=== PATIENT | male | born 1965 | race African-American/Black ===

== ENCOUNTER 2017-01-29 13:34 | Inpatient (IN) | payer BC, OTHER ==
[2017-01-29 14:07] VITALS: BMI 43.5
--- NOTE | 2017-01-29 17:04 | PDOC ---
[id number]: SOB Time Seen by Provider: 01/29/17 16:54 History Source: Patient Exam Limitations: No Limitations - History of Present Illness Initial Comments: 01/29/17 18:13 51y M hx of hl, htn, ckd presents with CARRENO/sob, the patient states that for the past week, he has felt very sob when he was walking up stairs. the pt does endorse a mild productive cough of whitish sputum, no signs of blood. There is no associated chest pain, palppitations, n/v, diaphoresis, abd pain, back pain, leg swelling. Pt denies smoking, drug use. Pt stats he had a sister with hx of PE and is on coumadin. 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 Denies any history of leg/calf pain. No current pain/swelling. Past History - Past Medical History Allergies/Adverse Reactions: Allergies Allergy/AdvReac Type Severity Reaction Status Date / Time aspirin AdvReac Mild "BACK Verified 01/29/17 14:04 STARTS TO HURT" Home Medications: Ambulatory Orders Sitagliptin Phosphate [Januvia] 25 mg PO DAILY 03/29/14 Enalapril Maleate [Vasotec -] 10 mg PO DAILY 01/23/16 Glipizide [Glipizide ER] 10 mg PO DAILY 01/23/16 Atorvastatin Ca [Lipitor] 10 mg PO HS 01/29/17 Cholecalciferol (Vitamin D3) [Vitamin D3 -] 4,000 unit PO DAILY 01/29/17 Metoprolol Succinate [Toprol XL -] 25 mg PO DAILY #30 tab.sr.24h 01/31/17 Rivaroxaban [Xarelto -] 15 mg PO BID #42 tab 01/31/17 Anemia: No Asthma: No Cancer: No Cardiac Disorders: No CVA: No COPD: No DVT: No Dementia: No Diabetes: No Dialysis: No GI Disorders: No Disorders: No HTN: No Hypercholesterolemia: No HIV: No Kidney Stones: No Liver Disease: No Psychiatric Problems: No Seizures: No Thyroid Disease: No Lung CA: No - Surgical History Lung Surgery: No Neurologic Surgery: No - Psycho/Social/Smoking Cessation Hx Anxiety: No Suicidal Ideation: No Smoking Status: No Smoking History: Never smoked Have you smoked in the past 12 months: No Number of Cigarettes Smoked Daily: 0 'Breaking Loose' booklet given: 03/29/14 Hx Alcohol Use: No Drug/Substance Use Hx: No Review of Systems - Review of Systems Able to Perform ROS?: Yes Comments:: 01/29/17 18:15 Constitutional - no reported Fever, Chills, weakness, HEENT: no reported vision changes, sore throat Respiratory: +CARRENO/sob, cough, no reported hemoptysis Cardiac: no reported chest pain, palpitations, light headedness, leg swelling Abd/GI: no reported abd pain, nausea, vomiting, blood per rectum, melena, diarrhea : no reported dysuria, frequency, discharge Musculskelatal - no reported back pain, joint swelling skin - no reported bruising, erythema, rash neurological: no reported headache, numbness, focal weakness, tingling, ataxia, weakness hematologic: no reported anemia, easy bruising, easy bleeding *Physical Exam - Vital Signs Last Vital Signs Temp Pulse Resp BP Pulse Ox 98.3 F 93 H 20 158/92 95 01/29/17 14:04 01/29/17 14:04 01/29/17 14:04 01/29/17 14:04 01/29/17 14:04 - Physical Exam Comments: 01/29/17 18:15 GENERAL: The patient is awake, alert, and fully oriented, Nontoxic - in no acute distress. HEAD: Normocephalic, atraumatic. EYES: extraocular movements intact, sclera anicteric, conjunctiva clear. ENT: Normal voice, Moist mucous membranes. NECK: Normal range of motion, supple LUNGS: Breath sounds equal, clear to auscultation bilaterally. No wheezes, no rhonchi, no rales. HEART: Regular rate and rhythm, normal S1 and S2 without murmur, rub or gallop. ABDOMEN: Soft, nontender, normoactive bowel sounds. No guarding, no rebound. No CVA tenderness EXTREMITIES: Normal range of motion, +1 pitting bl LE edema. NEUROLOGICAL: No facial assymetry, Normal speech, PSYCH: Normal mood, normal affect. SKIN: Warm, Dry, normal turgor, Heart Score/ECG Review - ECG Impressions Comment:: 01/29/17 19:53 Twelve-lead EKG was performed and reviewed by me. There is normal sinus rhythm with a normal rate. Rate of 73 The axis is normal. The intervals are normal. There is normal R wave progression There are no ST or T wave abnormalities. Impression: Normal twelve-lead EKG ED Treatment Course - LABORATORY CBC & Chemistry Diagram: 01/31/17 05:50 01/31/17 05:50 Medical Decision Making - Medical Decision Making 01/29/17 18:13 differential for the pts symptoms includes worsening ckd, chf, uri, pe, acs, anemia will ck labs, trops, bnp, d-dimer, cxr, ekg if all neg, pt may benefit from echo 01/29/17 19:52 pt signed out to dr. newell to fu with labs if all neg, will obs for echo in AM. *DC/Admit/Observation/Transfer Diagnosis at time of Disposition: Dyspnea, CKD (chronic kidney disease) - Discharge Dispostion Disposition: HOME Condition at time of disposition: Stable - Prescriptions
[2017-01-29 19:07] LABS: BASOPHIL 0.8 % (0-2.0); MCH 24.6 pg (25.7-33.7); MEAN CELL VOLUME 76.8 fl (80-96); MEAN PLT VOLUME 9.2 fl (7.5-11.1); NEUTROPHILS 67.7 % (42.8-82.8); PLATELET COUNT 149 K/MM3 (134-434); RDW 16.5 % (11.9-15.9); WHITE BLOOD COUNT 8.9 K/mm3 (4.0-10.0)
[2017-01-29 19:55] LABS: ALBUMIN 3.2 g/dl (3.4-5.0); BILIRUBIN,TOTAL 0.3 mg/dL (0.2-1.0); CALCIUM 8.6 mg/dL (8.5-10.1); CREATININE 1.9 mg/dL (0.7-1.3); TOT PROT 7.3 g/dl (6.4-8.2)
[2017-01-29 20:34] LABS: INR 1.04 (0.82-1.09); PROTHROMBIN TIME (PATIENT) 11.4 SEC (9.98-11.88)
[2017-01-29 20:41] LABS: TROPONIN I 0.77 ng/ml (0.00-0.05)
[2017-01-29] MEDS ORDERED: SODIUM CHLORIDE 1,000 ML IV STA (21:02)
--- NOTE | 2017-01-29 21:26 | PDOC ---
*Physical Exam - Vital Signs Last Vital Signs Temp Pulse Resp BP Pulse Ox 98.3 F 93 H 20 158/92 95 01/29/17 14:04 01/29/17 14:04 01/29/17 14:04 01/29/17 14:04 01/29/17 14:04 <Shubham Hummel - Last Filed: 01/29/17 21:25> - Vital Signs Last Vital Signs Temp Pulse Resp BP Pulse Ox 98.3 F 93 H 20 158/92 95 01/29/17 14:04 01/29/17 14:04 01/29/17 14:04 01/29/17 14:04 01/29/17 14:04 <Alaina Matthews - Last Filed: 01/30/17 02:28> ED Treatment Course - LABORATORY CBC & Chemistry Diagram: 01/29/17 18:36 01/29/17 18:36 - ADDITIONAL ORDERS Additional order review: Laboratory Results 01/29/17 01/29/17 01/29/17 18:36 18:36 18:36 INR 1.04 D-Dimer > 5000 H Sodium 141 Potassium 4.7 Chloride 108 H Carbon Dioxide 24 Anion Gap 9 BUN 31 H Creatinine 1.9 H Creat Clearance w eGFR 37.41 Random Glucose 86 D Calcium 8.6 Total Bilirubin 0.3 AST 27 D ALT 26 D Alkaline Phosphatase 73 D Creatine Kinase 383 H CK-MB (CK-2) 4.488 H Troponin I 0.77 H* B-Natriuretic Peptide 958.22 H Total Protein 7.3 Albumin 3.2 L 01/29/17 18:36 RBC 5.76 H MCV 76.8 L MCHC 32.0 RDW 16.5 H D MPV 9.2 D Neutrophils % 67.7 D Lymphocytes % 16.2 D Monocytes % 10.3 H Eosinophils % 5.0 H D Basophils % 0.8 - RADIOLOGY Radiology Studies Ordered: Category Date Time Status CHEST CTA [CT] Stat CT Scan 01/29/17 20:22 Ordered <Shubham Hummel - Last Filed: 01/29/17 21:25> - LABORATORY CBC & Chemistry Diagram: 01/29/17 18:36 01/29/17 18:36 - ADDITIONAL ORDERS Additional order review: Laboratory Results 01/29/17 01/29/17 01/29/17 18:36 18:36 18:36 INR 1.04 D-Dimer > 5000 H Sodium 141 Potassium 4.7 Chloride 108 H Carbon Dioxide 24 Anion Gap 9 BUN 31 H Creatinine 1.9 H Creat Clearance w eGFR 37.41 Random Glucose 86 D Calcium 8.6 Total Bilirubin 0.3 AST 27 D ALT 26 D Alkaline Phosphatase 73 D Creatine Kinase 383 H CK-MB (CK-2) 4.488 H Troponin I 0.77 H* B-Natriuretic Peptide 958.22 H Total Protein 7.3 Albumin 3.2 L 01/29/17 18:36 RBC 5.76 H MCV 76.8 L MCHC 32.0 RDW 16.5 H D MPV 9.2 D Neutrophils % 67.7 D Lymphocytes % 16.2 D Monocytes % 10.3 H Eosinophils % 5.0 H D Basophils % 0.8 - RADIOLOGY Radiograph Interpretation: 01/30/17 02:27 EXAM: Venous duplex bilateral lower extremities Reviewed by Imaging director selection and administration: FINDINGS: There is no DVT in the right lower extremity. There is nearly occlusive thrombus in the left popliteal vein. No additional clot identified in the left lower extremity. IMPRESSION: DVT in the left popliteal vein. <Alaina Matthews - Last Filed: 01/30/17 02:28> Medical Decision Making - Medical Decision Making 01/29/17 21:[address] Daniel Shell (via office: [phone]) several times with no response. Decision was made to admit to hospitalist. 01/29/17 21:34 Dr. Shell responded back at 21:34 and patient's case was discussed. <Alaina Matthews - Last Filed: 01/30/17 02:28> *DC/Admit/Observation/Transfer - Discharge Dispostion Admit: Yes <Shubham Hummel - Last Filed: 01/29/17 21:25> <Alaina Matthews - Last Filed: 01/30/17 02:28> Diagnosis at time of Disposition: Dyspnea Qualifiers: Dyspnea type: dyspnea on exertion Qualified Code(s): R06.09 - Other forms of dyspnea CKD (chronic kidney disease) Qualifiers: Chronic kidney disease stage: stage 1 Qualified Code(s): N18.1 - Chronic kidney disease, stage 1 - Referrals
--- NOTE | 2017-01-29 23:01 | HP ---
CHIEF COMPLAINT: Shortness of breath PCP: Dr. Chris Hair (Renal) Dr. Wadsworth ( Endocrinology) Dr. Del Rio (Ophthalmology) Dr. Parry HISTORY OF PRESENT ILLNESS: Patient is a 51-year-old male presented to the ED with the chief complaints of shortness of breath since a week. As per the patient, he started having shortness of breath with exertion even with one flight of stairs, progressively getting worse associated with cough x 2 weeks, producing phlegm, whitish in color. Patient said he has had periodic cough on/off but not so severe as he has now. Denies chest pain, cough, palpitation, orthopnea, PND, Fever, chills, rigors or sweating. Had loose stool x once this morning. Otherwise doesn't have h/o diarrhoea or constipation. 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 Also developed wound on the base of the right great toe 3 months ago. He had the wound debridement 2 months ago and has a scheduled appointment with Dr. Parry. Last HbA1c 6 months ago was 8.1 and he says he is compliant with medication. Has never had an echo or any cardiac work up. Patient has had diabetic retinopathy (has undergone laser therapy multiple times ) and visits Dr. Del Rio's office regularly. Sleep/Appetite normal. ER course was notable for: (1) Afebrile; hemodynamically stable, creatinine 1.9/37.41 GFR (baseline creatinine 1.9 since 2010); Troponin 0.77; BNP-958.22 (2) Duplex of bilateral lower extremity: Left lower extremity DVT (3) IV NS; Lovenox 120 mg sq Recent Travel: None PAST MEDICAL HISTORY: Hypertension, Hyperlipidemia, CKD, DM (since 20 years) PAST SURGICAL HISTORY: Laser surgeries for eyes Social History: Smoking: Denies Alcohol:Denies Drugs: Denies Family History: Mother of [place] @ age 83 years; Father of [place] at age 67; one sister has a h/o PE with multiple sclerosis and the other has a h/o DVT Allergies aspirin Adverse Reaction (Mild, Verified 01/29/17 14:04) "BACK STARTS TO HURT" HOME MEDICATIONS: Home Medications Medication Instructions Recorded Sitagliptin Phosphate [Januvia] 25 mg PO DAILY 03/29/14 Enalapril Maleate [Vasotec -] 10 mg PO DAILY 01/23/16 Glipizide [Glipizide ER] 10 mg PO DAILY 01/23/16 Atorvastatin Ca [Lipitor] 10 mg PO HS 01/29/17 Cholecalciferol (Vitamin D3) 4,000 unit PO DAILY 01/29/17 [Vitamin D3 -] REVIEW OF SYSTEMS CONSTITUTIONAL: Absent: fever, chills, diaphoresis, generalized weakness, malaise, loss of appetite, weight change HEENT: Absent: rhinorrhea, nasal congestion, throat pain, throat swelling, difficulty swallowing, mouth swelling, ear pain, eye pain, visual changes CARDIOVASCULAR: Absent: chest pain, syncope, palpitations, irregular heart rate, lightheadedness , peripheral edema RESPIRATORY: Present: cough, shortness of breath, dyspnea with exertion, Absent:orthopnea, wheezing, stridor, hemoptysis GASTROINTESTINAL: Absent: abdominal pain, abdominal distension, nausea, vomiting, diarrhea, constipation, melena, hematochezia GENITOURINARY: Absent: dysuria, frequency, urgency, hesitancy, hematuria, flank pain, genital pain MUSCULOSKELETAL: Absent: myalgia, arthralgia, joint swelling, back pain, neck pain SKIN: Absent: rash, itching, pallor HEMATOLOGIC/IMMUNOLOGIC: Absent: easy bleeding, easy bruising, lymphadenopathy, frequent infections ENDOCRINE: Absent: unexplained weight gain, unexplained weight loss, heat intolerance, cold intolerance NEUROLOGIC: Absent: headache, focal weakness or paresthesias, dizziness, unsteady gait, seizure, mental status changes, bladder or bowel incontinence PSYCHIATRIC: Absent: anxiety, depression, suicidal or homicidal ideation, hallucinations. PHYSICAL EXAMINATION GENERAL: Morbidly obese male, lying comfortably in bed, Awake, alert, and fully oriented, in no acute distress. HEAD: Normal with no signs of trauma. EYES: EOM intact, no pallor or icterus EARS, NOSE, THROAT: Ears danitza. Moist mucous membranes. NECK: Supple. LUNGS: Breath sounds equal, clear to auscultation bilaterally. No wheezes, and no crackles. No accessory muscle use. HEART: Regular rate and rhythm, normal S1 and S2 without murmur. ABDOMEN: Soft, nontender, not distended, normoactive bowel sounds, no guarding, no rebound, no masses. No hepatomegaly or splenomegaly. MUSCULOSKELETAL: Normal range of motion at all joints. No bony deformities or tenderness. No CVA tenderness. UPPER EXTREMITIES: 2+ pulses, warm, well-perfused. No cyanosis. No clubbing. No peripheral edema. LOWER EXTREMITIES: 2+ pulses, warm, well-perfused. Left homans sign positive. B/ L pitting edema upto the mid forrest R>L Around 2x4cm ulcer at the base of the right great toe, dry, no serosanguinous fluid NEUROLOGICAL: Cranial nerves II-XII intact. Normal speech.Gait not observed. PSYCHIATRIC: Cooperative. Good eye contact. Appropriate mood and affect. SKIN: Warm, dry, normal turgor, no rashes or lesions noted, normal capillary refill. ASSESSMENT/PLAN: Patient is a 51-year-old male with significant past medical history of Hypertension, Hyperlipidemia, CKD, DM (since 20 years) presented to the ED with the chief complaints of shortness of breath since a week. 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 On arrival, patient was Afebrile; hemodynamically stable, creatinine 1.9/ 37.41 GFR (baseline creatinine 1.9 since 2010); Troponin 0.77; Duplex of bilateral lower extremity: Left lower extremity DVT In the ED, patient received IV NS; Lovenox 120 mg sq Admitted in Tele Chest CTA couldn't be done as patient as Acute on chronic CKD Starting Heparin drip as per protocol from 11:30am since he received lovenox in the ED Monitor bleeding Pulmonary consult for Possible V/Q scan NPO # Hypertension/ Hyperlipidemia Continue home meds once he takes orally # DM Insulin sliding scale Finger stick glucose monitoring HbA1c ordered # Possible CHF SOB, B/L lower extremity edema with a BNP of 958.22 ECHO ordered # NSTEMI Rising troponin 0.77----> Anticoagulated with Lovenox and on heparin drip Cardiology consult # FEN IV Fluids Electrolytes to be repeated in am NPO # Prophylaxis For DVT: On anticoagulation as mentioned above For GI: Not indicated # Code status: Full code # Dispo: Admitted in Tele. Duration of stay unknown Illness, Investigation and Plan of care explained to the patient. He verbalized understanding. Case discussed with Dr. Burrows. Visit type - Emergency Visit Emergency Visit: Yes ED Registration Date: 01/29/17 Care time: The patient presented to the Emergency Department on the above date and was hospitalized for further evaluation of their emergent condition. - New Patient This patient is new to me today: Yes Date on this admission: 01/31/17 - Critical Care Critical Care patient: No
[2017-01-29] MEDS ORDERED: ENOXAPARIN NA (PORCINE) 60 MG/0.6 ML DISP.SYRIN SQ ONE (23:37)
[2017-01-29] MEDS ORDERED: SODIUM CHLORIDE 1,000 ML IV SCH (23:45)
[2017-01-29] MEDS ORDERED: ENOXAPARIN NA (PORCINE) 120 MG/0.8 ML DISP.SYRIN SQ SCH (23:45)
[2017-01-29] MEDS ORDERED: ENOXAPARIN NA (PORCINE) 120 MG/0.8 ML DISP.SYRIN SQ ONE (23:45)
--- NOTE | 2017-01-29 23:52 | PN ---
<Elan Sellers - Last Filed: 01/30/17 01:31> Teaching Attending Note ATTENDING PHYSICIAN STATEMENT I saw and evaluated the patient. I reviewed the resident's note and discussed the case with the resident. I agree with the resident's findings and plan as documented. SUBJECTIVE: The patient is a 51 year old male with a past medical history of diabetes, hyperlipidemia, hypertension, and CKD who presented with dyspnea on exertion for one week. The patient noted that he becomes very short of breath after walking up a flight of stairs. The patient reported associated productive cough with white sputum. 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 He denied any associated chest pain, palpitations, nausea, vomiting, diaphoresis , abdominal pain, back pain, sore throat, body aches, nasal congestion, fever, nausea, vomiting, diarrhea, and constipation. PCP: Dr. Shell [phone] NEPHROLOGY: Dr. Rodrigo Hair PAST MEDICAL HISTORY: Diabetes, hyperlipidemia, hypertension, CKD PAST SURGICAL HISTORY: No significant history reported FAMILY HISTORY: Sister with history of PE (on coumadin) SOCIAL HISTORY: Patient denied smoking and drug use. Rare alcohol use. MEDICATIONS: Reviewed ALLERGIES: As per nursing notes OBJECTIVE: Vital Signs: Last Vital Signs Temp Pulse Resp BP Pulse Ox 98.3 F 93 H 20 158/92 95 01/29/17 14:04 01/29/17 14:04 01/29/17 14:04 01/29/17 14:04 01/29/17 14:04 Physical Exam: GENERAL: (+) Obese male. Awake, alert, and fully oriented, in no acute distress HEENT: Atraumatic. PERRLA, EOMI. Moist mucosa. No JVD LUNGS: No distress, speaks full sentences, clear to auscultation bilaterally HEART: Regular rate and rhythm, normal S1 and S2, no murmurs, rubs or gallops, peripheral pulses normal and equal bilaterally. ABDOMEN: Soft, nontender, normoactive bowel sounds. No guarding, no rebound. No masses EXTREMITIES: 1+ edema of right leg and trace edema of left leg. No calf tenderness. Normal inspection, Normal range of motion, No clubbing or cyanosis. NEUROLOGICAL: Cranial nerves II through XII grossly intact. Normal speech, normal gait, no focal sensorimotor deficits SKIN: Warm, Dry, normal turgor, no rashes or lesions noted. Labs: CBCD WBC 8.9 K/mm3 (4.0-10.0) 01/29/17 18:36 RBC 5.76 M/mm3 (4.00-5.60) H 01/29/17 18:36 Hgb 14.1 GM/dL (11.7-16.9) 01/29/17 18:36 Hct 44.2 % (35.4-49) 01/29/17 18:36 MCV 76.8 fl (80-96) L 01/29/17 18:36 MCHC 32.0 g/dl (32.0-35.9) 01/29/17 18:36 RDW 16.5 % (11.9-15.9) H D 01/29/17 18:36 Plt Count 149 K/MM3 (134-434) 01/29/17 18:36 MPV 9.2 fl (7.5-11.1) D 01/29/17 18:36 CMP Sodium 141 mmol/L (136-145) 01/29/17 18:36 Potassium 4.7 mmol/L (3.5-5.1) 01/29/17 18:36 Chloride 108 mmol/L (98-107) H 01/29/17 18:36 Carbon Dioxide 24 mmol/L (21-32) 01/29/17 18:36 Anion Gap 9 (8-16) 01/29/17 18:36 BUN 31 mg/dL (7-18) H 01/29/17 18:36 Creatinine 1.9 mg/dL (0.7-1.3) H 01/29/17 18:36 Creat Clearance w eGFR 37.41 (>60) 01/29/17 18:36 Calcium 8.6 mg/dL (8.5-10.1) 01/29/17 18:36 Total Bilirubin 0.3 mg/dL (0.2-1.0) 01/29/17 18:36 AST 27 U/L (15-37) D 01/29/17 18:36 ALT 26 U/L (12-78) D 01/29/17 18:36 Alkaline Phosphatase 73 U/L (45-117) D 01/29/17 18:36 Total Protein 7.3 g/dl (6.4-8.2) 01/29/17 18:36 Albumin 3.2 g/dl (3.4-5.0) L 01/29/17 18:36 Imaging: Chest X-Ray. Impression: No official read. No acute findings. ASSESSMENT AND PLAN: The patient is a 51 year old male with a past medical history of diabetes, hyperlipidemia, hypertension, and CKD who presented with dyspnea on exertion for one week. 1. Dyspnea on exertion with elevated D-dimer and troponin -r/o PE Unable to do chest CTA secondary to CKD Will treat empirically with heparin IV drip Leg dopplers to evaluate for DVT Pulmonary consult -r/o NSTEMI Monitor on telemetry Serial troponins ECHO Cardiology consult 2. Diabetes type II -finger sticks with Novolog sliding scale 3. Hypertension -continue Vasotec 4. Hyperlipidemia -Continue Lipitor Admit to med surg. Documentation prepared by Elan Sellers, acting as medical affairs director for Dr. Wojciech Burrows MD. <Wojciech Burrows - Last Filed: 01/30/17 01:33> Teaching Attending Note Name of Resident: Misti Tovar ATTENDING PHYSICIAN STATEMENT I saw and evaluated the patient. I reviewed the resident's note and discussed the case with the resident. I agree with the resident's findings and plan as documented.
[2017-01-30] MEDS ORDERED: HEPARIN NA (PORCINE) 5,000 UNITS/ML 1ML VIAL IVPUSH PRN ×4 (00:25→11:30)
[2017-01-30 06:07] LABS: BASOPHIL 0.7 % (0-2.0); EOSINOPHIL 5.7 % (0-4.5); MCH 24.6 pg (25.7-33.7); MCHC 32.1 g/dl (32.0-35.9); MEAN CELL VOLUME 76.5 fl (80-96); MEAN PLT VOLUME 8.8 fl (7.5-11.1); NEUTROPHILS 65.5 % (42.8-82.8); PLATELET COUNT 119 K/MM3 (134-434); RDW 16.1 % (11.9-15.9); WHITE BLOOD COUNT 7.5 K/mm3 (4.0-10.0)
[2017-01-30 06:39] LABS: ALBUMIN 2.7 g/dl (3.4-5.0); MAGNESIUM 1.9 mg/dL (1.8-2.4)
[2017-01-30 06:44] LABS: BILIRUBIN,TOTAL 0.3 mg/dL (0.2-1.0); CREATININE 1.6 mg/dL (0.7-1.3); PHOSPHOROUS 3.6 mg/dL (2.5-4.9); TOT PROT 6.1 g/dl (6.4-8.2)
--- NOTE | 2017-01-30 10:00 | CON.CARD ---
Consult Consult Specialty:: Cardiology - History of Present Illness Chief Complaint: sob History of Present Illness: 51y M hx of hl, htn, ckd presents with CARRENO/sob, the patient states that for the past week, he has felt very sob when he was walking up stairs. the pt does endorse a mild productive cough of whitish sputum, no signs of blood. There is no associated chest pain, palppitations, n/v, diaphoresis, abd pain, back pain, leg swelling. Pt denies smoking, drug use. Pt stats he had a sister with hx of PE and is on coumadin. 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 Denies any history of leg/calf pain. No current pain/swelling. - History Source History Provided By: Patient, Medical Record - Alcohol/Substance Use Hx Alcohol Use: No - Smoking History Smoking history: Never smoked Have you smoked in the past 12 months: No Aproximately how many cigarettes per day: 0 Home Medications - Allergies Allergies/Adverse Reactions: Allergies Allergy/AdvReac Type Severity Reaction Status Date / Time aspirin AdvReac Mild "BACK Verified 01/29/17 14:04 STARTS TO HURT" - Home Medications Home Medications: Ambulatory Orders Sitagliptin Phosphate [Januvia] 25 mg PO DAILY 03/29/14 Enalapril Maleate [Vasotec -] 10 mg PO DAILY 01/23/16 Glipizide [Glipizide ER] 10 mg PO DAILY 01/23/16 Atorvastatin Ca [Lipitor] 10 mg PO HS 01/29/17 Cholecalciferol (Vitamin D3) [Vitamin D3 -] 4,000 unit PO DAILY 01/29/17 Review of Systems - Review of Systems Constitutional: reports: No Symptoms Eyes: reports: No Symptoms HENT: reports: No Symptoms Neck: reports: No Symptoms Cardiovascular: reports: No Symptoms Respiratory: reports: SOB Gastrointestinal: reports: No Symptoms Genitourinary: reports: No Symptoms Breasts: reports: No Symptoms Reported Musculoskeletal: reports: No Symptoms Integumentary: reports: No Symptoms Neurological: reports: No Symptoms Endocrine: reports: No Symptoms Hematology/Lymphatic: reports: No Symptoms Psychiatric: reports: No Symptoms Vital Signs: Vital Signs Temperature 98.3 F 01/29/17 14:04 Pulse Rate 68 01/30/17 07:35 Respiratory Rate 19 01/30/17 07:35 Blood Pressure 153/89 01/30/17 07:35 O2 Sat by Pulse Oximetry (%) 95 01/30/17 07:35 Constitutional: Yes: Well Nourished, No Distress, Calm Eyes: Yes: WNL, Conjunctiva Clear, EOM Intact HENT: Yes: WNL, Atraumatic, Normocephalic Neck: Yes: WNL, Supple, Trachea Midline Respiratory: Yes: WNL, Regular, CTA Bilaterally Gastrointestinal: Yes: WNL, Normal Bowel Sounds Renal/: Yes: WNL Cardiovascular: Yes: WNL, Regular Rate and Rhythm Musculoskeletal: Yes: WNL Extremities: Yes: WNL Edema: LLE: 2+, RLE: 2+ Integumentary: Yes: WNL Neurological: Yes: WNL, Alert, Oriented ...Motor Strength: WNL Psychiatric: Yes: WNL, Alert, Oriented - Other Data Labs, Other Data: CBC, BMP 01/30/17 05:30 01/30/17 05:30 INR, PTT INR 1.04 (0.82-1.09) 01/29/17 18:36 Troponin, BNP 01/30/17 05:30 Troponin I 0.31 H D Troponin, BNP 01/30/17 05:30 Troponin I 0.31 H D Imaging - Results Chest X-ray: Image Reviewed (no i/e) EKG: Image Reviewed (sr wnl) Problem List - Problems (1) CKD (chronic kidney disease) Code(s): N18.9 - CHRONIC KIDNEY DISEASE, UNSPECIFIED Qualifiers: Chronic kidney disease stage: stage 1 Qualified Code(s): N18.1 - Chronic kidney disease, stage 1 (2) Dyspnea Code(s): R06.00 - DYSPNEA, UNSPECIFIED Qualifiers: Dyspnea type: dyspnea on exertion Qualified Code(s): R06.09 - Other forms of dyspnea (3) Lower back pain Code(s): M54.5 - LOW BACK PAIN (4) Nausea vomiting and diarrhea Code(s): R11.2 - NAUSEA WITH VOMITING, UNSPECIFIED R19.7 - DIARRHEA, UNSPECIFIED Assessment/Plan dm htn chf cri sob dilated rv on echo r/o PE ?nonstemi plan IV heparine asa bb keep ldl below 70 mg/dl v/q scan If pe r/o will need mibi st 48 -72 hrs post nonstemi
[2017-01-30] MEDS ORDERED: HEPARIN - 25,000 UNIT in SODIUM CHLORIDE 495 ML IV SCH (11:30)
[2017-01-30] MEDS ORDERED: HEPARIN INFUSION - 500 ML IVPB SCH (11:30)
[2017-01-30] MEDS ORDERED: HEPARIN INFUSION - 500 ML IVPB ONE (11:39)
[2017-01-30] MEDS ORDERED: ENALAPRIL MALEATE 10 MG TABLET (FP) PO SCH (11:45)
[2017-01-30] MEDS: HEPARIN - 25,000 UNIT in SODIUM CHLORIDE 495 ML IV SCH (11:50)
[2017-01-30 12:26] LABS: TROPONIN I 0.23 ng/ml (0.00-0.05)
[2017-01-30] MEDS: ENALAPRIL MALEATE 10 MG TABLET (FP) PO SCH (12:45)
[2017-01-30] MEDS ORDERED: ENALAPRIL MALEATE 5 MG TABLET (FP) ONE (12:48)
--- NOTE | 2017-01-30 13:01 | EKG ---
Test Reason : Blood Pressure : / mmHG Vent. Rate : 073 BPM Atrial Rate : 073 BPM P-R Int : 170 ms QRS Dur : 076 ms QT Int : 378 ms P-R-T Axes : 071 044 051 degrees QTc Int : 416 ms NORMAL SINUS RHYTHM NORMAL ECG WHEN COMPARED WITH ECG OF 06-JUL-2013 21:14, NO SIGNIFICANT CHANGE WAS FOUND Confirmed by DEVIN GONZALEZ MD ([id number]) on 01/30/2017 1:01:04 PM Referred By: KYLEE Confirmed By:DEVIN GONZALEZ MD
--- NOTE | 2017-01-30 13:25 | CONSULT ---
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 He was found to have DVT and a V/Q scan with high probability for PE. I was called to evaluate him for elevated creatinine. He follows with Dr Hair. He denies dysuria or hematuria. He feels increased shortness of breath with minimal exertion. He denies fevers or chills. - History Source History Provided By: Patient - Past Medical History Cardio/Vascular: Yes: HTN, Hyperlipdemia Renal/: Yes: Renal Inusuff Endocrine: Yes: Diabetes Mellitus - Alcohol/Substance Use Hx Alcohol Use: No - Smoking History Smoking history: Never smoked Have you smoked in the past 12 months: No Aproximately how many cigarettes per day: 0 Home Medications - Allergies Allergies/Adverse Reactions: Allergies Allergy/AdvReac Type Severity Reaction Status Date / Time aspirin AdvReac Mild "BACK Verified 01/29/17 14:04 STARTS TO HURT" - Home Medications Home Medications: Ambulatory Orders Sitagliptin Phosphate [Januvia] 25 mg PO DAILY 03/29/14 Enalapril Maleate [Vasotec -] 10 mg PO DAILY 01/23/16 Glipizide [Glipizide ER] 10 mg PO DAILY 01/23/16 Atorvastatin Ca [Lipitor] 10 mg PO HS 01/29/17 Cholecalciferol (Vitamin D3) [Vitamin D3 -] 4,000 unit PO DAILY 01/29/17 Family Disease History - Family Disease History Family History: Denies Review of Systems - Review of Systems Constitutional: reports: No Symptoms Eyes: reports: No Symptoms HENT: reports: No Symptoms Neck: reports: No Symptoms Cardiovascular: reports: Shortness of Breath Respiratory: reports: Exercise Intolerance, SOB, SOB on Exertion Gastrointestinal: reports: No Symptoms Genitourinary: reports: No Symptoms Musculoskeletal: reports: Extremity Pain Neurological: reports: No Symptoms Endocrine: reports: No Symptoms Hematology/Lymphatic: reports: No Symptoms Psychiatric: reports: No Symptoms Physical Exam Vital Signs: Vital Signs Temperature 98.3 F 01/29/17 14:04 Pulse Rate 71 01/30/17 11:30 Respiratory Rate 16 01/30/17 11:30 Blood Pressure 152/95 01/30/17 11:30 O2 Sat by Pulse Oximetry (%) 97 01/30/17 11:30 Constitutional: Yes: Calm Eyes: Yes: Conjunctiva Clear HENT: Yes: Atraumatic Cardiovascular: Yes: S1, S2 Respiratory: Yes: Regular Gastrointestinal: Yes: Soft, Abdomen, Obese Renal/: Yes: WNL Musculoskeletal: Yes: WNL Edema: Yes Edema: LLE: 1+, RLE: 1+ Neurological: Yes: Oriented Psychiatric: Yes: Oriented Labs: CBC, BMP 01/30/17 05:30 01/30/17 05:30 Laboratory Tests 10/29/10 10/30/10 10/31/10 12:15 18:15 07:45 WBC Hgb Plt Count D-Dimer BUN Creatinine 1.9 H D 1.9 H 1.6 H 07/06/13 07/06/13 01/23/16 19:30 21:42 23:00 WBC Hgb Plt Count D-Dimer BUN Creatinine 2.4 H 2.1 H 1.9 H 01/29/17 01/29/17 01/30/17 18:36 18:36 05:30 WBC Hgb Plt Count D-Dimer > 5000 H BUN 27 H Creatinine 1.9 H 1.6 H 01/30/17 16:40 WBC 7.6 Hgb 13.1 Plt Count 139 D-Dimer BUN Creatinine Imaging - Results Chest X-ray: Report Reviewed Ultrasound: Report Reviewed (dvt in left popliteal vein) Other: Report Reviewed (v/q scan high prob PE) Problem List - Problems (1) CKD (chronic kidney disease) Code(s): N18.9 - CHRONIC KIDNEY DISEASE, UNSPECIFIED Qualifiers: Chronic kidney disease stage: stage 1 Qualified Code(s): N18.1 - Chronic kidney disease, stage 1 (2) DVT (deep venous thrombosis) Code(s): I82.409 - ACUTE EMBOLISM AND THOMBOS UNSP DEEP VN UNSP LOWER EXTREMITY (3) Morbid obesity due to excess calories Code(s): E66.01 - MORBID (SEVERE) OBESITY DUE TO EXCESS CALORIES (4) Pulmonary embolism Code(s): I26.99 - OTHER PULMONARY EMBOLISM WITHOUT ACUTE COR PULMONALE (5) Diabetes 1.5, managed as type 2 Code(s): E13.9 - OTHER SPECIFIED DIABETES MELLITUS WITHOUT COMPLICATIONS (6) Hypertension Code(s): I10 - ESSENTIAL (PRIMARY) HYPERTENSION Assessment/Plan Current Medications Generic Name Dose Route Start Last Admin Trade Name Davi PRN Reason Stop Dose Admin Aspirin 325 mg 01/30/17 13:30 01/30/17 13:50 Ecotrin - PO 325 mg DAILY ELIZA Administration Atorvastatin Calcium 10 mg 01/30/17 22:00 Lipitor - PO HS ELIZA Enalapril Maleate 10 mg 01/30/17 12:30 01/30/17 12:45 Vasotec - PO 10 mg DAILY ELIZA Administration Heparin Sodium (Porcine) 25, 500 mls @ 20 mls/hr 01/30/17 11:30 01/30/17 13:27 000 unit/ Sodium Chloride IV 1,150 unit/hr TITR ELIZA Titration Protocol 1,000 UNIT/HR Insulin Aspart 1 vial 01/30/17 16:30 01/30/17 17:11 Novolog Vial Sliding Scale - SQ 4 units ACHS ELIZA Administration Protocol Metoprolol Succinate 25 mg 01/30/17 13:30 01/30/17 13:50 Toprol Xl - PO 25 mg DAILY ELIZA Administration Impression 1. CKD stage 3 2. DVT acute 3. Pulmonary Embolism 4. HTN 5. DM 6. hyperlipidemia 7. 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
[2017-01-30] MEDS ORDERED: ASPIRIN 325 MG ENTERIC COATED TABLET (FP) ONE (13:44)
[2017-01-30] MEDS ORDERED: METOPROLOL SUCCINATE 50 MG TAB.SR.24H (FP) ONE (13:44)
[2017-01-30] MEDS: ASPIRIN 325 MG ENTERIC COATED TABLET (FP) PO SCH (13:50)
[2017-01-30] MEDS: METOPROLOL SUCCINATE 25 MG TAB.SR.24H (FP) PO SCH (13:50)
--- NOTE | 2017-01-30 16:01 | PN ---
Progress Note (short form) - Note Progress Note: PULMONARY CONSULTATION DICTATED 01/30/17 IMP ACUTE PULMONARY EMBOLISM/DVT ?UNPROVOKED +FAMILY HX OF PE/DVT,?PROVOKED + SEDENTARY LIFESTYLE DM CKD PLAN IV HEPARIN ECHO NASAL O2 CE IV FLUID THROMBECTOMY IF ECHO REVEALS RV DYSFUNCTION,PULMONARY HTN MONITOR CBC,PLT CT W/U FOR HYPER-COAGULABLE STATE DR DENT Problem List - Problems (1) Pulmonary embolism Code(s): I26.99 - OTHER PULMONARY EMBOLISM WITHOUT ACUTE COR PULMONALE (2) DVT (deep venous thrombosis) Code(s): I82.409 - ACUTE EMBOLISM AND THOMBOS UNSP DEEP VN UNSP LOWER EXTREMITY (3) Morbid obesity due to excess calories Code(s): E66.01 - MORBID (SEVERE) OBESITY DUE TO EXCESS CALORIES
[2017-01-30] MEDS ORDERED: INSULIN (NOVOLOG) ASPART 100 UNITS/ML 10ML VIAL ONE (16:42)
[2017-01-30 16:59] LABS: MCH 24.5 pg (25.7-33.7); MCHC 32.1 g/dl (32.0-35.9); MEAN CELL VOLUME 76.1 fl (80-96); MEAN PLT VOLUME 8.5 fl (7.5-11.1); PLATELET COUNT 139 K/MM3 (134-434); RDW 16.3 % (11.9-15.9); WHITE BLOOD COUNT 7.6 K/mm3 (4.0-10.0)
[2017-01-30] MEDS: INSULIN SLIDING SCALE (NOVOLOG) 1 VIAL SQ SCH ×2 (17:11→22:07)
--- NOTE | 2017-01-30 17:39 | PN ---
Physical Exam: SUBJECTIVE: Patient seen and examined. He is laying flat in bed without distress. He denies lower ext pain. He wants to leave by Saturday. OBJECTIVE: Vital Signs Period Temp Pulse Resp BP Sys/Toribio Pulse Ox Last 24 Hr 98.4 F 68-85 16-19 150-153/77-95 95-97 PE Neuro: alert, awake, cn 2-12intact Pulm: CTAB CV: s1 s2 rrr no mrg Abd: s nt nd + bs Ext: RLE +3 pitting edema, LLE +2 pitting edema CBCD WBC 7.6 K/mm3 (4.0-10.0) 01/30/17 16:40 RBC 5.34 M/mm3 (4.00-5.60) 01/30/17 16:40 Hgb 13.1 GM/dL (11.7-16.9) 01/30/17 16:40 Hct 40.7 % (35.4-49) 01/30/17 16:40 MCV 76.1 fl (80-96) L 01/30/17 16:40 MCHC 32.1 g/dl (32.0-35.9) 01/30/17 16:40 RDW 16.3 % (11.9-15.9) H 01/30/17 16:40 Plt Count 139 K/MM3 (134-434) 01/30/17 16:40 MPV 8.5 fl (7.5-11.1) 01/30/17 16:40 CMP Sodium 142 mmol/L (136-145) 01/30/17 05:30 Potassium 4.5 mmol/L (3.5-5.1) 01/30/17 05:30 Chloride 114 mmol/L (98-107) H 01/30/17 05:30 Carbon Dioxide 20 mmol/L (21-32) L 01/30/17 05:30 Anion Gap 8 (8-16) 01/30/17 05:30 BUN 27 mg/dL (7-18) H 01/30/17 05:30 Creatinine 1.6 mg/dL (0.7-1.3) H 01/30/17 05:30 Creat Clearance w eGFR 45.62 (>60) 01/30/17 05:30 Calcium 8.0 mg/dL (8.5-10.1) L 01/30/17 05:30 Total Bilirubin 0.3 mg/dL (0.2-1.0) 01/30/17 05:30 AST 22 U/L (15-37) 01/30/17 05:30 ALT 22 U/L (12-78) 01/30/17 05:30 Alkaline Phosphatase 61 U/L (45-117) 01/30/17 05:30 Total Protein 6.1 g/dl (6.4-8.2) L 01/30/17 05:30 Albumin 2.7 g/dl (3.4-5.0) L 01/30/17 05:30 01/30/17 01/30/17 01/30/17 05:30 05:30 05:30 PTT (Actin FS) Hemoglobin A1c % 9.3 H Creatine Kinase Creatine Kinase Index CK-MB (CK-2) Troponin I 0.31 H D Total LDL Cholesterol 84 HDL Cholesterol 31 L Hep-Induced Plt Ab Rapid 01/30/17 01/30/17 01/30/17 11:40 11:40 16:40 PTT (Actin FS) 36.5 H Hemoglobin A1c % Creatine Kinase 300 D Creatine Kinase Index 1.2 CK-MB (CK-2) 3.760 H Troponin I 0.23 H Total LDL Cholesterol HDL Cholesterol Hep-Induced Plt Ab Rapid Pending Active Medications Generic Name Dose Route Start Last Admin Trade Name Henriqueq PRN Reason Stop Dose Admin Aspirin 325 mg 01/30/17 13:30 01/30/17 13:50 Ecotrin - PO 325 mg DAILY ELIZA Administration Atorvastatin Calcium 10 mg 01/30/17 22:00 Lipitor - PO HS ELIZA Enalapril Maleate 10 mg 01/30/17 12:30 01/30/17 12:45 Vasotec - PO 10 mg DAILY ELIZA Administration Sodium Chloride 1,000 mls @ 100 mls/hr 01/29/17 23:45 01/29/17 23:37 Normal Saline - IV 100 mls/hr ASDIR ELIZA Administration Heparin Sodium (Porcine) 25, 500 mls @ 20 mls/hr 01/30/17 11:30 01/30/17 13:27 000 unit/ Sodium Chloride IV 1,150 unit/hr TITR ELIZA Titration Protocol 1,000 UNIT/HR Insulin Aspart 1 vial 01/30/17 16:30 01/30/17 17:11 Novolog Vial Sliding Scale - SQ 4 units ACHS ELIZA Administration Protocol Metoprolol Succinate 25 mg 01/30/17 13:30 01/30/17 13:50 Toprol Xl - PO 25 mg DAILY ELIZA Administration Assessment: 51 year old male with DM II, hyperlipidemia, HTN, and CKD admitted with dyspnea on exertion for one week. Plan: 1. LLE Popliteal DVT - VQ scan shows high probability of PE - Continue heparin gtt - Heme consult, had family hx of PE - Discussed above with Pulm, may need Pulmonary thrombectomy - ECHO pending r/o RV strain 2. r/o NSTEMI - serial trops down trended - On heparin - Started Metoprolol 25mg daily - Start ASA 325mg daily - Stress test in future - Cardiology following 3. DM II, uncontrolled - Hgb a1c 9.3 - ISS, BGM ACHS - Holding PO antidiabetics 4. RORY on CKD - Cr baseline 1.9 - Continue Enalapril 10mg daily - If thrombectomy needed, will hold JOSY and start fluids 5. HTN - Enalapril 10mg daily 6. HLD - Lipitor 10mg 7. Thrombocytopenia - Repeat CBC stable - Hit ab pending Visit type - Emergency Visit Emergency Visit: Yes ED Registration Date: 01/29/17 Care time: The patient presented to the Emergency Department on the above date and was hospitalized for further evaluation of their emergent condition. - New Patient This patient is new to me today: Yes Date on this admission: 01/30/17 - Critical Care Critical Care patient: No
--- NOTE | 2017-01-30 20:16 | CONSULT ---
Consult - text type - Consultation Consultation Note: 51y M hx of hld, htn, ckd presents with CARRENO/sob, the patient states that for the past week, he has felt very sob when he was walking up stairs. the pt does endorse a mild productive cough of whitish sputum, no signs of hemoptysis. There is no associated chest pain, palpitations, n/v, diaphoresis, abd pain, back pain, leg swelling. Pt denies smoking, drug use. Pt stats he had a sister with hx of PE and is on coumadin. 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 Denies any history of leg/calf pain. No current pain/swelling. - Past Medical History Allergies/Adverse Reactions: Allergies Allergy/AdvReac Type Severity Reaction Status Date / Time aspirin AdvReac Mild "BACK Verified 01/29/17 14:04 STARTS TO HURT" Home Medications: Ambulatory Orders Sitagliptin Phosphate [Januvia] 25 mg PO DAILY 03/29/14 Enalapril Maleate [Vasotec -] 10 mg PO DAILY 01/23/16 Glipizide [Glipizide ER] 10 mg PO DAILY 01/23/16 Atorvastatin Ca [Lipitor] 10 mg PO HS 01/29/17 Cholecalciferol (Vitamin D3) [Vitamin D3 -] 4,000 unit PO DAILY 01/29/17 - Psycho/Social/Smoking Cessation Hx Smoking History: Never smoked - Vital Signs Last Vital Signs Temp Pulse Resp BP Pulse Ox 98.3 F 93 H 20 158/92 95 01/29/17 14:04 01/29/17 14:04 01/29/17 14:04 01/29/17 14:04 01/29/17 14:04 Neck: Supple Nodes: Without adenopathy Cor: RSR, No murmurs, No gallops Lungs: Clear to P&A Abd: Soft, Normal bowel sounds, No organomegaly Ext:No significant edema Abnormal Lab Results 01/29/17 01/30/17 01/30/17 18:36 05:30 05:30 MCV 76.5 L RDW 16.1 H Plt Count 119 L D Monocytes % 11.2 H Eosinophils % 5.7 H PTT (Actin FS) Chloride 108 H 114 H Carbon Dioxide 20 L BUN 31 H 27 H Creatinine 1.9 H 1.6 H Random Glucose 148 H D Hemoglobin A1c % Calcium 8.0 L Creatine Kinase 383 H CK-MB (CK-2) 4.488 H Troponin I 0.77 H* B-Natriuretic Peptide 958.22 H Total Protein 6.1 L Albumin 3.2 L 2.7 L HDL Cholesterol 31 L 01/30/17 01/30/17 01/30/17 05:30 05:30 11:40 MCV RDW Plt Count Monocytes % Eosinophils % PTT (Actin FS) Chloride Carbon Dioxide BUN Creatinine Random Glucose Hemoglobin A1c % 9.3 H Calcium Creatine Kinase CK-MB (CK-2) 3.760 H Troponin I 0.31 H D 0.23 H B-Natriuretic Peptide Total Protein Albumin HDL Cholesterol 01/30/17 01/30/17 01/30/17 11:40 16:40 19:00 MCV 76.1 L RDW 16.3 H Plt Count Monocytes % Eosinophils % PTT (Actin FS) 36.5 H 44.7 H Chloride Carbon Dioxide BUN Creatinine Random Glucose Hemoglobin A1c % Calcium Creatine Kinase CK-MB (CK-2) Troponin I B-Natriuretic Peptide Total Protein Albumin HDL Cholesterol A/P 51 y/o patient with Morbid obesity, DM, Hyperlipidemia, CKD now with left popliteal dvt and high probability PE on v/q scan, on heparin ? unprovoked. 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 pros/cons of each, including lack of antidote for eliquis/xeralto needs close monitoring of renal function if switched to NOAC. given family h/o-( 2sisters)---check thrombophilia--check w/u as out patient age appropriate cancer screening patient to decide on oral a/c. seems to prefer eliquis pulmonary team to evaluate for thrombectomy
--- NOTE | 2017-01-30 21:59 | CONS ---
DATE OF CONSULTATION: 01/30/2017 REFERRING PHYSICIAN: Palmira Duran NP HISTORY OF PRESENT ILLNESS: The patient is a 51-year-old Black male with a past medical history [id number] diabetes mellitus, morbid obesity admitted to [facility] with complaint of 1 week history of increasing shortness of breath and dyspnea on exertion. The patient states he was doing well until a week ago when he started noticing when he would walk he would get markedly dyspneic with minimal exertion. He denied any chest pains or palpitations. Denies any fevers, chills, nausea, vomiting, or diaphoresis. He also noted some increasing left lower extremity edema. He presented to the emergency room this morning. In the ER, he was noted to have a positive Duplex. He was started on heparin. He underwent a V/Q scan which revealed multiple defects, consistent with multiple pulmonary emboli. SOCIAL HISTORY: The patient is a nonsmoker. 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 FAMILY HISTORY: He also does have a family history of 2 sisters one with a DVT and another with a PE maintained on Coumadin. He denies any other family history and he denies any previous history of DVT or PE in the past. There is no history of recent travel. PAST MEDICAL HISTORY: Again, includes diabetes mellitus. REVIEW OF SYSTEMS: Positive dyspnea on exertion. No chest pain, no palpitations. Positive for occasional cough, nonproductive. No hemoptysis. No fever, no chills, no weight loss, no night sweats. No abdominal pain. Positive left lower extremity discomfort, calf discomfort and also chronic right lower extremity edema. CURRENT MEDICATIONS: Include Vasotec, Toprol, and Ecotrin. PHYSICAL EXAMINATION: General: The patient is an obese male, well awake, alert, in no acute distress. Vital Signs: He is currently afebrile. Blood pressure is 150/77, respiratory rate 18, O2 saturation 93% on room air. Weight is 329 pounds. HEENT: Examination is normocephalic, atraumatic. Neck: Supple. Heart: Regular S1, S2. Chest: Clear. Abdomen: Soft, bowel sounds positive. Extremities: Edema bilateral of the lower extremities, right side greater than the left. LABORATORY DATA: WBC is 7.5, hemoglobin 12.7, hematocrit 39.4, with a platelet count of 119,000. D-dimer is greater than 5,000. BUN 27, creatinine 1.6. IMAGING: Chest x-ray reveals no infiltrates and no effusions. Vascular study revealed DVT in the left popliteal vein. Lung scan bilateral segmental defects consistent with pulmonary emboli. IMPRESSION: 1. Bilateral pulmonary emboli, deep venous thrombosis, provoked versus unprovoked in view of family pulmonary emboli and deep venous thromboses. The patient is increased risk secondary to sedentary lifestyle for provoked pulmonary embolism due to sedentary lifestyle. 2. Diabetes mellitus. 3. Renal insufficiency. PLAN: 1. Obtain echocardiogram to evaluate right ventricular function as well as pulmonary artery pressure. If this is elevated, consider thrombectomy. 2. Continue anticoagulation. 3. Workup for hypercoagulable state. 4. Monitor INR, also monitor CBC and platelet count, stool guaiac and cardiac enzymes. CELESTINE DENT M.D. [id number] MTDD
[2017-01-30] MEDS ORDERED: ATORVASTATIN CA 10 MG TABLET (FP) PO SCH (22:00)
[2017-01-31] MEDS: INSULIN SLIDING SCALE (NOVOLOG) 1 VIAL SQ SCH ×3 (06:23→17:05)
[2017-01-31 08:05] LABS: BASOPHIL 0.9 % (0-2.0); MCH 24.7 pg (25.7-33.7); MCHC 32.1 g/dl (32.0-35.9); MEAN CELL VOLUME 76.9 fl (80-96); MEAN PLT VOLUME 8.7 fl (7.5-11.1); NEUTROPHILS 63.3 % (42.8-82.8); PLATELET COUNT 120 K/MM3 (134-434); WHITE BLOOD COUNT 6.8 K/mm3 (4.0-10.0)
[2017-01-31 08:48] LABS: ALBUMIN 2.7 g/dl (3.4-5.0); BILIRUBIN,TOTAL 0.5 mg/dL (0.2-1.0); CALCIUM 8.2 mg/dL (8.5-10.1); CREATININE 1.7 mg/dL (0.7-1.3); TOT PROT 6.1 g/dl (6.4-8.2)
[2017-01-31] MEDS: HEPARIN - 25,000 UNIT in SODIUM CHLORIDE 495 ML IV SCH ×2 (09:39→11:51)
[2017-01-31] MEDS: ASPIRIN 325 MG ENTERIC COATED TABLET (FP) PO SCH (10:07)
[2017-01-31] MEDS: ENALAPRIL MALEATE 10 MG TABLET (FP) PO SCH (10:08)
[2017-01-31] MEDS: METOPROLOL SUCCINATE 25 MG TAB.SR.24H (FP) PO SCH (10:08)
--- NOTE | 2017-01-31 10:11 | CONSULT ---
<Sebastian Yang P - Last Filed: 01/31/17 10:35> - Consultation REQUESTING PROVIDER: Kike Parry / Vascular Surgery CONSULT REQUEST: We have been asked to surgically evaluate this patient for DVT and right great toe ulcer. PCP: Palmira Duran HPI: Called to eval 51yo male with PMHx noted below, admitted to [facility] w/ c/o SOB x1 week. Started with CARRENO while ascending stairs (1 flight). Progressed to cough. In the ER he had a duplex which identified b/l LE DVT. He was administered Lovenox 120mg SQ x1 in ER then started on a heparin drip. Unable to perform CTA due to CKD. A VQ Scan is pending. Also, patient is followed by Dr. Parry as an out-patient for his right great toe ulcer. First started 3 months ago Also developed wound on the base of the right great toe 3 months ago. He had the wound debridement 2 months ago. Never seen by a [employer]. Last HbA1c 6 months ago was 8.1 and he says he is compliant with medication. Denies CP, cough , SOB, palpitation, orthopnea, PND, n/v/f/c or hemoptysis. PMHx: HTN, Hyperlipidemia, CKD, DM, Obesity PSHx: Laser eye surgery. Right great toe debridement HOME MEDS 3 Sitagliptin Phosphate [Januvia] 25 mg PO DAILY 03/29/14 Enalapril Maleate [Vasotec -] 10 mg PO DAILY 01/23/16 Glipizide [Glipizide ER] 10 mg PO DAILY 01/23/16 Atorvastatin Ca [Lipitor] 10 mg PO HS 01/29/17 Cholecalciferol (Vitamin D3) 4,000 unit PO DAILY 01/29/17 Allergies: ASA (back hurts) ROS: CONSTITUTIONAL: Absent: generalized weakness, malaise, loss of appetite, weight change CARDIOVASCULAR: Absent: syncope, irregular heart rate, lightheadedness RESPIRATORY: Absent: wheezing, stridor GASTROINTESTINAL:Absent: constipation, melena, hematochezia GENITOURINARY: Absent: dysuria, frequency, urgency, hesitancy, hematuria, flank pain, genital pain MUSCULOSKELETAL: Absent: myalgia, arthralgia, joint swelling, back pain, neck pain SKIN: Absent: rash, itching, pallor HEMATOLOGIC/IMMUNOLOGIC: Absent: easy bleeding, easy bruising, lymphadenopathy NEUROLOGIC: Absent: headache, focal weakness, paresthesias, dizziness, unsteady gait, seizure, mental status changes PSYCHIATRIC: Absent: anxiety, depression, suicidal or homicidal ideation, hallucinations. PHYSICAL EXAM: GENERAL: Awake, alert, and fully oriented, in no acute distress. HEAD: Normal with no signs of trauma. EYES: PERRL, sclera anicteric, conjunctiva clear. NECK: Normal ROM, supple without lymphadenopathy, JVD, or masses. LUNGS: CTA b/l anteriorly HEART: RRR ABDOMEN: Obese. Soft, nontender, not distended, normoactive bowel sounds, no guarding, no rebound, no masses. No organomegaly. MUSCULOSKELETAL: Normal ROM at all joints. No bony deformities or tenderness. No CVA tenderness. UPPER EXTREMITIES: 2+ pulses, warm, well-perfused. No cyanosis. Cap refill <2 seconds. No peripheral edema. LOWER EXTREMITIES: 2+ pulses, warm, well-perfused. No calf tenderness. RLE +2 edema. Ulcer to right great toe. no soft tissue crepitius. No erythema. No drainage. No foul odor. Woundis approx 2.54 x 3 cm. Stage 2. Clean. Mixed fibrogranular base NEUROLOGICAL: Normal speech, gait not observed. PSYCH: Cooperative. Good eye contact. Appropriate mood and affect. SKIN: Warm, dry, normal turgor, no rashes or lesions noted. Vital Signs Temperature 98.2 F 01/31/17 02:23 Pulse Rate 68 01/31/17 02:23 Respiratory Rate 20 01/31/17 02:23 Blood Pressure 122/58 01/31/17 02:23 O2 Sat by Pulse Oximetry (%) 97 01/30/17 21:00 Lab Results WBC 6.8 K/mm3 (4.0-10.0) 01/31/17 05:50 RBC 4.96 M/mm3 (4.00-5.60) 01/31/17 05:50 Hgb 12.3 GM/dL (11.7-16.9) 01/31/17 05:50 Hct 38.2 % (35.4-49) 01/31/17 05:50 MCV 76.9 fl (80-96) L 01/31/17 05:50 MCHC 32.1 g/dl (32.0-35.9) 01/31/17 05:50 RDW 16.0 % (11.9-15.9) H 01/31/17 05:50 Plt Count 120 K/MM3 (134-434) L 01/31/17 05:50 Sodium 139 mmol/L (136-145) 01/31/17 05:50 Potassium 4.5 mmol/L (3.5-5.1) 01/31/17 05:50 Chloride 108 mmol/L (98-107) H 01/31/17 05:50 Carbon Dioxide 23 mmol/L (21-32) 01/31/17 05:50 Anion Gap 8 (8-16) 01/31/17 05:50 BUN 27 mg/dL (7-18) H 01/31/17 05:50 Creatinine 1.7 mg/dL (0.7-1.3) H 01/31/17 05:50 Random Glucose 192 mg/dL (74-106) H D 01/31/17 05:50 Calcium 8.2 mg/dL (8.5-10.1) L 01/31/17 05:50 INR 1.04 (0.82-1.09) 01/29/17 18:36 Problem List - Problems (1) Diabetic ulcer of toe Assessment/Plan: Local wound care with wet to dry daily dressing changes No surgical debridement Tight glycemic control Code(s): E11.621 - TYPE 2 DIABETES MELLITUS WITH FOOT ULCER L97.509 - NON-PRESSURE CHRONIC ULCER OTH PRT UNSP FOOT W UNSP SEVERITY (2) DVT (deep venous thrombosis) Assessment/Plan: f/u VQ to r/o PE Cont heparin drip Monitor INR Code(s): I82.409 - ACUTE EMBOLISM AND THOMBOS UNSP DEEP VN UNSP LOWER EXTREMITY (3) CKD (chronic kidney disease) Assessment/Plan: Monitor BUN/Cr Code(s): N18.9 - CHRONIC KIDNEY DISEASE, UNSPECIFIED Qualifiers: Chronic kidney disease stage: stage 1 Qualified Code(s): N18.1 - Chronic kidney disease, stage 1 (4) Morbid obesity due to excess calories Code(s): E66.01 - MORBID (SEVERE) OBESITY DUE TO EXCESS CALORIES Visit type - Case Type Case Type: ED Admission - Emergency Emergency Visit: Yes ED Registration Date: 01/29/17 Care time: The patient presented to the Emergency Department on the above date and was hospitalized for further evaluation of their emergent condition. - New patient This patient is new to me today: Yes Date on this admission: 01/31/17 <Kike Parry - Last Filed: 02/02/17 19:34> - Consultation REQUESTING PROVIDER: CONSULT REQUEST: We have been asked to surgically evaluate this patient for ( specify). PCP:Palmira Duran HISTORY OF PRESENT ILLNESS: PMHx: PSHx: Home Medications Medication Instructions Recorded Sitagliptin Phosphate [Januvia] 25 mg PO DAILY 03/29/14 Enalapril Maleate [Vasotec -] 10 mg PO DAILY 01/23/16 Glipizide [Glipizide ER] 10 mg PO DAILY 01/23/16 Atorvastatin Ca [Lipitor] 10 mg PO HS 01/29/17 Cholecalciferol (Vitamin D3) 4,000 unit PO DAILY 01/29/17 [Vitamin D3 -] Metoprolol Succinate [Toprol XL -] 25 mg PO DAILY #30 tab.sr.24h 01/31/17 Rivaroxaban [Xarelto -] 15 mg PO BID #42 tab 01/31/17 Allergies Allergy/AdvReac Type Severity Reaction Status Date / Time aspirin AdvReac Mild "BACK Verified 01/29/17 14:04 STARTS TO HURT" REVIEW OF SYSTEMS: CONSTITUTIONAL: Absent: fever, chills, diaphoresis, generalized weakness, malaise, loss of appetite, weight change CARDIOVASCULAR: Absent: chest pain, syncope, palpitations, irregular heart rate, lightheadedness , peripheral edema RESPIRATORY: Absent: cough, shortness of breath, dyspnea with exertion, wheezing, stridor, hemoptysis GASTROINTESTINAL: Absent: abdominal pain, abdominal distension, nausea, vomiting, diarrhea, constipation, melena, hematochezia GENITOURINARY: Absent: dysuria, frequency, urgency, hesitancy, hematuria, flank pain, genital pain MUSCULOSKELETAL: Absent: myalgia, arthralgia, joint swelling, back pain, neck pain SKIN: Absent: rash, itching, pallor HEMATOLOGIC/IMMUNOLOGIC: Absent: easy bleeding, easy bruising, lymphadenopathy NEUROLOGIC: Absent: headache, focal weakness, paresthesias, dizziness, unsteady gait, seizure, mental status changes, bladder or bowel incontinence PSYCHIATRIC: Absent: anxiety, depression, suicidal or homicidal ideation, hallucinations. PHYSICAL EXAM: GENERAL: Awake, alert, and fully oriented, in no acute distress. HEAD: Normal with no signs of trauma. EYES: PERRL, sclera anicteric, conjunctiva clear. NECK: Normal ROM, supple without lymphadenopathy, JVD, or masses. LUNGS: Clear to auscultation bilat anteriorly. No wheezes, and no crackles. No accessory muscle use. HEART: Regular rate and rhythm. No murmurs ABDOMEN: Soft, nontender, not distended, normoactive bowel sounds, no guarding, no rebound, no masses. No organomegaly. MUSCULOSKELETAL: Normal ROM at all joints. No bony deformities or tenderness. No CVA tenderness. UPPER EXTREMITIES: 2+ pulses, warm, well-perfused. No cyanosis. Cap refill <2 seconds. No peripheral edema. LOWER EXTREMITIES: 2+ pulses, warm, well-perfused. No calf tenderness. No peripheral edema. NEUROLOGICAL: Normal speech, gait not observed. PSYCH: Cooperative. Good eye contact. Appropriate mood and affect. SKIN: Warm, dry, normal turgor, no rashes or lesions noted. Vital Signs Temperature 97.9 F 01/31/17 17:00 Pulse Rate 61 01/31/17 17:00 Respiratory Rate 20 01/31/17 17:00 Blood Pressure 130/79 01/31/17 17:00 O2 Sat by Pulse Oximetry (%) 97 01/31/17 09:00 Lab Results WBC 6.8 K/mm3 (4.0-10.0) 01/31/17 05:50 RBC 4.96 M/mm3 (4.00-5.60) 01/31/17 05:50 Hgb 12.3 GM/dL (11.7-16.9) 01/31/17 05:50 Hct 38.2 % (35.4-49) 01/31/17 05:50 MCV 76.9 fl (80-96) L 01/31/17 05:50 MCHC 32.1 g/dl (32.0-35.9) 01/31/17 05:50 RDW 16.0 % (11.9-15.9) H 01/31/17 05:50 Plt Count 120 K/MM3 (134-434) L 01/31/17 05:50 Sodium 139 mmol/L (136-145) 01/31/17 05:50 Potassium 4.5 mmol/L (3.5-5.1) 01/31/17 05:50 Chloride 108 mmol/L (98-107) H 01/31/17 05:50 Carbon Dioxide 23 mmol/L (21-32) 01/31/17 05:50 Anion Gap 8 (8-16) 01/31/17 05:50 BUN 27 mg/dL (7-18) H 01/31/17 05:50 Creatinine 1.7 mg/dL (0.7-1.3) H 01/31/17 05:50 Random Glucose 192 mg/dL (74-106) H D 01/31/17 05:50 Calcium 8.2 mg/dL (8.5-10.1) L 01/31/17 05:50 INR 1.04 (0.82-1.09) 01/29/17 18:36 Patient known to me. He has diabetic neuropathy and recurrent callus and ulcer of 1st toes. Now with left 1st toe ulcer for several weeks. No pain. Wound is dry, no erythema. Foam dressing applied. I will follow in my office.
--- NOTE | 2017-01-31 12:57 | PN ---
Progress Note, Physician Chief Complaint: sitting up at bedside; no more shortness of breath at rest; no chest pain. History of Present Illness: 51y M hx of hl, htn, ckd presents with CARRENO/sob, the patient states that for the past week, he has felt very sob when he was walking up stairs. the pt does endorse a mild productive cough of whitish sputum, no signs of blood. There is no associated chest pain, palppitations, n/v, diaphoresis, abd pain, back pain, leg swelling. Pt denies smoking, drug use. Pt stats he had a sister with hx of PE and is on coumadin. 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 Denies any history of leg/calf pain. No current pain/swelling. - Current Medication List Current Medications: Active Medications Aspirin (Ecotrin -) 325 mg PO DAILY [facility] Last Admin: 01/31/17 10:07 Dose: 325 mg Atorvastatin Calcium (Lipitor -) 10 mg PO HS [facility] Last Admin: 01/30/17 22:07 Dose: 10 mg Enalapril Maleate (Vasotec -) 10 mg PO DAILY [facility] Last Admin: 01/31/17 10:08 Dose: 10 mg Heparin Sodium (Porcine) 25, (000 unit/ Sodium Chloride) 500 mls @ 20 mls/hr IV TITR ELIZA; 1,000 UNIT/HR PRN Reason: Protocol Last Admin: 01/31/17 11:51 Dose: Not Given Insulin Aspart (Novolog Vial Sliding Scale -) 1 vial SQ ACHS [facility] PRN Reason: Protocol Last Admin: 01/31/17 11:54 Dose: 2 units Metoprolol Succinate (Toprol Xl -) 25 mg PO DAILY [facility] Last Admin: 01/31/17 10:08 Dose: 25 mg - Objective Vital Signs: Vital Signs Temperature 97.4 F L 01/31/17 10:00 Pulse Rate 69 01/31/17 10:00 Respiratory Rate 20 01/31/17 10:00 Blood Pressure 119/73 01/31/17 10:00 O2 Sat by Pulse Oximetry (%) 97 01/30/17 21:00 Constitutional: Yes: No Distress, Calm, Obese Eyes: Yes: WNL HENT: Yes: WNL Cardiovascular: Yes: Regular Rate and Rhythm Respiratory: Yes: Regular Gastrointestinal: Yes: Soft, Abdomen, Obese ...Rectal Exam: Yes: Deferred Genitourinary: No: Anuria Breast(s): Yes: WNL Musculoskeletal: Yes: WNL Extremities: Yes: WNL Edema: No Peripheral Pulses WNL: Yes Integumentary: Yes: WNL Neurological: Yes: WNL Labs: CBC, BMP 01/31/17 05:50 01/31/17 05:50 INR, PTT INR 1.04 (0.82-1.09) 01/29/17 18:36 Abnormal Lab Results 01/30/17 01/30/17 01/30/17 11:40 16:40 19:00 MCV 76.1 L RDW 16.3 H Plt Count Monocytes % Eosinophils % PTT (Actin FS) 44.7 H Chloride BUN Creatinine Random Glucose Calcium CK-MB (CK-2) 3.760 H Total Protein Albumin 01/31/17 01/31/17 01/31/17 02:00 05:50 05:50 MCV 76.9 L RDW 16.0 H Plt Count 120 L Monocytes % 11.9 H Eosinophils % 7.0 H PTT (Actin FS) 53.6 H Chloride 108 H BUN 27 H Creatinine 1.7 H Random Glucose 192 H D Calcium 8.2 L CK-MB (CK-2) Total Protein 6.1 L Albumin 2.7 L 01/31/17 08:45 MCV RDW Plt Count Monocytes % Eosinophils % PTT (Actin FS) 54.1 H Chloride BUN Creatinine Random Glucose Calcium CK-MB (CK-2) Total Protein Albumin - ....Imaging Ultrasound: Image Reviewed (ECHO: normal LVEF; mild-moderate RV dilation and redcution in function; RVSP WNL) Problem List - Problems (1) Diabetic ulcer of toe Code(s): E11.621 - TYPE 2 DIABETES MELLITUS WITH FOOT ULCER L97.509 - NON-PRESSURE CHRONIC ULCER OTH PRT UNSP FOOT W UNSP SEVERITY (2) Dyspnea Code(s): R06.00 - DYSPNEA, UNSPECIFIED Qualifiers: Dyspnea type: dyspnea on exertion Qualified Code(s): R06.09 - Other forms of dyspnea (3) Hypertension Code(s): I10 - ESSENTIAL (PRIMARY) HYPERTENSION (4) Morbid obesity due to excess calories Assessment/Plan: Long discussion with him on the need to change diet and lose weight. A nutritional consult would be of benefit. Code(s): E66.01 - MORBID (SEVERE) OBESITY DUE TO EXCESS CALORIES (5) Pulmonary embolism Assessment/Plan: On IV heparin; As discussed with Rosamaria, pharmacist, it would be problematic using apixaban because he weighs >120 kg (and rivaroxaban would be the best choice among the NOACs in his case) without first getting a factor 10a level after four doses ( if low, rivaroxaban or other NOACs should be discontinued and warfarin used). All NOACs come with the caution that larger studies are needed to prove NOAC efficacy in pts >120 kg body weight. Pt's complaince with INR dosing and diet restrictions, as well as renal function , should be taken into consideration in making the decision between warfarin and a NOAC Code(s): I26.99 - OTHER PULMONARY EMBOLISM WITHOUT ACUTE COR PULMONALE (6) Hyperlipidemia Assessment/Plan: on statin; keep LDL cholesterol < 70 mg/dL. 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 He would benefit from a stress MIBI when stable, and then should adopt a daily execise program. Aggressive lipid control; weight loss; diet modification (long discussion with him on the latter), glocuse control. Code(s): Z91.89 - OTH PERSONAL RISK FACTORS, NOT ELSEWHERE CLASSIFIED
--- NOTE | 2017-01-31 14:49 | PN ---
Progress Note, Physician History of Present Illness: Pt seen and examined at bedside. He is awake and alert. He denies dysuria or hematuria. - Current Medication List Current Medications: Active Medications Atorvastatin Calcium (Lipitor -) 10 mg PO HS [facility] Last Admin: 01/30/17 22:07 Dose: 10 mg Enalapril Maleate (Vasotec -) 10 mg PO DAILY [facility] Last Admin: 01/31/17 10:08 Dose: 10 mg Heparin Sodium (Porcine) 25, (000 unit/ Sodium Chloride) 500 mls @ 20 mls/hr IV TITR ELIZA; 1,000 UNIT/HR PRN Reason: Protocol Last Admin: 01/31/17 11:51 Dose: Not Given Insulin Aspart (Novolog Vial Sliding Scale -) 1 vial SQ ACHS [facility] PRN Reason: Protocol Last Admin: 01/31/17 11:54 Dose: 2 units Metoprolol Succinate (Toprol Xl -) 25 mg PO DAILY [facility] Last Admin: 01/31/17 10:08 Dose: 25 mg - Objective Vital Signs: Vital Signs Temperature 97.4 F L 01/31/17 10:00 Pulse Rate 69 01/31/17 10:00 Respiratory Rate 20 01/31/17 10:00 Blood Pressure 119/73 01/31/17 10:00 O2 Sat by Pulse Oximetry (%) 97 01/30/17 21:00 Constitutional: Yes: Calm Eyes: Yes: Conjunctiva Clear HENT: Yes: Atraumatic Neck: Yes: Supple Cardiovascular: Yes: S1, S2 Respiratory: Yes: CTA Bilaterally Gastrointestinal: Yes: Soft, Abdomen, Obese Genitourinary: Yes: WNL Edema: Yes Edema: LLE: 1+, RLE: 1+ Neurological: Yes: Oriented Psychiatric: Yes: Oriented Labs: CBC, BMP 01/31/17 05:50 01/31/17 05:50 INR, PTT INR 1.04 (0.82-1.09) 01/29/17 18:36 Problem List - Problems (1) CKD (chronic kidney disease) Code(s): N18.9 - CHRONIC KIDNEY DISEASE, UNSPECIFIED Qualifiers: Chronic kidney disease stage: stage 1 Qualified Code(s): N18.1 - Chronic kidney disease, stage 1 (2) DVT (deep venous thrombosis) Code(s): I82.409 - ACUTE EMBOLISM AND THOMBOS UNSP DEEP VN UNSP LOWER EXTREMITY (3) Morbid obesity due to excess calories Code(s): E66.01 - MORBID (SEVERE) OBESITY DUE TO EXCESS CALORIES (4) Pulmonary embolism Code(s): I26.99 - OTHER PULMONARY EMBOLISM WITHOUT ACUTE COR PULMONALE (5) Diabetes 1.5, managed as type 2 Code(s): E13.9 - OTHER SPECIFIED DIABETES MELLITUS WITHOUT COMPLICATIONS (6) Hypertension Code(s): I10 - ESSENTIAL (PRIMARY) HYPERTENSION Assessment/Plan Current Medications Generic Name Dose Route Start Last Admin Trade Name Davi PRN Reason Stop Dose Admin Atorvastatin Calcium 10 mg 01/30/17 22:00 01/30/17 22:07 Lipitor - PO 10 mg HS ELIZA Administration Enalapril Maleate 10 mg 01/30/17 12:30 01/31/17 10:08 Vasotec - PO 10 mg DAILY ELIZA Administration Heparin Sodium (Porcine) 25, 500 mls @ 20 mls/hr 01/30/17 11:30 01/31/17 11:51 000 unit/ Sodium Chloride IV Not Given TITR ELIZA Protocol 1,000 UNIT/HR Insulin Aspart 1 vial 01/30/17 16:30 01/31/17 11:54 Novolog Vial Sliding Scale - SQ 2 units ACHS ELIZA Administration Protocol Metoprolol Succinate 25 mg 01/30/17 13:30 01/31/17 10:08 Toprol Xl - PO 25 mg DAILY ELIZA Administration Impression 1. CKD stage 3 2. DVT acute 3. Pulmonary Embolism 4. HTN 5. DM 6. hyperlipidemia 7. 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
--- NOTE | 2017-01-31 15:38 | PN ---
Physical Exam: SUBJECTIVE: Patient seen and examined OBJECTIVE: Vital Signs Period Temp Pulse Resp BP Sys/Toribio Pulse Ox Last 24 Hr 97.2 F-98.2 F 68-107 20-20 119-142/58-82 97 PE Neuro: alert, awake, cn 2-12intact Pulm: CTAB CV: s1 s2 rrr no mrg Abd: s nt nd + bs Ext: RLE +3 pitting edema, LLE +2 pitting edema CBCD WBC 6.8 K/mm3 (4.0-10.0) 01/31/17 05:50 RBC 4.96 M/mm3 (4.00-5.60) 01/31/17 05:50 Hgb 12.3 GM/dL (11.7-16.9) 01/31/17 05:50 Hct 38.2 % (35.4-49) 01/31/17 05:50 MCV 76.9 fl (80-96) L 01/31/17 05:50 MCHC 32.1 g/dl (32.0-35.9) 01/31/17 05:50 RDW 16.0 % (11.9-15.9) H 01/31/17 05:50 Plt Count 120 K/MM3 (134-434) L 01/31/17 05:50 MPV 8.7 fl (7.5-11.1) 01/31/17 05:50 CMP Sodium 139 mmol/L (136-145) 01/31/17 05:50 Potassium 4.5 mmol/L (3.5-5.1) 01/31/17 05:50 Chloride 108 mmol/L (98-107) H 01/31/17 05:50 Carbon Dioxide 23 mmol/L (21-32) 01/31/17 05:50 Anion Gap 8 (8-16) 01/31/17 05:50 BUN 27 mg/dL (7-18) H 01/31/17 05:50 Creatinine 1.7 mg/dL (0.7-1.3) H 01/31/17 05:50 Creat Clearance w eGFR 42.54 (>60) 01/31/17 05:50 Calcium 8.2 mg/dL (8.5-10.1) L 01/31/17 05:50 Total Bilirubin 0.5 mg/dL (0.2-1.0) D 01/31/17 05:50 AST 25 U/L (15-37) 01/31/17 05:50 ALT 19 U/L (12-78) 01/31/17 05:50 Alkaline Phosphatase 60 U/L (45-117) 01/31/17 05:50 Total Protein 6.1 g/dl (6.4-8.2) L 01/31/17 05:50 Albumin 2.7 g/dl (3.4-5.0) L 01/31/17 05:50 01/30/17 01/31/17 01/31/17 16:40 05:50 05:50 Magnesium 2.0 Iron Pending TIBC Pending Iron Saturation Pending Ferritin Hep-Induced Plt Ab Rapid Pending 01/31/17 05:50 Magnesium Iron TIBC Iron Saturation Ferritin 85.250 Hep-Induced Plt Ab Rapid Active Medications Generic Name Dose Route Start Last Admin Trade Name Freq PRN Reason Stop Dose Admin Atorvastatin Calcium 10 mg 01/30/17 22:00 01/30/17 22:07 Lipitor - PO 10 mg HS ELIZA Administration Enalapril Maleate 10 mg 01/30/17 12:30 01/31/17 10:08 Vasotec - PO 10 mg DAILY [facility]IZA Administration Heparin Sodium (Porcine) 25, 500 mls @ 20 mls/hr 01/30/17 11:30 01/31/17 11:51 000 unit/ Sodium Chloride IV Not Given TITR ELIZA Protocol 1,000 UNIT/HR Insulin Aspart 1 vial 01/30/17 16:30 01/31/17 11:54 Novolog Vial Sliding Scale - SQ 2 units ACHS ELIZA Administration Protocol Metoprolol Succinate 25 mg 01/30/17 13:30 01/31/17 10:08 Toprol Xl - PO 25 mg DAILY ELIZA Administration Imaging: - VQ scan shows high probability of PE Assessment: 51 year old male with DM II, hyperlipidemia, HTN, and CKD admitted with dyspnea on exertion for one week. Plan: 1. LLE Popliteal DVT and pulmonary emboli - Stop heparin gtt - Start Xaralto 15mg BID x21 days followed by 20mg daily - Factor 10a levels to be checked after 4 doses and closely monitored, to see if therapeutic, if not will need to switch to coumadin - Studies show BMI effects distribution of Eliquis for pt with BMI >30, however it was not shown in xaralto - Will need thrombophilia work up as out pt, cancer screening, referral for heme initiated 2. r/o NSTEMI - ECHO shows normal LV size/function, nml LV EF, RV mod dilated, RVSF mod reduced, mild MR, trace TR, RVSP nrml - Continue Metoprolol 25mg daily - Stress test in future - Discussed above with cardiology 3. DM II, uncontrolled - Hgb a1c 9.3 - ISS, BGM ACHS - Holding PO antidiabetics 4. RORY on CKD - Cr baseline 1.9 - Now on xaralto will need renal function checked regularly 5. HTN - Enalapril 10mg daily 6. HLD - Lipitor 10mg 7. Thrombocytopenia - Stable
[2017-01-31 15:51] VITALS: PULSE 61
--- NOTE | 2017-01-31 16:35 | PN ---
Progress Note (short form) - Note Progress Note: Feels overall better. No CP or SOB. No bleeding noted. Intake & Output 01/28/17 01/29/17 01/30/17 01/31/17 23:59 23:59 23:59 23:59 Intake Total 520 720 Balance 520 720 Weight 330 lb 329 lb 15.983 oz Last Vital Signs Temp Pulse Resp BP Pulse Ox 98.4 F 61 20 136/77 97 01/31/17 15:50 01/31/17 15:50 01/31/17 15:50 01/31/17 15:50 01/30/17 21:00 Active Medications Atorvastatin Calcium (Lipitor -) 10 mg PO HS [facility] Last Admin: 01/30/17 22:07 Dose: 10 mg Enalapril Maleate (Vasotec -) 10 mg PO DAILY [facility] Last Admin: 01/31/17 10:08 Dose: 10 mg Heparin Sodium (Porcine) 25, (000 unit/ Sodium Chloride) 500 mls @ 20 mls/hr IV TITR ELIZA; 1,000 UNIT/HR PRN Reason: Protocol Last Admin: 01/31/17 11:51 Dose: Not Given Insulin Aspart (Novolog Vial Sliding Scale -) 1 vial SQ ACHS [facility] PRN Reason: Protocol Last Admin: 01/31/17 11:54 Dose: 2 units Metoprolol Succinate (Toprol Xl -) 25 mg PO DAILY [facility] Last Admin: 01/31/17 10:08 Dose: 25 mg Rivaroxaban (Xarelto -) 15 mg PO BID [facility] Constitutional: Yes: Calm Eyes: Yes: Conjunctiva Clear HENT: Yes: Atraumatic Neck: Yes: Supple Cardiovascular: Yes: S1, S2 Respiratory: Yes: CTA Bilaterally Gastrointestinal: Yes: Soft, Abdomen, Obese Genitourinary: Yes: WNL Edema: Yes Edema: LLE: 1+, RLE: 1+ Neurological: Yes: Oriented Psychiatric: Yes: Oriented Problem List - Problems (1) Pulmonary embolism Code(s): I26.99 - OTHER PULMONARY EMBOLISM WITHOUT ACUTE COR PULMONALE (2) DVT (deep venous thrombosis) Code(s): I82.409 - ACUTE EMBOLISM AND THOMBOS UNSP DEEP VN UNSP LOWER EXTREMITY (3) Morbid obesity due to excess calories Code(s): E66.01 - MORBID (SEVERE) OBESITY DUE TO EXCESS CALORIES IMP ACUTE PULMONARY EMBOLISM/DVT ?UNPROVOKED +FAMILY HX OF PE/DVT,?PROVOKED + SEDENTARY LIFESTYLE DM CKD PLAN NOAC WITH CLOSE MONITORING OF RENAL FUNCTION NEEDS TO CONTINUE HEME WORKUP AFTER DISCHARGE NO PULMONARY CONTRAINDICATION FOR D/C PLANNING ONCE PATIENT DECIDES ON ORAL TX DR BRUNER
[2017-01-31 17:15] VITALS: BP 130/79; TEMP 97.9
--- NOTE | 2017-01-31 17:25 | DS ---
Physical Exam: SUBJECTIVE: Patient seen and examined. Pt has no acute complaints. He says he will sign out AMA on Saturday if not discharged, he is aware of the risk of repeated DVT or massive clot to lungs resulting in resp or heart failure and or . OBJECTIVE: Vital Signs Period Temp Pulse Resp BP Sys/Toribio Pulse Ox Last 24 Hr 97.4 F-98.4 F 61-107 20-20 119-142/58-82 97 PE Neuro: alert, awake, cn 2-12intact Pulm: CTAB CV: s1 s2 rrr no mrg Abd: s nt nd + bs Ext: RLE +2 pitting edema, LLE +1 pitting edema Laboratory Results - last 24 hr 01/31/17 01/31/17 01/31/17 05:50 05:50 05:50 WBC 6.8 RBC 4.96 Hgb 12.3 Hct 38.2 MCV 76.9 L MCHC 32.1 RDW 16.0 H Plt Count 120 L MPV 8.7 Neutrophils % 63.3 Lymphocytes % 16.9 Monocytes % 11.9 H Eosinophils % 7.0 H Basophils % 0.9 PTT (Actin FS) Sodium 139 Potassium 4.5 Chloride 108 H Carbon Dioxide 23 Anion Gap 8 BUN 27 H Creatinine 1.7 H Creat Clearance w eGFR 42.54 POC Glucometer Random Glucose 192 H D Calcium 8.2 L Magnesium 2.0 Ferritin 85.250 Total Bilirubin 0.5 D AST 25 ALT 19 Alkaline Phosphatase 60 Total Protein 6.1 L Albumin 2.7 L HOSPITAL COURSE: Date of Admission:01/29/17 Date of Discharge: 01/31/17 Minutes to complete discharge: 35 <Palmira Duran - Last Filed: 01/31/17 21:47> Physical Exam: SUBJECTIVE: Patient seen and examined OBJECTIVE: PHYSICAL EXAM GENERAL: The patient is awake, alert, and fully oriented, in no acute distress. HEAD: Normal with no signs of trauma. EYES: PERRL, extraocular movements intact, sclera anicteric, conjunctiva clear. ENT: Ears normal, nares patent, oropharynx clear without exudates, moist mucous membranes. NECK: Trachea midline, full range of motion, supple. LUNGS: Breath sounds equal, clear to auscultation bilaterally, no wheezes, no crackles, no accessory muscle use. HEART: Regular rate and rhythm, S1, S2 without murmur, rub or gallop. ABDOMEN: Soft, nontender, nondistended, normoactive bowel sounds, no guarding, no rebound, no hepatosplenomegaly, no masses. EXTREMITIES: 2+ pulses, warm, well-perfused, no edema. NEUROLOGICAL: Cranial nerves II through XII grossly intact. Normal speech, gait not observed. PSYCH: Normal mood, normal affect. SKIN: Warm, dry, normal turgor, no rashes or lesions noted. 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 She also developed wound on the base of the right great toe 3 months ago. He had the wound debridement 2 months ago and has a scheduled appointment with Dr. Parry. Has never had an echo or any cardiac work up. Patient has had diabetic retinopathy (has undergone laser therapy multiple times ) and visits Dr. Del Rio's office regularly. Imaging: - VQ scan shows high probability of PE Subsequent Hospital Course/Progress Note/Discharge Summary by a/p: Assessment: 51 year old male with DM II, hyperlipidemia, HTN, and CKD admitted with dyspnea on exertion for one week. Plan: 1. LLE Popliteal DVT and pulmonary emboli - Pt stated he will leave hospital on Saturday as AMA if not discharged. Discussed possibility of lovenox with nephrology and it was advised against given degree of CKD. He also declined starting coumadin at this time. - To avoid worsening or massive PE and further DVT, x1 dose of coumadin will not render pt therapeutic before an AMA sign out Saturday - All NOACs come with caution warning regarding efficacy in pt with BMI >30, particularly Eliquis, however it was not shown with xaralto - Plan moving forward, stop heparin - Start xaralto 15mg BID x21 days followed by 21mg daily - Closer monitoring of factor 10a levels next week, pt understands importance of this, hematology referral enclosed - Thrombophilia work up as out pt, cancer screening - Above plan discussed with cardiology and pulmonary, hematology aware 2. r/o NSTEMI - ECHO shows normal LV size/function, nml LV EF, RV mod dilated, RVSF mod reduced, mild MR, trace TR, RVSP nrml - Continue Metoprolol 25mg daily - Stress test in future - Cardiology referral made 3. DM II, uncontrolled - Hgb a1c 9.3 - Resume home antidiabetics, defer to inspector multifocal lens for possible insulin initiation 4. RORY on CKD - Cr baseline 1.9 - Now on xaralto will need renal function checked regularly 5. HTN - Enalapril 10mg daily 6. HLD - Lipitor 10mg 7. Thrombocytopenia - Stable Dispo: - PT aware of risk of repeat or worsening symptoms and to return to hospital for treatment - To follow up with PCP, Cardiology, Nephrology, and Heme as outpt in next week - Medications as above - PT aware and agrees to above plan - Home Medications Comprehensive Discharge Medication List: Ambulatory Orders Sitagliptin Phosphate [Januvia] 25 mg PO DAILY 03/29/14 Enalapril Maleate [Vasotec -] 10 mg PO DAILY 01/23/16 Glipizide [Glipizide ER] 10 mg PO DAILY 01/23/16 Atorvastatin Ca [Lipitor] 10 mg PO HS 01/29/17 Cholecalciferol (Vitamin D3) [Vitamin D3 -] 4,000 unit PO DAILY 01/29/17 Metoprolol Succinate [Toprol XL -] 25 mg PO DAILY #30 tab.sr.24h 01/31/17 Rivaroxaban [Xarelto -] 15 mg PO BID #42 tab 01/31/17 <Palmira Duran - Last Filed: 01/31/17 21:47> Current Active Problems Acute kidney injury (Acute) Pulmonary embolism (Acute) - Home Medications Comprehensive Discharge Medication List: Ambulatory Orders Sitagliptin Phosphate [Januvia] 25 mg PO DAILY 03/29/14 Enalapril Maleate [Vasotec -] 10 mg PO DAILY 01/23/16 Glipizide [Glipizide ER] 10 mg PO DAILY 01/23/16 Atorvastatin Ca [Lipitor] 10 mg PO HS 01/29/17 Cholecalciferol (Vitamin D3) [Vitamin D3 -] 4,000 unit PO DAILY 01/29/17 Metoprolol Succinate [Toprol XL -] 25 mg PO DAILY #30 tab.sr.24h 01/31/17 Rivaroxaban [Xarelto -] 15 mg PO BID #42 tab 01/31/17 <Wojciech Burrows - Last Filed: 02/08/17 07:44> Condition: Stable - Instructions Diet, Activity, Other Instructions: Please return to the ED for any new, persistent, or worsening symptoms. Follow up with your PCP in 1 week. Take Xaralto 15mg BID x21 days and then 20mg daily thereafter Next week: you will need to follow up with Dr. Carlos for cancer screening and thrombophilia work up She will also need to check your factor 10A levels, and keep close monitor on them. If not therapeutic you will need to be switched to Coumadin Follow up with Dr. Castaneda for continued cardiac work up, you will need a stress test in the next couple weeks You will also need close following with your kidney doctor Dr. Munson for monitoring of renal function (GFR) while on xaralto Referrals: Marko Padilla MD [Staff Physician] - Daniel Shell MD [Primary Care Provider] - Rodrigo Munson MD [Staff Physician] - 1 Week (Follow GFR while on xaralto ) Shane Castaneda MD [Staff Physician] - 1 Week (Stress test ) Breanna Bonner MD [Staff Physician] - 1 Week (Follow up for futher thrombophilia work up Check factor 10a levels, if thereputic continue xaralto, if not will need coumdin ) Kike Parry MD [Staff Physician] - Disposition: HOME
[2017-01-31] MEDS ORDERED: RIVAROXABAN 15 MG TABLET PO SCH ×3 (17:45→22:00)
--- NOTE | 2017-01-31 20:52 | PN ---
Progress Note (short form) - Note Progress Note: Went to check on patient Patient had already been discharged Called hospitalist team and discussed Per hospitalist, patient was threatening to sign out against medical advise and after discussions with pulm/cardio/nephro teams and after discussing risks/ benefits of various options with patient he was sent home on xeralto. Patient was not willing to stay for bridging to coumadin and was not agreeable to coumadin per hospitalist
[2017-02-01 06:05] LABS: SERUM IRON 48 ug/dL (38-169); TOTAL IRON BINDING CAPACITY 196 ug/dL (250-450); UIBC 148 ug/dL (111-343)
== END 2017-01-31 19:21 | disposition home or self-care (01) | DRG 176 ==
LOC: JER 13:34 → JERBED 21:26 → J4W 01-30 15:11
PROVIDERS: ADMIT Internal Medicine; ATTEND Nurse Practitioner Acute Care
DX: I26.99 Other pulmonary embolism without acute cor pulmonale (principal); I82.412 Acute embolism and thrombosis of left femoral vein; N17.9 Acute kidney failure, unspecified; Z68.41 Body mass index [BMI] 40.0-44.9, adult; E11.621 Type 2 diabetes mellitus with foot ulcer; L97.519 Non-pressure chronic ulcer of other part of right foot with unspecified severity; E11.65 Type 2 diabetes mellitus with hyperglycemia; I12.9 Hypertensive chronic kidney disease with stage 1 through stage 4 chronic kidney disease, or unspecified chronic kidney disease; E11.22 Type 2 diabetes mellitus with diabetic chronic kidney disease; E66.01 Morbid (severe) obesity due to excess calories; E78.5 Hyperlipidemia, unspecified; D69.6 Thrombocytopenia, unspecified; N18.3 Chronic kidney disease, stage 3 (moderate)
CPT/HCPCS: 36415; 71010-TC; 71020-TC; 78582-TC; 80053; 80061; 82550; 82553; 82728; 83036; 83540; 83550; 83721; 83735; 83880; 84100; 84484; 85025; 85027; 85379; 85610; 85730; 86022; 87081; 93005; 93010; 93306-TC; 93970-TC; 99285-25; A9539; A9540; J1644

== ENCOUNTER 2017-02-07 15:21 | Inpatient (IN) | payer OTHER ==
--- NOTE | 2017-02-07 17:24 | PDOC ---
History of Present Illness - History of Present Illness Initial Comments: 02/07/17 18:16 Patient is a 51 year old male with significant medical hx of DM, HLD, HTN, and CKD who has been sent to the ED for lovenox treatment. The patient was recently admitted 01/29-01/31 for DVT and PE; he was discharged on xeralto. The patient was sent back to the ED by Dr. Carlos for further treatment. The patient does not offer any complaints. PMD: Daniel Shell MD [employer]: Rodrigo Hair MD <Neda Valenzuela - Last Filed: 02/07/17 18:16> - General History Source: Patient Exam Limitations: No Limitations <Stacy Bautista - Last Filed: 02/07/17 18:48> - General Chief Complaint: Revisit, Lab Variance Stated Complaint: RE-EVALUATION (REFFERED) Time Seen by Provider: 02/07/17 17:23 Past History <Neda Valenzuela - Last Filed: 02/07/17 18:16> - Past Medical History Anemia: No Asthma: No Cancer: No Cardiac Disorders: No CVA: No COPD: No DVT: No Dementia: No Diabetes: Yes Dialysis: No GI Disorders: No Disorders: No HTN: No Hypercholesterolemia: No HIV: No Kidney Stones: No Liver Disease: No Psychiatric Problems: No Seizures: No Thyroid Disease: No Lung CA: No Other medical history: PE, DVT - Surgical History Lung Surgery: No Neurologic Surgery: No - Psycho/Social/Smoking Cessation Hx Anxiety: No Suicidal Ideation: No Smoking Status: No Smoking History: Never smoked Have you smoked in the past 12 months: No Number of Cigarettes Smoked Daily: 0 'Breaking Loose' booklet given: 03/29/14 Hx Alcohol Use: No Drug/Substance Use Hx: No Substance Use Type: None <Stacy Bautista - Last Filed: 02/07/17 18:48> - Past Medical History Allergies/Adverse Reactions: Allergies Allergy/AdvReac Type Severity Reaction Status Date / Time aspirin AdvReac Mild "BACK Verified 01/29/17 14:04 STARTS TO HURT" Home Medications: Ambulatory Orders Sitagliptin Phosphate [Januvia] 25 mg PO DAILY 03/29/14 Enalapril Maleate [Vasotec -] 10 mg PO DAILY 01/23/16 Glipizide [Glipizide ER] 10 mg PO DAILY 01/23/16 Atorvastatin Ca [Lipitor] 10 mg PO HS 01/29/17 Cholecalciferol (Vitamin D3) [Vitamin D3 -] 4,000 unit PO DAILY 01/29/17 Metoprolol Succinate [Toprol XL -] 25 mg PO DAILY #30 tab.sr.24h 01/31/17 Rivaroxaban [Xarelto -] 15 mg PO BID #42 tab 01/31/17 Review of Systems - Review of Systems Comments:: 02/07/17 18:17 GENERAL/CONSTITUTIONAL: No: fever, chills, weakness, loss of appetite. HEAD, EYES, EARS, NOSE AND THROAT: No: change in vision, ear pain, discharge, sore throat, throat swelling. CARDIOVASCULAR: No: chest pain, lightheadedness, palpitations, syncope RESPIRATORY: No: cough, shortness of breath, wheezing, hemoptysis, stridor. GASTROINTESTINAL: No: nausea, vomiting, abdominal cramping, diarrhea, rectal bleeding, constipation. GENITOURINARY: No: dysuria, hematuria, frequency, urgency, flank pain. MUSCULOSKELET AL: No: back pain, neck pain, joint pain, muscle swelling or pain SKIN AND BREASTS: No: lesions, pallor, rash or easy bruising. NEUROLOGIC: No: headache, vertigo, paresthesias, weakness ENDOCRINE: No: unexplained weight gain or loss HEMATOLOGIC/LYMPHATIC: No: anemia, easy bleeding, swelling nodes <Bianca,Neda - Last Filed: 02/07/17 18:16> *Physical Exam - Vital Signs Last Vital Signs Temp Pulse Resp BP Pulse Ox 97.9 F 69 18 135/59 97 02/07/17 15:25 02/07/17 15:25 02/07/17 15:25 02/07/17 15:25 02/07/17 15:25 - Physical Exam Comments: 02/07/17 18:18 GENERAL: The patient is in no acute distress. HEAD: Normal with no signs of trauma. EYES: PERRLA, EOMI, sclera anicteric, conjunctiva clear. ENT: Ears normal, nares patent, oropharynx clear without exudates. Moist mucous membranes. NECK: Normal range of motion, supple without lymphadenopathy, JVD, or masses. LUNGS: Breath sounds equal, clear to auscultation bilaterally. No wheezes, and no crackles. HEART:Regular rate and rhythm, normal S1 and S2 without murmur, rub or gallop. ABDOMEN: Soft, nontender, normoactive bowel sounds. No guarding, no rebound. EXTREMITIES: Normal range of motion, no edema. No clubbing or cyanosis. No erythema, or tenderness. NEUROLOGICAL: Cranial nerves II through XII grossly intact. Normal speech. No focal neurological deficits. MUSCULOSKELETAL: Back non-tender to palpation, no CVA tenderness SKIN: Warm, Dry, normal turgor, no rashes or lesions noted. <Neda Valenzuela - Last Filed: 02/07/17 18:16> - Vital Signs Last Vital Signs Temp Pulse Resp BP Pulse Ox 97.9 F 69 18 135/59 97 02/07/17 15:25 02/07/17 15:25 02/07/17 15:25 02/07/17 15:25 02/07/17 15:25 <Stacy Bautista - Last Filed: 02/07/17 18:48> ED Treatment Course - LABORATORY CBC & Chemistry Diagram: 02/07/17 17:26 02/07/17 17:26 - ADDITIONAL ORDERS Additional order review: 02/07/17 17:26 RBC 5.48 MCV 76.8 L MCHC 32.2 RDW 16.3 H MPV 8.8 Neutrophils % 60.6 Lymphocytes % 19.4 Monocytes % 12.3 H Eosinophils % 6.6 H Basophils % 1.1 <Neda Valenzuela - Last Filed: 02/07/17 18:16> - LABORATORY CBC & Chemistry Diagram: 02/07/17 17:26 02/07/17 17:26 <Stacy Bautista - Last Filed: 02/07/17 18:48> Medical Decision Making - Medical Decision Making 02/07/17 17:23 A portion of this note was documented by scribe services under my direction. I have reviewed the details of the note, within reason, and agree with the documentation with the following case summary and management plan written by me. Nursing documentation reviewed and incorporated into medical decision making This a 51-year-old male who presents emergency department after recent admission and discharge. He was found to have a DVT and urinary embolism, was discharged on scrotal. Patient presents emergency department upon the recommendation of Dr. Carlos for adjusting his medications to Coumadin. There were unable to do this as an outpatient and therefore sent the patient to the ER for evaluation and initiation of Coumadin. On examination, patient denies chest pain, shortness of breath, lower extremity pain or swelling. Patient denies fatigue. Will do labs, EKG, saline lock. Will address with Dr. Carlos 02/07/17 18:43 Laboratory Tests 02/07/17 17:26 WBC 6.6 Hgb 13.6 D Hct 42.1 Plt Count 174 D Neutrophils % 60.6 Lymphocytes % 19.4 Monocytes % 12.3 H Eosinophils % 6.6 H Laboratory Tests 02/07/17 17:26 Sodium 140 Potassium 4.9 Chloride 107 Carbon Dioxide 25 Anion Gap 8 BUN 41 H D Creatinine 2.2 H D Random Glucose 178 H 02/07/17 18:[address] Burrows Will admit for Heparin Pt has acute kidney injury Will start heparin <Stacy Bautista - Last Filed: 02/07/17 18:48> *DC/Admit/Observation/Transfer - Attestations Scribe Attestion: 02/07/17 18:18 Documentation prepared by Neda Valenzuela, acting as medical technologist blood bank for Stacy Bautista MD. <Neda Valenzuela - Last Filed: 02/07/17 18:16> - Discharge Dispostion Admit: Yes <Stacy Bautista - Last Filed: 02/07/17 18:48> Diagnosis at time of Disposition: Acute kidney injury Pulmonary embolism Qualifiers: Pulmonary embolism type: other Chronicity: chronic Acute cor pulmonale presence : without acute cor pulmonale Qualified Code(s): I27.82 - Chronic pulmonary embolism - Discharge Dispostion Condition at time of disposition: Stable - Referrals Referrals: Daniel Shell MD [Primary Care Provider] -
[2017-02-07 18:02] LABS: BASOPHIL 1.1 % (0-2.0); EOSINOPHIL 6.6 % (0-4.5); MCH 24.8 pg (25.7-33.7); MCHC 32.2 g/dl (32.0-35.9); MEAN CELL VOLUME 76.8 fl (80-96); MEAN PLT VOLUME 8.8 fl (7.5-11.1); NEUTROPHILS 60.6 % (42.8-82.8); PLATELET COUNT 174 K/MM3 (134-434); RDW 16.3 % (11.9-15.9); WHITE BLOOD COUNT 6.6 K/mm3 (4.0-10.0)
[2017-02-07 18:30] LABS: ALBUMIN 3.2 g/dl (3.4-5.0); CALCIUM 8.6 mg/dL (8.5-10.1); COCKROFT - GAULT 81.89; CREATININE 2.2 mg/dL (0.7-1.3)
[2017-02-07 18:33] LABS: BILIRUBIN,TOTAL 0.2 mg/dL (0.2-1.0); TOT PROT 7.1 g/dl (6.4-8.2)
[2017-02-07 19:09] LABS: INR 1.47 (0.82-1.09); PROTHROMBIN TIME (PATIENT) 16.3 SEC (9.98-11.88)
[2017-02-07] MEDS ORDERED: HEPARIN NA (PORCINE) 5,000 UNITS/ML 1ML VIAL ONE (19:42)
[2017-02-07] MEDS ORDERED: HEPARIN INFUSION - 500 ML IVPB ONE (19:43)
[2017-02-07] MEDS: HEPARIN - 25,000 UNIT in SODIUM CHLORIDE 495 ML IV SCH (19:55)
[2017-02-07] MEDS ORDERED: WARFARIN NA 5 MG TABLET (UD) PO ONE (20:38)
--- NOTE | 2017-02-07 20:47 | HP ---
CHIEF COMPLAINT: PE/DVT PCP: [facility] HISTORY OF PRESENT ILLNESS: This is a 51 year old male with a past medical history of HTN, HLD, DM, CKD, DVT /PE (hospitalized 01/29-01/31/17) who presented to the ED after seeing hematology who recommended lovenox/coumadin for treatment instead of current xarelto. Pt reports feeling fine. No SOB or chest pain. Reports swelling in his right leg, minimal in his left leg. ER course was notable for: (1) Cr 2.2 (2) started on heparin drip instead of lovenox given above Cr Recent Travel: pt denies PAST MEDICAL HISTORY: HTN HLD DM w/ retinopathy s/p laser tx CKD DVT/PE Social History: Smoking: pt denies Alcohol: pt denies Drugs: pt denies Family History: Mother of PA @ age 83 years Father of PA at age 67 one sister has a h/o PE and multiple sclerosis and the other has a h/o DVT Allergies aspirin Adverse Reaction (Mild, Verified 01/29/17 14:04) "BACK STARTS TO HURT" HOME MEDICATIONS: 3 Medication Instructions Recorded Sitagliptin Phosphate [Januvia] 25 mg PO DAILY 03/29/14 Enalapril Maleate [Vasotec -] 10 mg PO DAILY 01/23/16 Glipizide [Glipizide ER] 10 mg PO DAILY 01/23/16 Atorvastatin Ca [Lipitor] 10 mg PO HS 01/29/17 Cholecalciferol (Vitamin D3) 4,000 unit PO DAILY 01/29/17 [Vitamin D3 -] Metoprolol Succinate [Toprol XL -] 25 mg PO DAILY #30 tab.sr.24h 01/31/17 Rivaroxaban [Xarelto -] 15 mg PO BID #42 tab 01/31/17 REVIEW OF SYSTEMS CONSTITUTIONAL: Absent: fever, chills, diaphoresis, generalized weakness, malaise, loss of appetite, weight change HEENT: Absent: rhinorrhea, nasal congestion, throat pain, throat swelling, difficulty swallowing, mouth swelling, ear pain, eye pain, visual changes CARDIOVASCULAR: Absent: chest pain, syncope, palpitations, irregular heart rate, lightheadedness , peripheral edema RESPIRATORY: Absent: cough, shortness of breath, dyspnea with exertion, orthopnea, wheezing, stridor, hemoptysis GASTROINTESTINAL: Absent: abdominal pain, abdominal distension, nausea, vomiting, diarrhea, constipation, melena, hematochezia GENITOURINARY: Absent: dysuria, frequency, urgency, hesitancy, hematuria, flank pain, genital pain MUSCULOSKELETAL: Absent: myalgia, arthralgia, joint swelling, back pain, neck pain SKIN: Absent: rash, itching, pallor HEMATOLOGIC/IMMUNOLOGIC: Absent: easy bleeding, easy bruising, lymphadenopathy, frequent infections ENDOCRINE: Absent: unexplained weight gain, unexplained weight loss, heat intolerance, cold intolerance NEUROLOGIC: Absent: headache, focal weakness or paresthesias, dizziness, unsteady gait, seizure, mental status changes, bladder or bowel incontinence PSYCHIATRIC: Absent: anxiety, depression, suicidal or homicidal ideation, hallucinations. PHYSICAL EXAMINATION Vital Signs - 24 hr 3 02/07/17 02/07/17 15:25 19:55 Temperature 97.9 F Pulse Rate 69 Respiratory 18 Rate Blood Pressure 135/59 127/66 O2 Sat by Pulse 97 Oximetry (%) GENERAL: Awake, alert, and fully oriented, in no acute distress. HEAD: Normal with no signs of trauma. EYES: Pupils equal, round and reactive to light, extraocular movements intact, sclera anicteric, conjunctiva clear. No lid lag. EARS, NOSE, THROAT: Ears normal, nares patent, oropharynx clear without exudates. Moist mucous membranes. NECK: Normal range of motion, supple without lymphadenopathy, JVD, or masses. LUNGS: Breath sounds equal, clear to auscultation bilaterally. No wheezes, and no crackles. No accessory muscle use. HEART: Regular rate and rhythm, normal S1 and S2 without murmur, rub or gallop. ABDOMEN: Soft, nontender, not distended, normoactive bowel sounds, no guarding, no rebound, no masses. No hepatomegaly or splenomegaly. MUSCULOSKELETAL: Normal range of motion at all joints. No bony deformities or tenderness. No CVA tenderness. UPPER EXTREMITIES: 2+ pulses, warm, well-perfused. No cyanosis. No clubbing. No peripheral edema. LOWER EXTREMITIES: 2+ pulses, warm, well-perfused. No calf tenderness. RLE 1+, LLE tr NEUROLOGICAL: Cranial nerves II-XII intact. Normal speech. Normal gait. PSYCHIATRIC: Cooperative. Good eye contact. Appropriate mood and affect. SKIN: Warm, dry, normal turgor, no rashes or lesions noted, normal capillary refill. Laboratory Results - last 24 hr 3 02/07/17 02/07/17 02/07/17 02/07/17 02/07/17 17:26 17:26 17:26 18:38 18:49 WBC 6.6 RBC 5.48 Hgb 13.6 D Hct 42.1 MCV 76.8 L MCHC 32.2 RDW 16.3 H Plt Count 174 D MPV 8.8 Neutrophils % 60.6 Lymphocytes % 19.4 Monocytes % 12.3 H Eosinophils % 6.6 H Basophils % 1.1 INR Cancelled 1.47 H D PTT (Actin FS) Cancelled 43.3 H Sodium 140 Potassium 4.9 Chloride 107 Carbon Dioxide 25 Anion Gap 8 BUN 41 H D Creatinine 2.2 H D Creat Clearance w eGFR 31.59 Random Glucose 178 H Calcium 8.6 Total Bilirubin 0.2 D AST 26 ALT 34 D Alkaline Phosphatase 91 D Total Protein 7.1 Albumin 3.2 L ECG: NSR rate 61, QTC 384, no acute ST/T changes V/Q scan (01/30/17) HISTORY: 51-year-old male with DVT and shortness of breath PROCEDURE: Planar ventilation images were obtained in multiple projections following the inhalation of aerosolized 42.6 mCi of Tc 99m DTPA via nebulizer. This was followed by the acquisition of multiple planar images following the intravenous administration of 6.6 mCi of Tc 99m MAA. COMPARISON: No comparison V /Q scan is available. Correlation is made with chest x-ray dated January FINDINGS: Multiple large mismatched segmental perfusion defects seen in both lungs, left more than right with no corresponding defects. IMPRESSION: High probability for pulmonary embolism. Duplex Doppler venous ultrasound of the lower extremities bilaterally (01/30/17): HISTORY: Rule out DVT. Duplex Doppler venous ultrasound of the lower extremities bilaterally is performed. There is no evidence of DVT in the right lower extremity. There is nearly occlusive thrombus in the left popliteal vein. No additional clot is seen in the left lower extremity. IMPRESSION: DVT in the left popliteal vein. ASSESSMENT/PLAN: 51yM with PMH HTN, HLD, DM, CKD, DVT/PE presented to ED for treatment for PE. He has been admitted for same. DVT/PE - started on heparin drip in ED, cont same for now - DW Dr. Bonner who would recommend change to lovenox 150 BID in am if CrCl remains above 30, currently 47 as per Cockcroft-gault calculator as per pharmacy with leanest weight. - start coumadin 5mg tonight, likely will need higher dose though. - pt states he has to leave by Saturday, As per Dr. Bonner, Dr. Shell can see pt in office on Saturday. RORY with CKD - Cr bumped to 2.2. Low of 1.6 on 01/30/17 - hold enalapril - gentle IV hydration x 1 liter. - repeat in am - renal consult ordered DM - cont home meds for now with sliding scale. If poor control, start levemir HTN - hold enalapril due to creatinine - cont home toprol HLD - cont home lipitor DVT PPX - on heparin drip FEN - NS @ 75cc/hr - repeat bmp in am - diabetic diet Dispo: Pt currently requires inpatient management of his emergent condition. Visit type - Emergency Visit Emergency Visit: Yes ED Registration Date: 02/07/17 Care time: The patient presented to the Emergency Department on the above date and was hospitalized for further evaluation of their emergent condition. - New Patient This patient is new to me today: Yes Date on this admission: 02/07/17 - Critical Care Critical Care patient: No
[2017-02-07] MEDS ORDERED: WARFARIN NA 5 MG TABLET (UD) ONE (22:04)
[2017-02-07] MEDS ORDERED: INSULIN (NOVOLOG) ASPART 100 UNITS/ML 10ML VIAL ONE (22:28)
[2017-02-07] MEDS: INSULIN SLIDING SCALE (NOVOLOG) 1 VIAL SQ SCH (22:31)
[2017-02-07] MEDS: ATORVASTATIN CA 10 MG TABLET (FP) PO SCH (22:32)
--- NOTE | 2017-02-07 22:50 | CONSULT ---
Consult - text type - Consultation Consultation Note: Patient seen and examined This is a 51 year old male with a past medical history of HTN, HLD, DM, CKD, DVT /PE (hospitalized 01/29-01/31/17) who presented for bridging to lovenox/coumadin for treatment instead of current xarelto, given morbid obesity. Pt reports feeling fine. No SOB or chest pain. Reports swelling in his right leg, minimal in his left leg. He threatened to sign out last visit and was sent home on al. He was seen in the office 02/05 and I rediscussed the anticoagulation options in great detail. He understands that given his morbid obesity bridging to coumadin would be the ideal treatment as there is no data for NOACs in morbid obesity. He states that he would have to leave on saturday but is agreeable to initiating bridging in patient. PAST MEDICAL HISTORY: HTN HLD DM w/ retinopathy s/p laser tx CKD DVT/PE Family History: Mother of NV @ age 83 years Father of NV at age 67 one sister has a h/o PE and multiple sclerosis and the other has a h/o DVT Allergies aspirin Adverse Reaction (Mild, Verified 01/29/17 14:04) "BACK STARTS TO HURT" HOME MEDICATIONS: 3 Medication Instructions Recorded Sitagliptin Phosphate [Januvia] 25 mg PO DAILY 03/29/14 Enalapril Maleate [Vasotec -] 10 mg PO DAILY 01/23/16 Glipizide [Glipizide ER] 10 mg PO DAILY 01/23/16 Atorvastatin Ca [Lipitor] 10 mg PO HS 01/29/17 Cholecalciferol (Vitamin D3) 4,000 unit PO DAILY 01/29/17 [Vitamin D3 -] Metoprolol Succinate [Toprol XL -] 25 mg PO DAILY #30 tab.sr.24h 01/31/17 Rivaroxaban [Xarelto -] 15 mg PO BID #42 tab 01/31/17 PHYSICAL EXAMINATION Vital Signs - 24 hr 3 02/07/17 02/07/17 15:25 19:55 Temperature 97.9 F Pulse Rate 69 Respiratory 18 Rate Blood Pressure 135/59 127/66 O2 Sat by Pulse 97 Oximetry (%) Cor: RSR, No murmurs, No gallops Lungs: Clear to P&A Abd: Soft, Normal bowel sounds, No organomegaly Ext:1+ edema b/l Laboratory Results - last 24 hr 3 02/07/17 02/07/17 02/07/17 02/07/17 02/07/17 17:26 17:26 17:26 18:38 18:49 WBC 6.6 RBC 5.48 Hgb 13.6 D Hct 42.1 MCV 76.8 L MCHC 32.2 RDW 16.3 H Plt Count 174 D MPV 8.8 Neutrophils % 60.6 Lymphocytes % 19.4 Monocytes % 12.3 H Eosinophils % 6.6 H Basophils % 1.1 INR Cancelled 1.47 H D PTT (Actin FS) Cancelled 43.3 H Sodium 140 Potassium 4.9 Chloride 107 Carbon Dioxide 25 Anion Gap 8 BUN 41 H D Creatinine 2.2 H D Creat Clearance w eGFR 31.59 Random Glucose 178 H Calcium 8.6 Total Bilirubin 0.2 D AST 26 ALT 34 D Alkaline Phosphatase 91 D Total Protein 7.1 Albumin 3.2 L ECG: NSR rate 61, QTC 384, no acute ST/T changes V/Q scan (01/30/17) HISTORY: 51-year-old male with DVT and shortness of breath PROCEDURE: Planar ventilation images were obtained in multiple projections following the inhalation of aerosolized 42.6 mCi of Tc 99m DTPA via nebulizer. This was followed by the acquisition of multiple planar images following the intravenous administration of 6.6 mCi of Tc 99m MAA. COMPARISON: No comparison V /Q scan is available. Correlation is made with chest x-ray dated January FINDINGS: Multiple large mismatched segmental perfusion defects seen in both lungs, left more than right with no corresponding defects. IMPRESSION: High probability for pulmonary embolism. Duplex Doppler venous ultrasound of the lower extremities bilaterally (01/30/17): HISTORY: Rule out DVT. Duplex Doppler venous ultrasound of the lower extremities bilaterally is performed. There is no evidence of DVT in the right lower extremity. There is nearly occlusive thrombus in the left popliteal vein. No additional clot is seen in the left lower extremity. IMPRESSION: DVT in the left popliteal vein. ASSESSMENT/PLAN: 51yM with PMH HTN, HLD, DM, CKD, DVT/PE 01/30/17 presents for bridging heparin to coumadin. This is a 51 year old male with a past medical history of HTN, HLD, DM, CKD, DVT /PE (hospitalized 01/29-01/31/17) who presented to the ED after seeing hematology who recommended lovenox/coumadin for treatment instead of current xarelto. Pt reports feeling fine. No SOB or chest pain. Reports swelling in his right leg, minimal in his left leg. ER course was notable for: (1) Cr 2.2 (2) started on heparin drip instead of lovenox given above Cr Recent Travel: pt denies PAST MEDICAL HISTORY: HTN HLD DM w/ retinopathy s/p laser tx CKD DVT/PE Social History: Smoking: pt denies Alcohol: pt denies Drugs: pt denies Family History: Mother of NV @ age 83 years Father of NV at age 67 one sister has a h/o PE and multiple sclerosis and the other has a h/o DVT Allergies aspirin Adverse Reaction (Mild, Verified 01/29/17 14:04) "BACK STARTS TO HURT" HOME MEDICATIONS: 3 Medication Instructions Recorded Sitagliptin Phosphate [Januvia] 25 mg PO DAILY 03/29/14 Enalapril Maleate [Vasotec -] 10 mg PO DAILY 01/23/16 Glipizide [Glipizide ER] 10 mg PO DAILY 01/23/16 Atorvastatin Ca [Lipitor] 10 mg PO HS 01/29/17 Cholecalciferol (Vitamin D3) 4,000 unit PO DAILY 01/29/17 [Vitamin D3 -] Metoprolol Succinate [Toprol XL -] 25 mg PO DAILY #30 tab.sr.24h 01/31/17 Rivaroxaban [Xarelto -] 15 mg PO BID #42 tab 01/31/17 REVIEW OF SYSTEMS CONSTITUTIONAL: Absent: fever, chills, diaphoresis, generalized weakness, malaise, loss of appetite, weight change HEENT: Absent: rhinorrhea, nasal congestion, throat pain, throat swelling, difficulty swallowing, mouth swelling, ear pain, eye pain, visual changes CARDIOVASCULAR: Absent: chest pain, syncope, palpitations, irregular heart rate, lightheadedness , peripheral edema RESPIRATORY: Absent: cough, shortness of breath, dyspnea with exertion, orthopnea, wheezing, stridor, hemoptysis GASTROINTESTINAL: Absent: abdominal pain, abdominal distension, nausea, vomiting, diarrhea, constipation, melena, hematochezia GENITOURINARY: Absent: dysuria, frequency, urgency, hesitancy, hematuria, flank pain, genital pain MUSCULOSKELETAL: Absent: myalgia, arthralgia, joint swelling, back pain, neck pain SKIN: Absent: rash, itching, pallor HEMATOLOGIC/IMMUNOLOGIC: Absent: easy bleeding, easy bruising, lymphadenopathy, frequent infections ENDOCRINE: Absent: unexplained weight gain, unexplained weight loss, heat intolerance, cold intolerance NEUROLOGIC: Absent: headache, focal weakness or paresthesias, dizziness, unsteady gait, seizure, mental status changes, bladder or bowel incontinence PSYCHIATRIC: Absent: anxiety, depression, suicidal or homicidal ideation, hallucinations. PHYSICAL EXAMINATION Vital Signs - 24 hr 3 02/07/17 02/07/17 15:25 19:55 Temperature 97.9 F Pulse Rate 69 Respiratory 18 Rate Blood Pressure 135/59 127/66 O2 Sat by Pulse 97 Oximetry (%) GENERAL: Awake, alert, and fully oriented, in no acute distress. HEAD: Normal with no signs of trauma. EYES: Pupils equal, round and reactive to light, extraocular movements intact, sclera anicteric, conjunctiva clear. No lid lag. EARS, NOSE, THROAT: Ears normal, nares patent, oropharynx clear without exudates. Moist mucous membranes. NECK: Normal range of motion, supple without lymphadenopathy, JVD, or masses. LUNGS: Breath sounds equal, clear to auscultation bilaterally. No wheezes, and no crackles. No accessory muscle use. HEART: Regular rate and rhythm, normal S1 and S2 without murmur, rub or gallop. ABDOMEN: Soft, nontender, not distended, normoactive bowel sounds, no guarding, no rebound, no masses. No hepatomegaly or splenomegaly. MUSCULOSKELETAL: Normal range of motion at all joints. No bony deformities or tenderness. No CVA tenderness. UPPER EXTREMITIES: 2+ pulses, warm, well-perfused. No cyanosis. No clubbing. No peripheral edema. LOWER EXTREMITIES: 2+ pulses, warm, well-perfused. No calf tenderness. RLE 1+, LLE tr NEUROLOGICAL: Cranial nerves II-XII intact. Normal speech. Normal gait. PSYCHIATRIC: Cooperative. Good eye contact. Appropriate mood and affect. SKIN: Warm, dry, normal turgor, no rashes or lesions noted, normal capillary refill. Laboratory Results - last 24 hr 3 02/07/17 02/07/17 02/07/17 02/07/17 02/07/17 17:26 17:26 17:26 18:38 18:49 WBC 6.6 RBC 5.48 Hgb 13.6 D Hct 42.1 MCV 76.8 L MCHC 32.2 RDW 16.3 H Plt Count 174 D MPV 8.8 Neutrophils % 60.6 Lymphocytes % 19.4 Monocytes % 12.3 H Eosinophils % 6.6 H Basophils % 1.1 INR Cancelled 1.47 H D PTT (Actin FS) Cancelled 43.3 H Sodium 140 Potassium 4.9 Chloride 107 Carbon Dioxide 25 Anion Gap 8 BUN 41 H D Creatinine 2.2 H D Creat Clearance w eGFR 31.59 Random Glucose 178 H Calcium 8.6 Total Bilirubin 0.2 D AST 26 ALT 34 D Alkaline Phosphatase 91 D Total Protein 7.1 Albumin 3.2 L ECG: NSR rate 61, QTC 384, no acute ST/T changes V/Q scan (01/30/17) HISTORY: 51-year-old male with DVT and shortness of breath PROCEDURE: Planar ventilation images were obtained in multiple projections following the inhalation of aerosolized 42.6 mCi of Tc 99m DTPA via nebulizer. This was followed by the acquisition of multiple planar images following the intravenous administration of 6.6 mCi of Tc 99m MAA. COMPARISON: No comparison V /Q scan is available. Correlation is made with chest x-ray dated January FINDINGS: Multiple large mismatched segmental perfusion defects seen in both lungs, left more than right with no corresponding defects. IMPRESSION: High probability for pulmonary embolism. Duplex Doppler venous ultrasound of the lower extremities bilaterally (01/30/17): HISTORY: Rule out DVT. Duplex Doppler venous ultrasound of the lower extremities bilaterally is performed. There is no evidence of DVT in the right lower extremity. There is nearly occlusive thrombus in the left popliteal vein. No additional clot is seen in the left lower extremity. IMPRESSION: DVT in the left popliteal vein. ASSESSMENT/PLAN: 51yM with PMH HTN, HLD, DM, CKD, DVT/PE presented to ED for treatment for PE. He has been admitted for same. DVT/PE: 01/30/17 ? 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 He was seen in the office 02/05 and rediscussed that given morbid obesity, and lack of data for NOAcs in patient who are morbidly obese, preferred a/c would be bridging with heparin/lovenox to coumadin He understands and is here for bridging but is again insistent on being discharged on saturday. Last dose xeralto was 02/07 around 8am Heparin drip was started in the ER and coumadin started His calculated cr clearence is 47ml/min. As cr cl > 30ml/min. would switch to lovenox in am 150mg SC bid and bridge wth coumadin 7.5mg -10mg daily will need close INR monitoring with PMD -- Dr. Shell, ( case was discussed with him) will need to overlap lovenox/coumadin bridge for 24hrs-48hrs. once therapeutic. needs thrombophilia w/u as outpatient --2 sisters had DVT/PE age appropriate cancer screening
[2017-02-08 01:56] VITALS: BMI 44.2
[2017-02-08] MEDS: SODIUM CHLORIDE 1,000 ML IV SCH ×3 (06:32→06:37)
[2017-02-08] MEDS: INSULIN SLIDING SCALE (NOVOLOG) 1 VIAL SQ SCH ×4 (06:42→22:29)
[2017-02-08] MEDS ORDERED: sitaGLIPtin PHOSPHATE 25 MG TABLET (FP) PO SCH (07:00)
[2017-02-08] MEDS ORDERED: glipiZIDE-XL 10 MG TAB.ER.24 (FP) PO SCH (07:00)
[2017-02-08 09:10] LABS: BASOPHIL 0.8 % (0-2.0); EOSINOPHIL 7.3 % (0-4.5); MCH 24.7 pg (25.7-33.7); MCHC 32.4 g/dl (32.0-35.9); MEAN CELL VOLUME 76.2 fl (80-96); MEAN PLT VOLUME 8.6 fl (7.5-11.1); NEUTROPHILS 61.5 % (42.8-82.8); PLATELET COUNT 143 K/MM3 (134-434); RDW 16.1 % (11.9-15.9)
[2017-02-08 09:22] LABS: INR 1.2 (0.82-1.09); PROTHROMBIN TIME (PATIENT) 13.3 SEC (9.98-11.88)
--- NOTE | 2017-02-08 09:25 | EKG ---
Test Reason : Blood Pressure : / mmHG Vent. Rate : 061 BPM Atrial Rate : 061 BPM P-R Int : 162 ms QRS Dur : 076 ms QT Int : 382 ms P-R-T Axes : 050 047 064 degrees QTc Int : 384 ms POOR DATA QUALITY, INTERPRETATION MAY BE ADVERSELY AFFECTED NORMAL SINUS RHYTHM NONSPECIFIC T WAVE ABNORMALITY ABNORMAL ECG WHEN COMPARED WITH ECG OF 29-JAN-2017 18:21, NONSPECIFIC T WAVE ABNORMALITY NOW EVIDENT IN ANTERIOR LEADS Confirmed by DANIEL AGUILERA MD ([id number]) on 02/08/2017 9:24:48 AM Referred By: Confirmed By:DANIEL AGUILERA MD
[2017-02-08 09:37] LABS: CALCIUM 8.7 mg/dL (8.5-10.1); MAGNESIUM 1.9 mg/dL (1.8-2.4)
[2017-02-08 09:38] LABS: COCKROFT - GAULT 109.47; CREATININE 1.7 mg/dL (0.7-1.3)
[2017-02-08] MEDS: CHOLECALCIFEROL (VITAMIN D3) 1,000 UNIT TABLET (FP) PO SCH (11:02)
[2017-02-08] MEDS: METOPROLOL SUCCINATE 25 MG TAB.SR.24H (FP) PO SCH (11:02)
[2017-02-08] MEDS ORDERED: INSULIN (NOVOLOG) ASPART 100 UNITS/ML 10ML VIAL ONE ×2 (12:11→17:31)
--- NOTE | 2017-02-08 13:54 | CON.CARD ---
Consult - History Source History Provided By: Patient, Medical Record - Past Medical History Cardio/Vascular: Yes: HTN, Hyperlipdemia Renal/: Yes: Renal Inusuff Endocrine: Yes: Diabetes Mellitus - Alcohol/Substance Use Hx Alcohol Use: No - Smoking History Smoking history: Never smoked Have you smoked in the past 12 months: No Aproximately how many cigarettes per day: 0 Home Medications - Allergies Allergies/Adverse Reactions: Allergies Allergy/AdvReac Type Severity Reaction Status Date / Time aspirin AdvReac Mild "BACK Verified 01/29/17 14:04 STARTS TO HURT" - Home Medications Home Medications: Ambulatory Orders Sitagliptin Phosphate [Januvia] 25 mg PO DAILY 03/29/14 Enalapril Maleate [Vasotec -] 10 mg PO DAILY 01/23/16 Glipizide [Glipizide ER] 10 mg PO DAILY 01/23/16 Atorvastatin Ca [Lipitor] 10 mg PO HS 01/29/17 Cholecalciferol (Vitamin D3) [Vitamin D3 -] 4,000 unit PO DAILY 01/29/17 Metoprolol Succinate [Toprol XL -] 25 mg PO DAILY #30 tab.sr.24h 01/31/17 Rivaroxaban [Xarelto -] 15 mg PO BID #42 tab 01/31/17 Review of Systems - Review of Systems Constitutional: reports: No Symptoms Eyes: reports: No Symptoms HENT: reports: No Symptoms Neck: reports: No Symptoms Cardiovascular: reports: No Symptoms Gastrointestinal: reports: No Symptoms Genitourinary: reports: No Symptoms Breasts: reports: No Symptoms Reported Musculoskeletal: reports: No Symptoms Integumentary: reports: No Symptoms Neurological: reports: No Symptoms Endocrine: reports: No Symptoms Hematology/Lymphatic: reports: No Symptoms Psychiatric: reports: No Symptoms Vital Signs: Vital Signs Temperature 97.4 F L 02/08/17 06:00 Pulse Rate 61 02/08/17 11:01 Respiratory Rate 20 02/08/17 11:01 Blood Pressure 120/70 02/08/17 11:01 O2 Sat by Pulse Oximetry (%) 97 02/07/17 15:25 Constitutional: Yes: Well Nourished, No Distress, Calm Eyes: Yes: WNL, Conjunctiva Clear, EOM Intact HENT: Yes: WNL, Atraumatic, Normocephalic Neck: Yes: WNL, Supple, Trachea Midline Respiratory: Yes: WNL, Regular, CTA Bilaterally Gastrointestinal: Yes: WNL, Normal Bowel Sounds Renal/: Yes: WNL Cardiovascular: Yes: WNL, Regular Rate and Rhythm Musculoskeletal: Yes: WNL Extremities: Yes: WNL Edema: Yes Edema: LLE: 1+, RLE: 1+ Integumentary: Yes: WNL Neurological: Yes: WNL, Alert, Oriented ...Motor Strength: WNL Psychiatric: Yes: WNL, Alert, Oriented - Other Data Labs, Other Data: CBC, BMP 02/08/17 08:10 02/08/17 08:10 INR, PTT INR 1.20 (0.82-1.09) H 02/08/17 08:10 Imaging - Results Chest X-ray: Pending EKG: Pending Problem List - Problems (1) Acute kidney injury Code(s): N17.9 - ACUTE KIDNEY FAILURE, UNSPECIFIED (2) Pulmonary embolism Code(s): I26.99 - OTHER PULMONARY EMBOLISM WITHOUT ACUTE COR PULMONALE Qualifiers: Pulmonary embolism type: other Chronicity: chronic Acute cor pulmonale presence: without acute cor pulmonale Qualified Code(s): I27.82 - Chronic pulmonary embolism (3) CKD (chronic kidney disease) Code(s): N18.9 - CHRONIC KIDNEY DISEASE, UNSPECIFIED Qualifiers: Chronic kidney disease stage: stage 1 Qualified Code(s): N18.1 - Chronic kidney disease, stage 1 (4) DVT (deep venous thrombosis) Code(s): I82.409 - ACUTE EMBOLISM AND THOMBOS UNSP DEEP VN UNSP LOWER EXTREMITY (5) Diabetes 1.5, managed as type 2 Code(s): E13.9 - OTHER SPECIFIED DIABETES MELLITUS WITHOUT COMPLICATIONS (6) Diabetic ulcer of toe Code(s): E11.621 - TYPE 2 DIABETES MELLITUS WITH FOOT ULCER L97.509 - NON-PRESSURE CHRONIC ULCER OTH PRT UNSP FOOT W UNSP SEVERITY (7) Dyspnea Code(s): R06.00 - DYSPNEA, UNSPECIFIED Qualifiers: Dyspnea type: dyspnea on exertion Qualified Code(s): R06.09 - Other forms of dyspnea (8) [place] cardiac risk >20% in next 10 years Code(s): Z91.89 - OTH PERSONAL RISK FACTORS, NOT ELSEWHERE CLASSIFIED (9) Hyperlipidemia Code(s): E78.5 - HYPERLIPIDEMIA, UNSPECIFIED (10) Hypertension Code(s): I10 - ESSENTIAL (PRIMARY) HYPERTENSION (11) Lower back pain Code(s): M54.5 - LOW BACK PAIN (12) Morbid obesity due to excess calories Code(s): E66.01 - MORBID (SEVERE) OBESITY DUE TO EXCESS CALORIES (13) Nausea vomiting and diarrhea Code(s): R11.2 - NAUSEA WITH VOMITING, UNSPECIFIED R19.7 - DIARRHEA, UNSPECIFIED Assessment/Plan pe/dvt dm cri chf plan heparin to coumadin bridging cardiac stahl stable
--- NOTE | 2017-02-08 16:43 | PN ---
[id number] they understand OBJECTIVE: Vital Signs Period Temp Pulse Resp BP Sys/Toribio Pulse Ox Last 24 Hr 97.4 F-98.1 F 61-96 16-20 115-138/60-78 PE Neuro: alert, awake, cn 2-12intact Pulm: CTAB CV: s1 s2 rrr no mrg Abd: s nt nd + bs Ext: warm, no le edema Laboratory Results - last 24 hr 02/08/17 02/08/17 02/08/17 08:10 08:10 08:10 WBC 6.0 RBC 5.28 Hgb 13.0 Hct 40.2 MCV 76.2 L MCHC 32.4 RDW 16.1 H Plt Count 143 MPV 8.6 Neutrophils % 61.5 Lymphocytes % 17.8 Monocytes % 12.6 H Eosinophils % 7.3 H Basophils % 0.8 INR 1.20 H PTT (Actin FS) Sodium 139 Potassium 4.6 Chloride 108 H Carbon Dioxide 24 Anion Gap 7 L BUN 37 H Creatinine 1.7 H D POC Glucometer Random Glucose 136 H D Calcium 8.7 Phosphorus 4.0 Magnesium 1.9 Active Medications Generic Name Dose Route Start Last Admin Trade Name Freq PRN Reason Stop Dose Admin Atorvastatin Calcium 10 mg 02/07/17 22:00 02/07/17 22:32 Lipitor - PO 10 mg HS ELIZA Administration Cholecalciferol 4,000 unit 02/08/17 10:00 02/08/17 11:02 Vitamin D3 - PO 4,000 unit DAILY ELIZA Administration Enoxaparin Sodium 150 mg 02/08/17 22:00 Lovenox - SQ BID ELIZA Glipizide 10 mg 02/08/17 07:00 02/08/17 08:23 Glucotrol Xl - PO 10 mg ACBK ELIZA Administration Heparin Sodium (Porcine) 25, 500 mls @ 20 mls/hr 02/07/17 19:15 02/08/17 13:02 000 unit/ Sodium Chloride IV 1,000 unit/hr TITR ELIZA Titration Protocol 1,000 UNIT/HR Insulin Aspart 1 vial 02/07/17 22:00 02/08/17 12:12 Novolog Vial Sliding Scale - SQ 2 units ACHS ELIZA Administration Protocol Metoprolol Succinate 25 mg 02/08/17 10:00 02/08/17 11:02 Toprol Xl - PO 25 mg DAILY ELIZA Administration Sitagliptin Phosphate 25 mg 04/14/17 07:00 02/08/17 06:39 Januvia - PO 25 mg ACBK ELIZA Administration Warfarin Sodium 7.5 mg 02/08/17 18:00 Coumadin - PO DAILY@1800 ELIZA Assessment: 51 year old male with PMH HTN, HLD, DM, CKD, DVT/PE presented to ED for treatment for PE. He has been admitted for same. Plan: 1. DVT/PE - Start lovenox 150mg BID tonight, stop heparin after evening dose administration - Coumdain 7.5mg HS - Monitor INR - Dr. Shell will follow pt on Saturday, if pt not therapeutic on Saturday will leave with lovenox and coumadin bridge - Discussed above with heme 2. RORY with CKD - Restart enalapril tomorrow - Renal dose meds 3. DM II - Stop PO antidiabetics - ISS, BGM ACHS 4. HTN - Toprol 25mg daily - Enalapril start tomorrow 5. HLD - cont home lipitor 6. DVT PPX - on heparin drip Visit type - Emergency Visit Emergency Visit: Yes ED Registration Date: 02/07/17 Care time: The patient presented to the Emergency Department on the above date and was hospitalized for further evaluation of their emergent condition. - New Patient This patient is new to me today: Yes Date on this admission: 02/14/17 - Critical Care Critical Care patient: No
--- NOTE | 2017-02-08 16:53 | PN ---
Progress Note (short form) - Note Progress Note: Patient seen and examined On IV heparin To receive Lovenox. Bridging to coumadin No chest pain or SOB Last Vital Signs Temp Pulse Resp BP Pulse Ox 97.5 F L 63 18 126/60 97 02/08/17 14:34 02/08/17 14:34 02/08/17 14:34 02/08/17 14:34 02/07/17 15:25 Lungs Clear to P & A Cor- RSR Abdomen-soft No calf tenderness Ext- no calf tenderness CBC, BMP 02/08/17 08:10 02/08/17 08:10 Current Medications Generic Name Dose Route Start Last Admin Trade Name Henriqueq PRN Reason Stop Dose Admin Atorvastatin Calcium 10 mg 02/07/17 22:00 02/07/17 22:32 Lipitor - PO 10 mg HS ELIZA Administration Cholecalciferol 4,000 unit 02/08/17 10:00 02/08/17 11:02 Vitamin D3 - PO 4,000 unit DAILY ELIZA Administration Glipizide 10 mg 02/08/17 07:00 02/08/17 08:23 Glucotrol Xl - PO 10 mg ACBK ELIZA Administration Heparin Sodium (Porcine) 25, 500 mls @ 20 mls/hr 02/07/17 19:15 02/08/17 13:02 000 unit/ Sodium Chloride IV 1,000 unit/hr TITR ELIZA Titration Protocol 1,000 UNIT/HR Insulin Aspart 1 vial 02/07/17 22:00 02/08/17 12:12 Novolog Vial Sliding Scale - SQ 2 units ACHS ELIZA Administration Protocol Metoprolol Succinate 25 mg 02/08/17 10:00 02/08/17 11:02 Toprol Xl - PO 25 mg DAILY ELIZA Administration Sitagliptin Phosphate 25 mg 02/08/17 07:00 02/08/17 06:39 Januvia - PO 25 mg ACBK ELIZA Administration Impression Bridging heparin and then lovenox to coumadin Pulmonary Emboli Thrombophilia work up as out patient.
--- NOTE | 2017-02-08 17:30 | CONSULT ---
Consult Consult Specialty:: Nephrology Reason for Consultation:: CKD - History of Present Illness Chief Complaint: pt sent in for treatment of PE History of Present Illness: Pt is a 51 year old male with pmhx of CKD, HTN, chol, and DM who was sent to the ER for treatment of PE. He has history of CKD and follows with Dr Hair. He denies chest pain or shortness of breath. He denies dysuria or hematuria. He is awake and alert. - History Source History Provided By: Patient - Past Medical History Cardio/Vascular: Yes: HTN, Hyperlipdemia Renal/: Yes: Renal Inusuff Endocrine: Yes: Diabetes Mellitus - Alcohol/Substance Use Hx Alcohol Use: No - Smoking History Smoking history: Never smoked Have you smoked in the past 12 months: No Aproximately how many cigarettes per day: 0 Home Medications - Allergies Allergies/Adverse Reactions: Allergies Allergy/AdvReac Type Severity Reaction Status Date / Time aspirin AdvReac Mild "BACK Verified 01/29/17 14:04 STARTS TO HURT" - Home Medications Home Medications: Ambulatory Orders Sitagliptin Phosphate [Januvia] 25 mg PO DAILY 03/29/14 Enalapril Maleate [Vasotec -] 10 mg PO DAILY 01/23/16 Glipizide [Glipizide ER] 10 mg PO DAILY 01/23/16 Atorvastatin Ca [Lipitor] 10 mg PO HS 01/29/17 Cholecalciferol (Vitamin D3) [Vitamin D3 -] 4,000 unit PO DAILY 01/29/17 Metoprolol Succinate [Toprol XL -] 25 mg PO DAILY #30 tab.sr.24h 01/31/17 Rivaroxaban [Xarelto -] 15 mg PO BID #42 tab 01/31/17 Review of Systems - Review of Systems Constitutional: reports: No Symptoms Eyes: reports: No Symptoms HENT: reports: No Symptoms Neck: reports: No Symptoms Cardiovascular: reports: No Symptoms Respiratory: reports: No Symptoms Gastrointestinal: reports: No Symptoms Genitourinary: reports: No Symptoms Physical Exam Vital Signs: Vital Signs Temperature 97.5 F L 02/08/17 14:34 Pulse Rate 63 02/08/17 14:34 Respiratory Rate 18 02/08/17 14:34 Blood Pressure 126/60 02/08/17 14:34 O2 Sat by Pulse Oximetry (%) 97 02/07/17 15:25 Constitutional: Yes: Calm Eyes: Yes: Conjunctiva Clear HENT: Yes: Atraumatic Neck: Yes: Supple Cardiovascular: Yes: S1, S2 Respiratory: Yes: CTA Bilaterally Gastrointestinal: Yes: Soft, Abdomen, Obese Renal/: Yes: WNL Musculoskeletal: Yes: Muscle Weakness Edema: Yes Edema: LLE: 1+, RLE: 1+ Neurological: Yes: Oriented Psychiatric: Yes: Oriented Labs: CBC, BMP 02/08/17 08:10 02/08/17 08:10 Imaging - Results Chest X-ray: Report Reviewed Problem List - Problems (1) Pulmonary embolism Code(s): I26.99 - OTHER PULMONARY EMBOLISM WITHOUT ACUTE COR PULMONALE Qualifiers: Pulmonary embolism type: other Chronicity: chronic Acute cor pulmonale presence: without acute cor pulmonale Qualified Code(s): I27.82 - Chronic pulmonary embolism (2) CKD (chronic kidney disease) Code(s): N18.9 - CHRONIC KIDNEY DISEASE, UNSPECIFIED Qualifiers: Chronic kidney disease stage: stage 1 Qualified Code(s): N18.1 - Chronic kidney disease, stage 1 (3) DVT (deep venous thrombosis) Code(s): I82.409 - ACUTE EMBOLISM AND THOMBOS UNSP DEEP VN UNSP LOWER EXTREMITY (4) Diabetes 1.5, managed as type 2 Code(s): E13.9 - OTHER SPECIFIED DIABETES MELLITUS WITHOUT COMPLICATIONS Assessment/Plan Current Medications Generic Name Dose Route Start Last Admin Trade Name Freq PRN Reason Stop Dose Admin Atorvastatin Calcium 10 mg 02/07/17 22:00 02/07/17 22:32 Lipitor - PO 10 mg HS ELIZA Administration Cholecalciferol 4,000 unit 02/08/17 10:00 02/08/17 11:02 Vitamin D3 - PO 4,000 unit DAILY ELIZA Administration Enalapril Maleate 10 mg 02/09/17 10:00 Vasotec - PO DAILY ELIZA Enoxaparin Sodium 150 mg 02/08/17 22:00 Lovenox - SQ BID ELIZA Heparin Sodium (Porcine) 25, 500 mls @ 20 mls/hr 02/07/17 19:15 02/08/17 13:02 000 unit/ Sodium Chloride IV 1,000 unit/hr TITR ELIZA Titration Protocol 1,000 UNIT/HR Insulin Aspart 1 vial 02/08/17 16:42 Novolog Vial Sliding Scale - SQ ACHS [facility] Protocol Insulin Detemir 10 units 02/08/17 22:00 Levemir Vial SQ HS [facility] Metoprolol Succinate 25 mg 02/08/17 10:00 02/08/17 11:02 Toprol Xl - PO 25 mg DAILY [facility] Administration Warfarin Sodium 7.5 mg 02/08/17 18:00 Coumadin - PO DAILY@1800 [facility] Impression 1. CKD stage 3 2. DVT acute 3. Pulmonary Embolism 4. HTN 5. DM 6. hyperlipidemia 7. obesity Plan - renal function stable - cont home home meds - renal dose meds - will follow PRN - monitor bp - mopnitor ptt while on heparin - pt will start coumadin, will need to be followed Dr Garcia
[2017-02-08] MEDS ORDERED: WARFARIN NA 7.5 MG TABLET (FP) PO SCH (18:00)
[2017-02-08] MEDS: HEPARIN - 25,000 UNIT in SODIUM CHLORIDE 495 ML IV SCH (22:13)
[2017-02-08] MEDS: ATORVASTATIN CA 10 MG TABLET (FP) PO SCH (22:14)
[2017-02-08] MEDS: ENOXAPARIN NA (PORCINE) 100 MG/1 ML DISP.SYRIN SQ SCH (22:14)
[2017-02-08] MEDS: INSULIN DETEMIR 100 UNITS/ML MDV SQ SCH (22:30)
[2017-02-09] MEDS: INSULIN SLIDING SCALE (NOVOLOG) 1 VIAL SQ SCH ×4 (06:37→21:28)
[2017-02-09] MEDS ORDERED: PT OWN MED DRAWER 7, Y5N ONE (09:47)
[2017-02-09] MEDS: ENOXAPARIN NA (PORCINE) 100 MG/1 ML DISP.SYRIN SQ SCH ×2 (09:49→21:21)
[2017-02-09] MEDS: ENALAPRIL MALEATE 10 MG TABLET (FP) PO SCH (09:49)
[2017-02-09] MEDS: METOPROLOL SUCCINATE 25 MG TAB.SR.24H (FP) PO SCH (09:49)
[2017-02-09] MEDS: CHOLECALCIFEROL (VITAMIN D3) 1,000 UNIT TABLET (FP) PO SCH (09:49)
[2017-02-09 11:54] LABS: INR 1.15 (0.82-1.09); PROTHROMBIN TIME (PATIENT) 12.7 SEC (9.98-11.88)
[2017-02-09 12:06] LABS: CALCIUM 8.9 mg/dL (8.5-10.1); COCKROFT - GAULT 103.39; CREATININE 1.8 mg/dL (0.7-1.3)
--- NOTE | 2017-02-09 12:08 | PN ---
Physical Exam: SUBJECTIVE: Patient seen and examined Pt reports feeling better, no c/o at this time. OBJECTIVE: Vital Signs Period Temp Pulse Resp BP Sys/Toribio Pulse Ox Last 24 Hr 97.5 F-98.2 F 58-65 18-18 126-129/60-78 GENERAL: The patient is awake, alert, and fully oriented, in no acute distress. HEAD: Normal with no signs of trauma. EYES: PERRL, extraocular movements intact, sclera anicteric, conjunctiva clear. No ptosis. ENT: Ears normal, nares patent, oropharynx clear without exudates, moist mucous membranes. NECK: Trachea midline, full range of motion, supple. LUNGS: Breath sounds equal, clear to auscultation bilaterally, no wheezes, no crackles, no accessory muscle use. HEART: Regular rate and rhythm, S1, S2 without murmur, rub or gallop. ABDOMEN: Soft, nontender, nondistended, normoactive bowel sounds, no guarding, no rebound, no hepatosplenomegaly, no masses. EXTREMITIES: 2+ pulses, warm, well-perfused, no edema. NEUROLOGICAL: Cranial nerves II through XII grossly intact. Normal speech, gait not observed. PSYCH: Normal mood, normal affect. SKIN: Warm, dry, normal turgor, no rashes or lesions noted Laboratory Results - last 24 hr 02/08/17 02/08/17 02/08/17 12:08 17:08 22:20 INR POC Glucometer 154 135 199 02/09/17 02/09/17 06:34 11:10 INR 1.15 H POC Glucometer 108 Active Medications Generic Name Dose Route Start Last Admin Trade Name Davi PRN Reason Stop Dose Admin Atorvastatin Calcium 10 mg 02/07/17 22:00 02/08/17 22:14 Lipitor - PO 10 mg HS ELIZA Administration Cholecalciferol 4,000 unit 02/08/17 10:00 02/09/17 09:49 Vitamin D3 - PO 4,000 unit DAILY ELIZA Administration Enalapril Maleate 10 mg 02/09/17 10:00 02/09/17 09:49 Vasotec - PO 10 mg DAILY ELIZA Administration Enoxaparin Sodium 150 mg 02/08/17 22:00 02/09/17 09:49 Lovenox - SQ 150 mg BID ELIZA Administration Insulin Aspart 1 vial 02/08/17 16:42 02/09/17 11:53 Novolog Vial Sliding Scale - SQ 2 units ACHS [facility] Administration Protocol Insulin Detemir 10 units 02/08/17 22:00 02/08/17 22:30 Levemir Vial SQ 10 units HS ELIZA Administration Metoprolol Succinate 25 mg 02/08/17 10:00 02/09/17 09:49 Toprol Xl - PO 25 mg DAILY ELIZA Administration Warfarin Sodium 7.5 mg 02/08/17 18:00 02/08/17 18:15 Coumadin - PO 7.5 mg DAILY@1800 [facility] Administration ASSESSMENT/PLAN: Assessment: 51 year old male with PMH HTN, HLD, DM, CKD, DVT/PE presented to ED for treatment for PE. He has been admitted for same. * DVT/PE -INR 1.15 - will increase Coumadin dose to 10mg and and will cont on Lovenox will cont on Lovenox and Coumadin for now - Hematology following -plan Thrombophilia work up as out patient. - Monitor INR - Dr. Shell will follow pt on Saturday, if pt not therapeutic on Saturday will leave with lovenox and coumadin bridge *RORY with CKD -cre level 1.8 today - hold off enalapril in view of RF - will cotn on IVF -renal following *DM - cont home meds for now with sliding scale -on Levemir - resume consistent carb diet - FS monitoring *HTN- Bp controlled holding off enalapril due to creatinine - cont home toprol - will monitor BP *HLD- cont home lipitor DVT PPX- Lovenox and Coumadin FEN- diabetic diet Visit type - Emergency Visit Emergency Visit: Yes ED Registration Date: 02/07/17 Care time: The patient presented to the Emergency Department on the above date and was hospitalized for further evaluation of their emergent condition. - New Patient This patient is new to me today: No - Critical Care Critical Care patient: No
[2017-02-09] MEDS ORDERED: SODIUM CHLORIDE 0.45% 1,000 ML IV SCH (12:15)
--- NOTE | 2017-02-09 15:13 | PN ---
Progress Note (short form) - Note Progress Note: Patient seen and examined No chest pains or SOB Seen by renal States baseline creatinine is 1.8 and will therefore discontinue IV per his request On Lovenox INR still subtherapeutic Last Vital Signs Temp Pulse Resp BP Pulse Ox 97.9 F 66 18 145/83 97 02/09/17 09:00 02/09/17 09:00 02/09/17 09:00 02/09/17 09:00 02/07/17 15:25 HEENT: KARENA, EOM Intact Oropharynx: No thrush, No mucositis Neck: Supple Nodes: Without adenopathy Cor: RSR, No murmurs, No gallops Lungs: Clear to P&A Abd: Soft, Normal bowel sounds, No organomegaly Ext:No significant edema Skin: No rashes, Integument intact CBC, BMP 02/08/17 08:10 02/09/17 11:10 INR, PTT INR 1.15 (0.82-1.09) H 02/09/17 11:10 Impression: Pulmonary Emboli A/C Bridge Lovenox- coumadin.
[2017-02-09] MEDS ORDERED: WARFARIN NA 5 MG TABLET (UD) PO SCH (18:00)
[2017-02-09] MEDS: INSULIN DETEMIR 100 UNITS/ML MDV SQ SCH (21:20)
[2017-02-09] MEDS: ATORVASTATIN CA 10 MG TABLET (FP) PO SCH (21:21)
[2017-02-10] MEDS: INSULIN SLIDING SCALE (NOVOLOG) 1 VIAL SQ SCH ×2 (06:28→11:43)
[2017-02-10 08:45] LABS: INR 1.32 (0.82-1.09); PROTHROMBIN TIME (PATIENT) 14.6 SEC (9.98-11.88)
[2017-02-10 09:08] LABS: CALCIUM 8.6 mg/dL (8.5-10.1)
[2017-02-10 09:10] LABS: COCKROFT - GAULT 116.31; CREATININE 1.6 mg/dL (0.7-1.3)
[2017-02-10] MEDS: METOPROLOL SUCCINATE 25 MG TAB.SR.24H (FP) PO SCH (10:12)
[2017-02-10] MEDS: ENALAPRIL MALEATE 10 MG TABLET (FP) PO SCH (10:12)
[2017-02-10] MEDS: CHOLECALCIFEROL (VITAMIN D3) 1,000 UNIT TABLET (FP) PO SCH (10:12)
[2017-02-10] MEDS: ENOXAPARIN NA (PORCINE) 100 MG/1 ML DISP.SYRIN SQ SCH (10:12)
[2017-02-10 10:43] VITALS: BP 127/64; PULSE 60; TEMP 98.4
--- NOTE | 2017-02-10 13:13 | DS ---
Physical Exam: SUBJECTIVE: Patient seen and examined OBJECTIVE: Vital Signs Period Temp Pulse Resp BP Sys/Toribio Pulse Ox Last 24 Hr 97.8 F-98.4 F 56-66 16-22 123-146/60-75 98 PHYSICAL EXAM GENERAL: The patient is awake, alert, and fully oriented, in no acute distress. HEAD: Normal with no signs of trauma. EYES: PERRL, extraocular movements intact, sclera anicteric, conjunctiva clear. ENT: Ears normal, nares patent, oropharynx clear without exudates, moist mucous membranes. NECK: Trachea midline, full range of motion, supple. LUNGS: Breath sounds equal, clear to auscultation bilaterally, no wheezes, no crackles, no accessory muscle use. HEART: Regular rate and rhythm, S1, S2 without murmur, rub or gallop. ABDOMEN: Soft, nontender, nondistended, normoactive bowel sounds, no guarding, no rebound, no hepatosplenomegaly, no masses. EXTREMITIES: 2+ pulses, warm, well-perfused, no edema. NEUROLOGICAL: Cranial nerves II through XII grossly intact. Normal speech, gait not observed. PSYCH: Normal mood, normal affect. SKIN: Warm, dry, normal turgor, no rashes or lesions noted. LABS Laboratory Results - last 24 hr 02/09/17 02/09/17 02/10/17 17:06 21:01 05:59 INR Sodium Potassium Chloride Carbon Dioxide Anion Gap BUN Creatinine POC Glucometer 153 155 102 Random Glucose Calcium 02/10/17 02/10/17 02/10/17 07:30 07:30 11:40 INR 1.32 H Sodium 140 Potassium 4.9 Chloride 108 H Carbon Dioxide 24 Anion Gap 8 BUN 31 H Creatinine 1.6 H POC Glucometer 206 Random Glucose 105 D Calcium 8.6 HOSPITAL COURSE: Date of Admission:02/07/17 Date of Discharge: 02/10/17 Minutes to complete discharge: 35 Discharge Summary Reason For Visit: PULMONARY EMBOLISM Current Active Problems Acute kidney injury (Acute) Pulmonary embolism (Acute) Condition: Stable - Instructions Diet, Activity, Other Instructions: Diabetic diet. You may resume activity as tolerated. Please see Dr. Shell tomorrow for follow up and to check your INR. Referrals: Daniel Shell MD [Primary Care Provider] - Disposition: HOME - Home Medications Comprehensive Discharge Medication List: Ambulatory Orders Sitagliptin Phosphate [Januvia] 25 mg PO DAILY 03/29/14 Enalapril Maleate [Vasotec -] 10 mg PO DAILY 01/23/16 Glipizide [Glipizide ER] 10 mg PO DAILY 01/23/16 Atorvastatin Ca [Lipitor] 10 mg PO HS 01/29/17 Cholecalciferol (Vitamin D3) [Vitamin D -] 4,000 unit PO DAILY 01/29/17 Metoprolol Succinate [Toprol XL -] 25 mg PO DAILY #30 tab.sr.24h 01/31/17 Enoxaparin Sodium [Lovenox] 150 mg SQ BID #3 vial 02/10/17 Syringe W-Needle,Disposab,3 ml [Easy Touch] 1 each NR ASDIR #6 disp.syrin Warfarin Na [Coumadin -] 2 tab PO DAILY@1800 #30 tablet 02/10/17
--- NOTE | 2017-02-10 14:48 | PN ---
Progress Note, Physician History of Present Illness: Pt seen and examined at bedside. He is awake and alert. He feels well. He denies shortness of breath. - Objective Vital Signs: Vital Signs Temperature 98.4 F 02/10/17 09:00 Pulse Rate 60 02/10/17 09:00 Respiratory Rate 16 02/10/17 09:00 Blood Pressure 127/64 02/10/17 09:00 O2 Sat by Pulse Oximetry (%) 98 02/09/17 21:00 Constitutional: Yes: Calm Eyes: Yes: Conjunctiva Clear HENT: Yes: Atraumatic Neck: Yes: Supple Cardiovascular: Yes: S1, S2 Respiratory: Yes: CTA Bilaterally Gastrointestinal: Yes: Soft, Abdomen, Obese Genitourinary: Yes: WNL Edema: Yes Edema: LLE: 1+, RLE: 1+ Neurological: Yes: Oriented Psychiatric: Yes: Oriented Labs: CBC, BMP 02/08/17 08:10 02/10/17 07:30 INR, PTT INR 1.32 (0.82-1.09) H 02/10/17 07:30 Problem List - Problems (1) Pulmonary embolism Code(s): I26.99 - OTHER PULMONARY EMBOLISM WITHOUT ACUTE COR PULMONALE Qualifiers: Pulmonary embolism type: other Chronicity: chronic Acute cor pulmonale presence: without acute cor pulmonale Qualified Code(s): I27.82 - Chronic pulmonary embolism (2) CKD (chronic kidney disease) Code(s): N18.9 - CHRONIC KIDNEY DISEASE, UNSPECIFIED Qualifiers: Chronic kidney disease stage: stage 1 Qualified Code(s): N18.1 - Chronic kidney disease, stage 1 (3) DVT (deep venous thrombosis) Code(s): I82.409 - ACUTE EMBOLISM AND THOMBOS UNSP DEEP VN UNSP LOWER EXTREMITY (4) Diabetes 1.5, managed as type 2 Code(s): E13.9 - OTHER SPECIFIED DIABETES MELLITUS WITHOUT COMPLICATIONS Assessment/Plan Impression 1. CKD stage 3 2. DVT acute 3. Pulmonary Embolism 4. HTN 5. DM 6. hyperlipidemia 7. obesity Plan - renal fuction is at baseline - pt will follow with pmd to get his INR checked - pt will follow with Dr Hair of nephrology - will sign off Dr Garcia
== END 2017-02-10 14:07 | disposition home or self-care (01) | DRG 299 ==
LOC: JER 15:21 → JERBED 18:48 → J5S 02-08 00:33
PROVIDERS: ADMIT Internal Medicine; ATTEND Internal Medicine
PROC: 3E033GC Introduction of Other Therapeutic Substance into Peripheral Vein, Percutaneous Approach (ICD-10-PCS; principal; 2017-02-07)
DX: I82.432 Acute embolism and thrombosis of left popliteal vein (principal); I26.99 Other pulmonary embolism without acute cor pulmonale; N17.9 Acute kidney failure, unspecified; Z68.41 Body mass index [BMI] 40.0-44.9, adult; E78.5 Hyperlipidemia, unspecified; I12.9 Hypertensive chronic kidney disease with stage 1 through stage 4 chronic kidney disease, or unspecified chronic kidney disease; N18.3 Chronic kidney disease, stage 3 (moderate); E11.22 Type 2 diabetes mellitus with diabetic chronic kidney disease; E11.319 Type 2 diabetes mellitus with unspecified diabetic retinopathy without macular edema; E66.01 Morbid (severe) obesity due to excess calories; Z71.3 Dietary counseling and surveillance; Z79.01 Long term (current) use of anticoagulants
CPT/HCPCS: 36415; 71020-TC; 80048; 80053; 83735; 84100; 85025; 85610; 85730; 93005; 93010; 99284-25; J1644

== ENCOUNTER 2017-05-22 12:40 | Emergency (ER) | payer OTHER ==
[2017-05-22 12:48] VITALS: BP 145/70; PULSE 72; TEMP 98.3; BMI 43.5
[2017-05-22 14:17] LABS: BASOPHIL 1.3 % (0-2.0); EOSINOPHIL 3.3 % (0-4.5); MCH 24.5 pg (25.7-33.7); MCHC 31.7 g/dl (32.0-35.9); MEAN CELL VOLUME 77.1 fl (80-96); NEUTROPHILS 77.3 % (42.8-82.8); PLATELET COUNT 204 K/MM3 (134-434); RDW 15.7 % (11.9-15.9); WHITE BLOOD COUNT 8.9 K/mm3 (4.0-10.0)
[2017-05-22 14:43] LABS: ALBUMIN 2.8 g/dl (3.4-5.0); ANION GAP 7 (8-16); CALCIUM 8.4 mg/dL (8.5-10.1); CO2 23 mmol/L (21-32); GLUCOSE,RANDOM 213 mg/dL (74-106)
[2017-05-22 14:46] LABS: CREATININE 2.1 mg/dL (0.7-1.3); SGOT/AST 25 U/L (15-37); SGPT/ALT 26 U/L (12-78)
[2017-05-22 14:47] LABS: TOT PROT 7.1 g/dl (6.4-8.2)
--- NOTE | 2017-05-22 14:47 | PDOC ---
History of Present Illness - General History Source: Patient - History of Present Illness Occurred: reports: other Severity: Yes: moderate Lower Extremity Pain Location: right: leg <JanakNoemi - Last Filed: 05/22/17 17:13> <Faith Wynne - Last Filed: 05/24/17 20:13> - General Chief Complaint: Pain Stated Complaint: PAIN Time Seen by Provider: 05/22/17 13:16 Past History - Past Medical History Anemia: No Asthma: No Cancer: No Cardiac Disorders: No (PE) CVA: No COPD: No DVT: Yes Dementia: No Diabetes: Yes Dialysis: No GI Disorders: No Disorders: No HTN: No Hypercholesterolemia: No HIV: No Kidney Stones: No Liver Disease: No Psychiatric Problems: No Seizures: No Thyroid Disease: No Lung CA: No - Surgical History Lung Surgery: No Neurologic Surgery: No - Psycho/Social/Smoking Cessation Hx Anxiety: No Suicidal Ideation: No Smoking Status: No Smoking History: Never smoked Have you smoked in the past 12 months: No Number of Cigarettes Smoked Daily: 0 'Breaking Loose' booklet given: 03/29/14 Hx Alcohol Use: No Drug/Substance Use Hx: No Substance Use Type: None <MacedonianNoemi - Last Filed: 05/22/17 17:13> <Faith Wynne - Last Filed: 05/24/17 20:13> - Past Medical History Allergies/Adverse Reactions: Allergies Allergy/AdvReac Type Severity Reaction Status Date / Time aspirin AdvReac Mild "BACK Verified 05/22/17 12:48 STARTS TO HURT" Home Medications: Ambulatory Orders Sitagliptin Phosphate [Januvia] 25 mg PO DAILY 03/29/14 Enalapril Maleate [Vasotec -] 10 mg PO DAILY 01/23/16 Glipizide [Glipizide ER] 10 mg PO DAILY 01/23/16 Atorvastatin Ca [Lipitor] 10 mg PO HS 01/29/17 Cholecalciferol (Vitamin D3) [Vitamin D -] 4,000 unit PO DAILY 01/29/17 Metoprolol Succinate [Toprol XL -] 25 mg PO DAILY #30 tab.sr.24h 01/31/17 Enoxaparin Sodium [Lovenox] 150 mg SQ BID #3 vial 02/10/17 Syringe W-Needle,Disposab,3 ml [Easy Touch] 1 each NR ASDIR #6 disp.syrin Warfarin Na [Coumadin -] 2 tab PO DAILY@1800 #30 tablet 02/10/17 Clindamycin [Cleocin -] 300 mg PO Q6HPO #28 capsule 05/22/17 Review of Systems - Review of Systems Constitutional: No: Chills, Fever Respiratory: No: Cough, Shortness of Breath Cardiac (ROS): Yes: Edema. No: Chest Pain ABD/GI: No: Nausea, Vomiting <Noemi Briceno - Last Filed: 05/22/17 17:13> *Physical Exam - Vital Signs Last Vital Signs Temp Pulse Resp BP Pulse Ox 98.3 F 72 20 145/70 98 05/22/17 12:45 05/22/17 12:45 05/22/17 12:45 05/22/17 12:45 05/22/17 12:45 - Physical Exam General Appearance: Yes: Appropriately Dressed. No: Apparent Distress HEENT: positive: Normal Voice Neck: positive: Supple Respiratory/Chest: positive: Lungs Clear, Normal Breath Sounds. negative: Respiratory Distress Cardiovascular: positive: Regular Rate, S1, S2 Extremity: positive: Pedal Edema (1-2+edema of R leg, chronic appearing ulcers to ball of foot and plantar aspect of R great toe w/ increased warmth to entire R leg compared to L, no erythema or induration, pedal pulses intact b/l) Integumentary: positive: Dry, Warm Neurologic: positive: Fully Oriented, Alert, Normal Mood/Affect <Noemi Briceno - Last Filed: 05/22/17 17:13> - Vital Signs Last Vital Signs Temp Pulse Resp BP Pulse Ox 98.3 F 72 20 145/70 98 05/22/17 12:45 05/22/17 12:45 05/22/17 12:45 05/22/17 12:45 05/22/17 12:45 <Faith Wynne - Last Filed: 05/24/17 20:13> ED Treatment Course - LABORATORY CBC & Chemistry Diagram: 05/22/17 13:57 05/22/17 14:00 - ADDITIONAL ORDERS Additional order review: 05/22/17 13:57 RBC 4.71 MCV 77.1 L MCHC 31.7 L RDW 15.7 MPV 8.0 Neutrophils % 77.3 D Lymphocytes % 7.9 L D Monocytes % 10.2 Eosinophils % 3.3 Basophils % 1.3 - RADIOLOGY Radiology Studies Ordered: Category Date Time Status FOOT-RIGHT [RAD] Stat Radiology 05/22/17 13:39 Ordered DUPLEX VASCUL US-1 LEG [US] Stat Ultrasound 05/22/17 13:39 Ordered <Noemi Briceno - Last Filed: 05/22/17 17:13> - LABORATORY CBC & Chemistry Diagram: 05/22/17 13:57 05/22/17 14:00 - ADDITIONAL ORDERS Additional order review: 05/22/17 13:57 RBC 4.71 MCV 77.1 L MCHC 31.7 L RDW 15.7 MPV 8.0 Neutrophils % 77.3 D Lymphocytes % 7.9 L D Monocytes % 10.2 Eosinophils % 3.3 Basophils % 1.3 <Faith Wynne - Last Filed: 05/24/17 20:13> Medical Decision Making - Medical Decision Making 05/22/17 14:36 51-year-old male history of hypertension, hyperlipidemia, diabetes, chronic kidney disease, (cr 2 at baseline), DVT/PE, hospitalized January of this year, currently on coumadin, presents to the ED with worsening swelling to right lower extremity x 1 month. Patient admits that he's had intermittent swelling to right lower leg for over a year. Has never had a DVT in the right leg, only the left leg. Does not have a filter. Patient now reports that he has chronic ulcers to plantar aspect of right foot and right great toe and currently follows up with Dr. Parry for wound care. Denies acute pain to site and no redness, fever or chills See exam Acute on chronic RLE swelling Currently on coumadin for LLE DVT/PE dx 02/11 Chronic plantar wounds to R foot with increased warmth to foot and leg c/f possible infection -Labs -US -discuss dispo w/ PMD 05/22/17 14:50 05/22/17 15:49 Labs and XR unremarkable. US neg for DVT but shows prominent nodes in R groin. Will discuss dispo w/ PMD 05/22/17 16:41 Case d/w Dr Shell, states admit to hospitalist. I called Dr Parry and was told MD is in surgery, left message w/ 's nurse 05/22/17 17:02 Patient requesting to be discharged. I had lengthy discussion with patient, explaining that given significant swelling and increased warmth to right leg, that there is a concern for possible infection and that we would want to keep him in the hospital for IV antibiotics with further observation and for Dr. Parry to come and evaluate him. Patient verbalized understanding, but adamant that he does not wish to be admitted and again requesting discharge. I will discharge patient with po antibiotics and strongly recommend that patient see Dr. Parry tomorrow for a re-evaluation. Patient aware that he can return to ER at any point to continue evaluation. 05/22/17 17:13 <Noemi Briceno - Last Filed: 05/22/17 17:13> *DC/Admit/Observation/Transfer <Noemi Briceno - Last Filed: 05/22/17 17:13> - Attestations Physician Attestion: I reviewed the case with the mid-level practitioner and agree with the mid- level practitioner's assessment, diagnosis and disposition. <Faith Wynne - Last Filed: 05/24/17 20:13> Diagnosis at time of Disposition: Right leg swelling - Discharge Dispostion Disposition: AGAINST MEDICAL ADVICE Condition at time of disposition: Stable - Prescriptions Prescriptions: Clindamycin [Cleocin -] 300 mg PO Q6HPO #28 capsule - Patient Instructions Printed Discharge Instructions: Cellulitis Additional Instructions: Please take antibiotics as prescribed and follow-up with Dr. Parry tomorrow
[2017-05-22 14:48] LABS: ALK PHOS 84 U/L (45-117); BILIRUBIN,TOTAL 0.3 mg/dL (0.2-1.0)
[2017-05-22 15:56] LABS: INR 2.84 (0.82-1.09); PROTHROMBIN TIME (PATIENT) 31.9 SEC (9.98-11.88)
== END 2017-05-22 17:19 | disposition left against medical advice (07) ==
LOC: JER 12:40
DX: M79.89 Other specified soft tissue disorders (principal); Z86.718 Personal history of other venous thrombosis and embolism; Z79.01 Long term (current) use of anticoagulants
CPT/HCPCS: 36415; 73630-TC-RT; 80053; 83880; 85025; 85610; 93971-TC; 99282-25

== ENCOUNTER 2017-11-06 09:24 | Inpatient (IN) | payer OTHER ==
[2017-11-05 11:42] VITALS: BMI 43.8
[2017-11-06 10:08] LABS: INR 1.46 (0.82-1.09); PROTHROMBIN TIME (PATIENT) 16.5 SEC (9.98-11.88)
--- NOTE | 2017-11-06 11:59 | HP ---
Satellite [facility] - Chief Complaint History of Present Illness: 51 year old male Diabetic with non-healing wound of right 1st toe which is now involving bone. No fever or chills. No pain. Limitations to Obtaining History: No Limitations - Past Medical History Allergies/Adverse Reactions: Allergies Allergy/AdvReac Type Severity Reaction Status Date / Time aspirin AdvReac Mild "BACK Verified 11/05/17 11:32 STARTS TO HURT" Cardiovascular: Yes: HTN, Hyperlipdemia Renal/: Yes: Renal Inusuff Endocrine: Yes: Diabetes Mellitus - Current Medications Current Medications: Home Medications Medication Instructions Recorded Sitagliptin Phosphate [Januvia] 10 mg PO DAILY 03/29/14 Enalapril Maleate [Vasotec -] 10 mg PO DAILY 01/23/16 Glipizide [Glipizide ER] 5 mg PO DAILY 01/23/16 Atorvastatin Ca [Lipitor] 10 mg PO HS 01/29/17 Cholecalciferol (Vitamin D3) 4,000 unit PO DAILY 01/29/17 [Vitamin D -] Metoprolol Succinate [Toprol XL -] 25 mg PO DAILY #30 tab.sr.24h 01/31/17 Amoxicillin/Potassium Clav 1 each PO BID 11/05/17 [Amox-Clav 875-125 mg Tablet] Cholecalciferol (Vitamin D3) 2,000 unit PO DAILY 11/05/17 [Vitamin D] Warfarin Na [Coumadin -] 7.5 tab PO DAILY@1800 11/05/17 Satellite Physical Exam - Physical Examination Vital Signs: Vital Signs Period Temp Pulse Resp BP Sys/Toribio Pulse Ox Last 24 Hr 98.3 F 67 18 140/70 99 General Appearance: Obese ENT: Clear Lung: Clear to auscultation Heart: Regular rate & rhythm Abdomen: Soft Extremities: Normal pulses, Other (Right 1st toe necrotic wound of distal phalanx) Neurological: Intact Satellite Impression/Plan - Impression/Plan Impression: 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
[2017-11-06] MEDS ORDERED: morphine CARPU-JECT 4 MG/1 ML DISP.SYRIN IVPUSH PRN (12:04)
[2017-11-06] MEDS ORDERED: KETOROLAC TROMETHAMINE 30 MG/1 ML VIAL IVPUSH PRN ×2 (12:04→13:30)
[2017-11-06] MEDS ORDERED: oxyCODONE HCL 5 MG TABLET PO PRN ×3 (12:04→13:30)
[2017-11-06] MEDS ORDERED: LIDOCAINE HCL 1%, 10 MG/ML (20ML VIAL) ONE (12:04)
[2017-11-06] MEDS ORDERED: ONDANSETRON 4 MG/2 ML VIAL IVPUSH PRN ×2 (12:04→13:30)
[2017-11-06] MEDS ORDERED: AMPICILLIN NA/SULBACTAM NA 1.5 GM VIAL ONE (12:13)
[2017-11-06] MEDS ORDERED: MIDAZOLAM HCL 2 MG/2 ML SINGLE DOSE VIAL ONE (12:13)
[2017-11-06] MEDS ORDERED: PROPOFOL 20 ML ONE (12:13)
[2017-11-06] MEDS ORDERED: LACTATED RINGERS SOLUTION 1,000 ML IV SCH (12:15)
[2017-11-06] MEDS ORDERED: GLYCOPYRROLATE 0.2 MG/1 ML VIAL ONE (12:29)
[2017-11-06] MEDS ORDERED: AMPICILLIN NA/SULBACTAM NA 3 GM VIAL IVPB ONE (12:30)
[2017-11-06] MEDS ORDERED: LIDOCAINE HCL 1%, 10 MG/ML (50 mL VIAL) IJ ONE ×2 (12:34→12:35)
--- NOTE | 2017-11-06 13:05 | OP ---
Operative Note - Note: Operative Date: 11/06/17 Pre-Operative Diagnosis: Gangrene right 1st toe Operation: Open amputation right 1st toe Findings: Necrosis of skin and subcutaneous tissue including distal phalanx right 1st toe Post-Operative Diagnosis: Same as Pre-op Surgeon: Kike Parry Anesthesiologist/MEDICINAL CHEMIST: Lyudimla Ann Anesthesia: Fractional Specimens Removed: Right 1st toe Estimated Blood Loss (mls): 50
[2017-11-06] MEDS ORDERED: AMPICILLIN NA/SULBACTAM NA 3 GM in SODIUM CHLORIDE 100 ML IVPB SCH (15:00)
[2017-11-06] MEDS: LACTATED RINGERS SOLUTION 1,000 ML IV SCH (15:50)
[2017-11-06] MEDS ORDERED: INSULIN SLIDING SCALE (NOVOLOG) 1 VIAL SQ SCH (16:30)
[2017-11-06] MEDS: AMPICILLIN NA/SULBACTAM NA 3 GM in SODIUM CHLORIDE 100 ML IVPB SCH ×2 (16:51→22:00)
[2017-11-06] MEDS ORDERED: INSULIN (NOVOLOG) ASPART 100 UNITS/ML 10ML VIAL ONE (16:56)
[2017-11-06] MEDS: INSULIN SLIDING SCALE (NOVOLOG) 1 VIAL SQ SCH (16:59)
[2017-11-06] MEDS ORDERED: CEFAZOLIN 2 GM in DEXTROSE 5%-WATER - 50 ML IVPB SCH (18:00)
[2017-11-06] MEDS ORDERED: WARFARIN NA 5 MG TABLET (UD) PO SCH (18:00)
[2017-11-06] MEDS: oxyCODONE HCL 5 MG TABLET PO PRN (20:20)
[2017-11-06] MEDS ORDERED: ATORVASTATIN CA 10 MG TABLET (FP) PO SCH (22:00)
[2017-11-06] MEDS: ATORVASTATIN CA 10 MG TABLET (FP) PO SCH (22:00)
[2017-11-07] MEDS: LACTATED RINGERS SOLUTION 1,000 ML IV SCH (02:33)
[2017-11-07] MEDS: AMPICILLIN NA/SULBACTAM NA 3 GM in SODIUM CHLORIDE 100 ML IVPB SCH ×4 (02:41→21:02)
[2017-11-07] MEDS: oxyCODONE HCL 5 MG TABLET PO PRN ×5 (02:50→23:07)
[2017-11-07] MEDS ORDERED: INSULIN (NOVOLOG) ASPART 100 UNITS/ML 10ML VIAL ONE (06:28)
[2017-11-07] MEDS: INSULIN SLIDING SCALE (NOVOLOG) 1 VIAL SQ SCH ×3 (06:29→16:16)
[2017-11-07] MEDS: glipiZIDE-XL 5 MG TAB.ER.24 PO SCH (06:30)
--- NOTE | 2017-11-07 08:11 | PN ---
Progress Note (short form) - Note Progress Note: POD #1 Alert. Resting comfortably without complaint. AVSS. Afeb Gen: nad Right foot: Dressing c/d/i A/P POD #1 s/p Open amputation right 1st toe Operative dressing to remain in place for 1 more day. Dressing will be changed tomorrow on rounds by surgery team (supplies at bedside ) Pain management prn IV ABX OOB to chair Keep leg elevated
[2017-11-07] MEDS ORDERED: PT OWN MED DRAWER 7, Y5N ONE (08:20)
[2017-11-07] MEDS: METOPROLOL SUCCINATE 25 MG TAB.SR.24H (FP) PO SCH (09:33)
[2017-11-07] MEDS: ENALAPRIL MALEATE 10 MG TABLET (FP) PO SCH (09:33)
[2017-11-07] MEDS: ENOXAPARIN NA (PORCINE) 120 MG/0.8 ML DISP.SYRIN SQ SCH ×2 (09:33→21:02)
[2017-11-07] MEDS ORDERED: sitaGLIPtin PHOSPHATE 25 MG TABLET (FP) PO SCH ×2 (10:00)
[2017-11-07] MEDS ORDERED: ENALAPRIL MALEATE 10 MG TABLET (FP) PO SCH (10:00)
[2017-11-07] MEDS ORDERED: METOPROLOL SUCCINATE 25 MG TAB.SR.24H (FP) PO SCH (10:00)
[2017-11-07] MEDS ORDERED: FLU VACCINE QUAD 60 MCG/0.5 ML (MDV 17-18) IM ONE (10:00)
[2017-11-07] MEDS ORDERED: CHOLECALCIFEROL (VITAMIN D3) 400 UNIT TABLET (FP) PO SCH ×2 (10:00)
[2017-11-07] MEDS ORDERED: ENOXAPARIN NA (PORCINE) 120 MG/0.8 ML DISP.SYRIN SQ SCH (10:00)
[2017-11-07] MEDS ORDERED: glipiZIDE-XL 10 MG TAB.ER.24 (FP) PO SCH (10:00)
[2017-11-07] MEDS: sitaGLIPtin PHOSPHATE 25 MG TABLET (FP) PO SCH (11:17)
[2017-11-07] MEDS: ATORVASTATIN CA 10 MG TABLET (FP) PO SCH (21:02)
[2017-11-08] MEDS: AMPICILLIN NA/SULBACTAM NA 3 GM in SODIUM CHLORIDE 100 ML IVPB SCH ×4 (02:10→21:11)
[2017-11-08] MEDS: INSULIN SLIDING SCALE (NOVOLOG) 1 VIAL SQ SCH ×3 (06:04→16:56)
[2017-11-08] MEDS: glipiZIDE-XL 5 MG TAB.ER.24 PO SCH (06:14)
[2017-11-08] MEDS: sitaGLIPtin PHOSPHATE 25 MG TABLET (FP) PO SCH (06:14)
--- NOTE | 2017-11-08 08:43 | PN ---
Progress Note (short form) - Note Progress Note: No C/o VSS Wound with bloody drainage. Small skin bleeder treated with Silver Nitrate. VAC dressing applied. Restart Coumadin IV Abx.
[2017-11-08] MEDS ORDERED: SILVER NITRATE 75% APPLIC STCK 1 PKT EACH TP ONE ×2 (09:00→17:45)
--- NOTE | 2017-11-08 09:16 | PROC ---
Procedure Note Procedure: POD #1 s/p Open amputation right 1st toe Area cleansed. White sponge placed to base of wound to cover exposed bone. Black sponge place on top. Occlusive dressing applied. VAC set to 100mmHg. Sponge collapsed indicating good seal. Patient tolerated procedure well.
[2017-11-08] MEDS: CHOLECALCIFEROL (VITAMIN D3) 1,000 UNIT TABLET (FP) PO SCH (09:31)
[2017-11-08] MEDS: ENOXAPARIN NA (PORCINE) 120 MG/0.8 ML DISP.SYRIN SQ SCH ×2 (09:31→21:11)
[2017-11-08] MEDS: METOPROLOL SUCCINATE 25 MG TAB.SR.24H (FP) PO SCH (09:31)
--- NOTE | 2017-11-08 10:27 | OP ---
DATE OF OPERATION: 11/06/2017 SURGEON: Kike Parry MD OPERATION: Open amputation, right 1st toe. . PREOPERATIVE DIAGNOSIS: Gangrene, right 1st toe. POSTOPERATIVE DIAGNOSIS: Gangrene, right 1st toe. ANESTHESIA: Fractional. ANESTHESIOLOGIST: Lyudmila Ann MD OPERATIVE FINDINGS: There was necrosis of the skin and subcutaneous tissues extending to the bone of the distal and mid phalanx of the right 1st toe. Bone at the base of the proximal phalanx was normal in appearance. OPERATIVE PROCEDURE: Following routine patient identification with side and site verification, intravenous sedation was established. The right foot was prepped with Betadine solution. Lidocaine 1% was infiltrated subcutaneously around the 1st metatarsal to create a nerve block. A circumferential incision was made around the base of the 1st toe proximal to the area of gangrene. This was carried down to subcutaneous tissue using cautery for hemostasis. The proximal phalanx was from the surrounding tissues with a [place] elevator and transected through the joint. The cartilage of the metatarsal head was removed with a rongeur and smoothed with a rasp. The wound was irrigated with saline. Additional soft tissue debridement was carried out to remove nonviable tissue and joint capsule. The wound was irrigated a 2nd time and checked for hemostasis. Any bleeding was controlled with cautery. The wound was packed open with Iodoform gauze covered with Xeroform, dry gauze, and Kerlix and Coban wrap, and the patient was taken to the recovery room in stable condition. Dara ESCUDERO/[id number]
[2017-11-08 11:19] LABS: INR 1.24 (0.82-1.09)
[2017-11-08] MEDS: ENALAPRIL MALEATE 10 MG TABLET (FP) PO SCH (11:49)
[2017-11-08] MEDS ORDERED: PT OWN MED DRAWER 7, Y5N ONE ×3 (14:12→21:10)
[2017-11-08] MEDS: LACTATED RINGERS SOLUTION 1,000 ML IV SCH (14:25)
[2017-11-08] MEDS: oxyCODONE HCL 5 MG TABLET PO PRN ×2 (15:07→22:21)
--- NOTE | 2017-11-08 15:46 | PATH ---
Surgical Pathology Report Patient Name: ROSAMARIA RUSH [facility]. Rec. #: [id number] /Age/Gender: 1965 (Age: 51) / M Account: [id number] Location: [address] [place] [address] Taken: 11/06/2017 Received: 11/06/2017 Reported: 11/08/2017 Physicians: Kike Parry M.D. Specimen(s) Received RIGHT FIRST TOE AMPUTATION AND DEBRIDED TISSUE Clinical History Gangrene right first toe Final Diagnosis RIGHT FIRST TOE, AMPUTATION: GANGRENOUS NECROSIS WITH ASSOCIATED ACUTE OSTEOMYELITIS. ACUTE OSTEOMYELITIS IS PRESENT IN BONE MARROW MARGIN FROM AMPUTATION, AND IN ADDITIONAL UNORIENTED PORTION OF SUBMITTED BONE. SKIN AND SOFT TISSUE FROM MARGIN APPEARS VIABLE. Electronically Signed Ramón Frazier M.D. Gross Description Received in formalin labeled "right first toe and debrided tissue," is a 6.0 x 4.0 x 3.7 cm toe amputation specimen. The epidermal surface displays a 5.2 x 3.0 cm ulcerated lesion extending to 0.3 cm from the skin and soft tissue margin. The lesion involves the underlying bone. Also received within the same container is a 2.3 x 2.2 x 1.5 cm irregular, unoriented portion of focally ulcerated skin with underlying soft tissue, as well as a 2.5 x 2.0 x 1.3 cm irregular, unoriented portion of bone. Assistant Community Manager sections are submitted in 5 cassettes as follows: 1-lesion with underlying bone, following decalcification; 2-skin and soft tissue margin; 3-bone marrow from margin, following decalcification; 4-section from separately received portion of skin; 3-dfrj-[id number] section of separately received portion of bone, following decalcification. DL/11/07/2017 saudi11/07/2017
[2017-11-08] MEDS: WARFARIN NA 10 MG TABLET (FP) PO SCH (18:55)
[2017-11-08] MEDS: ATORVASTATIN CA 10 MG TABLET (FP) PO SCH (21:11)
[2017-11-09] MEDS: AMPICILLIN NA/SULBACTAM NA 3 GM in SODIUM CHLORIDE 100 ML IVPB SCH ×4 (02:23→22:11)
--- NOTE | 2017-11-09 02:30 | PN ---
Progress Note (short form) - Note Progress Note: pt seen yesterday evening for bleeding from his wound vac. Dressing removed, pressure held. Silver nitrite applied to area of ozzing until bleeding stopped, surgicel and pressure dressing applied with 4x4 gauze, kelrix and mayra wrap. D/w Dr. Parry, will continue vac off until the am. May receive lovenox if dressing remains dry.
[2017-11-09] MEDS ORDERED: PT OWN MED DRAWER 7, Y5N ONE ×4 (06:05→21:00)
[2017-11-09] MEDS: sitaGLIPtin PHOSPHATE 25 MG TABLET (FP) PO SCH (06:13)
[2017-11-09] MEDS: glipiZIDE-XL 5 MG TAB.ER.24 PO SCH (06:13)
[2017-11-09] MEDS: INSULIN SLIDING SCALE (NOVOLOG) 1 VIAL SQ SCH ×3 (06:14→16:48)
[2017-11-09 08:48] LABS: INR 1.21 (0.82-1.09); PROTHROMBIN TIME (PATIENT) 13.7 SEC (9.98-11.88)
[2017-11-09 08:52] LABS: HEMOGLOBIN 10.8 GM/dL (11.7-16.9); MCH 23.3 pg (25.7-33.7); MEAN CELL VOLUME 75.1 fl (80-96); PLATELET COUNT 271 K/MM3 (134-434); RBC 4.66 M/mm3 (4.00-5.60); RDW 16.2 % (11.9-15.9); WHITE BLOOD COUNT 5.6 K/mm3 (4.0-10.0)
[2017-11-09] MEDS: METOPROLOL SUCCINATE 25 MG TAB.SR.24H (FP) PO SCH (09:40)
[2017-11-09] MEDS: ENOXAPARIN NA (PORCINE) 120 MG/0.8 ML DISP.SYRIN SQ SCH ×3 (09:40→22:13)
[2017-11-09] MEDS: CHOLECALCIFEROL (VITAMIN D3) 1,000 UNIT TABLET (FP) PO SCH (09:40)
[2017-11-09] MEDS: ENALAPRIL MALEATE 10 MG TABLET (FP) PO SCH (09:40)
[2017-11-09] MEDS: LACTATED RINGERS SOLUTION 1,000 ML IV SCH (14:00)
[2017-11-09] MEDS: WARFARIN NA 10 MG TABLET (FP) PO SCH (17:46)
[2017-11-09] MEDS: oxyCODONE HCL 5 MG TABLET PO PRN ×2 (17:47→22:11)
--- NOTE | 2017-11-09 18:49 | PN ---
Progress Note (short form) - Note Progress Note: No C/o VSS No further bleeding. Dressing dry and intact. INR 1.2 Adjust Coumadin IV Abx. Dressing change tomorrow
[2017-11-09] MEDS: ATORVASTATIN CA 10 MG TABLET (FP) PO SCH (21:07)
[2017-11-10] MEDS: AMPICILLIN NA/SULBACTAM NA 3 GM in SODIUM CHLORIDE 100 ML IVPB SCH ×4 (02:21→21:08)
[2017-11-10] MEDS: oxyCODONE HCL 5 MG TABLET PO PRN ×4 (04:34→18:16)
[2017-11-10] MEDS: glipiZIDE-XL 5 MG TAB.ER.24 PO SCH (06:22)
[2017-11-10] MEDS: sitaGLIPtin PHOSPHATE 25 MG TABLET (FP) PO SCH (06:22)
[2017-11-10] MEDS: INSULIN SLIDING SCALE (NOVOLOG) 1 VIAL SQ SCH ×3 (06:22→16:48)
[2017-11-10 09:55] LABS: INR 1.22 (0.82-1.09); PROTHROMBIN TIME (PATIENT) 13.8 SEC (9.98-11.88)
[2017-11-10] MEDS: ENALAPRIL MALEATE 10 MG TABLET (FP) PO SCH (09:56)
[2017-11-10] MEDS: METOPROLOL SUCCINATE 25 MG TAB.SR.24H (FP) PO SCH (09:56)
[2017-11-10] MEDS: CHOLECALCIFEROL (VITAMIN D3) 1,000 UNIT TABLET (FP) PO SCH (09:56)
--- NOTE | 2017-11-10 11:46 | PN ---
Progress Note (short form) - Note Progress Note: No C/o VSS No further bleeding. Dressing dry and intact. Wound changed with moist gauze packing. INR 1.2 [address] Cou[address] IV [address] VAC tomorrow
[2017-11-10] MEDS ORDERED: PT OWN MED DRAWER 7, Y5N ONE ×4 (11:49→20:54)
[2017-11-10] MEDS: ENOXAPARIN NA (PORCINE) 120 MG/0.8 ML DISP.SYRIN SQ SCH ×2 (12:37→21:08)
[2017-11-10] MEDS: WARFARIN NA 10 MG TABLET (FP) PO SCH (18:14)
[2017-11-10] MEDS: ATORVASTATIN CA 10 MG TABLET (FP) PO SCH (21:08)
[2017-11-11] MEDS: AMPICILLIN NA/SULBACTAM NA 3 GM in SODIUM CHLORIDE 100 ML IVPB SCH ×3 (02:07→15:55)
[2017-11-11] MEDS ORDERED: PT OWN MED DRAWER 7, Y5N ONE ×3 (02:15→13:04)
[2017-11-11] MEDS: oxyCODONE HCL 5 MG TABLET PO PRN ×3 (02:52→22:07)
[2017-11-11] MEDS: glipiZIDE-XL 5 MG TAB.ER.24 PO SCH (06:23)
[2017-11-11] MEDS: sitaGLIPtin PHOSPHATE 25 MG TABLET (FP) PO SCH (06:24)
[2017-11-11] MEDS: INSULIN SLIDING SCALE (NOVOLOG) 1 VIAL SQ SCH ×3 (06:24→16:04)
[2017-11-11 09:28] LABS: INR 1.42 (0.82-1.09)
[2017-11-11] MEDS: ENOXAPARIN NA (PORCINE) 120 MG/0.8 ML DISP.SYRIN SQ SCH (09:31)
[2017-11-11] MEDS: ENALAPRIL MALEATE 10 MG TABLET (FP) PO SCH (09:32)
[2017-11-11] MEDS: CHOLECALCIFEROL (VITAMIN D3) 1,000 UNIT TABLET (FP) PO SCH (09:32)
[2017-11-11] MEDS: METOPROLOL SUCCINATE 25 MG TAB.SR.24H (FP) PO SCH (09:32)
--- NOTE | 2017-11-11 11:41 | PN ---
Progress Note (short form) - Note Progress Note: No C/o VSS No further bleeding. Dressing dry and intact. Wound changed with moist gauze packing. INR 1.4 D/C home VNS for Hydrogel dressing, VAC to start as outpatient PO Augmentin I will see in 1 week.
[2017-11-11] MEDS ORDERED: LIDOCAINE HCL 1%, 10 MG/ML (20ML VIAL) ONE (13:23)
[2017-11-11] MEDS ORDERED: SILVER NITRATE 75% APPLIC STCK 1 PKT EACH TP ONE (15:00)
[2017-11-11] MEDS: WARFARIN NA 10 MG TABLET (FP) PO SCH (17:26)
[2017-11-11] MEDS: ATORVASTATIN CA 10 MG TABLET (FP) PO SCH (21:14)
--- NOTE | 2017-11-11 21:51 | PN ---
Progress Note (short form) - Note Progress Note: Pt seen earlier today because of bleeding from right toe, silver nitrite sticks and vicryl suture placed to stop arterial bleed from the wound edge. Lidocaine infected into the area prior to placing suture. Bleeding decreded and than stopped after pressure held. Surgicel/ gauze kerlix and mayra wrap pressure dressing applied. Lovenox discontinued for tonight, pt to continue getting coumadin and dicharge held. D/w Dr. Parry.
[2017-11-12] MEDS: INSULIN SLIDING SCALE (NOVOLOG) 1 VIAL SQ SCH ×2 (06:31→11:39)
[2017-11-12] MEDS: sitaGLIPtin PHOSPHATE 25 MG TABLET (FP) PO SCH (06:32)
[2017-11-12] MEDS: glipiZIDE-XL 5 MG TAB.ER.24 PO SCH (06:32)
[2017-11-12] MEDS ORDERED: AMOX TR/POT CLAV 875MG/125MG TABLETS (FP) PO SCH (08:00)
--- NOTE | 2017-11-12 08:40 | PN ---
Progress Note (short form) - Note Progress Note: No further bleeding BP elevated Will change dressing and if no bleeding discharge To follow up with PMD regarding BP
[2017-11-12 09:07] LABS: INR 1.73 (0.82-1.09); PROTHROMBIN TIME (PATIENT) 19.6 SEC (9.98-11.88)
[2017-11-12] MEDS ORDERED: PT OWN MED DRAWER 7, Y5N ONE (09:14)
[2017-11-12] MEDS: METOPROLOL SUCCINATE 25 MG TAB.SR.24H (FP) PO SCH (09:16)
[2017-11-12] MEDS: CHOLECALCIFEROL (VITAMIN D3) 1,000 UNIT TABLET (FP) PO SCH (09:16)
[2017-11-12] MEDS: ENALAPRIL MALEATE 10 MG TABLET (FP) PO SCH (09:16)
[2017-11-12] MEDS: oxyCODONE HCL 5 MG TABLET PO PRN (10:20)
[2017-11-12 15:35] VITALS: BP 162/92; PULSE 65; TEMP 98.2
== END 2017-11-12 16:42 | disposition home or self-care (01) | DRG 256 ==
LOC: JASU-SURG 09:24 → JSAMEDAYSX 12:05 → J6S 16:13
PROVIDERS: ADMIT Surgery; ATTEND Surgery
PROC: 0JBQ0ZZ Excision of Right Foot Subcutaneous Tissue and Fascia, Open Approach (ICD-10-PCS; 2017-11-06)
PROC: 0Y6P0Z0 Detachment at Right 1st Toe, Complete, Open Approach (ICD-10-PCS; principal; 2017-11-06 11:30)
DX: E11.52 Type 2 diabetes mellitus with diabetic peripheral angiopathy with gangrene (principal); Z68.41 Body mass index [BMI] 40.0-44.9, adult; E66.2 Morbid (severe) obesity with alveolar hypoventilation; E78.5 Hyperlipidemia, unspecified; E11.69 Type 2 diabetes mellitus with other specified complication; I12.9 Hypertensive chronic kidney disease with stage 1 through stage 4 chronic kidney disease, or unspecified chronic kidney disease; E11.22 Type 2 diabetes mellitus with diabetic chronic kidney disease; N18.9 Chronic kidney disease, unspecified
CPT/HCPCS: 36415; 82962; 85027; 85610; 88305-TC; 88311-TC; 90688; 94010; 94760; 97116-GP; 97161-GP

== ENCOUNTER 2018-04-12 08:32 | Inpatient (IN) | payer OTHER ==
[2018-04-12] MEDS ORDERED: SODIUM CHLORIDE 0.9% 500 ML INFUS.BAG IV ONE ×2 (08:51→09:49)
[2018-04-12 09:07] LABS: ARTERIAL BLD GAS O2 SATURATION 88.2 % (90-98.9); ARTERIAL BLOOD GAS BASE EXCESS -9.3 meq/l (-2-2); ARTERIAL BLOOD GAS PCO2 34.6 mmHg (35-45); ARTERIAL BLOOD GAS PO2 62.7 mmHg (80-100); ARTERIAL BLOOD GAS pH 7.29 (7.35-7.45); CARBOXYHEMOGLOBIN 1.4 gm% (0.5-2.0)
[2018-04-12 09:12] LABS: ALLENS TEST POSITIVE
[2018-04-12 09:16] LABS: BASO % 0.8 % (0-2.0); EOS % 7.2 % (0-4.5); HEMATOCRIT 39.3 % (35.4-49); LYMPH % 17.2 % (8-40); MCH 24.2 pg (25.7-33.7); MCHC 30.6 g/dl (32.0-35.9); MEAN CELL VOLUME 79.1 fl (80-96); MEAN PLT VOLUME 8.8 fl (7.5-11.1); NEUT % 62.8 % (42.8-82.8); PLATELET COUNT 127 K/MM3 (134-434); RBC 4.97 M/mm3 (4.00-5.60); RDW 16.4 % (11.9-15.9); WHITE BLOOD COUNT 7.4 K/mm3 (4.0-10.0)
--- NOTE | 2018-04-12 09:22 | PDOC ---
Attending Attestation - Resident Resident Name: Emelia Freeman - ED Attending Attestation I have performed the following: I have examined & evaluated the patient, The case was reviewed & discussed with the resident, I agree w/resident's findings & plan, Exceptions are as noted - HPI HPI: 04/12/18 09:18 "Notes: 52 y.o M with h/o HTN, HLD, DM, PE on coumadin, presenting to ED with SOB. Pt states that he was in his USOH last night. This morning when he awoke, he suddenly felt very short of breath. Denies CP. Denies F/C. Denies cough. Pt states that he has been noncompliant with his meds, including his coumadin. Pt also does not check his fingerstick regularly. Pt endorses BLE swelling. Per EMS, pt was hypotensive to 80/50 in the field, satting 60% on RA. Pt received 1L NS en route and was placed on NRB, with improvement in vitals to BP 100/50 and O2 78%. Fingerstick in ED >500. Allergies: animal dander " - Physicial Exam PE: 04/12/18 09:20 "GENERAL: Awake, alert, and fully oriented, in no acute distress. HEAD: No signs of trauma EYES: PERRLA, EOMI, sclera anicteric, conjunctiva clear ENT: Auricles normal inspection, hearing grossly normal, nares patent, oropharynx clear without exudates. Moist mucosa NECK: Nontender, no stepoffs, Normal ROM, supple, no lymphadenopathy, JVD, or masses LUNGS: +bibasilar rales HEART: Regular rate and rhythm, normal S1 and S2, no murmurs, rubs or gallops ABDOMEN: Soft, nontender, normoactive bowel sounds. No guarding, no rebound. No masses EXTREMITIES: + 2+ PE BLE, Normal range of motion, No clubbing or cyanosis. No cords, erythema, or tenderness NEUROLOGICAL: Cranial nerves II through XII intact. 5/5 strength and sensation in all extremities, Normal speech, normal gait, normal cerebellar function SKIN: Warm, Dry, normal turgor, no rashes or lesions noted. " - Critical Care Time Total Critical Care Time: 60 Critical Care Statement: The care of this patient involved high complexity decision making to prevent further life threatening deterioration of the patient 's condition and/or to evaluate & treat vital organ system(s) failure or risk of failure. - Medical Decision Making 04/12/18 09:21 52 M with sudden onset SOB. Pt tachypneic, hypotensive, and hypoxic in ED. Concerning for PE given h/o PE and noncompliance with AC. Pt also with critical high FSG, concerning for DKA. Exam also notable for bibasilar rales and BLE edema, suggestive of CHF. Also consider sepsis given hypotension and tachycardia. - Labs, BNP, ABG, trop - CXR - CTA chest - IVF for hypotension and elevated sugar - BiPAP - Admit ICU
--- NOTE | 2018-04-12 09:42 | PDOC ---
History of Present Illness - General Chief Complaint: Shortness of Breath Stated Complaint: DIFFICULTY BREATHING Time Seen by Provider: 04/12/18 08:39 History Source: Patient Exam Limitations: No Limitations - History of Present Illness Initial Comments: This is a 52 YOM with h/o DM (does not check BG regularly), DVT/PE in 2017 ( noncompliant with coumadin, cannot recall value or), supramorbid obesity, CKD, HTN, and HLD who p/w acute onset of SOB this morning upon awakening from sleep, which occurred shortly after a syncopal episode this morning (Pt had preceding lightheadedness and non-traumatic syncope). He notes feeling well yesterday other than increased leg swelling lately. EMS measured his initial RA pulse ox to be in the mid-60s and they placed him on the non-rebreather. They also measured his blood pressure to be 80/50 and his BG to be >500. The patient denies any recent fever, chills, nausea, vomiting, diarrhea, constipation, chest pain, abdominal pain, palpitations, or other symptoms. Past History - Past Medical History Allergies/Adverse Reactions: Allergies Allergy/AdvReac Type Severity Reaction Status Date / Time animal dander Allergy Verified 02/12/18 14:03 Home Medications: Ambulatory Orders Sitagliptin Phosphate [Januvia] 25 mg PO DAILY 03/29/14 Enalapril Maleate [Vasotec -] 10 mg PO DAILY 01/23/16 Glipizide [Glipizide ER] 5 mg PO DAILY 01/23/16 Atorvastatin Ca [Lipitor] 10 mg PO HS 01/29/17 Metoprolol Succinate [Toprol XL -] 25 mg PO DAILY #30 tab.sr.24h 01/31/17 Warfarin Na [Coumadin -] 7.5 tab PO DAILY@1800 11/05/17 Furosemide [Lasix] 20 mg PO DAILY PRN 04/12/18 Anemia: No Asthma: No Cancer: No Cardiac Disorders: Yes (ANGIO 03/2017 " SLIGHT BLOCKAGE") CVA: No COPD: No CHF: No DVT: No (PE, sleep apnea) Dementia: No Diabetes: Yes Dialysis: No GI Disorders: No Disorders: No HTN: Yes (BORDERLINE) Hypercholesterolemia: No Kidney Stones: No Liver Disease: No Psychiatric Problems: No Seizures: No Thyroid Disease: No Lung CA: No - Surgical History Abdominal Surgery: No Appendectomy: No Cardiac Surgery: No Cholecystectomy: No Lung Surgery: No Neurologic Surgery: No Orthopedic Surgery: No - Suicide/Smoking/Psychosocial Hx Smoking Status: No Smoking History: Never smoked Have you smoked in the past 12 months: No Number of Cigarettes Smoked Daily: 0 Information on smoking cessation initiated: No 'Breaking Loose' booklet given: 03/29/14 Hx Alcohol Use: No Drug/Substance Use Hx: No Substance Use Type: None Hx Substance Use Treatment: No Review of Systems - Review of Systems Able to Perform ROS?: Yes Constitutional: No: Chills, Fever, Unexplained wgt Loss HEENTM: No: Nose Congestion, Throat Pain Respiratory: Yes: Shortness of Breath. No: Cough Cardiac (ROS): Yes: Edema, Syncope. No: Chest Pain, Palpitations ABD/GI: No: Constipated, Diarrhea, Nausea, Vomiting : No: Burning, Dysuria Musculoskeletal: No: Back Pain, Neck Pain Integumentary: No: Bruising, Rash Neurological: No: Headache, Numbness, Tingling, Weakness, Dizziness Endocrine: No: Unexplained Weight Gain, Unexplained Weight Loss *Physical Exam - Vital Signs Last Vital Signs Temp Pulse Resp BP Pulse Ox 98.8 F 105 H 18 103/80 100 04/12/18 09:00 04/12/18 09:30 04/12/18 09:30 04/12/18 09:30 04/12/18 09:30 - Physical Exam General Appearance: Yes: Nourished, Other (morbidly obese, in mild distress with mild respiratory distress on non-rebreather, laying on stretcher with eyes closed but awake/alert and oriented and answering questions appropriately). No : Apparent Distress HEENT: positive: EOMI, ANIL, Normal Voice, Hearing Grossly Normal, Other (dry mucous membranes). negative: Scleral Icterus (R), Scleral Icterus (L), Nasal Congestion Neck: positive: Trachea midline, Normal Thyroid, Supple. negative: Tender, Rigid Respiratory/Chest: positive: Normal Breath Sounds, Respiratory Distress, Rapid RR, Crackles (mild bibasilar). negative: Rhonchi, Stridor, Wheezing Cardiovascular: positive: Regular Rhythm, Regular Rate, S1, S2, Edema (3+ RLE and 2+ LLE) Gastrointestinal/Abdominal: positive: Normal Bowel Sounds, Soft, Protuberent. negative: Tender, Organomegaly, Pulsatile Mass, Guarding Musculoskeletal: positive: Normal Inspection. negative: Decreased Range of Motion, Vertebral Tenderness Extremity: positive: Normal Capillary Refill, Normal Inspection, Normal Range of Motion. negative: Tender, Cyanosis Integumentary: positive: Normal Color, Dry, Cold (upper extremities cold, trunk is about room temperature). negative: Erythema, Rash, Bruising Neurologic: positive: box toe cutter II-XII NML intact, Fully Oriented, Alert, Normal Mood/ Affect, Normal Response, Motor Strength 5/5 Heart Score/ECG Review #1 Sinus tachycardia, rate 103, normal axis and intervals, ne/o right heart strain , no ischemic changes. ED Treatment Course - LABORATORY CBC & Chemistry Diagram: 04/12/18 08:48 04/12/18 08:48 - ADDITIONAL ORDERS Additional order review: Laboratory Results 04/12/18 04/12/18 09:00 08:48 Puncture Site Right radial ABG pH 7.29 L ABG pCO2 at Pt Temp 34.6 L ABG pO2 at Pt Temp 62.7 L ABG HCO3 16.0 L ABG O2 Sat (Measured) 88.2 L ABG O2 Content 13.7 L ABG Base Excess -9.3 L Don Test Positive Carboxyhemoglobin 1.4 Methemoglobin 1.7 H Oxygen Flow Rate Yes Sodium Cancelled Potassium Cancelled Chloride Cancelled Carbon Dioxide Cancelled Anion Gap Cancelled BUN Cancelled Creatinine Cancelled Creat Clearance w eGFR Cancelled Random Glucose Cancelled Calcium Cancelled Total Bilirubin Cancelled AST Cancelled ALT Cancelled Alkaline Phosphatase Cancelled Creatine Kinase Cancelled CK-MB (CK-2) Cancelled Total Protein Cancelled Albumin Cancelled - RADIOLOGY Radiology Studies Ordered: Category Date Time Status CHEST X-RAY PORTABLE* [RAD] Stat Radiology 04/12/18 08:42 Ordered Medical Decision Making - Medical Decision Making Patient with DM non-adherent to medications who p/w SOB and leg swelling, BG > 500 per EMS. Initial Vital Signs Pulse Resp BP Pulse Ox 106 H 28 H 100/58 83 L 04/12/18 08:32 04/12/18 08:32 04/12/18 08:32 04/12/18 08:32 Exam: tachypneic on non-rebreather, speaking 3 word sentences, 3+ RLE edema and 2+ LLE edema. DDX elevated BG IBNLT: DKA, HHS, simple hyperglycemia (e.g. stress hyperglycemia ), alcoholic ketosis, starvation ketosis, drug-induced acidosis, salicylate toxicity, uremic acidosis, possible provoking factors non-adherence, infection/ inflammation/sepsis (i.e. UTI/pyelonephritis, PNA, bronchitis, skin infection, pancreatitis, etc), EtOH or drug use, ACS, CVA/TIA, renal failure, etc. DDX known PE complications IBNLT: normal course of PE, additional theomboembolism complicating initial PE, evolving lung infarct, superimposed PNA , atelectasis, pleural effusion, chronic thromboembolic pulmonary hypertension, CHF, pulmonary edema, COPD, asthma, other lung disease, anemia, ACS, pericarditis, tamponade, AD, PE, PTX, allergic reaction, malignancy (e.g. causing pericardial effusion or vascular shunt), other infection, pulmonary HTN , etc. W/U ordered: CBCD CMP Mg Serum Acetone Trop CK CKMB ABG UA UCx Lactate BCx EKG CXR Chest CTA Initial TX ordered: BiPAP, IVF, potassium, insulin, may consider bicarbonate and phosphate based on labs. EKG: Sinus tachycardia, rate 103, normal axis and intervals, ne/o right heart strain, no ischemic changes. CXR: NADP Laboratory Tests 04/12/18 04/12/18 04/12/18 08:48 08:48 08:48 WBC 7.4 D RBC 4.97 Hgb 12.0 D Hct 39.3 MCV 79.1 L MCH 24.2 L MCHC 30.6 L RDW 16.4 H Plt Count 127 L D MPV 8.8 Absolute Neuts (auto) 4.6 Neutrophils % 62.8 Lymphocytes % 17.2 D Monocytes % 12.0 H Eosinophils % 7.2 H D Basophils % 0.8 Nucleated RBC % 0 PT with INR INR PTT (Actin FS) Puncture Site ABG pH ABG pCO2 at Pt Temp ABG pO2 at Pt Temp ABG HCO3 ABG O2 Sat (Measured) ABG O2 Content ABG Base Excess Don Test Carboxyhemoglobin Methemoglobin Oxygen Flow Rate Sodium 132 L Potassium 4.7 Chloride 101 Carbon Dioxide 21 Anion Gap 10 BUN 47 H Creatinine 3.0 H D Creat Clearance w eGFR 22.00 Random Glucose 567 H* D Lactic Acid 4.7 H* Calcium 7.8 L Total Bilirubin 0.4 D AST 38 H D ALT 49 D Alkaline Phosphatase 97 Creatine Kinase 330 H Creatine Kinase Index 0.7 CK-MB (CK-2) 2.47 Troponin I B-Natriuretic Peptide Total Protein 6.7 Albumin 2.7 L Blood Type Antibody Screen 04/12/18 04/12/18 04/12/18 08:48 08:48 08:48 WBC RBC Hgb Hct MCV MCH MCHC RDW Plt Count MPV Absolute Neuts (auto) Neutrophils % Lymphocytes % Monocytes % Eosinophils % Basophils % Nucleated RBC % PT with INR INR PTT (Actin FS) 26.5 D Puncture Site ABG pH ABG pCO2 at Pt Temp ABG pO2 at Pt Temp ABG HCO3 ABG O2 Sat (Measured) ABG O2 Content ABG Base Excess Don Test Carboxyhemoglobin Methemoglobin Oxygen Flow Rate Sodium Cancelled Potassium Cancelled Chloride Cancelled Carbon Dioxide Cancelled Anion Gap Cancelled BUN Cancelled Creatinine Cancelled Creat Clearance w eGFR Cancelled Random Glucose Cancelled Lactic Acid Calcium Cancelled Total Bilirubin Cancelled AST Cancelled ALT Cancelled Alkaline Phosphatase Cancelled Creatine Kinase Cancelled Creatine Kinase Index CK-MB (CK-2) Cancelled Troponin I Cancelled B-Natriuretic Peptide 114 Total Protein Cancelled Albumin Cancelled Blood Type O POSITIVE Antibody Screen Negative 04/12/18 04/12/18 04/12/18 08:48 08:57 09:00 WBC RBC Hgb Hct MCV MCH MCHC RDW Plt Count MPV Absolute Neuts (auto) Neutrophils % Lymphocytes % Monocytes % Eosinophils % Basophils % Nucleated RBC % PT with INR 11.80 INR 1.04 D PTT (Actin FS) Puncture Site Right radial ABG pH 7.29 L ABG pCO2 at Pt Temp 34.6 L ABG pO2 at Pt Temp 62.7 L ABG HCO3 16.0 L ABG O2 Sat (Measured) 88.2 L ABG O2 Content 13.7 L ABG Base Excess -9.3 L Don Test Positive Carboxyhemoglobin 1.4 Methemoglobin 1.7 H Oxygen Flow Rate Yes Sodium Potassium Chloride Carbon Dioxide Anion Gap BUN Creatinine Creat Clearance w eGFR Random Glucose Lactic Acid Calcium Total Bilirubin AST ALT Alkaline Phosphatase Creatine Kinase Creatine Kinase Index CK-MB (CK-2) 2.47 Troponin I 0.13 H D B-Natriuretic Peptide Total Protein Albumin Blood Type Antibody Screen Spoke with Radiology department and Radiologist avionics systems integration specialist (Dr. Bragg). The patient needs chest CTA despite Cr=3.0 which is higher than his baseline. The reason is that he needs evaluation for possibility of IR thrombectomy. The patient is not a candidate for VQ scan as he has had prior PE and would have old changes on VQ scan. VQ scan is no adequate study for ruling out PE (sensitive, not specific). Chest CTA is ordered, spoke with ICU ICHTHYOLOGY TEACHER Frankie. Patient has been started on Heparin infusion protocol. His blood pressures are much improved, maintaining systolic >110. My read of the Chest CTA with bilateral large PE (R>L) versus saddle PE. Call placed to Dr. Coto to discuss possibility of IR thrombectomy or catheter -driven thrombolysis. Repeat VS: Reassessment: The Pt is unsafe for discharge at this time. They require further hospital observation, workup, and treatment. Spoke with ICU attending who accepts Pt for ICU placement. Consult order placed to ICU accepting attending Microblog sent to [facility] for admission. Spoke with Antoine, in agreement Pt to be admitted to Decision to Admit order placed to covering attending 04/12/18 14:25 *DC/Admit/Observation/Transfer Diagnosis at time of Disposition: Acute kidney injury, Hyperglycemia Pulmonary embolism Qualifiers: Pulmonary embolism type: other Chronicity: unspecified Acute cor pulmonale presence: without acute cor pulmonale Qualified Code(s): I26.99 - Other pulmonary embolism without acute cor pulmonale - Discharge Dispostion Condition at time of disposition: Guarded Decision to Admit order: Yes - Referrals Referrals: Daniel Shell MD [Primary Care Provider] - - Patient Instructions - Post Discharge Activity
[2018-04-12 09:56] LABS: INR 1.04 (0.82-1.09); PROTHROMBIN TIME (PATIENT) 11.8 SEC (9.7-13.0)
[2018-04-12 10:12] LABS: ALBUMIN 2.7 g/dl (3.4-5.0); ALK PHOS 97 U/L (45-117); ANION GAP 10 (8-16); BILIRUBIN,TOTAL 0.4 mg/dL (0.2-1.0); BLOOD UREA NITROGEN 47 mg/dL (7-18); CALCIUM 7.8 mg/dL (8.5-10.1); CHLORIDE 101 mmol/L (98-107); CO2 21 mmol/L (21-32); POTASSIUM 4.7 mmol/L (3.5-5.1); SGOT/AST 38 U/L (15-37); SGPT/ALT 49 U/L (12-78); SODIUM 132 mmol/L (136-145); TOT PROT 6.7 g/dl (6.4-8.2)
[2018-04-12 10:16] LABS: GLUCOSE,RANDOM 567 mg/dL (74-106)
[2018-04-12] MEDS ORDERED: INSULIN REGULAR HUMAN 100 UNITS/ML *VIAL IVPUSH ONE (10:23)
[2018-04-12] MEDS ORDERED: HEPARIN NA (PORCINE) 5,000 UNITS/ML 1ML VIAL IVPUSH PRN ×3 (10:23→16:25)
[2018-04-12] MEDS ORDERED: INSULIN REGULAR HUMAN 100 UNITS/ML *VIAL ONE (10:27)
[2018-04-12] MEDS ORDERED: HEPARIN NA (PORCINE) 5,000 UNITS/ML 1ML VIAL ONE (10:36)
[2018-04-12] MEDS ORDERED: HEPARIN INFUSION - 25,000 UNITS/500 ML INFUS.BAG IVPB ONE (10:36)
[2018-04-12] MEDS: HEPARIN - 25,000 UNIT in SODIUM CHLORIDE 495 ML IV SCH ×3 (10:41→19:59)
--- NOTE | 2018-04-12 16:17 | HP ---
Admitting History and Physical - Admission Chief Complaint: acute sob History of Present Illness: This is a 51 year old male with a past medical history of HTN, HLD, DM, CKD most recent cr 2.2 Dr. 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 Pt reports he was at home, awoke felt fine, went downstairs and had a a pre syncopal episode, reporting "I felt I was in a dream, consciously unconscious and started to recite numbers" when he wasn't improving called for help and EMS was called. Per ED record pt was hypotensive 80/50 and hypoxic @60%, received 1L and with bp improvement to 100/50, spo2 ~70% In ED he was placed on bipap and prelim reading of CTA shows bilateral large PE R>L vs saddle PE and placed on heparin gtt Currently, pt stats are stable on bipap he is able to speak to me in full sentences. Denies palpitations, sob, chest pain, James, dizziness, fever, chills. and son at bedside. History Source: Patient Limitations to Obtaining History: No Limitations - Past Medical History Cardiovascular: Yes: Deep Vein Thrombosis, HTN, Hyperlipdemia Renal/: Yes: Renal Inusuff Heme/Onc: Yes: Thrombocytopenia Endocrine: Yes: Diabetes Mellitus - Past Surgical History Past Surgical History: Yes: Amputation (R great toe 10/[address] staton) - Smoking History Smoking history: Never smoked Have you smoked in the past 12 months: No Aproximately how many cigarettes per day: 0 - Alcohol/Substance Use Hx Alcohol Use: No History of Substance Use: reports: None - Social History Usual Living Arrangement: Yes: With Spouse ADL: Independent Home Medications - Allergies Allergies/Adverse Reactions: Allergies Allergy/AdvReac Type Severity Reaction Status Date / Time animal dander Allergy Verified 02/12/18 14:03 - Home Medications Home Medications: Ambulatory Orders Sitagliptin Phosphate [Januvia] 25 mg PO DAILY 03/29/14 Enalapril Maleate [Vasotec -] 10 mg PO DAILY 01/23/16 Glipizide [Glipizide ER] 5 mg PO DAILY 01/23/16 Atorvastatin Ca [Lipitor] 10 mg PO HS 01/29/17 Metoprolol Succinate [Toprol XL -] 25 mg PO DAILY #30 tab.sr.24h 01/31/17 Warfarin Na [Coumadin -] 7.5 tab PO DAILY@1800 11/05/17 Furosemide [Lasix] 20 mg PO DAILY PRN 04/12/18 Review of Systems - Review of Systems Constitutional: reports: No Symptoms Eyes: reports: No Symptoms HENT: reports: No Symptoms Neck: reports: No Symptoms Cardiovascular: reports: Shortness of Breath Respiratory: reports: SOB Gastrointestinal: reports: No Symptoms Genitourinary: reports: No Symptoms Integumentary: reports: No Symptoms Neurological: reports: Change in LOC, Syncope Endocrine: reports: No Symptoms Hematology/Lymphatic: reports: No Symptoms Psychiatric: reports: No Symptoms Physical Examination Vital Signs: Vital Signs Temperature 98.8 F 04/12/18 09:00 Pulse Rate 99 H 04/12/18 14:36 Respiratory Rate 17 04/12/18 14:36 Blood Pressure 132/85 04/12/18 14:36 O2 Sat by Pulse Oximetry (%) 100 04/12/18 14:36 Constitutional: Yes: No Distress Eyes: Yes: Conjunctiva Clear Neck: Yes: Supple Cardiovascular: Yes: Tachycardia, S1, S2 Respiratory: Yes: Diminished, On BiPap Gastrointestinal: Yes: Normal Bowel Sounds, Soft, Abdomen, Obese Musculoskeletal: Yes: WNL Edema: Yes Edema: LLE: 1+, RLE: 2+ Peripheral Pulses WNL: Yes Wound/Incision: Yes: Draining, Other (R toe dressing with pink serous drainage) Neurological: Yes: Alert, Oriented, Cran Nerves II-XII Intact Psychiatric: Yes: Alert, Oriented Labs: CBC, BMP 04/12/18 08:48 04/12/18 08:48 Imaging - Results Chest X-ray: Report Reviewed, Image Reviewed Ultrasound: Report Reviewed (acute left popliteal dvt) Problem List - Problems (1) Acute kidney injury Code(s): N17.9 - ACUTE KIDNEY FAILURE, UNSPECIFIED (2) Hyperglycemia Code(s): R73.9 - HYPERGLYCEMIA, UNSPECIFIED (3) Pulmonary embolism Code(s): I26.99 - OTHER PULMONARY EMBOLISM WITHOUT ACUTE COR PULMONALE Qualifiers: Pulmonary embolism type: other Chronicity: unspecified Acute cor pulmonale presence: without acute cor pulmonale Qualified Code(s): I26.99 - Other pulmonary embolism without acute cor pulmonale (4) CKD (chronic kidney disease) Code(s): N18.9 - CHRONIC KIDNEY DISEASE, UNSPECIFIED Qualifiers: Chronic kidney disease stage: stage 1 Qualified Code(s): N18.1 - Chronic kidney disease, stage 1 (5) DVT (deep venous thrombosis) Code(s): I82.409 - ACUTE EMBOLISM AND THOMBOS UNSP DEEP VN UNSP LOWER EXTREMITY (6) Diabetes 1.5, managed as type 2 Code(s): E13.9 - OTHER SPECIFIED DIABETES MELLITUS WITHOUT COMPLICATIONS (7) Hyperlipidemia Code(s): E78.5 - HYPERLIPIDEMIA, UNSPECIFIED (8) Hypertension Code(s): I10 - ESSENTIAL (PRIMARY) HYPERTENSION Assessment/Plan Assessment: 52 year old male admitted with pmhx DM (does not check BG regularly) , DVT/PE in 2017 (noncompliant with coumadin), supramorbid obesity, CKD, HTN, and HLD admitted with acute sob. Plan: 1. Acute Bilateral PE, LLE DVT - Maintain heparin gtt - Goal aptt 60 - Restart coumadin tonight 7.5mg - Discussed with cardiology, hold on STAT ECHO at this time, will not change magmt, goal to stabilize pt o2 sat and blood pressure - Wean off Bipap to NRB - CTA official read pending - If stable tomorrow, will consider transfer to [facility] - Monitor in ICU, cont cardiac monitoring - Follow heparin protocol, wt based for this obese pt - Start gentle hydration 1/2 ns 60cc/hr, however monitor closely avoid fluid overload, likely d. chf - Cycle trops - d/w cardiology 2. Elevated trops - Likely due to above - If rising may need TPA vs thrombectomy 3. Lactic acidosis - Due to hypoxia - Repeat in 4 hrs 4. HTN - Hold vasotec, toprol 5. RORY on CKD - Most recent cr 2.2 per pt - Rise possibly due to hypotensive episode this am - Monitor BMP - Gentle hydration 1/2 ns 60cc/hr, monitor BP closely 6. DM II - ISS, BGM TIDAC 7. DVT - Heparin gtt 8. Nutrition - Hold food while on bipap 9. Thrombocytopenia - Has been evaluated in past - No acute bleeding at this time 10. R great toe amputation 10/2017 - Daily dressing changes 11. HLD - Statin Visit type - Emergency Visit Emergency Visit: Yes ED Registration Date: 04/12/18 Care time: The patient presented to the Emergency Department on the above date and was hospitalized for further evaluation of their emergent condition. - New Patient This patient is new to me today: Yes Date on this admission: 04/13/18 - Critical Care Critical Care patient: Yes Total Critical Care Time (in minutes): 37 Critical Care Statement: The care of this patient involved high complexity decision making to prevent further life threatening deterioration of the patient 's condition and/or to evaluate & treat vital organ system(s) failure or risk of failure. Hospitalist Screening - Colonoscopy Questionnaire Colonoscopy Questionnaire: Colonoscopy Questionnaire - Patient: 50 - 75 years old and never had a screening colonoscopy: Unknown History of colon or rectal polyps, or CA: Unknown History of IBD, Crohn's disease or UC: Unknown History of abdominal radiation therapy as a child: Unknown - Relative: 1 with colon or rectal CA, or polyps at age 60 or younger: Unknown Colon or rectal CA diagnosed at age 45 or younger: Unknown Multiple relatives with colon or rectal CA: Unknown - Outcome: Screening Result: Negative Screen
[2018-04-12] MEDS ORDERED: HEPARIN NA (PORCINE) 5,000 UNITS/ML 1ML VIAL IVPUSH ONE (16:25)
[2018-04-12] MEDS ORDERED: HEPARIN - 25,000 UNIT in SODIUM CHLORIDE 495 ML IV SCH (16:30)
[2018-04-12] MEDS ORDERED: SODIUM CHLORIDE 0.45% 1,000 ML IV SCH (17:15)
--- NOTE | 2018-04-12 17:45 | EKG ---
Test Reason : Blood Pressure : / mmHG Vent. Rate : 103 BPM Atrial Rate : 103 BPM P-R Int : 166 ms QRS Dur : 094 ms QT Int : 338 ms P-R-T Axes : 080 061 061 degrees QTc Int : 442 ms SINUS TACHYCARDIA INCOMPLETE RIGHT BUNDLE BRANCH BLOCK BORDERLINE ECG WHEN COMPARED WITH ECG OF 07-FEB-2017 19:32, VENT. RATE HAS INCREASED BY 42 BPM INCOMPLETE RIGHT BUNDLE BRANCH BLOCK IS NOW PRESENT QT HAS LENGTHENED Confirmed by DEVIN GONZALEZ MD ([id number]) on 04/12/2018 5:44:58 PM Referred By: Confirmed By:DEVIN GONZALEZ MD
[2018-04-12] MEDS ORDERED: WARFARIN NA 7.5 MG TABLET (FP) PO ONE (18:00)
[2018-04-12] MEDS ORDERED: WARFARIN NA 7.5 MG TABLET (FP) PO SCH (18:00)
[2018-04-12] MEDS: INSULIN SLIDING SCALE (NOVOLOG) 1 VIAL SQ SCH (18:20)
--- NOTE | 2018-04-12 19:24 | CON.NEP ---
Consult Consult Specialty:: nephrology Referred by:: jimmy Reason for Consultation:: дмитрий - History of Present Illness Chief Complaint: sob, found to have pe History of Present Illness: дмитрий on ckd multifactorial hypovolemia/hypotension and hemodynamic renal ischemia no report of urination for the past 10-12 hours r/o oliguria PTE Increasing TNI Plan- increase IVF to 80cc/hour measure strict I and O urine indices - Past Medical History Cardio/Vascular: Yes: Deep Vein Thrombosis, HTN, Hyperlipdemia Renal/: Yes: Renal Inusuff Endocrine: Yes: Diabetes Mellitus - Past Surgical History Past Surgical History: Yes: Amputation (R great toe 10/[address] staton) - Alcohol/Substance Use Hx Alcohol Use: No History of Substance Use: reports: None - Smoking History Smoking history: Never smoked Have you smoked in the past 12 months: No Aproximately how many cigarettes per day: 0 - Social History ADL: Independent Home Medications - Allergies Allergies/Adverse Reactions: Allergies Allergy/AdvReac Type Severity Reaction Status Date / Time animal dander Allergy Verified 02/12/18 14:03 - Home Medications Home Medications: Ambulatory Orders Sitagliptin Phosphate [Januvia] 25 mg PO DAILY 03/29/14 Enalapril Maleate [Vasotec -] 10 mg PO DAILY 01/23/16 Glipizide [Glipizide ER] 5 mg PO DAILY 01/23/16 Atorvastatin Ca [Lipitor] 10 mg PO HS 01/29/17 Metoprolol Succinate [Toprol XL -] 25 mg PO DAILY #30 tab.sr.24h 01/31/17 Warfarin Na [Coumadin -] 7.5 tab PO DAILY@1800 11/05/17 Furosemide [Lasix] 20 mg PO DAILY PRN 04/12/18 Nephrology Consult - Height Height: 6 ft 1 in - Weight Weight: 347 lb 8 oz - BMI Body Mass Index (BMI): 45.8 - Lab Results CBC,BMP: CBC, BMP 04/12/18 08:48 04/12/18 08:48 Anion Gap: Anion Gap Anion Gap 10 (8-16) 04/12/18 08:48 - Physical Examination Vital Signs: Vital Signs Temperature 98.7 F 04/12/18 16:13 Pulse Rate 95 H 04/12/18 18:00 Respiratory Rate 13 04/12/18 18:00 Blood Pressure 140/91 04/12/18 18:00 O2 Sat by Pulse Oximetry (%) 100 04/12/18 18:02
--- NOTE | 2018-04-12 20:15 | CONSULT ---
Consult Consult Specialty:: pulm critical care - History of Present Illness Chief Complaint: SOB History of Present Illness: This is a 52 YO M w/ pmhx DM (does not check BG regularly), DVT/PE in 2017 ( noncompliant with coumadin, cannot recall dose), morbid obesity, CKD, HTN, and HL who presented w/ acute onset of SOB this morning upon awakening from sleep, which occurred shortly after a syncopal episode this morning (Pt had preceding lightheadedness and non-traumatic syncope). He notes feeling well yesterday other than increased leg swelling lately. EMS measured his initial RA o2 sat mid -60s, placed on NRB. BP measured was 80/50. BG >500. Pt received 1L NS en route w/ improvement in vitals to BP 100/50 and O2 78%. The patient denies any recent fever, cough, chills, nausea, vomiting, diarrhea, constipation, chest pain, abdominal pain, palpitations, or other symptoms. Pt endorses BLE swelling, rt LE chronically more swollen than left. Upon arrival to ED, pt VS: HR 100s, BP 100s/50s, RR 18, sat'ing 100% on NRB, gluc >500. Concern for PE given h/o PE and noncompliance with AC. Exam notable for bibasilar rales and BLE edema. CXR unremarkable. Chest CTA with bilateral large PE (R>L) versus saddle PE (pending official read). Labs remarkable for Lact 4.7-->2.6, ABG 7.29/34.6/62.7, BUN/creat 47/3.0. Given 3L IVF, insulin, and started on heparin gtt. Cards consulted. Upon arrival to ICU, pt VSS, on heparin gtt. Cont on bipap. On exam speaking in full sentences, no acute distress. Lungs are clear diminished, no JVD on exam. Rt LE more swollen than left. Denies LE pain. SOB is markedly improved since presentation to ED, asking to eat. Pt continued on heparin gtt. Started on Insulin sliding scale. - History Source History Provided By: Patient, Medical Record Limitations to Obtaining History: No Limitations - Past Medical History [employer]: No: Alzheimer's, CVA, Dementia, Migraine, Multiple Sclerosis, Peripheral Neuropathy, Parkinson's, Seizure, Syncope, TIA, Vertigo, Other Cardio/Vascular: Yes: Deep Vein Thrombosis, HTN, Hyperlipdemia Pulmonary: Yes: Pulmonary Embolus. No: Asthma, Bronchitis, Cancer, COPD, O2 Dependent, Pneumonia, Previously Intubated, Pulmonary Fibrosis, Sleep Apnea, Other Gastrointestinal: No: Ascites, Cancer, Constipation, Crohn's Disease, Diverticulitis, Diverticulosis, Esophageal Varices, Gastritis, GERD, GI Bleed, Hemorrhoids, Hiatal Hernia, Inflamatory Bowel Disease, Irritable Bowel Disease, Pancreatitis, Peptic Ulcer Disease, Ulcerative Colitis, Other Hepatobiliary: No: Cirrhosis, Cholelithiasis, Cholecystitis, Choledocholithiasis , Hepatitis A, Hepatitis B, Hepatitis C, Other Renal/: Yes: Renal Inusuff Heme/Onc: No: Anemia, B12 Deficiency, Bleeding Disorder, Cancer, Current Chemotherapy, Current Radiation Therapy, Hemochromatosis, Hypercoaguable State, Myeloproliferative Synd, Sickle Cell Disease, Sickle Cell Trait, Thrombocytopenia, Other Infectious Disease: No: AIDS, C-Diff, Herpes Zoster, HIV, MRSA, STD's, Tuberculosis, VREF, Other Psych: No: Addictions, Anxiety, Bipolar, Depression, Panic, Psychosis, Schizophrenia, Other Musculoskeletal: No: Bursitis, Chronic low back pain, Hemiparesis, Hemiplegia, Osteoarthritis, Paraplegia, Other Rheumatology: No: Fibromyalgia, Gout, Lupus, Rheumatoid Arthritis, Sarcoidosis, Vasculitis, Other ENT: No: Allergic Rhinitis, Sinusitis, Other Endocrine: Yes: Diabetes Mellitus. No: Chugach's Disease, Echo's Disease, Diabetes Insipidus, Hyperparathyroidism, Hyperthyroidism, Hypothyroidism, Osteopenia, SIADH, Other Dermatology: No: Basal Cell, Cellulitis, Eczema, Melanoma, Psoriasis, Squamous Cell, Other - Past Surgical History Past Surgical History: Yes: Amputation (R great toe 10/[address] staton) - Alcohol/Substance Use Hx Alcohol Use: No History of Substance Use: reports: None - Smoking History Smoking history: Never smoked Have you smoked in the past 12 months: No Aproximately how many cigarettes per day: 0 - Social History ADL: Independent History of Recent Travel: No Home Medications - Allergies Allergies/Adverse Reactions: Allergies Allergy/AdvReac Type Severity Reaction Status Date / Time animal dander Allergy Verified 02/12/18 14:03 - Home Medications Home Medications: Ambulatory Orders Sitagliptin Phosphate [Januvia] 25 mg PO DAILY 03/29/14 Enalapril Maleate [Vasotec -] 10 mg PO DAILY 01/23/16 Glipizide [Glipizide ER] 5 mg PO DAILY 01/23/16 Atorvastatin Ca [Lipitor] 10 mg PO HS 01/29/17 Metoprolol Succinate [Toprol XL -] 25 mg PO DAILY #30 tab.sr.24h 01/31/17 Warfarin Na [Coumadin -] 7.5 tab PO DAILY@1800 11/05/17 Furosemide [Lasix] 20 mg PO DAILY PRN 04/12/18 Family Disease History - Family Disease History Family History: Unremarkable Review of Systems - Review of Systems Constitutional: reports: No Symptoms Eyes: reports: No Symptoms HENT: reports: No Symptoms Neck: reports: No Symptoms Cardiovascular: reports: Edema, Shortness of Breath Respiratory: reports: SOB, SOB on Exertion. denies: Cough, Hemoptysis, Wheezing Gastrointestinal: reports: No Symptoms Genitourinary: reports: No Symptoms Breasts: reports: No Symptoms Reported Musculoskeletal: reports: No Symptoms Integumentary: reports: Wound (rt great toe dressing CDI) Neurological: reports: No Symptoms Endocrine: reports: No Symptoms Hematology/Lymphatic: reports: No Symptoms Psychiatric: reports: No Symptoms Pain Intensity: 0 Physical Exam Vital Signs: Vital Signs Temperature 98.7 F 04/12/18 16:13 Pulse Rate 95 H 04/12/18 18:00 Respiratory Rate 13 04/12/18 18:00 Blood Pressure 140/91 04/12/18 18:00 O2 Sat by Pulse Oximetry (%) 100 04/12/18 19:39 Constitutional: Yes: Well Nourished, No Distress, Calm, Obese Eyes: Yes: WNL, Conjunctiva Clear, EOM Intact HENT: Yes: WNL, Atraumatic, Normocephalic Neck: Yes: WNL, Supple, Trachea Midline Cardiovascular: Yes: WNL, Regular Rate and Rhythm Respiratory: Yes: WNL, Regular, CTA Bilaterally, On BiPap. No: Rales, Rhonchi, SOB Gastrointestinal: Yes: WNL, Normal Bowel Sounds, Soft ...Rectal Exam: Yes: WNL Renal/: Yes: WNL Breast(s): Yes: WNL Musculoskeletal: Yes: WNL Extremities: Yes: Amputation (rt great toe dressing CDI) Edema: Yes Edema: LLE: Trace, RLE: Trace Peripheral Pulses WNL: Yes Integumentary: Yes: WNL Wound/Incision: Yes: Clean/Dry Neurological: Yes: WNL, Alert, Oriented ...Motor Strength: WNL Psychiatric: Yes: WNL, Alert, Oriented Labs: CBC, BMP 04/12/18 08:48 04/12/18 08:48 Imaging - Results Chest X-ray: Image Reviewed (unremarkable) Cat Scan: Other (per chart review, b/l pulm emboli vs saddle PE) Ultrasound: Report Reviewed (acute DVT to proximal L popiteal vein) EKG: Image Reviewed (ST; no ST changes. no TWI.) Problem List - Problems (1) Acute kidney injury Code(s): N17.9 - ACUTE KIDNEY FAILURE, UNSPECIFIED (2) Hyperglycemia Code(s): R73.9 - HYPERGLYCEMIA, UNSPECIFIED (3) Pulmonary embolism Code(s): I26.99 - OTHER PULMONARY EMBOLISM WITHOUT ACUTE COR PULMONALE Qualifiers: Pulmonary embolism type: other Chronicity: unspecified Acute cor pulmonale presence: without acute cor pulmonale Qualified Code(s): I26.99 - Other pulmonary embolism without acute cor pulmonale (4) CKD (chronic kidney disease) Code(s): N18.9 - CHRONIC KIDNEY DISEASE, UNSPECIFIED Qualifiers: Chronic kidney disease stage: stage 1 Qualified Code(s): N18.1 - Chronic kidney disease, stage 1 (5) DVT (deep venous thrombosis) Code(s): I82.409 - ACUTE EMBOLISM AND THOMBOS UNSP DEEP VN UNSP LOWER EXTREMITY (6) Diabetes 1.5, managed as type 2 Code(s): E13.9 - OTHER SPECIFIED DIABETES MELLITUS WITHOUT COMPLICATIONS (7) Diabetic neuropathy associated with diabetes mellitus due to underlying condition Code(s): E08.40 - DIABETES DUE TO UNDERLYING CONDITION W DIABETIC NEUROP, UNSP Qualifiers: Diabetes mellitus complication detail: diabetic polyneuropathy Qualified Code(s): E08.42 - Diabetes mellitus due to underlying condition with diabetic polyneuropathy (8) Diabetic ulcer of toe Code(s): E11.621 - TYPE 2 DIABETES MELLITUS WITH FOOT ULCER; L97.509 - NON- PRESSURE CHRONIC ULCER OTH PRT UNSP FOOT W UNSP SEVERITY Qualifiers: Diabetes mellitus type: type 2 Laterality: right Non-pressure ulcer stage : with necrosis of bone Qualified Code(s): E11.621 - Type 2 diabetes mellitus with foot ulcer; L97.514 - Non-pressure chronic ulcer of other part of right foot with necrosis of bone (9) Dyspnea Code(s): R06.00 - DYSPNEA, UNSPECIFIED Qualifiers: Dyspnea type: dyspnea on exertion Qualified Code(s): R06.09 - Other forms of dyspnea (10) Hyperlipidemia Code(s): E78.5 - HYPERLIPIDEMIA, UNSPECIFIED (11) Hypertension Code(s): I10 - ESSENTIAL (PRIMARY) HYPERTENSION Assessment/Plan This is a 52 YO M w/ pmhx poorly controlled DM, DVT/PE in 2017 (nonadherant w/ coumadin), morbid obesity, CKD who presented w/ acute onset of SOB this morning , now found to have b/l large PEs vs saddle PE admitted to ICu for further management. #Bilateral PE on chest CTA #LLE DVT confirmed on vascular US - heparin gtt - Goal aptt 60 - Bipap at night - CTA official read pending - If stable tomorrow, will consider transfer to [facility] - cardiology following #Elevated troponin most likely 2/2 cardiac demand - trend trop, BNP #Acute on chronic Kidney Injury in the setting of elevated creat 3.0; previous creat 2.2, per pt - Rise possibly due to hypotensive episode this am - Monitor BMP - IVF maintenance 50cc/hr - strict I and O - nephrology following #hypergylcemia h/o DM II, gluc 567-->339 - ISS - f/s before meals #h/o HTN, HL - Statin - Hold vasotec, toprol for now #R great toe amputation 10/2017 - Daily dressing changes #DVT ppx - Heparin gtt
[2018-04-13 01:02] LABS: URINE APPEARANCE CLOUDY; URINE BILIRUBIN NEGATIVE (<2.0 mg/dL); URINE COLOR LTYELLOW; URINE GLUCOSE (UA) 2+ (NEGATIVE); URINE KETONE NEGATIVE (NEGATIVE); URINE LEUK ESTERASE NEGATIVE (NEGATIVE); URINE NITRITE NEGATIVE (NEGATIVE); URINE UROBILINOGEN NEGATIVE mg/dL (0.2-1.0)
[2018-04-13 01:04] LABS: URINE PROTEIN 2+ (NEGATIVE)
[2018-04-13 01:07] LABS: EPI CELLS RARE /HPF (FEW); GRANULAR CASTS 52 /lpf; URINE MUCUS RARE
[2018-04-13 01:24] LABS: METHADONE, UR NEGATIVE ng/ml (CUTOFF=300); OPIATES, URI NEGATIVE ng/ml (CUTOFF=300); PHENCYCLIDINE,URINE NEGATIVE ng/ml (CUTOFF=25); URINE AMPHETAMINES NEGATIVE ng/ml (CUTOFF=500); URINE BARBITURATES NEGATIVE ng/ml (CUTOFF=200); URINE BENZODIAZEPINES NEGATIVE ng/ml (CUTOFF=200)
[2018-04-13 01:25] LABS: COCAINE, UR POSITIVE ng/ml (CUTOFF=300)
[2018-04-13] MEDS: INSULIN SLIDING SCALE (NOVOLOG) 1 VIAL SQ SCH ×3 (06:22→18:35)
[2018-04-13] MEDS: SODIUM CHLORIDE 0.45% 1,000 ML IV SCH ×2 (06:27→18:37)
[2018-04-13 06:57] LABS: ALBUMIN 2.7 g/dl (3.4-5.0); ANION GAP 9 (8-16); BLOOD UREA NITROGEN 40 mg/dL (7-18); CHLORIDE 108 mmol/L (98-107); CO2 20 mmol/L (21-32); GLUCOSE,RANDOM 258 mg/dL (74-106); POTASSIUM 4.3 mmol/L (3.5-5.1); SODIUM 137 mmol/L (136-145)
[2018-04-13 07:00] LABS: HEMATOCRIT 35.4 % (35.4-49); HEMOGLOBIN 11.4 GM/dL (11.7-16.9); MCH 24.4 pg (25.7-33.7); MCHC 32.2 g/dl (32.0-35.9); MEAN CELL VOLUME 75.7 fl (80-96); MEAN PLT VOLUME 8.7 fl (7.5-11.1); PLATELET COUNT 104 K/MM3 (134-434); RBC 4.67 M/mm3 (4.00-5.60); RDW 15.7 % (11.9-15.9); WHITE BLOOD COUNT 7.1 K/mm3 (4.0-10.0)
[2018-04-13] MEDS: HEPARIN - 25,000 UNIT in SODIUM CHLORIDE 495 ML IV SCH (07:00)
[2018-04-13 07:02] LABS: ALK PHOS 67 U/L (45-117); BILIRUBIN,TOTAL 0.3 mg/dL (0.2-1.0); CREATININE 2.2 mg/dL (0.7-1.3); SGOT/AST 45 U/L (15-37); SGPT/ALT 52 U/L (12-78); TOT PROT 6.7 g/dl (6.4-8.2)
--- NOTE | 2018-04-13 09:15 | PN ---
Progress Note (short form) - Note Progress Note: Pulm/CCM Pt seen and examined in the ICU 24HR + DVT study, L pop -HR and BP wnl -trop increasing, repeat EKG pending -Hospitalist discussed with IR and Cardiology, no acute intervention if hemodynamically stable and decreasing Fio2 requirement Vital Signs Temp 99.5 F 04/13/18 06:00 Pulse 86 04/13/18 08:23 Resp 16 04/13/18 08:00 BP 157/77 04/13/18 08:00 Pulse Ox 99 04/13/18 08:23 Intake & Output 04/12/18 04/12/18 04/13/18 11:59 23:59 11:59 Intake Total 1041 Output Total 300 Balance 741 Weight 176.447 kg 157.623 kg Intake: IV 1041 1/2 Normal Saline 1,000 817 ml @ 80 mls/hr IV ASDIR ELIZA Rx#:[id number] Heparin - 25,000 Unit In 224 Normal Saline - 495 ml @ 1,000 UNIT/HR 20 mls/hr IV TITR ELIZA Rx#: [id number] Output: Urine 300 Void 300 Other: Voiding Method Urinal # Unmeasured Voids Void 1 Bowel Movement Yes No # Bowel Movements 1 Height 6 ft 1 in 6 ft 1 in Body Mass Index (BMI) 51.2 45.8 Weight Measurement Method Built in [facility] CBC, BMP 04/13/18 06:15 04/13/18 06:15 INR, PTT INR 1.04 (0.82-1.09) D 04/12/18 08:57 Active Medications Heparin Sodium (Porcine) (Heparin -) 7,100 unit 40 unit/kg (7100 unit) IVPUSH PRN PRN PRN Reason: For aPTT 35 to 45 seconds Heparin Sodium (Porcine) (Heparin -) 14,100 unit 80 unit/kg (86164 unit) IVPUSH PRN PRN PRN Reason: aPTT <35 seconds Sodium Chloride (1/2 Normal Saline) 1,000 mls @ 80 mls/hr IV ASDIR ELIZA Last Admin: 04/13/18 06:27 Dose: 80 mls/hr Heparin Sodium (Porcine) 25, (000 unit/ Sodium Chloride) 500 mls @ 20 mls/hr IV TITR ELIZA; Protocol Last Admin: 04/12/18 19:59 Dose: 1,000 unit/hr, 20 mls/hr Insulin Aspart (Novolog Vial Sliding Scale -) 1 vial SQ TIDAC [facility]; Protocol Last Admin: 04/13/18 06:22 Dose: 6 units Warfarin Sodium (Coumadin -) 7.5 mg PO DAILY@1800 [facility] Last Admin: 04/12/18 18:30 Dose: 7.5 mg PE: Gen; awake, non toxic appearing obese man HEENT: EOMI, NCAT, no jvp CV: RRR, no m/r/g appreciated, distant due to body habitus PULM: clear anterior, no wheezes ABD: obese, soft, NT EXT: R>L chronic swelling, bandaged R great toe amputation without erythema, no holmans either side NEURO: intact A/ 52 YO M w/ pmhx poorly controlled DM, DVT/PE in 2016 (nonadherant w/ coumadin , missed 4-5 dyas last week), morbid obesity, CKD who presented w/ acute onset of SOB this morning, now found to have b/l large PEs vs saddle PE admitted to ICu for further management. #Bilateral PE on chest CTA #LLE DVT confirmed on vascular US - heparin gtt for full therapeutic -hold coumadin - Goal aptt 60 - CPAP - CTA w/ + saddle and segemental , awaiting final read - consider IR for directed tPA vs transfer for [facility] - cardiology following #Elevated troponin most likely 2/2 cardiac demand, rising - trend trop, BNP -repeat EKG now #Acute on chronic Kidney Injury in the setting of elevated creat 3.0; previous creat 2.2, per pt - Rise possibly due to hypotensive episode this am - Monitor BMP - IVF maintenance 50cc/hr - strict I and O - nephrology following #hypergylcemia h/o DM II, gluc 567-->339 - ISS - f/s before meals #h/o HTN, HL - Statin - Hold vasotec, toprol for now, restart as neede #R great toe amputation 10/2017 - Daily dressing changes #DVT ppx - Heparin gtt # Add GI jayden Strong ACNP [id number]
[2018-04-13 09:44] LABS: N-TERMINAL BNP 3248.76 pg/ml (5-125)
--- NOTE | 2018-04-13 16:33 | PN ---
Progress Note (short form) - Note Progress Note: icu nephrology Problems morbid obesity acute pe/dvt дмитрий 2/2 hypotension Current Medications Heparin Sodium (Porcine) (Heparin -) 7,100 unit 40 unit/kg (7100 unit) IVPUSH PRN PRN PRN Reason: For aPTT 35 to 45 seconds Heparin Sodium (Porcine) (Heparin -) 14,100 unit 80 unit/kg (52157 unit) IVPUSH PRN PRN PRN Reason: aPTT <35 seconds Sodium Chloride (1/2 Normal Saline) 1,000 mls @ 80 mls/hr IV ASDIR ELIZA Last Admin: 04/13/18 06:27 Dose: 80 mls/hr Heparin Sodium (Porcine) 25, (000 unit/ Sodium Chloride) 500 mls @ 20 mls/hr IV TITR ELIZA; Protocol Last Admin: 04/12/18 19:59 Dose: 1,000 unit/hr, 20 mls/hr Insulin Aspart (Novolog Vial Sliding Scale -) 1 vial SQ TIDAC ELIZA; Protocol Last Admin: 04/13/18 11:20 Dose: 6 units Last Vital Signs Temp Pulse Resp BP Pulse Ox 98.6 F 85 18 120/78 96 04/13/18 13:10 04/13/18 14:00 04/13/18 14:00 04/13/18 14:00 04/13/18 14:02 Intake & Output 04/10/18 04/11/18 04/12/18 04/13/18 23:59 23:59 23:59 23:59 Intake Total 1041 Output Total 1150 Balance -109 Weight 347 lb 8 oz lungs clear heart reg abd soft ext mild edma CBC, BMP 04/13/18 06:15 04/13/18 06:15 IMP- more stable hemodynamically дмитрий nonoliguric Plan- continue to monirtor urine output and BP monitor renal function
[2018-04-13] MEDS ORDERED: INSULIN SLIDING SCALE (NOVOLOG) 1 VIAL SQ SCH (16:50)
--- NOTE | 2018-04-13 17:58 | PN ---
Physical Exam: SUBJECTIVE: Patient seen and examined in ICU. Appears stable sitting on side of bed conversing, bp and o2 stable, off NRB and bipap. OBJECTIVE: Vital Signs Period Temp Pulse Resp BP Sys/Toribio Pulse Ox Last 24 Hr 98.6 F-99.5 F 85-95 8-20 111-159/63-96 95-100 PE Neuro: alert, awake, cn 2-12intact Pulm: CTAB + nc CV: s1 s2 tachycardia Abd: s nt nd + bs Ext: r great toe amputation dressing w drainage serrous , rle edema >L Laboratory Results - last 24 hr 04/12/18 04/12/18 04/12/18 08:48 16:44 17:15 WBC RBC Hgb Hct MCV MCH MCHC RDW Plt Count MPV PTT (Actin FS) Sodium Potassium Chloride Carbon Dioxide Anion Gap BUN Creatinine Creat Clearance w eGFR POC Glucometer [phone] Random Glucose Lactic Acid 4.7 H* Calcium Total Bilirubin AST ALT Alkaline Phosphatase Creatine Kinase 464 H Creatine Kinase Index 1.8 CK-MB (CK-2) 8.45 H Troponin I 2.32 H* D B-Natriuretic Peptide Total Protein Albumin Urine Color Urine Appearance Urine pH Ur Specific Merrill Urine Protein Urine Glucose (UA) Urine Ketones Urine Blood Urine Nitrite Urine Bilirubin Urine Urobilinogen Ur Leukocyte Esterase Urine WBC (Auto) Urine RBC (Auto) Ur Epithelial Cells Granular Casts Urine Mucus Urine Osmolality Ur Random Sodium Urine Creatinine Opiates Screen Methadone Screen Barbiturate Screen Phencyclidine Screen Ur Amphetamines Screen MDMA (Ecstasy) Screen Benzodiazepines Screen Cocaine Screen U Marijuana (THC) Screen 04/13/18 04/13/18 04/13/18 00:30 00:30 00:30 WBC RBC Hgb Hct MCV MCH MCHC RDW Plt Count MPV PTT (Actin FS) Sodium Potassium Chloride Carbon Dioxide Anion Gap BUN Creatinine Creat Clearance w eGFR POC Glucometer Random Glucose Lactic Acid Calcium Total Bilirubin AST ALT Alkaline Phosphatase Creatine Kinase 544 H Creatine Kinase Index 1.8 CK-MB (CK-2) 10.08 H Troponin I 3.25 H* D B-Natriuretic Peptide Total Protein Albumin Urine Color Ltyellow Urine Appearance Cloudy Urine pH 5.0 Ur Specific Merrill 1.033 Urine Protein 2+ H Urine Glucose (UA) 2+ H Urine Ketones Negative Urine Blood 1+ H Urine Nitrite Negative Urine Bilirubin Negative Urine Urobilinogen Negative Ur Leukocyte Esterase Negative Urine WBC (Auto) 11 Urine RBC (Auto) 12 Ur Epithelial Cells Rare Granular Casts 52 Urine Mucus Rare Urine Osmolality Ur Random Sodium Urine Creatinine Opiates Screen Negative Methadone Screen Negative Barbiturate Screen Negative Phencyclidine Screen Negative Ur Amphetamines Screen Negative MDMA (Ecstasy) Screen Negative Benzodiazepines Screen Negative Cocaine Screen Positive U Marijuana (THC) Screen Negative 04/13/18 04/13/18 04/13/18 00:30 00:30 00:30 WBC RBC Hgb Hct MCV MCH MCHC RDW Plt Count MPV PTT (Actin FS) 46.8 H Sodium Potassium Chloride Carbon Dioxide Anion Gap BUN Creatinine Creat Clearance w eGFR POC Glucometer Random Glucose Lactic Acid Calcium Total Bilirubin AST ALT Alkaline Phosphatase Creatine Kinase Creatine Kinase Index CK-MB (CK-2) Troponin I B-Natriuretic Peptide Total Protein Albumin Urine Color Urine Appearance Urine pH Ur Specific Merrill Urine Protein Urine Glucose (UA) Urine Ketones Urine Blood Urine Nitrite Urine Bilirubin Urine Urobilinogen Ur Leukocyte Esterase Urine WBC (Auto) Urine RBC (Auto) Ur Epithelial Cells Granular Casts Urine Mucus Urine Osmolality 529 Ur Random Sodium 51 Urine Creatinine 118.0 Opiates Screen Methadone Screen Barbiturate Screen Phencyclidine Screen Ur Amphetamines Screen MDMA (Ecstasy) Screen Benzodiazepines Screen Cocaine Screen U Marijuana (THC) Screen 04/13/18 04/13/18 04/13/18 06:15 06:15 06:15 WBC 7.1 RBC 4.67 Hgb 11.4 L Hct 35.4 MCV 75.7 L MCH 24.4 L MCHC 32.2 RDW 15.7 Plt Count 104 L MPV 8.7 PTT (Actin FS) 48.5 H Sodium 137 Potassium 4.3 Chloride 108 H Carbon Dioxide 20 L Anion Gap 9 BUN 40 H Creatinine 2.2 H D Creat Clearance w eGFR 31.47 POC Glucometer Random Glucose 258 H D Lactic Acid Calcium 8.0 L Total Bilirubin 0.3 D AST 45 H ALT 52 Alkaline Phosphatase 67 D Creatine Kinase Creatine Kinase Index CK-MB (CK-2) Troponin I B-Natriuretic Peptide 3248.76 H Total Protein 6.7 Albumin 2.7 L Urine Color Urine Appearance Urine pH Ur Specific Merrill Urine Protein Urine Glucose (UA) Urine Ketones Urine Blood Urine Nitrite Urine Bilirubin Urine Urobilinogen Ur Leukocyte Esterase Urine WBC (Auto) Urine RBC (Auto) Ur Epithelial Cells Granular Casts Urine Mucus Urine Osmolality Ur Random Sodium Urine Creatinine Opiates Screen Methadone Screen Barbiturate Screen Phencyclidine Screen Ur Amphetamines Screen MDMA (Ecstasy) Screen Benzodiazepines Screen Cocaine Screen U Marijuana (THC) Screen Active Medications Generic Name Dose Route Start Last Admin Trade Name Freq PRN Reason Stop Dose Admin Heparin Sodium (Porcine) 7,100 unit 04/12/18 16:25 Heparin - 40 unit/kg (7100 unit) IVPUSH PRN PRN For aPTT 35 to 45 seconds Heparin Sodium (Porcine) 14,100 unit 04/12/18 16:25 Heparin - 80 unit/kg (16270 unit) IVPUSH PRN PRN aPTT <35 seconds Sodium Chloride 1,000 mls @ 80 mls/hr 04/12/18 19:10 04/13/18 06:27 1/2 Normal Saline IV 80 mls/hr ASDIR ELIZA Administration Heparin Sodium (Porcine) 25, 500 mls @ 20 mls/hr 04/12/18 19:45 04/12/18 19: 59 000 unit/ Sodium Chloride IV 1,000 unit/hr TITR ELIZA 20 mls/hr Administration Protocol 1,000 UNIT/HR Insulin Aspart 1 vial 04/12/18 17:33 04/13/18 11:20 Novolog Vial Sliding Scale - SQ 6 units TIDAC ELIZA Administration Protocol Microbiology 04/12/18 08:48 Blood - Peripheral Venous Blood Culture - Preliminary NO GROWTH OBTAINED AFTER 24 HOURS, INCUBATION TO CONTINUE FOR 4 DAYS. 04/12/18 08:57 Blood - Peripheral Venous Blood Culture - Preliminary NO GROWTH OBTAINED AFTER 24 HOURS, INCUBATION TO CONTINUE FOR 4 DAYS. Assessment: 52 year old male admitted with pmhx DM (does not check BG regularly) , DVT/PE in 2017 (noncompliant with coumadin), supramorbid obesity, CKD, HTN, and HLD admitted with acute sob. Plan: 1. Acute Bilateral PE, LLE DVT - Maintain heparin gtt - Goal aptt 60 - Trops rising, BNP elevated, indicating r heart strain involvement - Discussed with IR, pt BP and sats are stable, does not meet acute sub massive pe criteria at this time, will re assess pt tomorrow for possible thrombectomy or tpa - ECHO tomorrow - Hold coumadin 2. Elevated trops - Likely due to above - Cardiology seeing 3. Lactic acidosis - Due to hypoxia - Repeat level 4. HTN - Hold vasotec, toprol for now 5. RORY on CKD - Cr returned to baseline - Rise possibly due to hypotensive episode this am - Continue IVF at current rate 6. DM II - ISS, BGM TIDAC 7. DVT - Heparin gtt 8. Thrombocytopenia - Likely due to above process and consumption - Has been evaluated in past - No acute bleeding at this time 9. R great toe amputation 10/2017 - Daily dressing changes 10. HLD - Statin Problem List - Problems (1) Acute kidney injury Code(s): N17.9 - ACUTE KIDNEY FAILURE, UNSPECIFIED (2) Hyperglycemia Code(s): R73.9 - HYPERGLYCEMIA, UNSPECIFIED (3) Pulmonary embolism Code(s): I26.99 - OTHER PULMONARY EMBOLISM WITHOUT ACUTE COR PULMONALE Qualifiers: Pulmonary embolism type: other Chronicity: unspecified Acute cor pulmonale presence: without acute cor pulmonale Qualified Code(s): I26.99 - Other pulmonary embolism without acute cor pulmonale (4) CKD (chronic kidney disease) Code(s): N18.9 - CHRONIC KIDNEY DISEASE, UNSPECIFIED Qualifiers: Chronic kidney disease stage: stage 1 Qualified Code(s): N18.1 - Chronic kidney disease, stage 1 (5) DVT (deep venous thrombosis) Code(s): I82.409 - ACUTE EMBOLISM AND THOMBOS UNSP DEEP VN UNSP LOWER EXTREMITY (6) Diabetes 1.5, managed as type 2 Code(s): E13.9 - OTHER SPECIFIED DIABETES MELLITUS WITHOUT COMPLICATIONS (7) Hyperlipidemia Code(s): E78.5 - HYPERLIPIDEMIA, UNSPECIFIED (8) Hypertension Code(s): I10 - ESSENTIAL (PRIMARY) HYPERTENSION Visit type - Emergency Visit Emergency Visit: Yes ED Registration Date: 04/12/18 Care time: The patient presented to the Emergency Department on the above date and was hospitalized for further evaluation of their emergent condition. - New Patient This patient is new to me today: No - Critical Care Critical Care patient: Yes Total Critical Care Time (in minutes): 36 Critical Care Statement: The care of this patient involved high complexity decision making to prevent further life threatening deterioration of the patient 's condition and/or to evaluate & treat vital organ system(s) failure or risk of failure.
--- NOTE | 2018-04-13 18:37 | CON.CARD ---
Consult Consult Specialty:: Cardiology Reason for Consultation:: PE's - History of Present Illness Chief Complaint: Dyspnea History of Present Illness: This is a 51 year old male with a past medical history of HTN, HLD, DM, CKD most recent cr 2.2 Dr. Melara, DVT/PE (has not taken coumadin x4days), and morbid obesit. He presented to the ED after feeling acutely sob and lightheaded at home. In the ED record he was hypotensive 80/50 and hypoxic at 60%, received 1L and with bp improvement to 100/50, spo2 ~70% In ED he was placed on bipap and the CT of the Chest shows bilateral large PE R >L vs saddle PE, and he was placed on heparin gtt. Presently comfortable and hemodynamically stable. 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 No: Asthma, Bronchitis, Cancer, COPD, O2 Dependent, Pneumonia, Previously Intubated, Pulmonary Fibrosis, Sleep Apnea, Other Gastrointestinal: No: Ascites, Cancer, Constipation, Crohn's Disease, Diverticulitis, Diverticulosis, Esophageal Varices, Gastritis, GERD, GI Bleed, Hemorrhoids, Hiatal Hernia, Inflamatory Bowel Disease, Irritable Bowel Disease, Pancreatitis, Peptic Ulcer Disease, Ulcerative Colitis, Other Hepatobiliary: No: Cirrhosis, Cholelithiasis, Cholecystitis, Choledocholithiasis , Hepatitis A, Hepatitis B, Hepatitis C, Other Renal/: Yes: Renal Inusuff Infectious Disease: No: AIDS, C-Diff, Herpes Zoster, HIV, MRSA, STD's, Tuberculosis, VREF, Other Psych: No: Addictions, Anxiety, Bipolar, Depression, Panic, Psychosis, Schizophrenia, Other Musculoskeletal: No: Bursitis, Chronic low back pain, Hemiparesis, Hemiplegia, Osteoarthritis, Paraplegia, Other Rheumatology: No: Fibromyalgia, Gout, Lupus, Rheumatoid Arthritis, Sarcoidosis, Vasculitis, Other ENT: No: Allergic Rhinitis, Sinusitis, Other Endocrine: Yes: Diabetes Mellitus Dermatology: No: Basal Cell, Cellulitis, Eczema, Melanoma, Psoriasis, Squamous Cell, Other - Past Surgical History Past Surgical History: Yes: Amputation (R great toe 10/[address] staton) - Alcohol/Substance Use Hx Alcohol Use: No History of Substance Use: reports: None - Smoking History Smoking history: Never smoked Have you smoked in the past 12 months: No Aproximately how many cigarettes per day: 0 - Social History ADL: Independent History of Recent Travel: No Home Medications - Allergies Allergies/Adverse Reactions: Allergies Allergy/AdvReac Type Severity Reaction Status Date / Time animal dander Allergy Verified 02/12/18 14:03 - Home Medications Home Medications: Ambulatory Orders Sitagliptin Phosphate [Januvia] 25 mg PO DAILY 03/29/14 Enalapril Maleate [Vasotec -] 10 mg PO DAILY 01/23/16 Glipizide [Glipizide ER] 5 mg PO DAILY 01/23/16 Atorvastatin Ca [Lipitor] 10 mg PO HS 01/29/17 Metoprolol Succinate [Toprol XL -] 25 mg PO DAILY #30 tab.sr.24h 01/31/17 Warfarin Na [Coumadin -] 7.5 tab PO DAILY@1800 11/05/17 Furosemide [Lasix] 20 mg PO DAILY PRN 04/12/18 Review of Systems Findings/Remarks: As per HPI Vital Signs: Vital Signs Temperature 98.6 F 04/13/18 13:10 Pulse Rate 85 04/13/18 16:00 Respiratory Rate 20 04/13/18 16:00 Blood Pressure 111/63 04/13/18 16:00 O2 Sat by Pulse Oximetry (%) 96 04/13/18 16:36 Constitutional: Yes: Obese Neck: Yes: WNL Respiratory: Yes: WNL, CTA Bilaterally Gastrointestinal: Yes: Normal Bowel Sounds, Soft Cardiovascular: Yes: Regular Rate and Rhythm (NL S1S2, No MRHG) Edema: LLE: Trace, RLE: Trace Neurological: Yes: Alert, Oriented (Grossly non focal) - Other Data Labs, Other Data: CBC, BMP 04/13/18 06:15 04/13/18 06:15 INR, PTT INR 1.04 (0.82-1.09) D 04/12/18 08:57 Troponin, BNP 04/12/18 04/13/18 04/13/18 17:15 00:30 06:15 Troponin I 2.32 H* D 3.25 H* D B-Natriuretic Peptide 3248.76 H Troponin, BNP 04/12/18 04/13/18 04/13/18 17:15 00:30 06:15 Troponin I 2.32 H* D 3.25 H* D B-Natriuretic Peptide 3248.76 H Assessment/Plan 52 year old male admitted with pmhx DM (does not check BG regularly), DVT/PE in 2017 (noncompliant with coumadin), morbid obesity, CKD, HTN, and HLD admitted with acute sob and found to have bilateral PE's. Initially started on heparin, and started back on warfarin Would continue IV Heparin to a PTT of 60 - 80 and continue until the INR is ~ 2.5 - 3.0 Would obtain an echocardiogram Follow the Troponin trend Would not use a NOAC is patient this obese (lack of data) Continue: Sitagliptin Phosphate [Januvia] 25 mg PO DAILY 03/29/14 Enalapril Maleate [Vasotec -] 10 mg PO DAILY 01/23/16 Glipizide [Glipizide ER] 5 mg PO DAILY 01/23/16 Atorvastatin Ca [Lipitor] 10 mg PO HS 01/29/17 Metoprolol Succinate [Toprol XL -] 25 mg PO DAILY #30 tab.sr.24h 01/31/17 Warfarin Na [Coumadin -] 7.5 tab PO DAILY@1800 11/05/17 Furosemide [Lasix] 20 mg PO DAILY PRN 04/12/18
--- NOTE | 2018-04-13 19:38 | EKG ---
Test Reason : Blood Pressure : / mmHG Vent. Rate : 085 BPM Atrial Rate : 085 BPM P-R Int : 172 ms QRS Dur : 086 ms QT Int : 390 ms P-R-T Axes : 065 038 099 degrees QTc Int : 464 ms NORMAL SINUS RHYTHM NONSPECIFIC T WAVE ABNORMALITY PROLONGED QT ABNORMAL ECG WHEN COMPARED WITH ECG OF 12-APR-2018 19:52, NO SIGNIFICANT CHANGE WAS FOUND Confirmed by LISA GONZALEZ, DEVIN ([id number]) on 04/13/2018 7:38:16 PM Referred By: Mitchell ROUSE Confirmed By:DEVIN GONZALEZ MD
--- NOTE | 2018-04-13 19:39 | EKG ---
Test Reason : Blood Pressure : / mmHG Vent. Rate : 093 BPM Atrial Rate : 093 BPM P-R Int : 184 ms QRS Dur : 088 ms QT Int : 364 ms P-R-T Axes : 069 059 069 degrees QTc Int : 452 ms NORMAL SINUS RHYTHM NORMAL ECG WHEN COMPARED WITH ECG OF 12-APR-2018 08:46, NO SIGNIFICANT CHANGE WAS FOUND Confirmed by DEVIN GONZALEZ MD ([id number]) on 04/13/2018 7:39:28 PM Referred By: Confirmed By:DEVIN GONZALEZ MD
[2018-04-14 06:24] LABS: HEMATOCRIT 33.9 % (35.4-49); HEMOGLOBIN 10.9 GM/dL (11.7-16.9); MCH 24.3 pg (25.7-33.7); MCHC 32.2 g/dl (32.0-35.9); MEAN CELL VOLUME 75.7 fl (80-96); MEAN PLT VOLUME 8.7 fl (7.5-11.1); PLATELET COUNT 106 K/MM3 (134-434); RBC 4.49 M/mm3 (4.00-5.60); RDW 16.4 % (11.9-15.9); WHITE BLOOD COUNT 6.3 K/mm3 (4.0-10.0)
[2018-04-14] MEDS: INSULIN SLIDING SCALE (NOVOLOG) 1 VIAL SQ SCH ×4 (06:41→22:50)
[2018-04-14 06:50] LABS: ANION GAP 8 (8-16); BLOOD UREA NITROGEN 32 mg/dL (7-18); CALCIUM 7.8 mg/dL (8.5-10.1); CHLORIDE 109 mmol/L (98-107); CO2 22 mmol/L (21-32); GLUCOSE,RANDOM 223 mg/dL (74-106); POTASSIUM 4.4 mmol/L (3.5-5.1); SODIUM 139 mmol/L (136-145)
[2018-04-14 06:52] LABS: CREATININE 1.9 mg/dL (0.7-1.3)
[2018-04-14] MEDS: HEPARIN - 25,000 UNIT in SODIUM CHLORIDE 495 ML IV SCH (08:09)
[2018-04-14] MEDS: HEPARIN NA (PORCINE) 5,000 UNITS/ML 1ML VIAL IVPUSH PRN (08:09)
--- NOTE | 2018-04-14 10:02 | PN ---
Physical Exam: SUBJECTIVE: Patient seen and examined in ICU. States he feels at his breathing is at baseline, when he gets up he has momentary sob. Denies palpitations. OBJECTIVE: Vital Signs Period Temp Pulse Resp BP Sys/Toribio Pulse Ox Last 24 Hr 97.4 F-98.9 F 75-95 12-20 111-159/63-96 96-99 PE Neuro: alert, awake, cn 2-12intact Pulm: CTAB + nc CV: s1 s2 rrr Abd: s nt nd + bs Ext: r great toe amputation dressing w drainage serrous , rle edema >L Laboratory Results - last 24 hr 04/14/18 04/14/18 04/14/18 05:30 05:30 05:30 WBC 6.3 RBC 4.49 Hgb 10.9 L Hct 33.9 L MCV 75.7 L MCH 24.3 L MCHC 32.2 RDW 16.4 H Plt Count 106 L MPV 8.7 PTT (Actin FS) 45.9 H Sodium 139 Potassium 4.4 Chloride 109 H Carbon Dioxide 22 Anion Gap 8 BUN 32 H Creatinine 1.9 H Creat Clearance w eGFR 37.27 Random Glucose 223 H Calcium 7.8 L Active Medications Generic Name Dose Route Start Last Admin Trade Name Freq PRN Reason Stop Dose Admin Heparin Sodium (Porcine) 7,100 unit 04/12/18 16:25 04/14/18 08:09 Heparin - 40 unit/kg (7100 unit) 7,100 unit IVPUSH Administration PRN PRN For aPTT 35 to 45 seconds Heparin Sodium (Porcine) 14,100 unit 04/12/18 16:25 Heparin - 80 unit/kg (78495 unit) IVPUSH PRN PRN aPTT <35 seconds Heparin Sodium (Porcine) 25, 500 mls @ 20 mls/hr 04/14/18 08:02 04/14/18 08: 09 000 unit/ Sodium Chloride IV 1,200 unit/hr TITR ELIZA 24 mls/hr Administration Protocol 1,000 UNIT/HR Insulin Aspart 1 vial 04/12/18 17:33 04/14/18 06:41 Novolog Vial Sliding Scale - SQ 6 units TIDAC ELIZA Administration Protocol Assessment: 52 year old male admitted with pmhx DM (does not check BG regularly) , DVT/PE in 2017 (noncompliant with coumadin), supramorbid obesity, CKD, HTN, and HLD admitted with acute sob. Plan: 1. Acute Bilateral PE, LLE DVT - Maintain heparin gtt - Goal aptt 60-80 - ECHO done, awaiting read, pending read will discuss TPA v thrombectomy in OR ( wt constraints) - Hold coumadin 2. Elevated trops - Likely due to above - Trops this AM - Cardiology seeing 3. Lactic acidosis - Due to hypoxia - AM level pending 4. HTN - Hold vasotec, toprol for now 5. RORY on CKD - Cr improved, below baseline - Stop fluids 6. DM II - ISS, BGM ACHS 7. DVT - Heparin gtt 8. Thrombocytopenia - Likely due to above process and consumption - Has been evaluated in past - No acute bleeding at this time 9. R great toe amputation 10/2017 - Daily dressing changes per order 10. HLD - Statin HS Problem List - Problems (1) Acute kidney injury Code(s): N17.9 - ACUTE KIDNEY FAILURE, UNSPECIFIED (2) Hyperglycemia Code(s): R73.9 - HYPERGLYCEMIA, UNSPECIFIED (3) Pulmonary embolism Code(s): I26.99 - OTHER PULMONARY EMBOLISM WITHOUT ACUTE COR PULMONALE Qualifiers: Pulmonary embolism type: other Chronicity: unspecified Acute cor pulmonale presence: without acute cor pulmonale Qualified Code(s): I26.99 - Other pulmonary embolism without acute cor pulmonale (4) CKD (chronic kidney disease) Code(s): N18.9 - CHRONIC KIDNEY DISEASE, UNSPECIFIED Qualifiers: Chronic kidney disease stage: stage 1 Qualified Code(s): N18.1 - Chronic kidney disease, stage 1 (5) DVT (deep venous thrombosis) Code(s): I82.409 - ACUTE EMBOLISM AND THOMBOS UNSP DEEP VN UNSP LOWER EXTREMITY (6) Diabetes 1.5, managed as type 2 Code(s): E13.9 - OTHER SPECIFIED DIABETES MELLITUS WITHOUT COMPLICATIONS (7) Hyperlipidemia Code(s): E78.5 - HYPERLIPIDEMIA, UNSPECIFIED (8) Hypertension Code(s): I10 - ESSENTIAL (PRIMARY) HYPERTENSION Visit type - Emergency Visit Emergency Visit: Yes ED Registration Date: 04/12/18 Care time: The patient presented to the Emergency Department on the above date and was hospitalized for further evaluation of their emergent condition. - New Patient This patient is new to me today: No - Critical Care Critical Care patient: No
--- NOTE | 2018-04-14 11:22 | PN ---
Teaching Attending Note Name of Resident: James Merritt ATTENDING PHYSICIAN STATEMENT I saw and evaluated the patient. I reviewed the resident's note and discussed the case with the resident. I agree with the resident's findings and plan as documented. SUBJECTIVE: Pt seen and examined in the ICU. Still some dyspnea on exertion. No chest pain or palpitations. OBJECTIVE: Vital Signs Period Temp Pulse Resp BP Sys/Toribio Pulse Ox Last 24 Hr 97.4 F-98.7 F 75-95 12-20 111-159/63-96 96-98 Intake & Output 04/11/18 04/12/18 04/13/18 04/14/18 23:59 23:59 23:59 23:59 Intake Total 3739 848 Output Total 1700 1000 Balance 2039 -152 Weight 157.623 kg Gen: NAD at rest Heart: RRR Lung: decreased breath sounds at the bases Abd: soft, nontender Ext: + edema CBC, BMP 04/14/18 05:30 04/14/18 05:30 Active Medications Atorvastatin Calcium (Lipitor -) 10 mg PO HS ELIZA Heparin Sodium (Porcine) (Heparin -) 7,100 unit 40 unit/kg (7100 unit) IVPUSH PRN PRN PRN Reason: For aPTT 35 to 45 seconds Last Admin: 04/14/18 08:09 Dose: 7,100 unit Heparin Sodium (Porcine) (Heparin -) 14,100 unit 80 unit/kg (04983 unit) IVPUSH PRN PRN PRN Reason: aPTT <35 seconds Heparin Sodium (Porcine) 25, (000 unit/ Sodium Chloride) 500 mls @ 20 mls/hr IV TITR ELIZA; Protocol Last Admin: 04/14/18 08:09 Dose: 1,200 unit/hr, 24 mls/hr Insulin Aspart (Novolog Vial Sliding Scale -) 1 vial SQ ACHS ELIZA; Protocol ASSESSMENT AND PLAN: Acute Pulmonary Emboli DVT +Troponins Lactic Acidosis r/o Right Heart Strain Acute on Chronic Renal Failure Thrombocytopenia Morbid Obesity HTN Hyperlipidemia DM - continue anticoagulation - f/u echocardiogram - if evidence of right heart strain, may be candidate for catheter directed thrombectomy/thrombolysis - O2 to keep SpO2 >90% - monitor urine output, creatinine - glucose control - will need life long anticoagulation as this is his 2nd VTE - continue ICU monitoring critical care time spent in reviewing chart, evaluating patient and formulating plan 35 min
--- NOTE | 2018-04-14 12:51 | PN ---
Physical Exam: SUBJECTIVE: Patient seen and examined. Offers no complaints. Denies chest pain, palpitations, sob. Saturating well on 2L NC OBJECTIVE: Vital Signs Period Temp Pulse Resp BP Sys/Toribio Pulse Ox Last 24 Hr 97.4 F-98.7 F 75-95 12-20 111-159/63-96 96-98 GENERAL: morbidly obese, nad, a/o x 3 EYES: PERRL, extraocular movements intact, sclera anicteric ENT: oropharynx clear without exudates, moist mucous membranes. NECK: supple. LUNGS: Breath sounds equal, clear to auscultation bilaterally HEART: Regular rate and rhythm, S1, S2 without murmur, rub or gallop. ABDOMEN: Soft, nontender, nondistended, normoactive bowel sounds EXTREMITIES: 2+ pulses, warm, no tenderness to lower ext. r great toe amputation dressing NEUROLOGICAL: Cranial nerves II through XII grossly intact. Normal speech PSYCH: Normal mood, normal affect. Laboratory Results - last 24 hr 04/14/18 04/14/18 04/14/18 05:30 05:30 05:30 WBC 6.3 RBC 4.49 Hgb 10.9 L Hct 33.9 L MCV 75.7 L MCH 24.3 L MCHC 32.2 RDW 16.4 H Plt Count 106 L MPV 8.7 PTT (Actin FS) 45.9 H Sodium 139 Potassium 4.4 Chloride 109 H Carbon Dioxide 22 Anion Gap 8 BUN 32 H Creatinine 1.9 H Creat Clearance w eGFR 37.27 Random Glucose 223 H Lactic Acid Calcium 7.8 L Creatine Kinase Creatine Kinase Index CK-MB (CK-2) Troponin I 04/14/18 04/14/18 10:28 10:28 WBC RBC Hgb Hct MCV MCH MCHC RDW Plt Count MPV PTT (Actin FS) Sodium Potassium Chloride Carbon Dioxide Anion Gap BUN Creatinine Creat Clearance w eGFR Random Glucose Lactic Acid 1.3 Calcium Creatine Kinase 313 H Creatine Kinase Index 0.9 CK-MB (CK-2) 2.92 Troponin I 1.06 H* D Active Medications Generic Name Dose Route Start Last Admin Trade Name Freq PRN Reason Stop Dose Admin Atorvastatin Calcium 10 mg 04/14/18 22:00 Lipitor - PO HS ELIZA Heparin Sodium (Porcine) 7,100 unit 04/12/18 16:25 04/14/18 08:09 Heparin - 40 unit/kg (7100 unit) 7,100 unit IVPUSH Administration PRN PRN For aPTT 35 to 45 seconds Heparin Sodium (Porcine) 14,100 unit 04/12/18 16:25 Heparin - 80 unit/kg (97713 unit) IVPUSH PRN PRN aPTT <35 seconds Heparin Sodium (Porcine) 25, 500 mls @ 20 mls/hr 04/14/18 08:02 04/14/18 08: 09 000 unit/ Sodium Chloride IV 1,200 unit/hr TITR ELIZA 24 mls/hr Administration Protocol 1,000 UNIT/HR Insulin Aspart 1 vial 04/14/18 11:00 04/14/18 12:22 Novolog Vial Sliding Scale - SQ 6 units ACHS ELIZA Administration Protocol ASSESSMENT/PLAN: 2 year old male admitted with pmhx DM (does not check BG regularly), 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 PULM -B/L PE - +DVT Proximal L Popliteal -Echo waiting to be read, TPA v thrombectomy -will need life long anticoagulation as this is his 2nd dvt -IR on board -Coumadin held -Heparin gtt -aPTT goal 60-80 -O2 Supplementation -Keep O2 sat >90% CV -elevated trops, likely due to PE -trops trending down, follow -HTN: Hold vasotec, toprol for now -follow cardio reccs -RORY on CKD -cr improved, below baseline -fluids stopped -follow nephro reccs -avoid nephrotoxins -monitor bmp ENDOCRINE -DM -BGM -ISS FEN -Fluids stopped -monitor lytes -Diabetic diet PPX -heparin gtt Visit type - Emergency Visit Emergency Visit: Yes ED Registration Date: 04/12/18 Care time: The patient presented to the Emergency Department on the above date and was hospitalized for further evaluation of their emergent condition. - New Patient This patient is new to me today: Yes Date on this admission: 04/14/18 - Critical Care Critical Care patient: Yes Total Critical Care Time (in minutes): 40 Critical Care Statement: The care of this patient involved high complexity decision making to prevent further life threatening deterioration of the patient 's condition and/or to evaluate & treat vital organ system(s) failure or risk of failure.
--- NOTE | 2018-04-14 14:05 | PN ---
Progress Note, Physician History of Present Illness: Pt seen and examined at bedside. He is awake and alert. He denies shortness of breath. - Current Medication List Current Medications: Active Medications Atorvastatin Calcium (Lipitor -) 10 mg PO HS [facility]IZA Heparin Sodium (Porcine) (Heparin -) 7,100 unit 40 unit/kg (7100 unit) IVPUSH PRN PRN PRN Reason: For aPTT 35 to 45 seconds Last Admin: 04/14/18 08:09 Dose: 7,100 unit Heparin Sodium (Porcine) (Heparin -) 14,100 unit 80 unit/kg (95158 unit) IVPUSH PRN PRN PRN Reason: aPTT <35 seconds Heparin Sodium (Porcine) 25, (000 unit/ Sodium Chloride) 500 mls @ 20 mls/hr IV TITR ELIZA; Protocol Last Admin: 04/14/18 08:09 Dose: 1,200 unit/hr, 24 mls/hr Insulin Aspart (Novolog Vial Sliding Scale -) 1 vial SQ ACHS [facility]IZA; Protocol Last Admin: 04/14/18 12:22 Dose: 6 units - Objective Vital Signs: Vital Signs Temperature 98 F 04/14/18 10:00 Pulse Rate 80 04/14/18 10:00 Respiratory Rate 16 04/14/18 10:00 Blood Pressure 143/77 04/14/18 10:00 O2 Sat by Pulse Oximetry (%) 98 04/14/18 09:00 Constitutional: Yes: Calm Eyes: Yes: Conjunctiva Clear Cardiovascular: Yes: S1, S2 Respiratory: Yes: On Nasal O2 Gastrointestinal: Yes: Soft, Abdomen, Obese Genitourinary: Yes: WNL Musculoskeletal: Yes: WNL Edema: LLE: Trace, RLE: 1+ Neurological: Yes: Oriented Psychiatric: Yes: Oriented Labs: CBC, BMP 04/14/18 05:30 04/14/18 05:30 INR, PTT INR 1.04 (0.82-1.09) D 04/12/18 08:57 Problem List - Problems (1) Pulmonary embolism Code(s): I26.99 - OTHER PULMONARY EMBOLISM WITHOUT ACUTE COR PULMONALE Qualifiers: Pulmonary embolism type: other Chronicity: unspecified Acute cor pulmonale presence: without acute cor pulmonale Qualified Code(s): I26.99 - Other pulmonary embolism without acute cor pulmonale (2) CKD (chronic kidney disease) Code(s): N18.9 - CHRONIC KIDNEY DISEASE, UNSPECIFIED Qualifiers: Chronic kidney disease stage: stage 1 Qualified Code(s): N18.1 - Chronic kidney disease, stage 1 (3) DVT (deep venous thrombosis) Code(s): I82.409 - ACUTE EMBOLISM AND THOMBOS UNSP DEEP VN UNSP LOWER EXTREMITY Assessment/Plan Current Medications Generic Name Dose Route Start Last Admin Trade Name Freq PRN Reason Stop Dose Admin Atorvastatin Calcium 10 mg 04/14/18 22:00 Lipitor - PO HS ELIZA Heparin Sodium (Porcine) 7,100 unit 04/12/18 16:25 04/14/18 08:09 Heparin - 40 unit/kg (7100 unit) 7,100 unit IVPUSH Administration PRN PRN For aPTT 35 to 45 seconds Heparin Sodium (Porcine) 14,100 unit 04/12/18 16:25 Heparin - 80 unit/kg (15871 unit) IVPUSH PRN PRN aPTT <35 seconds Heparin Sodium (Porcine) 25, 500 mls @ 20 mls/hr 04/14/18 08:02 04/14/18 08: 09 000 unit/ Sodium Chloride IV 1,200 unit/hr TITR ELIZA 24 mls/hr Administration Protocol 1,000 UNIT/HR Insulin Aspart 1 vial 04/14/18 11:00 04/14/18 12:22 Novolog Vial Sliding Scale - SQ 6 units ACHS ELIZA Administration Protocol Impression 1. CKD 2. DVT 3. Pulmonary Embolism 4. HTN 5. DM 6. hyperlipidemia 7. obesity Plan - renal function is at baseline - pt follows with Dr Hair as outpt - avoid nephrotoxins - discussed compliance with meds, pt stopped taking his anti-coagulants - will follow Dr Garcia
--- NOTE | 2018-04-14 15:06 | PN ---
Progress Note, Physician Chief Complaint: No chest pain SOB improving Comfortable at rest on NC Sinus on tele History of Present Illness: This is a 51 year old male with a past medical history of HTN, HLD, DM, CKD most recent cr 2.2 Dr. Melara, DVT/PE (has not taken coumadin x4days), and morbid obesit. He presented to the ED after feeling acutely sob and lightheaded at home. In the ED record he was hypotensive 80/50 and hypoxic at 60%, received 1L and with bp improvement to 100/50, spo2 ~70% In ED he was placed on bipap and the CT of the Chest shows bilateral large PE R >L vs saddle PE, and he was placed on heparin gtt. - Current Medication List Current Medications: Active Medications Atorvastatin Calcium (Lipitor -) 10 mg PO HS ELIZA Heparin Sodium (Porcine) (Heparin -) 7,100 unit 40 unit/kg (7100 unit) IVPUSH PRN PRN PRN Reason: For aPTT 35 to 45 seconds Last Admin: 04/14/18 08:09 Dose: 7,100 unit Heparin Sodium (Porcine) (Heparin -) 14,100 unit 80 unit/kg (19731 unit) IVPUSH PRN PRN PRN Reason: aPTT <35 seconds Heparin Sodium (Porcine) 25, (000 unit/ Sodium Chloride) 500 mls @ 20 mls/hr IV TITR ELIZA; Protocol Last Admin: 04/14/18 08:09 Dose: 1,200 unit/hr, 24 mls/hr Insulin Aspart (Novolog Vial Sliding Scale -) 1 vial SQ ACHS ELIZA; Protocol Last Admin: 04/14/18 12:22 Dose: 6 units - Objective Vital Signs: Vital Signs Temperature 98 F 04/14/18 10:00 Pulse Rate 78 04/14/18 14:00 Respiratory Rate 16 04/14/18 14:00 Blood Pressure 110/49 04/14/18 14:00 O2 Sat by Pulse Oximetry (%) 98 04/14/18 09:00 Constitutional: Yes: No Distress Neck: Yes: Supple Cardiovascular: Yes: Regular Rate and Rhythm, S1, S2. No: Bruit, JVD, Murmur Respiratory: Yes: Diminished Gastrointestinal: Yes: Soft Edema: LLE: Trace, RLE: Trace Labs: CBC, BMP 04/14/18 05:30 04/14/18 05:30 INR, PTT INR 1.04 (0.82-1.09) D 04/12/18 08:57 Assessment/Plan This is a 51 year old male with a past medical history of HTN, HLD, DM, CKD most recent cr 2.2 Dr. Melara, DVT/PE (has not taken coumadin x4days), and morbid obesity. He presented to the ED after feeling acutely sob and lightheaded at home. In the ED record he was hypotensive 80/50 and hypoxic at 60%, received 1L and with bp improvement to 100/50, spo2 ~70% In ED he was placed on bipap and the CT of the Chest shows bilateral large PE R >L vs saddle PE, and he was placed on heparin gtt. 1) B/L PE on heparin drip goal PTT 60-80. On coumadin goal INR 2.5-3 Vitals stable. O2 sats stable on NC. Symptoms improving. Tele sinus with no events Echo with normal LVEF and probably moderate RV hypokinesis unchanged from prior echo Cr improving Will follow patient with you
[2018-04-14] MEDS: WARFARIN NA 7.5 MG TABLET (FP) PO SCH (18:00)
[2018-04-14] MEDS: ATORVASTATIN CA 10 MG TABLET (FP) PO SCH (22:51)
[2018-04-15] MEDS: COLLAGENASE CLOSTRIDIUM HIST. 30 GRAMS TUBE TP SCH ×2 (00:37→09:05)
[2018-04-15 06:15] LABS: HEMATOCRIT 34.1 % (35.4-49); HEMOGLOBIN 10.9 GM/dL (11.7-16.9); MCH 24.2 pg (25.7-33.7); MEAN CELL VOLUME 75.7 fl (80-96); MEAN PLT VOLUME 8.8 fl (7.5-11.1); PLATELET COUNT 111 K/MM3 (134-434); RBC 4.51 M/mm3 (4.00-5.60); RDW 16.1 % (11.9-15.9); WHITE BLOOD COUNT 6.2 K/mm3 (4.0-10.0)
[2018-04-15] MEDS: INSULIN SLIDING SCALE (NOVOLOG) 1 VIAL SQ SCH ×4 (06:35→22:08)
[2018-04-15] MEDS: HEPARIN - 25,000 UNIT in SODIUM CHLORIDE 495 ML IV SCH ×3 (06:36→14:53)
[2018-04-15 06:48] LABS: CHLORIDE 109 mmol/L (98-107); POTASSIUM 4.4 mmol/L (3.5-5.1); SODIUM 139 mmol/L (136-145)
[2018-04-15 07:02] LABS: ALBUMIN 2.6 g/dl (3.4-5.0); ALK PHOS 64 U/L (45-117); ANION GAP 8 (8-16); BILIRUBIN,TOTAL 0.3 mg/dL (0.2-1.0); BLOOD UREA NITROGEN 32 mg/dL (7-18); CALCIUM 7.8 mg/dL (8.5-10.1); CO2 22 mmol/L (21-32); GLUCOSE,RANDOM 195 mg/dL (74-106); PHOSPHOROUS 2.8 mg/dL (2.5-4.9); SGOT/AST 22 U/L (15-37); SGPT/ALT 33 U/L (12-78); TOT PROT 6.3 g/dl (6.4-8.2)
--- NOTE | 2018-04-15 10:32 | PN ---
Progress Note, Physician History of Present Illness: seen and examined today in nad. reports cont sob with minimal exertion. persistent b/l LE edema. - Current Medication List Current Medications: Active Medications Atorvastatin Calcium (Lipitor -) 10 mg PO HS [facility] Last Admin: 04/14/18 22:51 Dose: 10 mg Collagenase (Santyl -) 1 applic TP DAILY [facility] Last Admin: 04/15/18 09:05 Dose: 1 applic Heparin Sodium (Porcine) (Heparin -) 7,100 unit 40 unit/kg (7100 unit) IVPUSH PRN PRN PRN Reason: For aPTT 35 to 45 seconds Last Admin: 04/14/18 08:09 Dose: 7,100 unit Heparin Sodium (Porcine) (Heparin -) 14,100 unit 80 unit/kg (85062 unit) IVPUSH PRN PRN PRN Reason: aPTT <35 seconds Heparin Sodium (Porcine) 25, (000 unit/ Sodium Chloride) 500 mls @ 20 mls/hr IV TITR [facility]; Protocol Last Admin: 04/15/18 08:00 Dose: 1,200 unit/hr, 24 mls/hr Insulin Aspart (Novolog Vial Sliding Scale -) 1 vial SQ ACHS [facility]; Protocol Last Admin: 04/15/18 06:35 Dose: 4 units Warfarin Sodium (Coumadin -) 7.5 mg PO DAILY@1800 [facility]IZA Last Admin: 04/14/18 18:00 Dose: 7.5 mg - Objective Vital Signs: Vital Signs Temperature 99.3 F 04/15/18 10:00 Pulse Rate 81 04/15/18 10:00 Respiratory Rate 19 04/15/18 10:00 Blood Pressure 136/81 04/15/18 10:00 O2 Sat by Pulse Oximetry (%) 87 L 04/15/18 09:00 Constitutional: Yes: No Distress, Calm Eyes: Yes: Conjunctiva Clear, EOM Intact HENT: Yes: Atraumatic, Normocephalic Neck: Yes: Supple, Trachea Midline Cardiovascular: Yes: Regular Rate and Rhythm, S1, S2. No: Bradycardia, Tachycardia, Pulse Irregular, Bruit, JVD, Gallop, Murmur, Rub, S3, S4, Varicosities Respiratory: Yes: Regular, Diminished. No: Rales, Rhonchi, SOB, Wheezes Gastrointestinal: Yes: Normal Bowel Sounds, Soft. No: Distention, Tenderness Extremities: Yes: WNL Edema: Yes Edema: LLE: Trace, RLE: Trace Peripheral Pulses WNL: Yes Peripheral Pulses: Left Doralis Pedis: 2+, Right Dorsalis Pedis: 2+ Neurological: Yes: Alert, Oriented Psychiatric: Yes: Alert, Oriented Labs: CBC, BMP 04/15/18 05:30 04/15/18 05:30 INR, PTT INR 1.04 (0.82-1.09) D 04/12/18 08:57 - ....Imaging Chest X-ray: Report Reviewed, Image Reviewed EKG: Report Reviewed, Image Reviewed Other: Report Reviewed, Image Reviewed (tele-nsr, sinus tach, no sig arrhythmias recorded) Assessment/Plan 51 year old male with a past medical history of HTN, HLD, DM, CKD most recent cr 2.2 Dr. Melara, DVT/PE (has not taken coumadin x4days), and morbid obesity. He presented to the ED after feeling acutely sob and lightheaded at home. In the ED record he was hypotensive 80/50 and hypoxic at 60%, received 1L and with bp improvement to 100/50, spo2 ~70% In ED he was placed on bipap and the CT of the Chest shows bilateral large PE R >L vs saddle PE, and he was placed on heparin gtt. 1) B/L PE receiving heparin gtt bridge to coumadin Pulmonary evaluating for possible thrombectomy/thrombolysis Echo 04/14/18 with normal LVEF and probably moderate RV hypokinesis and mild RV dilatation unchanged from prior echo No arrhythmias recorded on tele No other planned cardiac work up at this time. Please call with any additional questions.
[2018-04-15] MEDS ORDERED: HEMOQUE TEST 1 EACH EACH ONE (11:09)
--- NOTE | 2018-04-15 11:57 | PN ---
Teaching Attending Note Name of Resident: James Merritt ATTENDING PHYSICIAN STATEMENT I saw and evaluated the patient. I reviewed the resident's note and discussed the case with the resident. I agree with the resident's findings and plan as documented. SUBJECTIVE: Patient seen and examined in the ICU. Still some dyspnea on exertion. On partial non-rebreather mask. No chest pain or palpitations. OBJECTIVE: Intake & Output 04/12/18 04/13/18 04/14/18 04/15/18 23:59 23:59 23:59 23:59 Intake Total 3739 2866 432 Output Total 1700 2600 800 Balance 2039 266 -368 Weight 347 lb 8 oz 347 lb 352 lb 1 oz Last Vital Signs Temp Pulse Resp BP Pulse Ox 99.3 F 81 19 136/81 87 L 04/15/18 10:00 04/15/18 10:00 04/15/18 10:00 04/15/18 10:00 04/15/18 09:00 Active Medications Atorvastatin Calcium (Lipitor -) 10 mg PO HS [facility] Last Admin: 04/14/18 22:51 Dose: 10 mg Collagenase (Santyl -) 1 applic TP DAILY [facility] Last Admin: 04/15/18 09:05 Dose: 1 applic Heparin Sodium (Porcine) (Heparin -) 7,100 unit 40 unit/kg (7100 unit) IVPUSH PRN PRN PRN Reason: For aPTT 35 to 45 seconds Last Admin: 04/14/18 08:09 Dose: 7,100 unit Heparin Sodium (Porcine) (Heparin -) 14,100 unit 80 unit/kg (33494 unit) IVPUSH PRN PRN PRN Reason: aPTT <35 seconds Heparin Sodium (Porcine) 25, (000 unit/ Sodium Chloride) 500 mls @ 20 mls/hr IV TITR [facility]; Protocol Last Admin: 04/15/18 08:00 Dose: 1,200 unit/hr, 24 mls/hr Insulin Aspart (Novolog Vial Sliding Scale -) 1 vial SQ ACHS [facility]; Protocol Last Admin: 04/15/18 11:30 Dose: Not Given Warfarin Sodium (Coumadin -) 7.5 mg PO DAILY@1800 EL[facility]A Last Admin: 04/14/18 18:00 Dose: 7.5 mg Gen: NAD at rest Heart: RRR Lung: decreased breath sounds at the bases Abd: soft, nontender Ext: + edema Laboratory Results - last 24 hr 04/13/18 04/13/18 04/14/18 11:10 17:04 06:38 WBC RBC Hgb Hct MCV MCH MCHC RDW Plt Count MPV PTT (Actin FS) Sodium Potassium Chloride Carbon Dioxide Anion Gap BUN Creatinine Creat Clearance w eGFR POC Glucometer 268.25243 162.67704 [phone] Random Glucose Calcium Phosphorus Magnesium Total Bilirubin AST ALT Alkaline Phosphatase Creatine Kinase Creatine Kinase Index CK-MB (CK-2) Troponin I Total Protein Albumin 04/14/18 04/14/18 04/14/18 10:28 12:21 15:47 WBC RBC Hgb Hct MCV MCH MCHC RDW Plt Count MPV PTT (Actin FS) 69.8 H D Sodium Potassium Chloride Carbon Dioxide Anion Gap BUN Creatinine Creat Clearance w eGFR POC Glucometer 269.38306 Random Glucose Calcium Phosphorus Magnesium Total Bilirubin AST ALT Alkaline Phosphatase Creatine Kinase 313 H Creatine Kinase Index 0.9 CK-MB (CK-2) 2.92 Troponin I 1.06 H* D Total Protein Albumin 04/14/18 04/14/18 04/14/18 16:37 19:55 22:35 WBC RBC Hgb Hct MCV MCH MCHC RDW Plt Count MPV PTT (Actin FS) Sodium Potassium Chloride Carbon Dioxide Anion Gap BUN Creatinine Creat Clearance w eGFR POC Glucometer 175.23457 268.92908 Random Glucose Calcium Phosphorus Magnesium Total Bilirubin AST ALT Alkaline Phosphatase Creatine Kinase 296 Creatine Kinase Index 0.8 CK-MB (CK-2) 2.62 Troponin I 0.70 H* D Total Protein Albumin 04/15/18 04/15/18 04/15/18 05:30 05:30 05:30 WBC 6.2 RBC 4.51 Hgb 10.9 L Hct 34.1 L MCV 75.7 L MCH 24.2 L MCHC 32.0 RDW 16.1 H Plt Count 111 L MPV 8.8 PTT (Actin FS) 49.5 H Sodium 139 Potassium 4.4 Chloride 109 H Carbon Dioxide 22 Anion Gap 8 BUN 32 H Creatinine 2.0 H Creat Clearance w eGFR 35.13 POC Glucometer Random Glucose 195 H Calcium 7.8 L Phosphorus 2.8 D Magnesium 2.0 Total Bilirubin 0.3 AST 22 D ALT 33 D Alkaline Phosphatase 64 Creatine Kinase Creatine Kinase Index CK-MB (CK-2) Troponin I Total Protein 6.3 L Albumin 2.6 L 04/15/18 05:48 WBC RBC Hgb Hct MCV MCH MCHC RDW Plt Count MPV PTT (Actin FS) Sodium Potassium Chloride Carbon Dioxide Anion Gap BUN Creatinine Creat Clearance w eGFR POC Glucometer [phone] Random Glucose Calcium Phosphorus Magnesium Total Bilirubin AST ALT Alkaline Phosphatase Creatine Kinase Creatine Kinase Index CK-MB (CK-2) Troponin I Total Protein Albumin ASSESSMENT AND PLAN: Acute Pulmonary Emboli DVT +Troponins Lactic Acidosis r/o Right Heart Strain Acute on Chronic Renal Failure Thrombocytopenia Morbid Obesity HTN Hyperlipidemia DM Will need sleep apnea screening AC O2 as needed to maintain saturation Monitor urine output, creatinine Glycemic control Will need life long anticoagulation as this is his 2nd VTE Cardiac telemetry monitoring Dr Brandt Critical care time spent in reviewing chart, evaluating patient and formulating plan 35 min
--- NOTE | 2018-04-15 12:43 | PN ---
Physical Exam: SUBJECTIVE: Patient seen and examined. Offers no complaints. says he had some shortness of breath when walking this am. On 100% non-rebreather maintaining sats. OBJECTIVE: Vital Signs Period Temp Pulse Resp BP Sys/Toribio Pulse Ox Last 24 Hr 98.9 F-99.3 F 78-97 15-19 110-158/49-90 87-98 GENERAL: morbidly obese, nad, a/o x 3 EYES: PERRL, extraocular movements intact, sclera anicteric ENT: oropharynx clear without exudates, moist mucous membranes. NECK: supple. LUNGS: Breath sounds equal, clear to auscultation bilaterally HEART: Regular rate and rhythm, S1, S2 without murmur, rub or gallop. ABDOMEN: Soft, nontender, nondistended, normoactive bowel sounds EXTREMITIES: 2+ pulses, warm, no tenderness to lower ext. r great toe amputation dressing NEUROLOGICAL: Cranial nerves II through XII grossly intact. Normal speech PSYCH: Normal mood, normal affect. Laboratory Results - last 24 hr 04/13/18 04/13/18 04/14/18 11:10 17:04 06:38 WBC RBC Hgb Hct MCV MCH MCHC RDW Plt Count MPV PTT (Actin FS) Sodium Potassium Chloride Carbon Dioxide Anion Gap BUN Creatinine Creat Clearance w eGFR POC Glucometer 268.76971 162.92432 262.26668 Random Glucose Calcium Phosphorus Magnesium Total Bilirubin AST ALT Alkaline Phosphatase Creatine Kinase Creatine Kinase Index CK-MB (CK-2) Troponin I Total Protein Albumin 04/14/18 04/14/18 04/14/18 12:21 15:47 16:37 WBC RBC Hgb Hct MCV MCH MCHC RDW Plt Count MPV PTT (Actin FS) 69.8 H D Sodium Potassium Chloride Carbon Dioxide Anion Gap BUN Creatinine Creat Clearance w eGFR POC Glucometer 269.55397 175.29046 Random Glucose Calcium Phosphorus Magnesium Total Bilirubin AST ALT Alkaline Phosphatase Creatine Kinase Creatine Kinase Index CK-MB (CK-2) Troponin I Total Protein Albumin 04/14/18 04/14/18 04/15/18 19:55 22:35 05:30 WBC 6.2 RBC 4.51 Hgb 10.9 L Hct 34.1 L MCV 75.7 L MCH 24.2 L MCHC 32.0 RDW 16.1 H Plt Count 111 L MPV 8.8 PTT (Actin FS) Sodium Potassium Chloride Carbon Dioxide Anion Gap BUN Creatinine Creat Clearance w eGFR POC Glucometer 268.46856 Random Glucose Calcium Phosphorus Magnesium Total Bilirubin AST ALT Alkaline Phosphatase Creatine Kinase 296 Creatine Kinase Index 0.8 CK-MB (CK-2) 2.62 Troponin I 0.70 H* D Total Protein Albumin 04/15/18 04/15/18 04/15/18 05:30 05:30 05:48 WBC RBC Hgb Hct MCV MCH MCHC RDW Plt Count MPV PTT (Actin FS) 49.5 H Sodium 139 Potassium 4.4 Chloride 109 H Carbon Dioxide 22 Anion Gap 8 BUN 32 H Creatinine 2.0 H Creat Clearance w eGFR 35.13 POC Glucometer [phone] Random Glucose 195 H Calcium 7.8 L Phosphorus 2.8 D Magnesium 2.0 Total Bilirubin 0.3 AST 22 D ALT 33 D Alkaline Phosphatase 64 Creatine Kinase Creatine Kinase Index CK-MB (CK-2) Troponin I Total Protein 6.3 L Albumin 2.6 L Active Medications Generic Name Dose Route Start Last Admin Trade Name Freq PRN Reason Stop Dose Admin Atorvastatin Calcium 10 mg 04/14/18 22:00 04/14/18 22:51 Lipitor - PO 10 mg HS [facility]A Administration Collagenase 1 applic 04/14/18 19:15 04/15/18 09:05 Santyl - TP 1 applic DAILY [facility] Administration Heparin Sodium (Porcine) 7,100 unit 04/12/18 16:25 04/14/18 08:09 Heparin - 40 unit/kg (7100 unit) 7,100 unit IVPUSH Administration PRN PRN For aPTT 35 to 45 seconds Heparin Sodium (Porcine) 14,100 unit 04/12/18 16:25 Heparin - 80 unit/kg (23451 unit) IVPUSH PRN PRN aPTT <35 seconds Heparin Sodium (Porcine) 25, 500 mls @ 20 mls/hr 04/14/18 08:02 04/15/18 08: 00 000 unit/ Sodium Chloride IV 1,200 unit/hr TITR ELIZA 24 mls/hr Administration Protocol 1,000 UNIT/HR Insulin Aspart 1 vial 04/14/18 11:00 04/15/18 11:30 Novolog Vial Sliding Scale - SQ Not Given ACHS ELIZA Protocol Warfarin Sodium 7.5 mg 04/14/18 18:00 04/14/18 18:00 Coumadin - PO 7.5 mg DAILY@1800 [facility] Administration ASSESSMENT/PLAN: 2 year old male admitted with pmhx DM (does not check BG regularly), 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 PULM -B/L PE - +DVT Proximal L Popliteal -Echo with normal LVEF and probably moderate RV hypokinesis unchanged from prior echo -Cont Heparin gtt -will need life long anticoagulation as this is his 2nd dvt -Coumadin held -aPTT goal 60-80 -O2 Supplementation -Keep O2 sat >90% CV -trops trending down -HTN: Hold vasotec, toprol for now -follow cardio reccs -RORY on CKD -at baseline function -follow nephro reccs -avoid nephrotoxins -monitor bmp ENDOCRINE -DM -BGM -ISS FEN -Fluids stopped -monitor lytes -Diabetic diet PPX -heparin gtt Transfer Tele Visit type - Emergency Visit Emergency Visit: Yes ED Registration Date: 04/12/18 Care time: The patient presented to the Emergency Department on the above date and was hospitalized for further evaluation of their emergent condition. - New Patient This patient is new to me today: Yes Date on this admission: 04/15/18 - Critical Care Critical Care patient: Yes Total Critical Care Time (in minutes): 40 Critical Care Statement: The care of this patient involved high complexity decision making to prevent further life threatening deterioration of the patient 's condition and/or to evaluate & treat vital organ system(s) failure or risk of failure.
--- NOTE | 2018-04-15 13:17 | PN ---
Progress Note, Physician History of Present Illness: Pt seen and examined at bedside. He is awake and alert. He is on increased oxygen as he was hypoxic last night. - Current Medication List Current Medications: Active Medications Atorvastatin Calcium (Lipitor -) 10 mg PO HS [facility] Last Admin: 04/14/18 22:51 Dose: 10 mg Collagenase (Santyl -) 1 applic TP DAILY [facility] Last Admin: 04/15/18 09:05 Dose: 1 applic Heparin Sodium (Porcine) (Heparin -) 7,100 unit 40 unit/kg (7100 unit) IVPUSH PRN PRN PRN Reason: For aPTT 35 to 45 seconds Last Admin: 04/14/18 08:09 Dose: 7,100 unit Heparin Sodium (Porcine) (Heparin -) 14,100 unit 80 unit/kg (48427 unit) IVPUSH PRN PRN PRN Reason: aPTT <35 seconds Heparin Sodium (Porcine) 25, (000 unit/ Sodium Chloride) 500 mls @ 20 mls/hr IV TITR [facility]; Protocol Last Admin: 04/15/18 08:00 Dose: 1,200 unit/hr, 24 mls/hr Insulin Aspart (Novolog Vial Sliding Scale -) 1 vial SQ ACHS [facility]; Protocol Last Admin: 04/15/18 11:30 Dose: Not Given Warfarin Sodium (Coumadin -) 7.5 mg PO DAILY@1800 [facility] Last Admin: 04/14/18 18:00 Dose: 7.5 mg - Objective Vital Signs: Vital Signs Temperature 99.3 F 04/15/18 10:00 Pulse Rate 85 04/15/18 12:00 Respiratory Rate 15 04/15/18 12:00 Blood Pressure 158/82 04/15/18 12:00 O2 Sat by Pulse Oximetry (%) 87 L 04/15/18 09:00 Constitutional: Yes: Calm Eyes: Yes: Conjunctiva Clear HENT: Yes: Atraumatic Neck: Yes: Supple Cardiovascular: Yes: S1, S2 Respiratory: Yes: On Venti-Mask Gastrointestinal: Yes: Soft, Abdomen, Obese Genitourinary: Yes: WNL Edema: Yes Edema: LLE: Trace, RLE: Trace Neurological: Yes: Oriented Psychiatric: Yes: Oriented Labs: CBC, BMP 04/15/18 05:30 04/15/18 05:30 INR, PTT INR 1.04 (0.82-1.09) D 04/12/18 08:57 Problem List - Problems (1) Pulmonary embolism Code(s): I26.99 - OTHER PULMONARY EMBOLISM WITHOUT ACUTE COR PULMONALE Qualifiers: Pulmonary embolism type: other Chronicity: unspecified Acute cor pulmonale presence: without acute cor pulmonale Qualified Code(s): I26.99 - Other pulmonary embolism without acute cor pulmonale (2) CKD (chronic kidney disease) Code(s): N18.9 - CHRONIC KIDNEY DISEASE, UNSPECIFIED Qualifiers: Chronic kidney disease stage: stage 1 Qualified Code(s): N18.1 - Chronic kidney disease, stage 1 (3) DVT (deep venous thrombosis) Code(s): I82.409 - ACUTE EMBOLISM AND THOMBOS UNSP DEEP VN UNSP LOWER EXTREMITY Assessment/Plan Current Medications Generic Name Dose Route Start Last Admin Trade Name Freq PRN Reason Stop Dose Admin Atorvastatin Calcium 10 mg 04/14/18 22:00 04/14/18 22:51 Lipitor - PO 10 mg HS [facility] Administration Collagenase 1 applic 04/14/18 19:15 04/15/18 09:05 Santyl - TP 1 applic DAILY [facility] Administration Heparin Sodium (Porcine) 7,100 unit 04/12/18 16:25 04/14/18 08:09 Heparin - 40 unit/kg (7100 unit) 7,100 unit IVPUSH Administration PRN PRN For aPTT 35 to 45 seconds Heparin Sodium (Porcine) 14,100 unit 04/12/18 16:25 Heparin - 80 unit/kg (46326 unit) IVPUSH PRN PRN aPTT <35 seconds Heparin Sodium (Porcine) 25, 500 mls @ 20 mls/hr 04/14/18 08:02 04/15/18 08: 00 000 unit/ Sodium Chloride IV 1,200 unit/hr TITR [facility]A 24 mls/hr Administration Protocol 1,000 UNIT/HR Insulin Aspart 1 vial 04/14/18 11:00 04/15/18 11:30 Novolog Vial Sliding Scale - SQ Not Given ACHS [facility] Protocol Warfarin Sodium 7.5 mg 04/14/18 18:00 04/14/18 18:00 Coumadin - PO 7.5 mg DAILY@1800 [facility] Administration Impression 1. CKD 2. DVT 3. Pulmonary Embolism 4. HTN 5. DM 6. hyperlipidemia 7. obesity 8. non compliance with medications Plan - renal function remains stable - avoid nephrotoxins - monitor BP - monitor pulse ox - pulm follow up - will follow Dr Garcia
--- NOTE | 2018-04-15 14:57 | EKG ---
Test Reason : Blood Pressure : / mmHG Vent. Rate : 082 BPM Atrial Rate : 082 BPM P-R Int : 162 ms QRS Dur : 094 ms QT Int : 390 ms P-R-T Axes : 075 046 090 degrees QTc Int : 455 ms NORMAL SINUS RHYTHM INCOMPLETE RIGHT BUNDLE BRANCH BLOCK BORDERLINE ECG WHEN COMPARED WITH ECG OF 13-APR-2018 10:05, NO SIGNIFICANT CHANGE WAS FOUND Confirmed by MD Sally, Gurinder ([id number]) on 04/15/2018 2:57:25 PM Referred By: PIO DESOUZA Confirmed By:Gurinder Zavala MD
--- NOTE | 2018-04-15 16:12 | PN ---
Physical Exam: SUBJECTIVE: Patient seen and examined at the bedside. and patient state patient was non compliant with Coumadin and missed some doses. OBJECTIVE: on NRB mask, oxgyen in the high 90s, off oxygen he drops to the 80s. Vital Signs Period Temp Pulse Resp BP Sys/Toribio Pulse Ox Last 24 Hr 98.9 F-99.3 F 80-97 13-19 111-158/74-90 87-100 GENERAL: The patient is awake, alert, and fully oriented, in no acute distress. HEAD: Normal with no signs of trauma. EYES: PERRL, extraocular movements intact, sclera anicteric, conjunctiva clear. No ptosis. ENT: Ears normal, nares patent, oropharynx clear without exudates, moist mucous membranes. NECK: Trachea midline, full range of motion, supple. LUNGS: bilateral lungs with diminished breath sounds, no chest pain HEART: Regular rate and rhythm, S1, S2 without murmur, rub or gallop. ABDOMEN: Soft, nontender, nondistended, normoactive bowel sounds, no guarding, no rebound, no hepatosplenomegaly, no masses. EXTREMITIES: left lower ext edema, right lower ext with discoloration of lower ext. NEUROLOGICAL: Normal speech, gait not observed. PSYCH: Normal mood, normal affect. SKIN: Warm, dry, normal turgor, no rashes or lesions noted Laboratory Results - last 24 hr 04/14/18 04/14/18 04/14/18 15:47 16:37 19:55 WBC RBC Hgb Hct MCV MCH MCHC RDW Plt Count MPV PTT (Actin FS) 69.8 H D Sodium Potassium Chloride Carbon Dioxide Anion Gap BUN Creatinine Creat Clearance w eGFR POC Glucometer [phone] Random Glucose Calcium Phosphorus Magnesium Total Bilirubin AST ALT Alkaline Phosphatase Creatine Kinase 296 Creatine Kinase Index 0.8 CK-MB (CK-2) 2.62 Troponin I 0.70 H* D Total Protein Albumin 04/14/18 04/15/18 04/15/18 22:35 05:30 05:30 WBC 6.2 RBC 4.51 Hgb 10.9 L Hct 34.1 L MCV 75.7 L MCH 24.2 L MCHC 32.0 RDW 16.1 H Plt Count 111 L MPV 8.8 PTT (Actin FS) 49.5 H Sodium Potassium Chloride Carbon Dioxide Anion Gap BUN Creatinine Creat Clearance w eGFR POC Glucometer 268.85509 Random Glucose Calcium Phosphorus Magnesium Total Bilirubin AST ALT Alkaline Phosphatase Creatine Kinase Creatine Kinase Index CK-MB (CK-2) Troponin I Total Protein Albumin 04/15/18 04/15/18 05:30 05:48 WBC RBC Hgb Hct MCV MCH MCHC RDW Plt Count MPV PTT (Actin FS) Sodium 139 Potassium 4.4 Chloride 109 H Carbon Dioxide 22 Anion Gap 8 BUN 32 H Creatinine 2.0 H Creat Clearance w eGFR 35.13 POC Glucometer [phone] Random Glucose 195 H Calcium 7.8 L Phosphorus 2.8 D Magnesium 2.0 Total Bilirubin 0.3 AST 22 D ALT 33 D Alkaline Phosphatase 64 Creatine Kinase Creatine Kinase Index CK-MB (CK-2) Troponin I Total Protein 6.3 L Albumin 2.6 L Active Medications Generic Name Dose Route Start Last Admin Trade Name Freq PRN Reason Stop Dose Admin Atorvastatin Calcium 10 mg 04/14/18 22:00 04/14/18 22:51 Lipitor - PO 10 mg HS [facility] Administration Collagenase 1 applic 04/14/18 19:15 04/15/18 09:05 Santyl - TP 1 applic DAILY [facility] Administration Heparin Sodium (Porcine) 7,100 unit 04/12/18 16:25 04/14/18 08:09 Heparin - 40 unit/kg (7100 unit) 7,100 unit IVPUSH Administration PRN PRN For aPTT 35 to 45 seconds Heparin Sodium (Porcine) 14,100 unit 04/12/18 16:25 Heparin - 80 unit/kg (40240 unit) IVPUSH PRN PRN aPTT <35 seconds Heparin Sodium (Porcine) 25, 500 mls @ 20 mls/hr 04/15/18 14:22 04/15/18 14: 53 000 unit/ Sodium Chloride IV 1,000 unit/hr TITR [facility] 20 mls/hr Administration Protocol 1,000 UNIT/HR Insulin Aspart 1 vial 04/14/18 11:00 04/15/18 11:30 Novolog Vial Sliding Scale - SQ Not Given ACHS [facility] Protocol Warfarin Sodium 7.5 mg 04/14/18 18:00 04/14/18 18:00 Coumadin - PO 7.5 mg DAILY@1800 [facility] Administration ASSESSMENT/PLAN: Mr. Dubose is a 52 year old male with a significant past medical history of hypertension, hyperlipidemia, diabetes, obesity, CKD (follows Dr. Hair), DVT and PE history and has missed Coumadin for ~ 5 days as per patient. He presents to the ED on 04/12/18 with shortness of breath and feeling lightheaded at home. He was noted to be hypotensive and hypoxic in the ED. A CTA chest shows bilateral large PEs and currently on a heparin drip. Pulmonary: Bilateral Pulmonary Emboli seen on Chest CTA On heparin drip with bridge to Coumadin with goal INR between 2-3 Echo 04/14> normal LVEF 60-65%, probable mildly dilated RV cavity, probable mod. reduced RV systolic function. RA is midly dilated, left atrial size normal, mild mitral annular calcification. mild TR, trace pulmonic valve regurg. no pericardial effusion. hematology consulted. Cardiology: Elevated trops, most likely secondary to cardiac demand. No chest pain, short of breath secondary to PE. Cardiology following. Hypertension, chronic Currently controlled. Renal: RORY on CKD. Creat trending down. Renal following. Avoid all nephrotoxins Heme: Thrombocytopenia Monitor in the setting of anticoagulation therapy, bleeding risk. Hematology consult Endocrine: Hyperglycemia, chronic Diabetes, Monitor BGMs, SS Vascular Right great toe amputation 10/2017, chronic Daily dressing changes FEN tolerating PO Monitor CMP low sodium diet Prophy Heparin to coumadin dispostion: full code Visit type - Emergency Visit Emergency Visit: Yes ED Registration Date: 04/12/18 Care time: The patient presented to the Emergency Department on the above date and was hospitalized for further evaluation of their emergent condition. - New Patient This patient is new to me today: Yes Date on this admission: 04/15/18 - Critical Care Critical Care patient: Yes Total Critical Care Time (in minutes): 60 Critical Care Statement: The care of this patient involved high complexity decision making to prevent further life threatening deterioration of the patient 's condition and/or to evaluate & treat vital organ system(s) failure or risk of failure. - Discharge Referral Referred to [facility] Med P.C.: No
[2018-04-15] MEDS ORDERED: HEPARIN NA (PORCINE) 5,000 UNITS/ML 1ML VIAL SQ ONE (16:45)
[2018-04-15] MEDS: WARFARIN NA 7.5 MG TABLET (FP) PO SCH (17:00)
--- NOTE | 2018-04-15 18:16 | CONSULT ---
Consult Consult Specialty:: Oncology-hematology Reason for Consultation:: DVT- acute Pulmonary embolism - History Source History Provided By: Patient, Medical Record Limitations to Obtaining History: No Limitations - Past Medical History CABLE FORMER: No: Alzheimer's, CVA, Dementia, Migraine, Multiple Sclerosis, Peripheral Neuropathy, Parkinson's, Seizure, Syncope, TIA, Vertigo, Other Cardio/Vascular: Yes: Deep Vein Thrombosis, HTN, Hyperlipdemia Pulmonary: Yes: Pulmonary Embolus. No: Asthma, Bronchitis, Cancer, COPD, O2 Dependent, Pneumonia, Previously Intubated, Pulmonary Fibrosis, Sleep Apnea, Other Gastrointestinal: No: Ascites, Cancer, Constipation, Crohn's Disease, Diverticulitis, Diverticulosis, Esophageal Varices, Gastritis, GERD, GI Bleed, Hemorrhoids, Hiatal Hernia, Inflamatory Bowel Disease, Irritable Bowel Disease, Pancreatitis, Peptic Ulcer Disease, Ulcerative Colitis, Other Hepatobiliary: No: Cirrhosis, Cholelithiasis, Cholecystitis, Choledocholithiasis , Hepatitis A, Hepatitis B, Hepatitis C, Other Renal/: Yes: Renal Inusuff Heme/Onc: Yes: Hypercoaguable State (right toe) Infectious Disease: No: AIDS, C-Diff, Herpes Zoster, HIV, MRSA, STD's, Tuberculosis, VREF, Other Psych: No: Addictions, Anxiety, Bipolar, Depression, Panic, Psychosis, Schizophrenia, Other Musculoskeletal: No: Bursitis, Chronic low back pain, Hemiparesis, Hemiplegia, Osteoarthritis, Paraplegia, Other Rheumatology: No: Fibromyalgia, Gout, Lupus, Rheumatoid Arthritis, Sarcoidosis, Vasculitis, Other ENT: No: Allergic Rhinitis, Sinusitis, Other Endocrine: Yes: Diabetes Mellitus Dermatology: No: Basal Cell, Cellulitis, Eczema, Melanoma, Psoriasis, Squamous Cell, Other - Past Surgical History Past Surgical History: Yes: Amputation (R great toe 10/[address] staton) - Alcohol/Substance Use Hx Alcohol Use: No History of Substance Use: reports: None - Smoking History Smoking history: Never smoked Have you smoked in the past 12 months: No Aproximately how many cigarettes per day: 0 - Social History Usual Living Arrangement: With Spouse ADL: Independent 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 History of Recent Travel: No Home Medications - Allergies Allergies/Adverse Reactions: Allergies Allergy/AdvReac Type Severity Reaction Status Date / Time animal dander Allergy Verified 02/12/18 14:03 - Home Medications Home Medications: Ambulatory Orders Sitagliptin Phosphate [Januvia] 25 mg PO DAILY 03/29/14 Enalapril Maleate [Vasotec -] 10 mg PO DAILY 01/23/16 Glipizide [Glipizide ER] 5 mg PO DAILY 01/23/16 Atorvastatin Ca [Lipitor] 10 mg PO HS 01/29/17 Metoprolol Succinate [Toprol XL -] 25 mg PO DAILY #30 tab.sr.24h 01/31/17 Warfarin Na [Coumadin -] 7.5 tab PO DAILY@1800 11/05/17 Furosemide [Lasix] 20 mg PO DAILY PRN 04/12/18 Family Disease History - Family Disease History Family Disease History: Other: Father ([place]), Mother ([place]), Sister (1 sister with M.S. and P>E. another sister with P.E) Other Family History: one cousin - livere cancer Review of Systems - Review of Systems Constitutional: denies: Fever, Loss of Appetite, Night Sweats, Weakness Eyes: denies: Blurred Vision, Double Vision HENT: denies: Difficult Swallowing, Epistaxis, Hearing Loss, Throat Pain Neck: denies: Decreased ROM, Stiffness, Swollen Glands Cardiovascular: reports: Shortness of Breath. denies: Chest Pain Respiratory: reports: Exercise Intolerance, SOB, SOB on Exertion. denies: Cough , Hemoptysis Gastrointestinal: denies: Abdominal Pain, Constipation, Diarrhea, Dysphagia, Melena, Nausea, Vomiting Genitourinary: denies: Burning, Dysuria Musculoskeletal: reports: Back Pain. denies: Extremity Pain Integumentary: reports: Other (stasis LE's). denies: Bruising Neurological: reports: Numbness (LE's) Endocrine: reports: No Symptoms Hematology/Lymphatic: denies: Easily Bruised, Excessive Bleeding, Swollen Glands Psychiatric: reports: No Symptoms Physical Exam Vital Signs: Vital Signs Temperature 98.9 F 04/15/18 16:00 Pulse Rate 96 H 04/15/18 16:00 Respiratory Rate 20 04/15/18 16:00 Blood Pressure 134/82 04/15/18 16:00 O2 Sat by Pulse Oximetry (%) 100 04/15/18 14:50 Constitutional: Yes: Mild Distress Eyes: Yes: PERRL. No: Cataracts, Diplopia, Ptosis, Sclera Icterus HENT: Yes: Atraumatic, Normocephalic. No: Epistaxis, Hoarseness, Tonsillar Exudate Neck: Yes: Supple. No: Trachea Midline, Lymphadenopathy Cardiovascular: Yes: Regular Rate and Rhythm Respiratory: Yes: Diminished Gastrointestinal: Yes: Normal Bowel Sounds, Soft, Abdomen, Obese Renal/: No: CVA Tenderness - Left, CVA Tenderness - Right Breast(s): No: Gynecomastia Musculoskeletal: No: Back Pain, Muscle Pain Extremities: Yes: Amputation, Other (right toe) Edema: LLE: 2+, RLE: 2+ Integumentary: Yes: Venous Stasis Changes Neurological: Yes: Numbness ...Motor Strength: WNL Psychiatric: Yes: WNL Labs: CBC, BMP 04/15/18 05:30 04/15/18 05:30 Imaging - Results Cat Scan: Report Reviewed Problem List - Problems (1) Acute kidney injury Assessment/Plan: RORY/CKD Episode of hypoxia and hypotension documented in ER. Followed by Renal. Code(s): N17.9 - ACUTE KIDNEY FAILURE, UNSPECIFIED (2) Pulmonary embolism Assessment/Plan: History of DVT and pulmonary embolism in 02/11. Presumably unprovoked. Was anxious to be discharged from hospital and was placed on xarelto. Returned and changed to coumadin in view of lack of data on NOACs in obesity. Apparently compliant on coumadin, but ran out of medicine. Did not take coumdin for 4-5 days . Presented to ER wih hypotension with BP 80/50 and hypoxia of 60%. Admitted with DVT and bilateral pulmonary emboli. Accordining to cardiology note , current ECHO with right heart Hypokinesis- unchanged from previous. Code(s): I26.99 - OTHER PULMONARY EMBOLISM WITHOUT ACUTE COR PULMONALE Qualifiers: Pulmonary embolism type: other Chronicity: unspecified Acute cor pulmonale presence: without acute cor pulmonale Qualified Code(s): I26.99 - Other pulmonary embolism without acute cor pulmonale (3) DVT (deep venous thrombosis) Assessment/Plan: DVT- 2017 and currently with DVT . On heparin drip and monitoring PTT. Code(s): I82.409 - ACUTE EMBOLISM AND THOMBOS UNSP DEEP VN UNSP LOWER EXTREMITY (4) Diabetic ulcer of toe Assessment/Plan: s/p right great toe amputation. Code(s): E11.621 - TYPE 2 DIABETES MELLITUS WITH FOOT ULCER; L97.509 - NON- PRESSURE CHRONIC ULCER OTH PRT UNSP FOOT W UNSP SEVERITY Qualifiers: Diabetes mellitus type: type 2 Laterality: right Non-pressure ulcer stage : with necrosis of bone Qualified Code(s): E11.621 - Type 2 diabetes mellitus with foot ulcer; L97.514 - Non-pressure chronic ulcer of other part of right foot with necrosis of bone (5) Hyperlipidemia Code(s): E78.5 - HYPERLIPIDEMIA, UNSPECIFIED (6) Hypertension Code(s): I10 - ESSENTIAL (PRIMARY) HYPERTENSION (7) Morbid obesity due to excess calories Code(s): E66.01 - MORBID (SEVERE) OBESITY DUE TO EXCESS CALORIES Assessment/Plan Presumably unprovoked DVT in 01/2017. States he had thrombophilia evaluation . Need details. Followed by Dr. Karthik Horan. Currently with DVT and bilateral P.E. States he was off medicine for "4 or 5 days" because medicine ran out. Not necessarily a coumadin failure , but a compliance failure. Would think that coumadin can be resumed upon discharge. Current ECHO stated to be unchanged with right hypokinesis. Suggest maintian PTT at higher level Will discuss issue of right heart hypokinesis . New problem of thrombocytopeina. Previously normal platelets in 11/14 ?? secondary to hypoxia on admission. Would monitor for now Previously with sleep study - will need follow up
[2018-04-15] MEDS: ATORVASTATIN CA 10 MG TABLET (FP) PO SCH (22:08)
[2018-04-16 05:51] LABS: HEMATOCRIT 34.2 % (35.4-49); MCH 24.3 pg (25.7-33.7); MCHC 32.3 g/dl (32.0-35.9); MEAN CELL VOLUME 75.3 fl (80-96); MEAN PLT VOLUME 8.9 fl (7.5-11.1); PLATELET COUNT 111 K/MM3 (134-434); RBC 4.55 M/mm3 (4.00-5.60); RDW 16.1 % (11.9-15.9); WHITE BLOOD COUNT 6.9 K/mm3 (4.0-10.0)
[2018-04-16] MEDS: HEPARIN - 25,000 UNIT in SODIUM CHLORIDE 495 ML IV SCH ×2 (06:09→15:37)
[2018-04-16] MEDS: INSULIN SLIDING SCALE (NOVOLOG) 1 VIAL SQ SCH ×4 (06:13→21:49)
[2018-04-16 06:19] LABS: ALBUMIN 2.5 g/dl (3.4-5.0); ANION GAP 8 (8-16); BILIRUBIN,TOTAL 0.3 mg/dL (0.2-1.0); BLOOD UREA NITROGEN 30 mg/dL (7-18); CALCIUM 7.5 mg/dL (8.5-10.1); CHLORIDE 109 mmol/L (98-107); CO2 22 mmol/L (21-32); GLUCOSE,RANDOM 261 mg/dL (74-106); MAGNESIUM 1.8 mg/dL (1.8-2.4); PHOSPHOROUS 2.9 mg/dL (2.5-4.9); POTASSIUM 4.6 mmol/L (3.5-5.1); SGOT/AST 17 U/L (15-37); SGPT/ALT 29 U/L (12-78); SODIUM 139 mmol/L (136-145); TOT PROT 6.4 g/dl (6.4-8.2)
[2018-04-16 06:20] LABS: ALK PHOS 65 U/L (45-117)
[2018-04-16 06:21] LABS: INR 1.35 (0.82-1.09); PROTHROMBIN TIME (PATIENT) 15.2 SEC (9.7-13.0)
[2018-04-16] MEDS: HEPARIN NA (PORCINE) 5,000 UNITS/ML 1ML VIAL IVPUSH PRN (08:04)
--- NOTE | 2018-04-16 08:42 | PN ---
Physical Exam: SUBJECTIVE: Patient seen and examined. Offers no complaints. Says he has no issues breathing at rest. He complains of dizziness and shortness of breath when walking to bathroom. on Bipap maintaining O2 sats. OBJECTIVE: Vital Signs Period Temp Pulse Resp BP Sys/Toribio Pulse Ox Last 24 Hr 98 F-99.3 F 81-107 13-20 128-164/74-95 87-100 GENERAL: morbidly obese, nad, a/o x 3 EYES: PERRL, extraocular movements intact, sclera anicteric ENT: oropharynx clear without exudates, moist mucous membranes. NECK: supple. LUNGS: Breath sounds equal, clear to auscultation bilaterally HEART: Regular rate and rhythm, S1, S2 without murmur, rub or gallop. ABDOMEN: Soft, nontender, nondistended, normoactive bowel sounds EXTREMITIES: 2+ pulses, warm, no tenderness to lower ext. r great toe amputation dressing NEUROLOGICAL: Cranial nerves II through XII grossly intact. Normal speech PSYCH: Normal mood, normal affect. Laboratory Results - last 24 hr 04/15/18 04/15/18 04/15/18 05:48 11:13 14:50 WBC RBC Hgb Hct MCV MCH MCHC RDW Plt Count MPV PT with INR INR PTT (Actin FS) 47.8 H Sodium Potassium Chloride Carbon Dioxide Anion Gap BUN Creatinine Creat Clearance w eGFR POC Glucometer 231.19475 57.03613 Random Glucose Calcium Phosphorus Magnesium Total Bilirubin AST ALT Alkaline Phosphatase Total Protein Albumin 04/15/18 04/15/18 04/15/18 16:17 21:30 21:54 WBC RBC Hgb Hct MCV MCH MCHC RDW Plt Count MPV PT with INR INR PTT (Actin FS) 75.2 H D Sodium Potassium Chloride Carbon Dioxide Anion Gap BUN Creatinine Creat Clearance w eGFR POC Glucometer 74.29387 347.20886 Random Glucose Calcium Phosphorus Magnesium Total Bilirubin AST ALT Alkaline Phosphatase Total Protein Albumin 04/16/18 04/16/18 04/16/18 05:30 05:30 05:30 WBC 6.9 RBC 4.55 Hgb 11.0 L Hct 34.2 L MCV 75.3 L MCH 24.3 L MCHC 32.3 RDW 16.1 H Plt Count 111 L MPV 8.9 PT with INR INR PTT (Actin FS) 44.8 H D Sodium 139 Potassium 4.6 Chloride 109 H Carbon Dioxide 22 Anion Gap 8 BUN 30 H Creatinine 2.0 H Creat Clearance w eGFR 35.13 POC Glucometer Random Glucose 261 H D Calcium 7.5 L Phosphorus 2.9 Magnesium 1.8 Total Bilirubin 0.3 AST 17 D ALT 29 Alkaline Phosphatase 65 Total Protein 6.4 Albumin 2.5 L 04/16/18 04/16/18 05:30 05:30 WBC RBC Hgb Hct MCV MCH MCHC RDW Plt Count MPV PT with INR 15.20 H INR 1.35 H PTT (Actin FS) Sodium Potassium Chloride Carbon Dioxide Anion Gap BUN Creatinine Creat Clearance w eGFR POC Glucometer [phone] Random Glucose Calcium Phosphorus Magnesium Total Bilirubin AST ALT Alkaline Phosphatase Total Protein Albumin Active Medications Generic Name Dose Route Start Last Admin Trade Name Freq PRN Reason Stop Dose Admin Atorvastatin Calcium 10 mg 04/14/18 22:00 04/15/18 22:08 Lipitor - PO 10 mg HS ELIZA Administration Collagenase 1 applic 04/14/18 19:15 04/15/18 09:05 Santyl - TP 1 applic DAILY [facility]A Administration Heparin Sodium (Porcine) 7,100 unit 04/12/18 16:25 04/16/18 08:04 Heparin - 40 unit/kg (7100 unit) 7,100 unit IVPUSH Administration PRN PRN For aPTT 35 to 45 seconds Heparin Sodium (Porcine) 14,100 unit 04/12/18 16:25 Heparin - 80 unit/kg (11086 unit) IVPUSH PRN PRN aPTT <35 seconds Heparin Sodium (Porcine) 25, 500 mls @ 20 mls/hr 04/15/18 14:22 04/16/18 06: 09 000 unit/ Sodium Chloride IV 1,150 unit/hr TITR ELIZA 23 mls/hr Administration Protocol 1,000 UNIT/HR Insulin Aspart 1 vial 04/14/18 11:00 04/16/18 06:13 Novolog Vial Sliding Scale - SQ 6 units ACHS [facility] Administration Protocol Warfarin Sodium 7.5 mg 04/14/18 18:00 04/15/18 17:00 Coumadin - PO 7.5 mg DAILY@1800 ELIZA Administration ASSESSMENT/PLAN: 2 year old male admitted with pmhx DM (does not check BG regularly), 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 PULM -B/L PE on CTA - +DVT Proximal L Popliteal -Echo with normal LVEF and probably moderate RV hypokinesis unchanged from prior echo -Cont Heparin gtt, bridging to coumadin -Start coumadin, 1x 10mg dose today and 7.5 after. -Maintain PTT at a higher level. -will need life long anticoagulation as this is his 2nd dvt -Coumadin held -aPTT goal 60-80 -O2 Supplementation -Keep O2 sat >90% CV -HTN: Hold vasotec, toprol for now -follow cardio reccs -RORY on CKD -at baseline function -follow nephro reccs -avoid nephrotoxins -monitor bmp ENDOCRINE -DM -BGM -ISS FEN -Fluids stopped -monitor lytes -Diabetic diet PPX -heparin gtt Transfer Tele Visit type - Emergency Visit Emergency Visit: Yes ED Registration Date: 04/12/18 Care time: The patient presented to the Emergency Department on the above date and was hospitalized for further evaluation of their emergent condition. - New Patient This patient is new to me today: No - Critical Care Critical Care patient: Yes Total Critical Care Time (in minutes): 40 Critical Care Statement: The care of this patient involved high complexity decision making to prevent further life threatening deterioration of the patient 's condition and/or to evaluate & treat vital organ system(s) failure or risk of failure.
[2018-04-16] MEDS: COLLAGENASE CLOSTRIDIUM HIST. 30 GRAMS TUBE TP SCH (10:03)
--- NOTE | 2018-04-16 11:06 | PN ---
Teaching Attending Note Name of Resident: James Merritt ATTENDING PHYSICIAN STATEMENT I saw and evaluated the patient. I reviewed the resident's note and discussed the case with the resident. I agree with the resident's findings and plan as documented. SUBJECTIVE: Pt seen and examined in the ICU. Used BiPAP overnight. Feels breathing slightly better. OBJECTIVE: Vital Signs Period Temp Pulse Resp BP Sys/Toribio Pulse Ox Last 24 Hr 97.7 F-98.9 F 82-107 13-20 128-164/74-95 93-100 Intake & Output 04/13/18 04/14/18 04/15/18 04/16/18 23:59 23:59 23:59 23:59 Intake Total 3739 2866 968 872 Output Total 1700 2600 1400 400 Balance 2039 266 -432 472 Weight 157.397 kg 159.693 kg Gen: mildly tachypneic at rest Heart: RRR Lung: decreased breath sounds at the bases Abd: soft, nontender Ext: no edema CBC, BMP 04/16/18 05:30 04/16/18 05:30 Active Medications Atorvastatin Calcium (Lipitor -) 10 mg PO HS ELIZA Last Admin: 04/15/18 22:08 Dose: 10 mg Collagenase (Santyl -) 1 applic TP DAILY ELIZA Last Admin: 04/16/18 10:03 Dose: 1 applic Heparin Sodium (Porcine) (Heparin -) 7,100 unit 40 unit/kg (7100 unit) IVPUSH PRN PRN PRN Reason: For aPTT 35 to 45 seconds Last Admin: 04/16/18 08:04 Dose: 7,100 unit Heparin Sodium (Porcine) (Heparin -) 14,100 unit 80 unit/kg (26328 unit) IVPUSH PRN PRN PRN Reason: aPTT <35 seconds Heparin Sodium (Porcine) 25, (000 unit/ Sodium Chloride) 500 mls @ 20 mls/hr IV TITR ELIZA; Protocol Last Admin: 04/16/18 06:09 Dose: 1,150 unit/hr, 23 mls/hr Insulin Aspart (Novolog Vial Sliding Scale -) 1 vial SQ ACHS ELIZA; Protocol Last Admin: 04/16/18 10:47 Dose: Not Given Warfarin Sodium (Coumadin -) 7.5 mg PO DAILY@1800 ELIZA Last Admin: 04/15/18 17:00 Dose: 7.5 mg Warfarin Sodium (Coumadin -) 10 mg PO ONCE@1800 ONE Stop: 04/16/18 18:01 ASSESSMENT AND PLAN: Acute Pulmonary Emboli DVT +Troponins Lactic Acidosis r/o Right Heart Strain Acute on Chronic Renal Failure Thrombocytopenia Morbid Obesity HTN Hyperlipidemia DM Likely JANY - continue anticoagulation, transition to coumadin to target INR 2-3 - O2 to keep SpO2 >90% - BiPAP at night - monitor urine output, creatinine - glucose control - will need life long anticoagulation as this is his 2nd VTE - will need outpt PSG - can monitor on telemetry
--- NOTE | 2018-04-16 11:26 | PN ---
Progress Note, Physician History of Present Illness: Pt seen and examined at bedside. He is awake and alert. He denies shortness of breath with oxygen. - Current Medication List Current Medications: Active Medications Atorvastatin Calcium (Lipitor -) 10 mg PO HS [facility] Last Admin: 04/15/18 22:08 Dose: 10 mg Collagenase (Santyl -) 1 applic TP DAILY [facility] Last Admin: 04/16/18 10:03 Dose: 1 applic Heparin Sodium (Porcine) (Heparin -) 7,100 unit 40 unit/kg (7100 unit) IVPUSH PRN PRN PRN Reason: For aPTT 35 to 45 seconds Last Admin: 04/16/18 08:04 Dose: 7,100 unit Heparin Sodium (Porcine) (Heparin -) 14,100 unit 80 unit/kg (54198 unit) IVPUSH PRN PRN PRN Reason: aPTT <35 seconds Heparin Sodium (Porcine) 25, (000 unit/ Sodium Chloride) 500 mls @ 20 mls/hr IV TITR [facility]; Protocol Last Admin: 04/16/18 06:09 Dose: 1,150 unit/hr, 23 mls/hr Insulin Aspart (Novolog Vial Sliding Scale -) 1 vial SQ ACHS [facility]; Protocol Last Admin: 04/16/18 10:47 Dose: Not Given Warfarin Sodium (Coumadin -) 7.5 mg PO DAILY@1800 ELIZA Last Admin: 04/15/18 17:00 Dose: 7.5 mg Warfarin Sodium (Coumadin -) 10 mg PO ONCE@1800 ONE Stop: 04/16/18 18:01 - Objective Vital Signs: Vital Signs Temperature 97.7 F 04/16/18 10:00 Pulse Rate 84 04/16/18 10:00 Respiratory Rate 16 04/16/18 10:00 Blood Pressure 134/89 04/16/18 08:00 O2 Sat by Pulse Oximetry (%) 94 L 04/16/18 11:16 Constitutional: Yes: Calm Eyes: Yes: Conjunctiva Clear HENT: Yes: Atraumatic Cardiovascular: Yes: S1, S2 Respiratory: Yes: On Venti-Mask Gastrointestinal: Yes: Soft Genitourinary: Yes: WNL Musculoskeletal: Yes: Muscle Weakness Edema: Yes Edema: LLE: Trace, RLE: Trace Neurological: Yes: Oriented Psychiatric: Yes: Oriented Labs: CBC, BMP 04/16/18 05:30 04/16/18 05:30 INR, PTT INR 1.35 (0.82-1.09) H 04/16/18 05:30 Problem List - Problems (1) Pulmonary embolism Code(s): I26.99 - OTHER PULMONARY EMBOLISM WITHOUT ACUTE COR PULMONALE Qualifiers: Pulmonary embolism type: other Chronicity: unspecified Acute cor pulmonale presence: without acute cor pulmonale Qualified Code(s): I26.99 - Other pulmonary embolism without acute cor pulmonale (2) CKD (chronic kidney disease) Code(s): N18.9 - CHRONIC KIDNEY DISEASE, UNSPECIFIED Qualifiers: Chronic kidney disease stage: stage 1 Qualified Code(s): N18.1 - Chronic kidney disease, stage 1 (3) DVT (deep venous thrombosis) Code(s): I82.409 - ACUTE EMBOLISM AND THOMBOS UNSP DEEP VN UNSP LOWER EXTREMITY Assessment/Plan Current Medications Generic Name Dose Route Start Last Admin Trade Name Freq PRN Reason Stop Dose Admin Atorvastatin Calcium 10 mg 04/14/18 22:00 04/15/18 22:08 Lipitor - PO 10 mg HS ELIZA Administration Collagenase 1 applic 04/14/18 19:15 04/16/18 10:03 Santyl - TP 1 applic DAILY ELIZA Administration Heparin Sodium (Porcine) 7,100 unit 04/12/18 16:25 04/16/18 08:04 Heparin - 40 unit/kg (7100 unit) 7,100 unit IVPUSH Administration PRN PRN For aPTT 35 to 45 seconds Heparin Sodium (Porcine) 14,100 unit 04/12/18 16:25 Heparin - 80 unit/kg (65927 unit) IVPUSH PRN PRN aPTT <35 seconds Heparin Sodium (Porcine) 25, 500 mls @ 20 mls/hr 04/15/18 14:22 04/16/18 06: 09 000 unit/ Sodium Chloride IV 1,150 unit/hr TITR ELIZA 23 mls/hr Administration Protocol 1,000 UNIT/HR Insulin Aspart 1 vial 04/14/18 11:00 04/16/18 10:47 Novolog Vial Sliding Scale - SQ Not Given ACHS ELIZA Protocol Warfarin Sodium 7.5 mg 04/14/18 18:00 04/15/18 17:00 Coumadin - PO 7.5 mg DAILY@1800 ELIZA Administration Warfarin Sodium 10 mg 04/16/18 18:00 Coumadin - PO 04/16/18 18:01 ONCE@1800 ONE Impression 1. CKD 2. DVT 3. Pulmonary Embolism 4. HTN 5. DM 6. hyperlipidemia 7. obesity 8. non compliance with medications Plan - renal function is stable - restart pt home dose of lasix, he was taking 20 mg daily - renal function remains stable - avoid nephrotoxins - monitor BP - discussed with ICU team - will follow Dr Garcia
[2018-04-16] MEDS: FUROSEMIDE 20 MG TABLET (FP) PO SCH (11:54)
--- NOTE | 2018-04-16 12:08 | PN ---
Progress Note, Physician History of Present Illness: This is a 51 year old male with a past medical history of HTN, HLD, DM, CKD most recent cr 2.2 Dr. 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 Pt reports he was at home, awoke felt fine, went downstairs and had a a pre syncopal episode, reporting "I felt I was in a dream, consciously unconscious and started to recite numbers" when he wasn't improving called for help and EMS was called. Per ED record pt was hypotensive 80/50 and hypoxic @60%, received 1L and with bp improvement to 100/50, spo2 ~70% In ED he was placed on bipap and prelim reading of CTA shows bilateral large PE R>L vs saddle PE and placed on heparin gtt Currently, pt stats are stable on bipap he is able to speak to me in full sentences. Denies palpitations, sob, chest pain, James, dizziness, fever, chills. and son at bedside. History Source: Patient self d/c AC INR nl on presentation H Diabetes Mellitus Type 2 - 1996 Hypertension Chronic kidney disease Hyperlipidemia Pulmonary embolism - January [address] [facility] - Current Medication List Current Medications: Active Medications Atorvastatin Calcium (Lipitor -) 10 mg PO HS ELIZA Last Admin: 04/15/18 22:08 Dose: 10 mg Collagenase (Santyl -) 1 applic TP DAILY ELIZA Last Admin: 04/16/18 10:03 Dose: 1 applic Furosemide (Lasix -) 20 mg PO DAILY ELIZA Last Admin: 04/16/18 11:54 Dose: 20 mg Heparin Sodium (Porcine) (Heparin -) 7,100 unit 40 unit/kg (7100 unit) IVPUSH PRN PRN PRN Reason: For aPTT 35 to 45 seconds Last Admin: 04/16/18 08:04 Dose: 7,100 unit Heparin Sodium (Porcine) (Heparin -) 14,100 unit 80 unit/kg (52069 unit) IVPUSH PRN PRN PRN Reason: aPTT <35 seconds Heparin Sodium (Porcine) 25, (000 unit/ Sodium Chloride) 500 mls @ 20 mls/hr IV TITR ELIZA; Protocol Last Admin: 04/16/18 06:09 Dose: 1,150 unit/hr, 23 mls/hr Insulin Aspart (Novolog Vial Sliding Scale -) 1 vial SQ ACHS [facility]; Protocol Last Admin: 04/16/18 10:47 Dose: Not Given Warfarin Sodium (Coumadin -) 7.5 mg PO DAILY@1800 [facility] Last Admin: 04/15/18 17:00 Dose: 7.5 mg Warfarin Sodium (Coumadin -) 10 mg PO ONCE@1800 ONE Stop: 04/16/18 18:01 - Objective Vital Signs: Vital Signs Temperature 97.7 F 04/16/18 10:00 Pulse Rate 84 04/16/18 10:00 Respiratory Rate 16 04/16/18 10:00 Blood Pressure 134/89 04/16/18 08:00 O2 Sat by Pulse Oximetry (%) 94 L 04/16/18 11:16 Eyes: Yes: WNL, Conjunctiva Clear, EOM Intact HENT: Yes: WNL, Atraumatic, Normocephalic Neck: Yes: WNL, Supple, Trachea Midline Cardiovascular: Yes: WNL, Regular Rate and Rhythm Respiratory: Yes: WNL, Regular, CTA Bilaterally Gastrointestinal: Yes: WNL, Normal Bowel Sounds Genitourinary: Yes: WNL Musculoskeletal: Yes: WNL Extremities: Yes: WNL Edema: No Integumentary: Yes: WNL Neurological: Yes: WNL, Alert, Oriented ...Motor Strength: WNL Psychiatric: Yes: WNL Labs: CBC, BMP 04/16/18 05:30 04/16/18 05:30 INR, PTT INR 1.35 (0.82-1.09) H 04/16/18 05:30 Laboratory Tests 04/12/18 04/12/18 04/12/18 08:48 08:48 08:48 WBC 7.4 D RBC 4.97 Hgb 12.0 D Hct 39.3 MCV 79.1 L MCH 24.2 L MCHC 30.6 L RDW 16.4 H Plt Count 127 L D MPV 8.8 Absolute Neuts (auto) 4.6 Neutrophils % 62.8 Lymphocytes % 17.2 D Monocytes % 12.0 H Eosinophils % 7.2 H D Basophils % 0.8 Nucleated RBC % 0 PT with INR INR PTT (Actin FS) Puncture Site ABG pH ABG pCO2 at Pt Temp ABG pO2 at Pt Temp ABG HCO3 ABG O2 Sat (Measured) ABG O2 Content ABG Base Excess Don Test Carboxyhemoglobin Methemoglobin Oxygen Flow Rate Sodium 132 L Potassium 4.7 Chloride 101 Carbon Dioxide 21 Anion Gap 10 BUN 47 H Creatinine 3.0 H D Creat Clearance w eGFR 22.00 POC Glucometer Random Glucose 567 H* D Lactic Acid 4.7 H* Calcium 7.8 L Phosphorus Magnesium Total Bilirubin 0.4 D AST 38 H D ALT 49 D Alkaline Phosphatase 97 Creatine Kinase 330 H Creatine Kinase Index 0.7 CK-MB (CK-2) 2.47 Troponin I B-Natriuretic Peptide Total Protein 6.7 Albumin 2.7 L Urine Color Urine Appearance Urine pH Ur Specific [place] Urine Protein Urine Glucose (UA) Urine Ketones Urine Blood Urine Nitrite Urine Bilirubin Urine Urobilinogen Ur Leukocyte Esterase Urine WBC (Auto) Urine RBC (Auto) Ur Epithelial Cells Granular Casts Urine Mucus Urine Osmolality Ur Random Sodium Urine Creatinine Opiates Screen Methadone Screen Barbiturate Screen Phencyclidine Screen Ur Amphetamines Screen MDMA (Ecstasy) Screen Benzodiazepines Screen Cocaine Screen U Marijuana (THC) Screen Acetone, Qual Blood Type Antibody Screen 04/12/18 04/12/18 04/12/18 08:48 08:48 08:48 WBC RBC Hgb Hct MCV MCH MCHC RDW Plt Count MPV Absolute Neuts (auto) Neutrophils % Lymphocytes % Monocytes % Eosinophils % Basophils % Nucleated RBC % PT with INR INR PTT (Actin FS) 26.5 D Puncture Site ABG pH ABG pCO2 at Pt Temp ABG pO2 at Pt Temp ABG HCO3 ABG O2 Sat (Measured) ABG O2 Content ABG Base Excess Don Test Carboxyhemoglobin Methemoglobin Oxygen Flow Rate Sodium Cancelled Potassium Cancelled Chloride Cancelled Carbon Dioxide Cancelled Anion Gap Cancelled BUN Cancelled Creatinine Cancelled Creat Clearance w eGFR Cancelled POC Glucometer Random Glucose Cancelled Lactic Acid Calcium Cancelled Phosphorus Magnesium Total Bilirubin Cancelled AST Cancelled ALT Cancelled Alkaline Phosphatase Cancelled Creatine Kinase Cancelled Creatine Kinase Index CK-MB (CK-2) Cancelled Troponin I Cancelled B-Natriuretic Peptide 114 Total Protein Cancelled Albumin Cancelled Urine Color Urine Appearance Urine pH Ur Specific [place] Urine Protein Urine Glucose (UA) Urine Ketones Urine Blood Urine Nitrite Urine Bilirubin Urine Urobilinogen Ur Leukocyte Esterase Urine WBC (Auto) Urine RBC (Auto) Ur Epithelial Cells Granular Casts Urine Mucus Urine Osmolality Ur Random Sodium Urine Creatinine Opiates Screen Methadone Screen Barbiturate Screen Phencyclidine Screen Ur Amphetamines Screen MDMA (Ecstasy) Screen Benzodiazepines Screen Cocaine Screen U Marijuana (THC) Screen Acetone, Qual Blood Type O POSITIVE Antibody Screen Negative 04/12/18 04/12/18 04/12/18 08:48 08:57 08:57 WBC RBC Hgb Hct MCV MCH MCHC RDW Plt Count MPV Absolute Neuts (auto) Neutrophils % Lymphocytes % Monocytes % Eosinophils % Basophils % Nucleated RBC % PT with INR 11.80 INR 1.04 D PTT (Actin FS) Puncture Site ABG pH ABG pCO2 at Pt Temp ABG pO2 at Pt Temp ABG HCO3 ABG O2 Sat (Measured) ABG O2 Content ABG Base Excess Don Test Carboxyhemoglobin Methemoglobin Oxygen Flow Rate Sodium Potassium Chloride Carbon Dioxide Anion Gap BUN Creatinine Creat Clearance w eGFR POC Glucometer Random Glucose Lactic Acid Calcium Phosphorus Magnesium Total Bilirubin AST ALT Alkaline Phosphatase Creatine Kinase Creatine Kinase Index CK-MB (CK-2) 2.47 Troponin I 0.13 H D B-Natriuretic Peptide Total Protein Albumin Urine Color Urine Appearance Urine pH Ur Specific [place] Urine Protein Urine Glucose (UA) Urine Ketones Urine Blood Urine Nitrite Urine Bilirubin Urine Urobilinogen Ur Leukocyte Esterase Urine WBC (Auto) Urine RBC (Auto) Ur Epithelial Cells Granular Casts Urine Mucus Urine Osmolality Ur Random Sodium Urine Creatinine Opiates Screen Methadone Screen Barbiturate Screen Phencyclidine Screen Ur Amphetamines Screen MDMA (Ecstasy) Screen Benzodiazepines Screen Cocaine Screen U Marijuana (THC) Screen Acetone, Qual Negative Blood Type Antibody Screen 04/12/18 04/12/18 04/12/18 09:00 12:07 14:33 WBC RBC Hgb Hct MCV MCH MCHC RDW Plt Count MPV Absolute Neuts (auto) Neutrophils % Lymphocytes % Monocytes % Eosinophils % Basophils % Nucleated RBC % PT with INR INR PTT (Actin FS) Puncture Site Right radial ABG pH 7.29 L ABG pCO2 at Pt Temp 34.6 L ABG pO2 at Pt Temp 62.7 L ABG HCO3 16.0 L ABG O2 Sat (Measured) 88.2 L ABG O2 Content 13.7 L ABG Base Excess -9.3 L Don Test Positive Carboxyhemoglobin 1.4 Methemoglobin 1.7 H Oxygen Flow Rate Yes Sodium Potassium Chloride Carbon Dioxide Anion Gap BUN Creatinine Creat Clearance w eGFR POC Glucometer [phone] Random Glucose Lactic Acid 2.6 H* Calcium Phosphorus Magnesium Total Bilirubin AST ALT Alkaline Phosphatase Creatine Kinase Creatine Kinase Index CK-MB (CK-2) Troponin I B-Natriuretic Peptide Total Protein Albumin Urine Color Urine Appearance Urine pH Ur Specific [place] Urine Protein Urine Glucose (UA) Urine Ketones Urine Blood Urine Nitrite Urine Bilirubin Urine Urobilinogen Ur Leukocyte Esterase Urine WBC (Auto) Urine RBC (Auto) Ur Epithelial Cells Granular Casts Urine Mucus Urine Osmolality Ur Random Sodium Urine Creatinine Opiates Screen Methadone Screen Barbiturate Screen Phencyclidine Screen Ur Amphetamines Screen MDMA (Ecstasy) Screen Benzodiazepines Screen Cocaine Screen U Marijuana (THC) Screen Acetone, Qual Blood Type Antibody Screen 04/12/18 04/12/18 04/12/18 15:38 16:44 17:15 WBC RBC Hgb Hct MCV MCH MCHC RDW Plt Count MPV Absolute Neuts (auto) Neutrophils % Lymphocytes % Monocytes % Eosinophils % Basophils % Nucleated RBC % PT with INR INR PTT (Actin FS) 51.2 H D Puncture Site ABG pH ABG pCO2 at Pt Temp ABG pO2 at Pt Temp ABG HCO3 ABG O2 Sat (Measured) ABG O2 Content ABG Base Excess Don Test Carboxyhemoglobin Methemoglobin Oxygen Flow Rate Sodium Potassium Chloride Carbon Dioxide Anion Gap BUN Creatinine Creat Clearance w eGFR POC Glucometer [phone] Random Glucose Lactic Acid Calcium Phosphorus Magnesium Total Bilirubin AST ALT Alkaline Phosphatase Creatine Kinase 464 H Creatine Kinase Index 1.8 CK-MB (CK-2) 8.45 H Troponin I 2.32 H* D B-Natriuretic Peptide Total Protein Albumin Urine Color Urine Appearance Urine pH Ur Specific [place] Urine Protein Urine Glucose (UA) Urine Ketones Urine Blood Urine Nitrite Urine Bilirubin Urine Urobilinogen Ur Leukocyte Esterase Urine WBC (Auto) Urine RBC (Auto) Ur Epithelial Cells Granular Casts Urine Mucus Urine Osmolality Ur Random Sodium Urine Creatinine Opiates Screen Methadone Screen Barbiturate Screen Phencyclidine Screen Ur Amphetamines Screen MDMA (Ecstasy) Screen Benzodiazepines Screen Cocaine Screen U Marijuana (THC) Screen Acetone, Qual Blood Type Antibody Screen 04/13/18 04/13/18 04/13/18 00:30 00:30 00:30 WBC RBC Hgb Hct MCV MCH MCHC RDW Plt Count MPV Absolute Neuts (auto) Neutrophils % Lymphocytes % Monocytes % Eosinophils % Basophils % Nucleated RBC % PT with INR INR PTT (Actin FS) Puncture Site ABG pH ABG pCO2 at Pt Temp ABG pO2 at Pt Temp ABG HCO3 ABG O2 Sat (Measured) ABG O2 Content ABG Base Excess Don Test Carboxyhemoglobin Methemoglobin Oxygen Flow Rate Sodium Potassium Chloride Carbon Dioxide Anion Gap BUN Creatinine Creat Clearance w eGFR POC Glucometer Random Glucose Lactic Acid Calcium Phosphorus Magnesium Total Bilirubin AST ALT Alkaline Phosphatase Creatine Kinase 544 H Creatine Kinase Index 1.8 CK-MB (CK-2) 10.08 H Troponin I 3.25 H* D B-Natriuretic Peptide Total Protein Albumin Urine Color Ltyellow Urine Appearance Cloudy Urine pH 5.0 Ur Specific [place] 1.033 Urine Protein 2+ H Urine Glucose (UA) 2+ H Urine Ketones Negative Urine Blood 1+ H Urine Nitrite Negative Urine Bilirubin Negative Urine Urobilinogen Negative Ur Leukocyte Esterase Negative Urine WBC (Auto) 11 Urine RBC (Auto) 12 Ur Epithelial Cells Rare Granular Casts 52 Urine Mucus Rare Urine Osmolality Ur Random Sodium Urine Creatinine Opiates Screen Negative Methadone Screen Negative Barbiturate Screen Negative Phencyclidine Screen Negative Ur Amphetamines Screen Negative MDMA (Ecstasy) Screen Negative Benzodiazepines Screen Negative Cocaine Screen Positive U Marijuana (THC) Screen Negative Acetone, Qual Blood Type Antibody Screen 04/13/18 04/13/18 04/13/18 00:30 00:30 00:30 WBC RBC Hgb Hct MCV MCH MCHC RDW Plt Count MPV Absolute Neuts (auto) Neutrophils % Lymphocytes % Monocytes % Eosinophils % Basophils % Nucleated RBC % PT with INR INR PTT (Actin FS) 46.8 H Puncture Site ABG pH ABG pCO2 at Pt Temp ABG pO2 at Pt Temp ABG HCO3 ABG O2 Sat (Measured) ABG O2 Content ABG Base Excess Don Test Carboxyhemoglobin Methemoglobin Oxygen Flow Rate Sodium Potassium Chloride Carbon Dioxide Anion Gap BUN Creatinine Creat Clearance w eGFR POC Glucometer Random Glucose Lactic Acid Calcium Phosphorus Magnesium Total Bilirubin AST ALT Alkaline Phosphatase Creatine Kinase Creatine Kinase Index CK-MB (CK-2) Troponin I B-Natriuretic Peptide Total Protein Albumin Urine Color Urine Appearance Urine pH Ur Specific [place] Urine Protein Urine Glucose (UA) Urine Ketones Urine Blood Urine Nitrite Urine Bilirubin Urine Urobilinogen Ur Leukocyte Esterase Urine WBC (Auto) Urine RBC (Auto) Ur Epithelial Cells Granular Casts Urine Mucus Urine Osmolality 529 Ur Random Sodium 51 Urine Creatinine 118.0 Opiates Screen Methadone Screen Barbiturate Screen Phencyclidine Screen Ur Amphetamines Screen MDMA (Ecstasy) Screen Benzodiazepines Screen Cocaine Screen U Marijuana (THC) Screen Acetone, Qual Blood Type Antibody Screen 04/13/1818 04/13/18 06:15 06:15 06:15 WBC 7.1 RBC 4.67 Hgb 11.4 L Hct 35.4 MCV 75.7 L MCH 24.4 L MCHC 32.2 RDW 15.7 Plt Count 104 L MPV 8.7 Absolute Neuts (auto) Neutrophils % Lymphocytes % Monocytes % Eosinophils % Basophils % Nucleated RBC % PT with INR INR PTT (Actin FS) 48.5 H Puncture Site ABG pH ABG pCO2 at Pt Temp ABG pO2 at Pt Temp ABG HCO3 ABG O2 Sat (Measured) ABG O2 Content ABG Base Excess Don Test Carboxyhemoglobin Methemoglobin Oxygen Flow Rate Sodium 137 Potassium 4.3 Chloride 108 H Carbon Dioxide 20 L Anion Gap 9 BUN 40 H Creatinine 2.2 H D Creat Clearance w eGFR 31.47 POC Glucometer Random Glucose 258 H D Lactic Acid Calcium 8.0 L Phosphorus Magnesium Total Bilirubin 0.3 D AST 45 H ALT 52 Alkaline Phosphatase 67 D Creatine Kinase Creatine Kinase Index CK-MB (CK-2) Troponin I B-Natriuretic Peptide 3248.76 H Total Protein 6.7 Albumin 2.7 L Urine Color Urine Appearance Urine pH Ur Specific [place] Urine Protein Urine Glucose (UA) Urine Ketones Urine Blood Urine Nitrite Urine Bilirubin Urine Urobilinogen Ur Leukocyte Esterase Urine WBC (Auto) Urine RBC (Auto) Ur Epithelial Cells Granular Casts Urine Mucus Urine Osmolality Ur Random Sodium Urine Creatinine Opiates Screen Methadone Screen Barbiturate Screen Phencyclidine Screen Ur Amphetamines Screen MDMA (Ecstasy) Screen Benzodiazepines Screen Cocaine Screen U Marijuana (THC) Screen Acetone, Qual Blood Type Antibody Screen 04/13/18 04/13/18 04/13/18 06:20 11:10 17:04 WBC RBC Hgb Hct MCV MCH MCHC RDW Plt Count MPV Absolute Neuts (auto) Neutrophils % Lymphocytes % Monocytes % Eosinophils % Basophils % Nucleated RBC % PT with INR INR PTT (Actin FS) Puncture Site ABG pH ABG pCO2 at Pt Temp ABG pO2 at Pt Temp ABG HCO3 ABG O2 Sat (Measured) ABG O2 Content ABG Base Excess Don Test Carboxyhemoglobin Methemoglobin Oxygen Flow Rate Sodium Potassium Chloride Carbon Dioxide Anion Gap BUN Creatinine Creat Clearance w eGFR POC Glucometer [phone] 162.68075 Random Glucose Lactic Acid Calcium Phosphorus Magnesium Total Bilirubin AST ALT Alkaline Phosphatase Creatine Kinase Creatine Kinase Index CK-MB (CK-2) Troponin I B-Natriuretic Peptide Total Protein Albumin Urine Color Urine Appearance Urine pH Ur Specific [place] Urine Protein Urine Glucose (UA) Urine Ketones Urine Blood Urine Nitrite Urine Bilirubin Urine Urobilinogen Ur Leukocyte Esterase Urine WBC (Auto) Urine RBC (Auto) Ur Epithelial Cells Granular Casts Urine Mucus Urine Osmolality Ur Random Sodium Urine Creatinine Opiates Screen Methadone Screen Barbiturate Screen Phencyclidine Screen Ur Amphetamines Screen MDMA (Ecstasy) Screen Benzodiazepines Screen Cocaine Screen U Marijuana (THC) Screen Acetone, Qual Blood Type Antibody Screen 04/14/18 04/14/18 04/14/18 05:30 05:30 05:30 WBC 6.3 RBC 4.49 Hgb 10.9 L Hct 33.9 L MCV 75.7 L MCH 24.3 L MCHC 32.2 RDW 16.4 H Plt Count 106 L MPV 8.7 Absolute Neuts (auto) Neutrophils % Lymphocytes % Monocytes % Eosinophils % Basophils % Nucleated RBC % PT with INR INR PTT (Actin FS) 45.9 H Puncture Site ABG pH ABG pCO2 at Pt Temp ABG pO2 at Pt Temp ABG HCO3 ABG O2 Sat (Measured) ABG O2 Content ABG Base Excess Don Test Carboxyhemoglobin Methemoglobin Oxygen Flow Rate Sodium 139 Potassium 4.4 Chloride 109 H Carbon Dioxide 22 Anion Gap 8 BUN 32 H Creatinine 1.9 H Creat Clearance w eGFR 37.27 POC Glucometer Random Glucose 223 H Lactic Acid Calcium 7.8 L Phosphorus Magnesium Total Bilirubin AST ALT Alkaline Phosphatase Creatine Kinase Creatine Kinase Index CK-MB (CK-2) Troponin I B-Natriuretic Peptide Total Protein Albumin Urine Color Urine Appearance Urine pH Ur Specific [place] Urine Protein Urine Glucose (UA) Urine Ketones Urine Blood Urine Nitrite Urine Bilirubin Urine Urobilinogen Ur Leukocyte Esterase Urine WBC (Auto) Urine RBC (Auto) Ur Epithelial Cells Granular Casts Urine Mucus Urine Osmolality Ur Random Sodium Urine Creatinine Opiates Screen Methadone Screen Barbiturate Screen Phencyclidine Screen Ur Amphetamines Screen MDMA (Ecstasy) Screen Benzodiazepines Screen Cocaine Screen U Marijuana (THC) Screen Acetone, Qual Blood Type Antibody Screen 04/14/18 04/14/18 04/14/18 06:38 10:28 10:28 WBC RBC Hgb Hct MCV MCH MCHC RDW Plt Count MPV Absolute Neuts (auto) Neutrophils % Lymphocytes % Monocytes % Eosinophils % Basophils % Nucleated RBC % PT with INR INR PTT (Actin FS) Puncture Site ABG pH ABG pCO2 at Pt Temp ABG pO2 at Pt Temp ABG HCO3 ABG O2 Sat (Measured) ABG O2 Content ABG Base Excess Don Test Carboxyhemoglobin Methemoglobin Oxygen Flow Rate Sodium Potassium Chloride Carbon Dioxide Anion Gap BUN Creatinine Creat Clearance w eGFR POC Glucometer 262.66010 Random Glucose Lactic Acid 1.3 Calcium Phosphorus Magnesium Total Bilirubin AST ALT Alkaline Phosphatase Creatine Kinase 313 H Creatine Kinase Index 0.9 CK-MB (CK-2) 2.92 Troponin I 1.06 H* D B-Natriuretic Peptide Total Protein Albumin Urine Color Urine Appearance Urine pH Ur Specific [place] Urine Protein Urine Glucose (UA) Urine Ketones Urine Blood Urine Nitrite Urine Bilirubin Urine Urobilinogen Ur Leukocyte Esterase Urine WBC (Auto) Urine RBC (Auto) Ur Epithelial Cells Granular Casts Urine Mucus Urine Osmolality Ur Random Sodium Urine Creatinine Opiates Screen Methadone Screen Barbiturate Screen Phencyclidine Screen Ur Amphetamines Screen MDMA (Ecstasy) Screen Benzodiazepines Screen Cocaine Screen U Marijuana (THC) Screen Acetone, Qual Blood Type Antibody Screen 04/14/18 04/14/18 04/14/18 12:21 15:47 16:37 WBC RBC Hgb Hct MCV MCH MCHC RDW Plt Count MPV Absolute Neuts (auto) Neutrophils % Lymphocytes % Monocytes % Eosinophils % Basophils % Nucleated RBC % PT with INR INR PTT (Actin FS) 69.8 H D Puncture Site ABG pH ABG pCO2 at Pt Temp ABG pO2 at Pt Temp ABG HCO3 ABG O2 Sat (Measured) ABG O2 Content ABG Base Excess Don Test Carboxyhemoglobin Methemoglobin Oxygen Flow Rate Sodium Potassium Chloride Carbon Dioxide Anion Gap BUN Creatinine Creat Clearance w eGFR POC Glucometer 269.38162 175.37350 Random Glucose Lactic Acid Calcium Phosphorus Magnesium Total Bilirubin AST ALT Alkaline Phosphatase Creatine Kinase Creatine Kinase Index CK-MB (CK-2) Troponin I B-Natriuretic Peptide Total Protein Albumin Urine Color Urine Appearance Urine pH Ur Specific [place] Urine Protein Urine Glucose (UA) Urine Ketones Urine Blood Urine Nitrite Urine Bilirubin Urine Urobilinogen Ur Leukocyte Esterase Urine WBC (Auto) Urine RBC (Auto) Ur Epithelial Cells Granular Casts Urine Mucus Urine Osmolality Ur Random Sodium Urine Creatinine Opiates Screen Methadone Screen Barbiturate Screen Phencyclidine Screen Ur Amphetamines Screen MDMA (Ecstasy) Screen Benzodiazepines Screen Cocaine Screen U Marijuana (THC) Screen Acetone, Qual Blood Type Antibody Screen 04/14/18 04/14/18 04/15/18 19:55 22:35 05:30 WBC 6.2 RBC 4.51 Hgb 10.9 L Hct 34.1 L MCV 75.7 L MCH 24.2 L MCHC 32.0 RDW 16.1 H Plt Count 111 L MPV 8.8 Absolute Neuts (auto) Neutrophils % Lymphocytes % Monocytes % Eosinophils % Basophils % Nucleated RBC % PT with INR INR PTT (Actin FS) Puncture Site ABG pH ABG pCO2 at Pt Temp ABG pO2 at Pt Temp ABG HCO3 ABG O2 Sat (Measured) ABG O2 Content ABG Base Excess Don Test Carboxyhemoglobin Methemoglobin Oxygen Flow Rate Sodium Potassium Chloride Carbon Dioxide Anion Gap BUN Creatinine Creat Clearance w eGFR POC Glucometer 268.19458 Random Glucose Lactic Acid Calcium Phosphorus Magnesium Total Bilirubin AST ALT Alkaline Phosphatase Creatine Kinase 296 Creatine Kinase Index 0.8 CK-MB (CK-2) 2.62 Troponin I 0.70 H* D B-Natriuretic Peptide Total Protein Albumin Urine Color Urine Appearance Urine pH Ur Specific [place] Urine Protein Urine Glucose (UA) Urine Ketones Urine Blood Urine Nitrite Urine Bilirubin Urine Urobilinogen Ur Leukocyte Esterase Urine WBC (Auto) Urine RBC (Auto) Ur Epithelial Cells Granular Casts Urine Mucus Urine Osmolality Ur Random Sodium Urine Creatinine Opiates Screen Methadone Screen Barbiturate Screen Phencyclidine Screen Ur Amphetamines Screen MDMA (Ecstasy) Screen Benzodiazepines Screen Cocaine Screen U Marijuana (THC) Screen Acetone, Qual Blood Type Antibody Screen 04/15/18 04/15/18 04/15/18 05:30 05:30 05:48 WBC RBC Hgb Hct MCV MCH MCHC RDW Plt Count MPV Absolute Neuts (auto) Neutrophils % Lymphocytes % Monocytes % Eosinophils % Basophils % Nucleated RBC % PT with INR INR PTT (Actin FS) 49.5 H Puncture Site ABG pH ABG pCO2 at Pt Temp ABG pO2 at Pt Temp ABG HCO3 ABG O2 Sat (Measured) ABG O2 Content ABG Base Excess Don Test Carboxyhemoglobin Methemoglobin Oxygen Flow Rate Sodium 139 Potassium 4.4 Chloride 109 H Carbon Dioxide 22 Anion Gap 8 BUN 32 H Creatinine 2.0 H Creat Clearance w eGFR 35.13 POC Glucometer [phone] Random Glucose 195 H Lactic Acid Calcium 7.8 L Phosphorus 2.8 D Magnesium 2.0 Total Bilirubin 0.3 AST 22 D ALT 33 D Alkaline Phosphatase 64 Creatine Kinase Creatine Kinase Index CK-MB (CK-2) Troponin I B-Natriuretic Peptide Total Protein 6.3 L Albumin 2.6 L Urine Color Urine Appearance Urine pH Ur Specific [place] Urine Protein Urine Glucose (UA) Urine Ketones Urine Blood Urine Nitrite Urine Bilirubin Urine Urobilinogen Ur Leukocyte Esterase Urine WBC (Auto) Urine RBC (Auto) Ur Epithelial Cells Granular Casts Urine Mucus Urine Osmolality Ur Random Sodium Urine Creatinine Opiates Screen Methadone Screen Barbiturate Screen Phencyclidine Screen Ur Amphetamines Screen MDMA (Ecstasy) Screen Benzodiazepines Screen Cocaine Screen U Marijuana (THC) Screen Acetone, Qual Blood Type Antibody Screen 04/15/18 04/15/18 04/15/18 11:13 14:50 16:17 WBC RBC Hgb Hct MCV MCH MCHC RDW Plt Count MPV Absolute Neuts (auto) Neutrophils % Lymphocytes % Monocytes % Eosinophils % Basophils % Nucleated RBC % PT with INR INR PTT (Actin FS) 47.8 H Puncture Site ABG pH ABG pCO2 at Pt Temp ABG pO2 at Pt Temp ABG HCO3 ABG O2 Sat (Measured) ABG O2 Content ABG Base Excess Don Test Carboxyhemoglobin Methemoglobin Oxygen Flow Rate Sodium Potassium Chloride Carbon Dioxide Anion Gap BUN Creatinine Creat Clearance w eGFR POC Glucometer 57.85127 74.12838 Random Glucose Lactic Acid Calcium Phosphorus Magnesium Total Bilirubin AST ALT Alkaline Phosphatase Creatine Kinase Creatine Kinase Index CK-MB (CK-2) Troponin I B-Natriuretic Peptide Total Protein Albumin Urine Color Urine Appearance Urine pH Ur Specific [place] Urine Protein Urine Glucose (UA) Urine Ketones Urine Blood Urine Nitrite Urine Bilirubin Urine Urobilinogen Ur Leukocyte Esterase Urine WBC (Auto) Urine RBC (Auto) Ur Epithelial Cells Granular Casts Urine Mucus Urine Osmolality Ur Random Sodium Urine Creatinine Opiates Screen Methadone Screen Barbiturate Screen Phencyclidine Screen Ur Amphetamines Screen MDMA (Ecstasy) Screen Benzodiazepines Screen Cocaine Screen U Marijuana (THC) Screen Acetone, Qual Blood Type Antibody Screen 04/15/18 04/15/18 04/16/18 21:30 21:54 05:30 WBC 6.9 RBC 4.55 Hgb 11.0 L Hct 34.2 L MCV 75.3 L MCH 24.3 L MCHC 32.3 RDW 16.1 H Plt Count 111 L MPV 8.9 Absolute Neuts (auto) Neutrophils % Lymphocytes % Monocytes % Eosinophils % Basophils % Nucleated RBC % PT with INR INR PTT (Actin FS) 75.2 H D Puncture Site ABG pH ABG pCO2 at Pt Temp ABG pO2 at Pt Temp ABG HCO3 ABG O2 Sat (Measured) ABG O2 Content ABG Base Excess Don Test Carboxyhemoglobin Methemoglobin Oxygen Flow Rate Sodium Potassium Chloride Carbon Dioxide Anion Gap BUN Creatinine Creat Clearance w eGFR POC Glucometer [phone] Random Glucose Lactic Acid Calcium Phosphorus Magnesium Total Bilirubin AST ALT Alkaline Phosphatase Creatine Kinase Creatine Kinase Index CK-MB (CK-2) Troponin I B-Natriuretic Peptide Total Protein Albumin Urine Color Urine Appearance Urine pH Ur Specific [place] Urine Protein Urine Glucose (UA) Urine Ketones Urine Blood Urine Nitrite Urine Bilirubin Urine Urobilinogen Ur Leukocyte Esterase Urine WBC (Auto) Urine RBC (Auto) Ur Epithelial Cells Granular Casts Urine Mucus Urine Osmolality Ur Random Sodium Urine Creatinine Opiates Screen Methadone Screen Barbiturate Screen Phencyclidine Screen Ur Amphetamines Screen MDMA (Ecstasy) Screen Benzodiazepines Screen Cocaine Screen U Marijuana (THC) Screen Acetone, Qual Blood Type Antibody Screen 04/16/18 04/16/18 04/16/18 05:30 05:30 05:30 WBC RBC Hgb Hct MCV MCH MCHC RDW Plt Count MPV Absolute Neuts (auto) Neutrophils % Lymphocytes % Monocytes % Eosinophils % Basophils % Nucleated RBC % PT with INR 15.20 H INR 1.35 H PTT (Actin FS) 44.8 H D Puncture Site ABG pH ABG pCO2 at Pt Temp ABG pO2 at Pt Temp ABG HCO3 ABG O2 Sat (Measured) ABG O2 Content ABG Base Excess Don Test Carboxyhemoglobin Methemoglobin Oxygen Flow Rate Sodium 139 Potassium 4.6 Chloride 109 H Carbon Dioxide 22 Anion Gap 8 BUN 30 H Creatinine 2.0 H Creat Clearance w eGFR 35.13 POC Glucometer Random Glucose 261 H D Lactic Acid Calcium 7.5 L Phosphorus 2.9 Magnesium 1.8 Total Bilirubin 0.3 AST 17 D ALT 29 Alkaline Phosphatase 65 Creatine Kinase Creatine Kinase Index CK-MB (CK-2) Troponin I B-Natriuretic Peptide Total Protein 6.4 Albumin 2.5 L Urine Color Urine Appearance Urine pH Ur Specific [place] Urine Protein Urine Glucose (UA) Urine Ketones Urine Blood Urine Nitrite Urine Bilirubin Urine Urobilinogen Ur Leukocyte Esterase Urine WBC (Auto) Urine RBC (Auto) Ur Epithelial Cells Granular Casts Urine Mucus Urine Osmolality Ur Random Sodium Urine Creatinine Opiates Screen Methadone Screen Barbiturate Screen Phencyclidine Screen Ur Amphetamines Screen MDMA (Ecstasy) Screen Benzodiazepines Screen Cocaine Screen U Marijuana (THC) Screen Acetone, Qual Blood Type Antibody Screen 04/16/18 05:30 WBC RBC Hgb Hct MCV MCH MCHC RDW Plt Count MPV Absolute Neuts (auto) Neutrophils % Lymphocytes % Monocytes % Eosinophils % Basophils % Nucleated RBC % PT with INR INR PTT (Actin FS) Puncture Site ABG pH ABG pCO2 at Pt Temp ABG pO2 at Pt Temp ABG HCO3 ABG O2 Sat (Measured) ABG O2 Content ABG Base Excess Don Test Carboxyhemoglobin Methemoglobin Oxygen Flow Rate Sodium Potassium Chloride Carbon Dioxide Anion Gap BUN Creatinine Creat Clearance w eGFR POC Glucometer [phone] Random Glucose Lactic Acid Calcium Phosphorus Magnesium Total Bilirubin AST ALT Alkaline Phosphatase Creatine Kinase Creatine Kinase Index CK-MB (CK-2) Troponin I B-Natriuretic Peptide Total Protein Albumin Urine Color Urine Appearance Urine pH Ur Specific [place] Urine Protein Urine Glucose (UA) Urine Ketones Urine Blood Urine Nitrite Urine Bilirubin Urine Urobilinogen Ur Leukocyte Esterase Urine WBC (Auto) Urine RBC (Auto) Ur Epithelial Cells Granular Casts Urine Mucus Urine Osmolality Ur Random Sodium Urine Creatinine Opiates Screen Methadone Screen Barbiturate Screen Phencyclidine Screen Ur Amphetamines Screen MDMA (Ecstasy) Screen Benzodiazepines Screen Cocaine Screen U Marijuana (THC) Screen Acetone, Qual Blood Type Antibody Screen Problem List - Problems (1) Acute kidney injury Code(s): N17.9 - ACUTE KIDNEY FAILURE, UNSPECIFIED (2) Hyperglycemia Code(s): R73.9 - HYPERGLYCEMIA, UNSPECIFIED (3) Pulmonary embolism Code(s): I26.99 - OTHER PULMONARY EMBOLISM WITHOUT ACUTE COR PULMONALE Qualifiers: Pulmonary embolism type: other Chronicity: unspecified Acute cor pulmonale presence: without acute cor pulmonale Qualified Code(s): I26.99 - Other pulmonary embolism without acute cor pulmonale (4) CKD (chronic kidney disease) Code(s): N18.9 - CHRONIC KIDNEY DISEASE, UNSPECIFIED Qualifiers: Chronic kidney disease stage: stage 1 Qualified Code(s): N18.1 - Chronic kidney disease, stage 1 (5) DVT (deep venous thrombosis) Code(s): I82.409 - ACUTE EMBOLISM AND THOMBOS UNSP DEEP VN UNSP LOWER EXTREMITY (6) Diabetes 1.5, managed as type 2 Code(s): E13.9 - OTHER SPECIFIED DIABETES MELLITUS WITHOUT COMPLICATIONS (7) Diabetic neuropathy associated with diabetes mellitus due to underlying condition Code(s): E08.40 - DIABETES DUE TO UNDERLYING CONDITION W DIABETIC NEUROP, UNSP Qualifiers: Diabetes mellitus complication detail: diabetic polyneuropathy Qualified Code(s): E08.42 - Diabetes mellitus due to underlying condition with diabetic polyneuropathy (8) Diabetic ulcer of toe Code(s): E11.621 - TYPE 2 DIABETES MELLITUS WITH FOOT ULCER; L97.509 - NON- PRESSURE CHRONIC ULCER OTH PRT UNSP FOOT W UNSP SEVERITY Qualifiers: Diabetes mellitus type: type 2 Laterality: right Non-pressure ulcer stage : with necrosis of bone Qualified Code(s): E11.621 - Type 2 diabetes mellitus with foot ulcer; L97.514 - Non-pressure chronic ulcer of other part of right foot with necrosis of bone (9) Dyspnea Code(s): R06.00 - DYSPNEA, UNSPECIFIED Qualifiers: Dyspnea type: dyspnea on exertion Qualified Code(s): R06.09 - Other forms of dyspnea (10) [place] cardiac risk >20% in next 10 years Code(s): Z91.89 - OTH PERSONAL RISK FACTORS, NOT ELSEWHERE CLASSIFIED (11) Hyperlipidemia Code(s): E78.5 - HYPERLIPIDEMIA, UNSPECIFIED (12) Hypertension Code(s): I10 - ESSENTIAL (PRIMARY) HYPERTENSION (13) Lower back pain Code(s): M54.5 - LOW BACK PAIN (14) Morbid obesity due to excess calories Code(s): E66.01 - MORBID (SEVERE) OBESITY DUE TO EXCESS CALORIES (15) Nausea vomiting and diarrhea Code(s): R11.2 - NAUSEA WITH VOMITING, UNSPECIFIED; R19.7 - DIARRHEA, UNSPECIFIED (16) Right leg swelling Code(s): M79.89 - OTHER SPECIFIED SOFT TISSUE DISORDERS Assessment/Plan 51 year old male with a past medical history of HTN, HLD, DM, CKD most recent cr 2.2 Dr. Melara, DVT/PE (has not taken coumadin x4days), and morbid obesity. He presented to the ED after feeling acutely sob and lightheaded at home. In the ED record he was hypotensive 80/50 and hypoxic at 60%, received 1L and with bp improvement to 100/50, spo2 ~70% In ED he was placed on bipap and the CT of the Chest shows bilateral large PE R >L vs saddle PE, and he was placed on heparin gtt. 1) B/L PE receiving heparin gtt bridge to coumadin noncomplient, hypercoaguable state Echo 04/14/18 with normal LVEF and probably moderate RV hypokinesis and mild RV dilatation unchanged from prior echo No arrhythmias recorded on tele cont ICU monitoring cc time spent 37 min
--- NOTE | 2018-04-16 16:14 | PN ---
Physical Exam: SUBJECTIVE: Patient seen and examined at the bedside. Feels well today, no chest pain. On Venti mask. OBJECTIVE: Vital Signs Period Temp Pulse Resp BP Sys/Toribio Pulse Ox Last 24 Hr 97.7 F-98 F 82-107 15-20 128-164/77-95 91-100 GENERAL: The patient is awake, alert, and fully oriented, in no acute distress. HEAD: Normal with no signs of trauma. EYES: PERRL, extraocular movements intact, sclera anicteric, conjunctiva clear. No ptosis. ENT: Ears normal, nares patent, oropharynx clear without exudates, moist mucous membranes. NECK: Trachea midline, full range of motion, supple. LUNGS: bilateral lungs with diminished breath sounds, no chest pain HEART: Regular rate and rhythm, S1, S2 without murmur, rub or gallop. ABDOMEN: Soft, nontender, nondistended, normoactive bowel sounds, no guarding, no rebound, no hepatosplenomegaly, no masses. EXTREMITIES: left lower ext edema, right lower ext with discoloration of lower ext. NEUROLOGICAL: Normal speech, gait not observed. PSYCH: Normal mood, normal affect. SKIN: Warm, dry, normal turgor, no rashes or lesions noted Laboratory Results - last 24 hr 04/15/18 04/15/18 04/15/18 11:13 16:17 21:30 WBC RBC Hgb Hct MCV MCH MCHC RDW Plt Count MPV PT with INR INR PTT (Actin FS) 75.2 H D Sodium Potassium Chloride Carbon Dioxide Anion Gap BUN Creatinine Creat Clearance w eGFR POC Glucometer 57.46251 74.30637 Random Glucose Calcium Phosphorus Magnesium Total Bilirubin AST ALT Alkaline Phosphatase Total Protein Albumin 04/15/18 04/16/18 04/16/18 21:54 05:30 05:30 WBC 6.9 RBC 4.55 Hgb 11.0 L Hct 34.2 L MCV 75.3 L MCH 24.3 L MCHC 32.3 RDW 16.1 H Plt Count 111 L MPV 8.9 PT with INR INR PTT (Actin FS) 44.8 H D Sodium Potassium Chloride Carbon Dioxide Anion Gap BUN Creatinine Creat Clearance w eGFR POC Glucometer [phone] Random Glucose Calcium Phosphorus Magnesium Total Bilirubin AST ALT Alkaline Phosphatase Total Protein Albumin 04/16/18 04/16/18 04/16/18 05:30 05:30 05:30 WBC RBC Hgb Hct MCV MCH MCHC RDW Plt Count MPV PT with INR 15.20 H INR 1.35 H PTT (Actin FS) Sodium 139 Potassium 4.6 Chloride 109 H Carbon Dioxide 22 Anion Gap 8 BUN 30 H Creatinine 2.0 H Creat Clearance w eGFR 35.13 POC Glucometer [phone] Random Glucose 261 H D Calcium 7.5 L Phosphorus 2.9 Magnesium 1.8 Total Bilirubin 0.3 AST 17 D ALT 29 Alkaline Phosphatase 65 Total Protein 6.4 Albumin 2.5 L 04/16/18 13:23 WBC RBC Hgb Hct MCV MCH MCHC RDW Plt Count MPV PT with INR INR PTT (Actin FS) 79.1 H D Sodium Potassium Chloride Carbon Dioxide Anion Gap BUN Creatinine Creat Clearance w eGFR POC Glucometer Random Glucose Calcium Phosphorus Magnesium Total Bilirubin AST ALT Alkaline Phosphatase Total Protein Albumin Active Medications Generic Name Dose Route Start Last Admin Trade Name Freq PRN Reason Stop Dose Admin Atorvastatin Calcium 10 mg 04/14/18 22:00 04/15/18 22:08 Lipitor - PO 10 mg HS ELIZA Administration Collagenase 1 applic 04/14/18 19:15 04/16/18 10:03 Santyl - TP 1 applic DAILY ELIZA Administration Furosemide 20 mg 04/16/18 11:30 04/16/18 11:54 Lasix - PO 20 mg DAILY ELIZA Administration Heparin Sodium (Porcine) 7,100 unit 04/12/18 16:25 04/16/18 08:04 Heparin - 40 unit/kg (7100 unit) 7,100 unit IVPUSH Administration PRN PRN For aPTT 35 to 45 seconds Heparin Sodium (Porcine) 14,100 unit 04/12/18 16:25 Heparin - 80 unit/kg (79226 unit) IVPUSH PRN PRN aPTT <35 seconds Heparin Sodium (Porcine) 25, 500 mls @ 20 mls/hr 04/15/18 14:22 04/16/18 15: 37 000 unit/ Sodium Chloride IV 1,250 unit/hr TITR ELIZA 25 mls/hr Administration Protocol 1,000 UNIT/HR Insulin Aspart 1 vial 04/14/18 11:00 04/16/18 15:40 Novolog Vial Sliding Scale - SQ Not Given ACHS ELIZA Protocol Warfarin Sodium 7.5 mg 04/14/18 18:00 04/15/18 17:00 Coumadin - PO 7.5 mg DAILY@1800 ELIZA Administration Warfarin Sodium 10 mg 04/16/18 18:00 Coumadin - PO 04/16/18 18:01 ONCE@1800 ONE ASSESSMENT/PLAN: Mr. Dubose is a 52 year old male with a significant past medical history of hypertension, hyperlipidemia, diabetes, obesity, CKD (follows Dr. Hair), DVT and PE history and has missed Coumadin for ~ 5 days as per patient. He presents to the ED on 04/12/18 with shortness of breath and feeling lightheaded at home. He was noted to be hypotensive and hypoxic in the ED. A CTA chest shows bilateral large PEs and currently on a heparin drip. Pulmonary: Bilateral Pulmonary Emboli seen on Chest CTA On heparin drip with bridge to Coumadin with goal INR between 2-3 Echo 04/14> normal LVEF 60-65%, probable mildly dilated RV cavity, probable mod. reduced RV systolic function. RA is midly dilated, left atrial size normal, mild mitral annular calcification. mild TR, trace pulmonic valve regurg. no pericardial effusion. hematology consulted. Cardiology: Elevated trops, most likely secondary to cardiac demand. No chest pain, short of breath secondary to PE. Cardiology following. Hypertension, chronic Currently controlled. Renal: RORY on CKD. Creat trending down. Renal following. Avoid all nephrotoxins Heme: Thrombocytopenia Monitor in the setting of anticoagulation therapy, bleeding risk. 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
[2018-04-16] MEDS ORDERED: PT OWN MED DRAWER 7, Y5N ONE (16:47)
[2018-04-16] MEDS ORDERED: WARFARIN NA 10 MG TABLET (FP) PO ONE (18:00)
--- NOTE | 2018-04-16 18:23 | PN ---
Progress Note (short form) - Note Progress Note: seen and examined. Constitutional: Yes: Mild Distress Eyes: Yes: PERRL. No: Cataracts, Diplopia, Ptosis, Sclera Icterus HENT: Yes: Atraumatic, Normocephalic. No: Epistaxis, Hoarseness, Tonsillar Exudate Neck: Yes: Supple. No: Trachea Midline, Lymphadenopathy Cardiovascular: Yes: Regular Rate and Rhythm Respiratory: Yes: Diminished Gastrointestinal: Yes: Normal Bowel Sounds, Soft, Abdomen, Obese Renal/: No: CVA Tenderness - Left, CVA Tenderness - Right Breast(s): No: Gynecomastia Musculoskeletal: No: Back Pain, Muscle Pain Extremities: Yes: Amputation, Other (right toe) Edema: LLE: 2+, RLE: 2+ Integumentary: Yes: Venous Stasis Changes Neurological: Yes: Numbness ...Motor Strength: WNLLast Vital Signs Temp Pulse Resp BP Pulse Ox 97.8 F 99 H 19 142/97 91 L 04/16/18 16:00 04/16/18 18:00 04/16/18 18:00 04/16/18 18:00 04/16/18 14:52 CBC, BMP 04/16/18 05:30 04/16/18 05:30 Current Medications Generic Name Dose Route Start Last Admin Trade Name Freq PRN Reason Stop Dose Admin Atorvastatin Calcium 10 mg 04/14/18 22:00 04/15/18 22:08 Lipitor - PO 10 mg HS ELIZA Administration Collagenase 1 applic 04/14/18 19:15 04/16/18 10:03 Santyl - TP 1 applic DAILY ELIZA Administration Furosemide 20 mg 04/16/18 11:30 04/16/18 11:54 Lasix - PO 20 mg DAILY ELIZA Administration Heparin Sodium (Porcine) 7,100 unit 04/12/18 16:25 04/16/18 08:04 Heparin - 40 unit/kg (7100 unit) 7,100 unit IVPUSH Administration PRN PRN For aPTT 35 to 45 seconds Heparin Sodium (Porcine) 14,100 unit 04/12/18 16:25 Heparin - 80 unit/kg (71583 unit) IVPUSH PRN PRN aPTT <35 seconds Heparin Sodium (Porcine) 25, 500 mls @ 20 mls/hr 04/15/18 14:22 04/16/18 15: 37 000 unit/ Sodium Chloride IV 1,250 unit/hr TITR ELIZA 25 mls/hr Administration Protocol 1,000 UNIT/HR Insulin Aspart 1 vial 04/14/18 11:00 04/16/18 15:40 Novolog Vial Sliding Scale - SQ Not Given ACHS ELIZA Protocol Warfarin Sodium 7.5 mg 04/14/18 18:00 04/15/18 17:00 Coumadin - PO 7.5 mg DAILY@1800 ELIZA Administration unprovoked DVT in 01/2017. Currently with DVT and bilateral P.E. coumadin bridge. New problem of thrombocytopeina. Previously normal platelets in 11/14 ?consumption check US/hep serologies Would monitor for now Previously with sleep study - will need follow up
[2018-04-16] MEDS: ATORVASTATIN CA 10 MG TABLET (FP) PO SCH (21:49)
[2018-04-17] MEDS ORDERED: HEMOQUE CONTROL SOLUTION ONE (01:30)
[2018-04-17 06:05] LABS: HEMATOCRIT 33.2 % (35.4-49); HEMOGLOBIN 10.6 GM/dL (11.7-16.9); MCH 24.1 pg (25.7-33.7); MCHC 31.9 g/dl (32.0-35.9); MEAN CELL VOLUME 75.4 fl (80-96); MEAN PLT VOLUME 8.9 fl (7.5-11.1); PLATELET COUNT 108 K/MM3 (134-434); RDW 16.2 % (11.9-15.9); WHITE BLOOD COUNT 6.9 K/mm3 (4.0-10.0)
[2018-04-17] MEDS: INSULIN SLIDING SCALE (NOVOLOG) 1 VIAL SQ SCH ×4 (06:11→22:01)
[2018-04-17 06:52] LABS: ALBUMIN 2.4 g/dl (3.4-5.0); ANION GAP 6 (8-16); BLOOD UREA NITROGEN 35 mg/dL (7-18); CALCIUM 7.5 mg/dL (8.5-10.1); CHLORIDE 109 mmol/L (98-107); CO2 23 mmol/L (21-32); GLUCOSE,RANDOM 225 mg/dL (74-106); PHOSPHOROUS 3.2 mg/dL (2.5-4.9); POTASSIUM 4.2 mmol/L (3.5-5.1); SGOT/AST 15 U/L (15-37); SGPT/ALT 26 U/L (12-78); SODIUM 138 mmol/L (136-145)
[2018-04-17 06:53] LABS: ALK PHOS 62 U/L (45-117); BILIRUBIN,TOTAL 0.3 mg/dL (0.2-1.0)
[2018-04-17] MEDS: HEPARIN NA (PORCINE) 5,000 UNITS/ML 1ML VIAL IVPUSH PRN (07:46)
[2018-04-17 08:45] LABS: INR 1.62 (0.82-1.09); PROTHROMBIN TIME (PATIENT) 18.3 SEC (9.7-13.0)
--- NOTE | 2018-04-17 09:21 | PN ---
Progress Note, Physician Chief Complaint: Pt A&Ox3; sitting up at bedside. Comfortable when lying down; able to walk a few steps to the bathroom, but when returns to bed, feels short of breath. History of Present Illness: This is a 52 YO black man with h/o DM (does not check BG regularly), DVT/PE in 2017 (noncompliant with coumadin, cannot recall value or), supramorbid obesity, CKD, HTN, and HLD who p/w acute onset of SOB this morning upon awakening from sleep, which occurred shortly after a syncopal episode this morning (Pt had preceding lightheadedness and non-traumatic syncope). He notes feeling well yesterday other than increased leg swelling lately. EMS measured his initial RA pulse ox to be in the mid-60s and they placed him on the non-rebreather. They also measured his blood pressure to be 80/50 and his BG to be >500. The patient denies any recent fever, chills, nausea, vomiting, diarrhea, constipation, chest pain, abdominal pain, palpitations, or other symptoms. - Current Medication List Current Medications: Active Medications Atorvastatin Calcium (Lipitor -) 10 mg PO HS ELIZA Last Admin: 04/16/18 21:49 Dose: 10 mg Collagenase (Santyl -) 1 applic TP DAILY ELIZA Last Admin: 04/16/18 10:03 Dose: 1 applic Furosemide (Lasix -) 20 mg PO DAILY [facility] Last Admin: 04/16/18 11:54 Dose: 20 mg Heparin Sodium (Porcine) (Heparin -) 7,100 unit 40 unit/kg (7100 unit) IVPUSH PRN PRN PRN Reason: For aPTT 35 to 45 seconds Last Admin: 04/17/18 07:46 Dose: 7,100 unit Heparin Sodium (Porcine) (Heparin -) 14,100 unit 80 unit/kg (34439 unit) IVPUSH PRN PRN PRN Reason: aPTT <35 seconds Heparin Sodium (Porcine) 25, (000 unit/ Sodium Chloride) 500 mls @ 20 mls/hr IV TITR ELIZA; Protocol Insulin Aspart (Novolog Vial Sliding Scale -) 1 vial SQ ACHS [facility]; Protocol Last Admin: 04/17/18 06:11 Dose: 6 units Warfarin Sodium (Coumadin -) 7.5 mg PO DAILY@1800 ELIZA Last Admin: 04/15/18 17:00 Dose: 7.5 mg - Objective Vital Signs: Vital Signs Temperature 98.4 F 04/17/18 06:00 Pulse Rate 74 04/17/18 08:00 Respiratory Rate 20 04/17/18 06:00 Blood Pressure 149/77 04/17/18 06:00 O2 Sat by Pulse Oximetry (%) 97 04/17/18 08:00 Constitutional: Yes: Well Nourished Eyes: Yes: WNL HENT: Yes: WNL Neck: Yes: WNL Cardiovascular: Yes: Regular Rate and Rhythm, S1, S2, S4 Respiratory: Yes: Diminished Gastrointestinal: Yes: WNL, Abdomen, Obese ...Rectal Exam: Yes: Deferred Genitourinary: No: Anuria Breast(s): Yes: WNL Musculoskeletal: Yes: WNL Extremities: Yes: Cool Edema: No Peripheral Pulses WNL: Yes Integumentary: Yes: WNL Neurological: Yes: WNL Psychiatric: Yes: WNL Labs: CBC, BMP 04/17/18 05:30 04/17/18 05:30 INR, PTT INR 1.62 (0.82-1.09) H 04/17/18 05:30 Abnormal Lab Results 04/19/18 04/19/18 05:15 05:15 Hgb 10.4 L Hct 32.6 L MCV 75.3 L MCH 24.1 L RDW 16.1 H Plt Count 119 L Monocytes % 14.8 H Eosinophils % 7.8 H BUN 34 H Creatinine 1.8 H Random Glucose 205 H Calcium 8.0 L Total Protein 5.9 L Albumin 2.4 L - ....Imaging X-ray: Image Reviewed Cat Scan: Image Reviewed (bilateral significant PE) EKG: Image Reviewed (NSR; incomplete RBBB) Problem List - Problems (1) Pulmonary embolism Assessment/Plan: On heparin IV until INR 2-3 with warfarin. Code(s): I26.99 - OTHER PULMONARY EMBOLISM WITHOUT ACUTE COR PULMONALE Qualifiers: Pulmonary embolism type: other Chronicity: unspecified Acute cor pulmonale presence: without acute cor pulmonale Qualified Code(s): I26.99 - Other pulmonary embolism without acute cor pulmonale (2) CKD (chronic kidney disease) Code(s): N18.9 - CHRONIC KIDNEY DISEASE, UNSPECIFIED Qualifiers: Chronic kidney disease stage: stage 1 Qualified Code(s): N18.1 - Chronic kidney disease, stage 1 (3) DVT (deep venous thrombosis) Code(s): I82.409 - ACUTE EMBOLISM AND THOMBOS UNSP DEEP VN UNSP LOWER EXTREMITY (4) Diabetic neuropathy associated with diabetes mellitus due to underlying condition Code(s): E08.40 - DIABETES DUE TO UNDERLYING CONDITION W DIABETIC NEUROP, UNSP Qualifiers: Diabetes mellitus complication detail: diabetic polyneuropathy Qualified Code(s): E08.42 - Diabetes mellitus due to underlying condition with diabetic polyneuropathy (5) Diabetic ulcer of toe Code(s): E11.621 - TYPE 2 DIABETES MELLITUS WITH FOOT ULCER; L97.509 - NON- PRESSURE CHRONIC ULCER OTH PRT UNSP FOOT W UNSP SEVERITY Qualifiers: Diabetes mellitus type: type 2 Laterality: right Non-pressure ulcer stage : with necrosis of bone Qualified Code(s): E11.621 - Type 2 diabetes mellitus with foot ulcer; L97.514 - Non-pressure chronic ulcer of other part of right foot with necrosis of bone (6) [place] cardiac risk >20% in next 10 years Code(s): Z91.89 - OT PERSONAL RISK FACTORS, NOT ELSEWHERE CLASSIFIED (7) Hyperlipidemia Code(s): E78.5 - HYPERLIPIDEMIA, UNSPECIFIED (8) Hypertension Code(s): I10 - ESSENTIAL (PRIMARY) HYPERTENSION (9) Morbid obesity due to excess calories Assessment/Plan: 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 The critical importance of heart-healthy, diabetic diet, with portion control and exercise as aids to lasting weight loss, was discussed. Pt has recentlly been on a "diet that speeds up the metabolism", and has lost over 20 lbs. Planning for a diet that he can stick to over the long run was emphasized. He has had trouble walking or doing other exercise since toe amputation 10/2017. Code(s): E66.01 - MORBID (SEVERE) OBESITY DUE TO EXCESS CALORIES (10) Right leg swelling Code(s): M79.89 - OTHER SPECIFIED SOFT TISSUE DISORDERS Assessment/Plan CCU time spent: 45 minutes.
[2018-04-17] MEDS: FUROSEMIDE 20 MG TABLET (FP) PO SCH (09:28)
[2018-04-17] MEDS: COLLAGENASE CLOSTRIDIUM HIST. 30 GRAMS TUBE TP SCH (09:28)
--- NOTE | 2018-04-17 11:47 | PN ---
Teaching Attending Note Name of Resident: James Merritt ATTENDING PHYSICIAN STATEMENT I saw and evaluated the patient. I reviewed the resident's note and discussed the case with the resident. I agree with the resident's findings and plan as documented. SUBJECTIVE: Patient seen and examined in the ICU. Awake and alert on VM O2. Reports breathing is slowly improving. No CP. OBJECTIVE: Intake & Output 04/14/18 04/15/18 04/16/18 04/17/18 23:59 23:59 23:59 23:59 Intake Total 2866 968 1642 326 Output Total 2600 1400 1500 Balance 266 -432 142 326 Weight 347 lb 352 lb 1 oz 350 lb Last Vital Signs Temp Pulse Resp BP Pulse Ox 98 F 76 18 134/82 97 04/17/18 10:00 04/17/18 10:00 04/17/18 10:00 04/17/18 10:00 04/17/18 09:00 Active Medications Atorvastatin Calcium (Lipitor -) 10 mg PO HS ELIZA Last Admin: 04/16/18 21:49 Dose: 10 mg Collagenase (Santyl -) 1 applic TP DAILY ELIZA Last Admin: 04/17/18 09:28 Dose: 1 applic Furosemide (Lasix -) 20 mg PO DAILY ELIZA Last Admin: 04/17/18 09:28 Dose: 20 mg Heparin Sodium (Porcine) (Heparin -) 7,100 unit 40 unit/kg (7100 unit) IVPUSH PRN PRN PRN Reason: For aPTT 35 to 45 seconds Last Admin: 04/17/18 07:46 Dose: 7,100 unit Heparin Sodium (Porcine) (Heparin -) 14,100 unit 80 unit/kg (53781 unit) IVPUSH PRN PRN PRN Reason: aPTT <35 seconds Heparin Sodium (Porcine) 25, (000 unit/ Sodium Chloride) 500 mls @ 20 mls/hr IV TITR ELIZA; Protocol Insulin Aspart (Novolog Vial Sliding Scale -) 1 vial SQ ACHS ELIZA; Protocol Last Admin: 04/17/18 06:11 Dose: 6 units Warfarin Sodium (Coumadin -) 7.5 mg PO DAILY@1800 ELIZA Last Admin: 04/15/18 17:00 Dose: 7.5 mg Gen: mildly tachypneic at rest Heart: RRR Lung: decreased breath sounds at the bases Abd: soft, nontender Ext: no edema Laboratory Results - last 24 hr 04/16/18 04/16/18 04/16/18 10:46 13:23 15:31 WBC RBC Hgb Hct MCV MCH MCHC RDW Plt Count MPV PT with INR INR PTT (Actin FS) 79.1 H D Sodium Potassium Chloride Carbon Dioxide Anion Gap BUN Creatinine Creat Clearance w eGFR POC Glucometer 101.66658 127.18839 Random Glucose Calcium Phosphorus Magnesium Total Bilirubin AST ALT Alkaline Phosphatase Total Protein Albumin TSH 04/16/18 04/17/18 04/17/18 21:40 05:30 05:30 WBC 6.9 RBC 4.40 Hgb 10.6 L Hct 33.2 L MCV 75.4 L MCH 24.1 L MCHC 31.9 L RDW 16.2 H Plt Count 108 L MPV 8.9 PT with INR INR PTT (Actin FS) 49.0 H D Sodium Potassium Chloride Carbon Dioxide Anion Gap BUN Creatinine Creat Clearance w eGFR POC Glucometer [phone] Random Glucose Calcium Phosphorus Magnesium Total Bilirubin AST ALT Alkaline Phosphatase Total Protein Albumin TSH 04/17/18 04/17/18 04/17/18 05:30 05:30 05:30 WBC RBC Hgb Hct MCV MCH MCHC RDW Plt Count MPV PT with INR 18.30 H INR 1.62 H PTT (Actin FS) Sodium 138 Potassium 4.2 Chloride 109 H Carbon Dioxide 23 Anion Gap 6 L BUN 35 H Creatinine 2.0 H Creat Clearance w eGFR 35.13 POC Glucometer Random Glucose 225 H Calcium 7.5 L Phosphorus 3.2 Magnesium 2.0 Total Bilirubin 0.3 AST 15 ALT 26 Alkaline Phosphatase 62 Total Protein 6.0 L Albumin 2.4 L TSH 2.96 Cancelled ASSESSMENT AND PLAN: Acute Pulmonary Emboli DVT +Troponins Lactic Acidosis r/o Right Heart Strain Acute on Chronic Renal Failure Thrombocytopenia Morbid Obesity HTN Hyperlipidemia DM Likely JANY - continue anticoagulation, transition to coumadin to target INR 2-3 - O2 to keep SpO2 >90% - NIPPV at night - monitor urine output, creatinine - glucose control - Will need life long anticoagulation as this is his 2nd VTE - Will need outpatient PSG - can monitor on telemetry Dr Brandt Critical care time spent in reviewing chart, evaluating patient and formulating plan - 36 minutes.
[2018-04-17] MEDS: HEPARIN - 25,000 UNIT in SODIUM CHLORIDE 495 ML IV SCH (11:48)
--- NOTE | 2018-04-17 12:14 | PN ---
Physical Exam: SUBJECTIVE: Patient seen and examined. No acute events overnight. Offers no complaints. Says his breathing is getting better everyday. Denies chest pain, sob, dizziness, nausea, vomiting, fevers. On Ventimask maintaining saturations. OBJECTIVE: Vital Signs Period Temp Pulse Resp BP Sys/Toribio Pulse Ox Last 24 Hr 97.8 F-98.4 F 70-99 15-20 114-160/70-100 91-97 GENERAL: morbidly obese, nad, a/o x 3 EYES: PERRL, extraocular movements intact, sclera anicteric ENT: oropharynx clear without exudates, moist mucous membranes. NECK: supple. LUNGS: Breath sounds equal, clear to auscultation bilaterally HEART: Regular rate and rhythm, S1, S2 without murmur, rub or gallop. ABDOMEN: Soft, nontender, nondistended, normoactive bowel sounds EXTREMITIES: 2+ pulses, warm, no tenderness to lower ext. r great toe amputation NEUROLOGICAL: Cranial nerves II through XII grossly intact. Normal speech PSYCH: Normal mood, normal affect. Laboratory Results - last 24 hr 04/16/18 04/16/18 04/16/18 10:46 13:23 15:31 WBC RBC Hgb Hct MCV MCH MCHC RDW Plt Count MPV PT with INR INR PTT (Actin FS) 79.1 H D Sodium Potassium Chloride Carbon Dioxide Anion Gap BUN Creatinine Creat Clearance w eGFR POC Glucometer 101.76108 127.46361 Random Glucose Calcium Phosphorus Magnesium Total Bilirubin AST ALT Alkaline Phosphatase Total Protein Albumin TSH 04/16/18 04/17/18 04/17/18 21:40 05:30 05:30 WBC 6.9 RBC 4.40 Hgb 10.6 L Hct 33.2 L MCV 75.4 L MCH 24.1 L MCHC 31.9 L RDW 16.2 H Plt Count 108 L MPV 8.9 PT with INR INR PTT (Actin FS) 49.0 H D Sodium Potassium Chloride Carbon Dioxide Anion Gap BUN Creatinine Creat Clearance w eGFR POC Glucometer [phone] Random Glucose Calcium Phosphorus Magnesium Total Bilirubin AST ALT Alkaline Phosphatase Total Protein Albumin TSH 04/17/18 04/17/18 04/17/18 05:30 05:30 05:30 WBC RBC Hgb Hct MCV MCH MCHC RDW Plt Count MPV PT with INR 18.30 H INR 1.62 H PTT (Actin FS) Sodium 138 Potassium 4.2 Chloride 109 H Carbon Dioxide 23 Anion Gap 6 L BUN 35 H Creatinine 2.0 H Creat Clearance w eGFR 35.13 POC Glucometer Random Glucose 225 H Calcium 7.5 L Phosphorus 3.2 Magnesium 2.0 Total Bilirubin 0.3 AST 15 ALT 26 Alkaline Phosphatase 62 Total Protein 6.0 L Albumin 2.4 L TSH 2.96 Cancelled Active Medications Generic Name Dose Route Start Last Admin Trade Name Freq PRN Reason Stop Dose Admin Atorvastatin Calcium 10 mg 04/14/18 22:00 04/16/18 21:49 Lipitor - PO 10 mg HS ELIZA Administration Collagenase 1 applic 04/14/18 19:15 04/17/18 09:28 Santyl - TP 1 applic DAILY ELIZA Administration Furosemide 40 mg 04/17/18 11:47 Lasix - PO DAILY ELIZA Heparin Sodium (Porcine) 7,100 unit 04/12/18 16:25 04/17/18 07:46 Heparin - 40 unit/kg (7100 unit) 7,100 unit IVPUSH Administration PRN PRN For aPTT 35 to 45 seconds Heparin Sodium (Porcine) 14,100 unit 04/12/18 16:25 Heparin - 80 unit/kg (59888 unit) IVPUSH PRN PRN aPTT <35 seconds Heparin Sodium (Porcine) 25, 500 mls @ 20 mls/hr 04/17/18 08:42 04/17/18 11: 48 000 unit/ Sodium Chloride IV 1,350 unit/hr TITR ELIZA 27 mls/hr Administration Protocol 1,000 UNIT/HR Insulin Aspart 1 vial 04/14/18 11:00 04/17/18 11:50 Novolog Vial Sliding Scale - SQ 6 units ACHS ELIZA Administration Protocol Warfarin Sodium 10 mg 04/17/18 11:48 Coumadin - PO DAILY@1800 [facility] ASSESSMENT/PLAN: 2 year old male admitted with pmhx DM (does not check BG regularly), 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 PULM -B/L PE on CTA - +DVT Proximal L Popliteal -Echo with normal LVEF and probably moderate RV hypokinesis unchanged from prior echo -Cont Heparin gtt, bridging to coumadin -Cont. coumadin 10mg -Maintain PTT at a higher level. -will need life long anticoagulation as this is his 2nd dvt -aPTT goal 60-80 -Place on nasal cannula and Keep O2 sat > 90%. -O2 Supplementation -Lasix increased to 40mg. CV -HTN: Hold vasotec, toprol for now -follow cardio reccs -RORY on CKD -resolved -at baseline -follow nephro reccs -avoid nephrotoxins -monitor bmp ENDOCRINE -DM -BGM -ISS FEN -Fluids stopped -monitor lytes -Diabetic diet PPX -heparin gtt Transfer Tele Visit type - Emergency Visit Emergency Visit: Yes ED Registration Date: 04/12/18 Care time: The patient presented to the Emergency Department on the above date and was hospitalized for further evaluation of their emergent condition. - New Patient This patient is new to me today: No - Critical Care Critical Care patient: Yes Total Critical Care Time (in minutes): 40 Critical Care Statement: The care of this patient involved high complexity decision making to prevent further life threatening deterioration of the patient 's condition and/or to evaluate & treat vital organ system(s) failure or risk of failure.
--- NOTE | 2018-04-17 14:40 | PN ---
Progress Note (short form) - Note Progress Note: seen and examined. ambulation limited due to feeling of SOB Constitutional: Yes: Mild Distress Eyes: Yes: PERRL. No: Cataracts, Diplopia, Ptosis, Sclera Icterus HENT: Yes: Atraumatic, Normocephalic. No: Epistaxis, Hoarseness, Tonsillar Exudate Neck: Yes: Supple. No: Trachea Midline, Lymphadenopathy Cardiovascular: Yes: Regular Rate and Rhythm Respiratory: Yes: Diminished Gastrointestinal: Yes: Normal Bowel Sounds, Soft, Abdomen, Obese Renal/: No: CVA Tenderness - Left, CVA Tenderness - Right Breast(s): No: Gynecomastia Musculoskeletal: No: Back Pain, Muscle Pain Extremities: Yes: Amputation, Other (right toe) Edema: LLE: 2+, RLE: 2+ Integumentary: Yes: Venous Stasis Changes Neurological: Yes: Numbness ...Motor Strength: WNLLast Vital Signs Temp Pulse Resp BP Pulse Ox 97.8 F 99 H 19 142/97 91 L 04/16/18 16:00 04/16/18 18:00 04/16/18 18:00 04/16/18 18:00 04/16/18 14:52 CBC, BMP 04/16/18 05:30 04/16/18 05:30 Current Medications Generic Name Dose Route Start Last Admin Trade Name Freq PRN Reason Stop Dose Admin Atorvastatin Calcium 10 mg 04/14/18 22:00 04/15/18 22:08 Lipitor - PO 10 mg HS ELIZA Administration Collagenase 1 applic 04/14/18 19:15 04/16/18 10:03 Santyl - TP 1 applic DAILY ELIZA Administration Furosemide 20 mg 04/16/18 11:30 04/16/18 11:54 Lasix - PO 20 mg DAILY ELIZA Administration Heparin Sodium (Porcine) 7,100 unit 04/12/18 16:25 04/16/18 08:04 Heparin - 40 unit/kg (7100 unit) 7,100 unit IVPUSH Administration PRN PRN For aPTT 35 to 45 seconds Heparin Sodium (Porcine) 14,100 unit 04/12/18 16:25 Heparin - 80 unit/kg (73158 unit) IVPUSH PRN PRN aPTT <35 seconds Heparin Sodium (Porcine) 25, 500 mls @ 20 mls/hr 04/15/18 14:22 04/16/18 15: 37 000 unit/ Sodium Chloride IV 1,250 unit/hr TITR ELIZA 25 mls/hr Administration Protocol 1,000 UNIT/HR Insulin Aspart 1 vial 04/14/18 11:00 04/16/18 15:40 Novolog Vial Sliding Scale - SQ Not Given ACHS ELIZA Protocol Warfarin Sodium 7.5 mg 04/14/18 18:00 04/15/18 17:00 Coumadin - PO 7.5 mg DAILY@1800 ELIZA Administration unprovoked DVT in 01/2017. Currently with DVT and bilateral P.E. coumadin bridge. thrombocytopeina. Previously normal platelets in 11/14 ?consumption check US/hep serologies Would monitor for now Pulm HTN/SLeep apnea
--- NOTE | 2018-04-17 14:49 | PN ---
Progress Note, Physician History of Present Illness: Pt seen and examined at bedside. He is awake and alert. His oxygen requirements are improved. - Current Medication List Current Medications: Active Medications Atorvastatin Calcium (Lipitor -) 10 mg PO HS [facility] Last Admin: 04/16/18 21:49 Dose: 10 mg Collagenase (Santyl -) 1 applic TP DAILY ELIZA Last Admin: 04/17/18 09:28 Dose: 1 applic Furosemide (Lasix -) 40 mg PO DAILY [facility] Heparin Sodium (Porcine) (Heparin -) 7,100 unit 40 unit/kg (7100 unit) IVPUSH PRN PRN PRN Reason: For aPTT 35 to 45 seconds Last Admin: 04/17/18 07:46 Dose: 7,100 unit Heparin Sodium (Porcine) (Heparin -) 14,100 unit 80 unit/kg (93732 unit) IVPUSH PRN PRN PRN Reason: aPTT <35 seconds Heparin Sodium (Porcine) 25, (000 unit/ Sodium Chloride) 500 mls @ 20 mls/hr IV TITR [facility]; Protocol Last Admin: 04/17/18 11:48 Dose: 1,350 unit/hr, 27 mls/hr Insulin Aspart (Novolog Vial Sliding Scale -) 1 vial SQ ACHS [facility]; Protocol Last Admin: 04/17/18 11:50 Dose: 6 units Warfarin Sodium (Coumadin -) 10 mg PO DAILY@1800 ELIZA - Objective Vital Signs: Vital Signs Temperature 98 F 04/17/18 10:00 Pulse Rate 76 04/17/18 10:00 Respiratory Rate 18 04/17/18 10:00 Blood Pressure 134/82 04/17/18 10:00 O2 Sat by Pulse Oximetry (%) 97 04/17/18 09:00 Constitutional: Yes: Calm Eyes: Yes: Conjunctiva Clear HENT: Yes: Atraumatic Neck: Yes: Supple Cardiovascular: Yes: S1, S2 Respiratory: Yes: On Nasal O2 Gastrointestinal: Yes: Soft, Abdomen, Obese Genitourinary: Yes: WNL Musculoskeletal: Yes: WNL Edema: Yes Edema: LLE: Trace, RLE: Trace Neurological: Yes: Oriented Psychiatric: Yes: Oriented Labs: CBC, BMP 04/17/18 05:30 04/17/18 05:30 INR, PTT INR 1.62 (0.82-1.09) H 04/17/18 05:30 Problem List - Problems (1) Pulmonary embolism Code(s): I26.99 - OTHER PULMONARY EMBOLISM WITHOUT ACUTE COR PULMONALE Qualifiers: Pulmonary embolism type: other Chronicity: unspecified Acute cor pulmonale presence: without acute cor pulmonale Qualified Code(s): I26.99 - Other pulmonary embolism without acute cor pulmonale (2) CKD (chronic kidney disease) Code(s): N18.9 - CHRONIC KIDNEY DISEASE, UNSPECIFIED Qualifiers: Chronic kidney disease stage: stage 1 Qualified Code(s): N18.1 - Chronic kidney disease, stage 1 (3) DVT (deep venous thrombosis) Code(s): I82.409 - ACUTE EMBOLISM AND THOMBOS UNSP DEEP VN UNSP LOWER EXTREMITY Assessment/Plan Current Medications Generic Name Dose Route Start Last Admin Trade Name Freq PRN Reason Stop Dose Admin Atorvastatin Calcium 10 mg 04/14/18 22:00 04/16/18 21:49 Lipitor - PO 10 mg HS ELIZA Administration Collagenase 1 applic 04/14/18 19:15 04/17/18 09:28 Santyl - TP 1 applic DAILY ELIZA Administration Furosemide 40 mg 04/17/18 11:47 Lasix - PO DAILY ELIZA Heparin Sodium (Porcine) 7,100 unit 04/12/18 16:25 04/17/18 07:46 Heparin - 40 unit/kg (7100 unit) 7,100 unit IVPUSH Administration PRN PRN For aPTT 35 to 45 seconds Heparin Sodium (Porcine) 14,100 unit 04/12/18 16:25 Heparin - 80 unit/kg (08443 unit) IVPUSH PRN PRN aPTT <35 seconds Heparin Sodium (Porcine) 25, 500 mls @ 20 mls/hr 04/17/18 08:42 04/17/18 11: 48 000 unit/ Sodium Chloride IV 1,350 unit/hr TITR ELIZA 27 mls/hr Administration Protocol 1,000 UNIT/HR Insulin Aspart 1 vial 04/14/18 11:00 04/17/18 11:50 Novolog Vial Sliding Scale - SQ 6 units ACHS ELIZA Administration Protocol Warfarin Sodium 10 mg 04/17/18 11:48 Coumadin - PO DAILY@1800 ELIZA Impression 1. CKD 2. DVT 3. Pulmonary Embolism 4. HTN 5. DM 6. hyperlipidemia 7. obesity 8. non compliance with medications Plan - cont with lasix - monitor renal function - avoid nsaids - avoid nephrotoxins - monitor pulse ox - discussed with ICU team - will follow Dr Garcia
[2018-04-17] MEDS ORDERED: AMMONIUM LACTATE 12% LOTION 225 GM BOTTLE TP PRN (15:05)
--- NOTE | 2018-04-17 15:06 | PN ---
Physical Exam: SUBJECTIVE: Patient seen and examined at the bedside. Ambulating more, slowly. Gets winded, short of breath ambulating in room. Conversational dyspnea noted. OBJECTIVE: pre and post now, anticipate patient will need home oxygen On 2 - 3 liters of nasal cannula with sats 92% Vital Signs Period Temp Pulse Resp BP Sys/Toribio Pulse Ox Last 24 Hr 97.8 F-98.4 F 70-99 18-20 114-160/70-100 94-97 GENERAL: The patient is awake, alert, and fully oriented, in no acute distress. HEAD: Normal with no signs of trauma. EYES: PERRL, extraocular movements intact, sclera anicteric, conjunctiva clear. No ptosis. ENT: Ears normal, nares patent, oropharynx clear without exudates, moist mucous membranes. NECK: Trachea midline, full range of motion, supple. LUNGS: bilateral lungs with diminished breath sounds, no chest pain HEART: Regular rate and rhythm, S1, S2 without murmur, rub or gallop. ABDOMEN: Soft, nontender, nondistended, normoactive bowel sounds, no guarding, no rebound, no hepatosplenomegaly, no masses. EXTREMITIES: left lower ext edema, right lower ext with discoloration of lower ext. NEUROLOGICAL: Normal speech, gait not observed. PSYCH: Normal mood, normal affect. SKIN: left leg DVT, right leg with great toe amputation and discoloration and dryness of right leg from knee to foot. Laboratory Results - last 24 hr 04/16/18 04/16/18 04/16/18 10:46 15:31 21:40 WBC RBC Hgb Hct MCV MCH MCHC RDW Plt Count MPV PT with INR INR PTT (Actin FS) Sodium Potassium Chloride Carbon Dioxide Anion Gap BUN Creatinine Creat Clearance w eGFR POC Glucometer 101.58839 127.91293 [phone] Random Glucose Calcium Phosphorus Magnesium Total Bilirubin AST ALT Alkaline Phosphatase Total Protein Albumin TSH 04/17/18 04/17/18 04/17/18 05:22 05:30 05:30 WBC 6.9 RBC 4.40 Hgb 10.6 L Hct 33.2 L MCV 75.4 L MCH 24.1 L MCHC 31.9 L RDW 16.2 H Plt Count 108 L MPV 8.9 PT with INR INR PTT (Actin FS) 49.0 H D Sodium Potassium Chloride Carbon Dioxide Anion Gap BUN Creatinine Creat Clearance w eGFR POC Glucometer [phone] Random Glucose Calcium Phosphorus Magnesium Total Bilirubin AST ALT Alkaline Phosphatase Total Protein Albumin TSH 04/17/18 04/17/18 04/17/18 05:30 05:30 05:30 WBC RBC Hgb Hct MCV MCH MCHC RDW Plt Count MPV PT with INR 18.30 H INR 1.62 H PTT (Actin FS) Sodium 138 Potassium 4.2 Chloride 109 H Carbon Dioxide 23 Anion Gap 6 L BUN 35 H Creatinine 2.0 H Creat Clearance w eGFR 35.13 POC Glucometer Random Glucose 225 H Calcium 7.5 L Phosphorus 3.2 Magnesium 2.0 Total Bilirubin 0.3 AST 15 ALT 26 Alkaline Phosphatase 62 Total Protein 6.0 L Albumin 2.4 L TSH 2.96 Cancelled 04/17/18 11:34 WBC RBC Hgb Hct MCV MCH MCHC RDW Plt Count MPV PT with INR INR PTT (Actin FS) Sodium Potassium Chloride Carbon Dioxide Anion Gap BUN Creatinine Creat Clearance w eGFR POC Glucometer [phone] Random Glucose Calcium Phosphorus Magnesium Total Bilirubin AST ALT Alkaline Phosphatase Total Protein Albumin TSH Active Medications Generic Name Dose Route Start Last Admin Trade Name Freq PRN Reason Stop Dose Admin Atorvastatin Calcium 10 mg 04/14/18 22:00 04/16/18 21:49 Lipitor - PO 10 mg HS ELIZA Administration Collagenase 1 applic 04/14/18 19:15 04/17/18 09:28 Santyl - TP 1 applic DAILY ELIZA Administration Furosemide 40 mg 04/17/18 11:47 Lasix - PO DAILY ELIZA Heparin Sodium (Porcine) 7,100 unit 04/12/18 16:25 04/17/18 07:46 Heparin - 40 unit/kg (7100 unit) 7,100 unit IVPUSH Administration PRN PRN For aPTT 35 to 45 seconds Heparin Sodium (Porcine) 14,100 unit 04/12/18 16:25 Heparin - 80 unit/kg (12591 unit) IVPUSH PRN PRN aPTT <35 seconds Heparin Sodium (Porcine) 25, 500 mls @ 20 mls/hr 04/17/18 08:42 04/17/18 11: 48 000 unit/ Sodium Chloride IV 1,350 unit/hr TITR ELIZA 27 mls/hr Administration Protocol 1,000 UNIT/HR Insulin Aspart 1 vial 04/14/18 11:00 04/17/18 11:50 Novolog Vial Sliding Scale - SQ 6 units ACHS [facility] Administration Protocol Warfarin Sodium 10 mg 04/17/18 11:48 Coumadin - PO DAILY@1800 [facility] ASSESSMENT/PLAN: Mr. Dubose is a 52 year old male with a significant past medical history of hypertension, hyperlipidemia, diabetes, obesity, CKD (follows Dr. Hair), DVT and PE history and has missed Coumadin for ~ 5 days as per patient. He presents to the ED on 04/12/18 with shortness of breath and feeling lightheaded at home. He was noted to be hypotensive and hypoxic in the ED. A CTA chest shows bilateral large PEs and currently on a heparin drip. Pulmonary: Shortness of breath in the setting of bilateral Pulmonary Emboli seen on Chest CTA On heparin drip with bridge to Coumadin with goal INR between 2.5 to 3 Echo 04/14> normal LVEF 60-65%, probable mildly dilated RV cavity, probable mod. reduced RV systolic function. RA is midly dilated, left atrial size normal, mild mitral annular calcification. mild TR, trace pulmonic valve regurg. no pericardial effusion. Pre and post in anticipation of home oxygen need. Cardiology: Elevated trops, most likely secondary to cardiac demand. No chest pain, short of breath secondary to PE. Cardiology following. Hypertension, chronic Currently controlled. Renal: RORY on CKD. Creat trending down. Renal following. Avoid all nephrotoxins Heme: Thrombocytopenia @ 108 Monitor in the setting of anticoagulation therapy, bleeding risk. Hematology consulted and following. Endocrine: Hyperglycemia, chronic Diabetes, Monitor BGMs, SS - pt only oral hypoglycemics at home Vascular Right great toe amputation 10/2017, chronic. Daily dressing changes. Follows Dr Parry q 2 weeks. FEN tolerating PO Monitor CMP low sodium diet Prophy Heparin to coumadin with goal inr between 2.5-3 Visit type - Emergency Visit Emergency Visit: Yes ED Registration Date: 04/12/18 Care time: The patient presented to the Emergency Department on the above date and was hospitalized for further evaluation of their emergent condition. - New Patient This patient is new to me today: No - Critical Care Critical Care patient: Yes Total Critical Care Time (in minutes): 60 Critical Care Statement: The care of this patient involved high complexity decision making to prevent further life threatening deterioration of the patient 's condition and/or to evaluate & treat vital organ system(s) failure or risk of failure.
[2018-04-17] MEDS: WARFARIN NA 10 MG TABLET (FP) PO SCH (18:44)
[2018-04-17] MEDS: ATORVASTATIN CA 10 MG TABLET (FP) PO SCH (21:54)
[2018-04-18] MEDS: HEPARIN - 25,000 UNIT in SODIUM CHLORIDE 495 ML IV SCH ×2 (00:16→10:53)
[2018-04-18] MEDS: INSULIN SLIDING SCALE (NOVOLOG) 1 VIAL SQ SCH ×4 (06:06→22:39)
[2018-04-18 06:38] LABS: INR 1.94 (0.82-1.09); PROTHROMBIN TIME (PATIENT) 21.9 SEC (9.7-13.0)
[2018-04-18 06:57] LABS: HEMATOCRIT 33.6 % (35.4-49); HEMOGLOBIN 10.8 GM/dL (11.7-16.9); MCH 24.3 pg (25.7-33.7); MCHC 32.1 g/dl (32.0-35.9); MEAN CELL VOLUME 75.7 fl (80-96); MEAN PLT VOLUME 9.1 fl (7.5-11.1); PLATELET COUNT 116 K/MM3 (134-434); RBC 4.44 M/mm3 (4.00-5.60); RDW 16.4 % (11.9-15.9); WHITE BLOOD COUNT 6.3 K/mm3 (4.0-10.0)
[2018-04-18 06:59] LABS: ALBUMIN 2.4 g/dl (3.4-5.0); ANION GAP 8 (8-16); BILIRUBIN,TOTAL 0.3 mg/dL (0.2-1.0); BLOOD UREA NITROGEN 39 mg/dL (7-18); CALCIUM 7.8 mg/dL (8.5-10.1); CHLORIDE 107 mmol/L (98-107); CO2 23 mmol/L (21-32); GLUCOSE,RANDOM 198 mg/dL (74-106); MAGNESIUM 1.9 mg/dL (1.8-2.4); PHOSPHOROUS 3.6 mg/dL (2.5-4.9); POTASSIUM 4.5 mmol/L (3.5-5.1); SGOT/AST 16 U/L (15-37); SGPT/ALT 24 U/L (12-78); SODIUM 138 mmol/L (136-145)
[2018-04-18 07:00] LABS: ALK PHOS 66 U/L (45-117)
--- NOTE | 2018-04-18 10:02 | PN ---
Progress Note, Physician History of Present Illness: pulmonary alert,no complaints,-cp,-sob, using bipap at night - Current Medication List Current Medications: Active Medications Atorvastatin Calcium (Lipitor -) 10 mg PO HS ELIZA Last Admin: 04/17/18 21:54 Dose: 10 mg Collagenase (Santyl -) 1 applic TP DAILY ELIZA Last Admin: 04/17/18 09:28 Dose: 1 applic Furosemide (Lasix -) 40 mg PO DAILY ELIZA Heparin Sodium (Porcine) (Heparin -) 7,100 unit 40 unit/kg (7100 unit) IVPUSH PRN PRN PRN Reason: For aPTT 35 to 45 seconds Last Admin: 04/17/18 07:46 Dose: 7,100 unit Heparin Sodium (Porcine) (Heparin -) 14,100 unit 80 unit/kg (93976 unit) IVPUSH PRN PRN PRN Reason: aPTT <35 seconds Heparin Sodium (Porcine) 25, (000 unit/ Sodium Chloride) 500 mls @ 20 mls/hr IV TITR [facility]; Protocol Last Admin: 04/18/18 00:16 Dose: 1,350 unit/hr, 27 mls/hr Insulin Aspart (Novolog Vial Sliding Scale -) 1 vial SQ ACHS [facility]; Protocol Last Admin: 04/18/18 06:06 Dose: 4 units Lactic Acid (Lac-Hydrin 12) 1 applic TP BID PRN PRN Reason: right leg dryness Last Admin: 04/17/18 22:20 Dose: 1 applic Warfarin Sodium (Coumadin -) 10 mg PO DAILY@1800 ELIZA Last Admin: 04/17/18 18:44 Dose: 10 mg - Objective Vital Signs: Vital Signs Temperature 98 F 04/18/18 05:30 Pulse Rate 79 04/18/18 05:30 Respiratory Rate 20 04/18/18 05:30 Blood Pressure 124/75 04/18/18 05:30 O2 Sat by Pulse Oximetry (%) 95 04/18/18 07:40 Constitutional: Yes: Calm, Obese Eyes: Yes: WNL HENT: Yes: WNL Neck: Yes: WNL Cardiovascular: Yes: Regular Rate and Rhythm, S1, S2 Respiratory: Yes: Diminished Gastrointestinal: Yes: Normal Bowel Sounds, Soft Extremities: Yes: WNL Edema: Yes Labs: CBC, BMP 04/18/18 05:30 04/18/18 05:30 INR, PTT INR 1.94 (0.82-1.09) H 04/18/18 05:30 Problem List - Problems (1) Pulmonary embolism Code(s): I26.99 - OTHER PULMONARY EMBOLISM WITHOUT ACUTE COR PULMONALE Qualifiers: Pulmonary embolism type: other Chronicity: unspecified Acute cor pulmonale presence: without acute cor pulmonale Qualified Code(s): I26.99 - Other pulmonary embolism without acute cor pulmonale (2) CKD (chronic kidney disease) Code(s): N18.9 - CHRONIC KIDNEY DISEASE, UNSPECIFIED Qualifiers: Chronic kidney disease stage: stage 1 Qualified Code(s): N18.1 - Chronic kidney disease, stage 1 (3) DVT (deep venous thrombosis) Code(s): I82.409 - ACUTE EMBOLISM AND THOMBOS UNSP DEEP VN UNSP LOWER EXTREMITY (4) Dyspnea Code(s): R06.00 - DYSPNEA, UNSPECIFIED Qualifiers: Dyspnea type: dyspnea on exertion Qualified Code(s): R06.09 - Other forms of dyspnea (5) Hyperlipidemia Code(s): E78.5 - HYPERLIPIDEMIA, UNSPECIFIED (6) Hypertension Code(s): I10 - ESSENTIAL (PRIMARY) HYPERTENSION (7) Morbid obesity due to excess calories Code(s): E66.01 - MORBID (SEVERE) OBESITY DUE TO EXCESS CALORIES Assessment/Plan ASSESSMENT AND PLAN: Acute Pulmonary Emboli DVT +Troponins Lactic Acidosis resolved Acute on Chronic Renal Failure Thrombocytopenia Morbid Obesity HTN Hyperlipidemia DM Likely JANY - continue anticoagulation, transition to coumadin to target INR 2-3 - O2 to keep SpO2 >90% - BiPAP at night - monitor urine output, creatinine - glucose control - wlife long anticoagulation as this is his 2nd VTE - outpt PSG - f/u echos DR DENT
[2018-04-18] MEDS: COLLAGENASE CLOSTRIDIUM HIST. 30 GRAMS TUBE TP SCH (10:53)
[2018-04-18] MEDS: FUROSEMIDE 40 MG TABLET (FP) PO SCH (10:53)
--- NOTE | 2018-04-18 11:52 | PN ---
Progress Note, Physician History of Present Illness: This is a 51 year old male with a past medical history of HTN, HLD, DM, CKD most recent cr 2.2 Dr. 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 Pt reports he was at home, awoke felt fine, went downstairs and had a a pre syncopal episode, reporting "I felt I was in a dream, consciously unconscious and started to recite numbers" when he wasn't improving called for help and EMS was called. Per ED record pt was hypotensive 80/50 and hypoxic @60%, received 1L and with bp improvement to 100/50, spo2 ~70% In ED he was placed on bipap and prelim reading of CTA shows bilateral large PE R>L vs saddle PE and placed on heparin gtt Currently, pt stats are stable on bipap he is able to speak to me in full sentences. Denies palpitations, sob, chest pain, James, dizziness, fever, chills. and son at bedside. History Source: Patient self d/c AC INR nl on presentation H Diabetes Mellitus Type 2 - 1996 Hypertension Chronic kidney disease Hyperlipidemia Pulmonary embolism - January 2017 at [facility] - Current Medication List Current Medications: Active Medications Atorvastatin Calcium (Lipitor -) 10 mg PO HS [facility] Last Admin: 04/17/18 21:54 Dose: 10 mg Collagenase (Santyl -) 1 applic TP DAILY [facility] Last Admin: 04/18/18 10:53 Dose: Not Given Furosemide (Lasix -) 40 mg PO DAILY [facility] Last Admin: 04/18/18 10:53 Dose: 40 mg Heparin Sodium (Porcine) (Heparin -) 7,100 unit 40 unit/kg (7100 unit) IVPUSH PRN PRN PRN Reason: For aPTT 35 to 45 seconds Last Admin: 04/17/18 07:46 Dose: 7,100 unit Heparin Sodium (Porcine) (Heparin -) 14,100 unit 80 unit/kg (20390 unit) IVPUSH PRN PRN PRN Reason: aPTT <35 seconds Heparin Sodium (Porcine) 25, (000 unit/ Sodium Chloride) 500 mls @ 20 mls/hr IV TITR [facility]; Protocol Last Admin: 04/18/18 10:53 Dose: 1,350 unit/hr, 27 mls/hr Insulin Aspart (Novolog Vial Sliding Scale -) 1 vial SQ ACHS [facility]; Protocol Last Admin: 04/18/18 06:06 Dose: 4 units Lactic Acid (Lac-Hydrin 12) 1 applic TP BID PRN PRN Reason: right leg dryness Last Admin: 04/17/18 22:20 Dose: 1 applic Warfarin Sodium (Coumadin -) 10 mg PO DAILY@1800 [facility] Last Admin: 04/17/18 18:44 Dose: 10 mg - Objective Vital Signs: Vital Signs Temperature 98 F 04/18/18 05:30 Pulse Rate 79 04/18/18 05:30 Respiratory Rate 20 04/18/18 05:30 Blood Pressure 124/75 04/18/18 05:30 O2 Sat by Pulse Oximetry (%) 95 04/18/18 07:40 Eyes: Yes: WNL, Conjunctiva Clear, EOM Intact HENT: Yes: WNL, Atraumatic, Normocephalic Neck: Yes: WNL, Supple, Trachea Midline Cardiovascular: Yes: WNL, Regular Rate and Rhythm Respiratory: Yes: WNL, Regular, CTA Bilaterally Gastrointestinal: Yes: WNL, Normal Bowel Sounds Genitourinary: Yes: WNL Musculoskeletal: Yes: WNL Extremities: Yes: WNL Edema: Yes Integumentary: Yes: WNL Neurological: Yes: WNL, Alert, Oriented ...Motor Strength: WNL Psychiatric: Yes: WNL Labs: CBC, BMP 04/18/18 05:30 04/18/18 05:30 INR, PTT INR 1.94 (0.82-1.09) H 04/18/18 05:30 Problem List - Problems (1) Acute kidney injury Code(s): N17.9 - ACUTE KIDNEY FAILURE, UNSPECIFIED (2) Hyperglycemia Code(s): R73.9 - HYPERGLYCEMIA, UNSPECIFIED (3) Pulmonary embolism Code(s): I26.99 - OTHER PULMONARY EMBOLISM WITHOUT ACUTE COR PULMONALE Qualifiers: Pulmonary embolism type: other Chronicity: unspecified Acute cor pulmonale presence: without acute cor pulmonale Qualified Code(s): I26.99 - Other pulmonary embolism without acute cor pulmonale (4) CKD (chronic kidney disease) Code(s): N18.9 - CHRONIC KIDNEY DISEASE, UNSPECIFIED Qualifiers: Chronic kidney disease stage: stage 1 Qualified Code(s): N18.1 - Chronic kidney disease, stage 1 (5) DVT (deep venous thrombosis) Code(s): I82.409 - ACUTE EMBOLISM AND THOMBOS UNSP DEEP VN UNSP LOWER EXTREMITY (6) Diabetes 1.5, managed as type 2 Code(s): E13.9 - OTHER SPECIFIED DIABETES MELLITUS WITHOUT COMPLICATIONS (7) Diabetic neuropathy associated with diabetes mellitus due to underlying condition Code(s): E08.40 - DIABETES DUE TO UNDERLYING CONDITION W DIABETIC NEUROP, UNSP Qualifiers: Diabetes mellitus complication detail: diabetic polyneuropathy Qualified Code(s): E08.42 - Diabetes mellitus due to underlying condition with diabetic polyneuropathy (8) Diabetic ulcer of toe Code(s): E11.621 - TYPE 2 DIABETES MELLITUS WITH FOOT ULCER; L97.509 - NON- PRESSURE CHRONIC ULCER OTH PRT UNSP FOOT W UNSP SEVERITY Qualifiers: Diabetes mellitus type: type 2 Laterality: right Non-pressure ulcer stage : with necrosis of bone Qualified Code(s): E11.621 - Type 2 diabetes mellitus with foot ulcer; L97.514 - Non-pressure chronic ulcer of other part of right foot with necrosis of bone (9) Dyspnea Code(s): R06.00 - DYSPNEA, UNSPECIFIED Qualifiers: Dyspnea type: dyspnea on exertion Qualified Code(s): R06.09 - Other forms of dyspnea (10) [place] cardiac risk >20% in next 10 years Code(s): Z91.89 - OTH PERSONAL RISK FACTORS, NOT ELSEWHERE CLASSIFIED (11) Hyperlipidemia Code(s): E78.5 - HYPERLIPIDEMIA, UNSPECIFIED (12) Hypertension Code(s): I10 - ESSENTIAL (PRIMARY) HYPERTENSION (13) Lower back pain Code(s): M54.5 - LOW BACK PAIN (14) Morbid obesity due to excess calories Code(s): E66.01 - MORBID (SEVERE) OBESITY DUE TO EXCESS CALORIES (15) Nausea vomiting and diarrhea Code(s): R11.2 - NAUSEA WITH VOMITING, UNSPECIFIED; R19.7 - DIARRHEA, UNSPECIFIED (16) Right leg swelling Code(s): M79.89 - OTHER SPECIFIED SOFT TISSUE DISORDERS Assessment/Plan - Problems (1) Pulmonary embolism Assessment/Plan: On heparin IV until INR 2-3 with warfarin. Code(s): I26.99 - OTHER PULMONARY EMBOLISM WITHOUT ACUTE COR PULMONALE Qualifiers: Pulmonary embolism type: other Chronicity: unspecified Acute cor pulmonale presence: without acute cor pulmonale Qualified Code(s): I26.99 - Other pulmonary embolism without acute cor pulmonale (2) CKD (chronic kidney disease) Code(s): N18.9 - CHRONIC KIDNEY DISEASE, UNSPECIFIED Qualifiers: Chronic kidney disease stage: stage 1 Qualified Code(s): N18.1 - Chronic kidney disease, stage 1 (3) DVT (deep venous thrombosis) Code(s): I82.409 - ACUTE EMBOLISM AND THOMBOS UNSP DEEP VN UNSP LOWER EXTREMITY (4) Diabetic neuropathy associated with diabetes mellitus due to underlying condition Code(s): E08.40 - DIABETES DUE TO UNDERLYING CONDITION W DIABETIC NEUROP, UNSP Qualifiers: Diabetes mellitus complication detail: diabetic polyneuropathy Qualified Code(s): E08.42 - Diabetes mellitus due to underlying condition with diabetic polyneuropathy (5) Diabetic ulcer of toe Code(s): E11.621 - TYPE 2 DIABETES MELLITUS WITH FOOT ULCER; L97.509 - NON- PRESSURE CHRONIC ULCER OTH PRT UNSP FOOT W UNSP SEVERITY Qualifiers: Diabetes mellitus type: type 2 Laterality: right Non-pressure ulcer stage : with necrosis of bone Qualified Code(s): E11.621 - Type 2 diabetes mellitus with foot ulcer; L97.514 - Non-pressure chronic ulcer of other part of right foot with necrosis of bone (6) [place] cardiac risk >20% in next 10 years Code(s): Z91.89 - OTH PERSONAL RISK FACTORS, NOT ELSEWHERE CLASSIFIED (7) Hyperlipidemia Code(s): E78.5 - HYPERLIPIDEMIA, UNSPECIFIED (8) Hypertension Code(s): I10 - ESSENTIAL (PRIMARY) HYPERTENSION (9) Morbid obesity due to excess calories Assessment/Plan: 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 The critical importance of heart-healthy, diabetic diet, with portion control and exercise as aids to lasting weight loss, was discussed. Pt has recentlly been on a "diet that speeds up the metabolism", and has lost over 20 lbs. Planning for a diet that he can stick to over the long run was emphasized. He has had trouble walking or doing other exercise since toe amputation 10/2017. Code(s): E66.01 - MORBID (SEVERE) OBESITY DUE TO EXCESS CALORIES (10) Right leg swelling Code(s): M79.89 - OTHER SPECIFIED SOFT TISSUE DISORDERS
[2018-04-18 12:43] VITALS: BMI 46.7
--- NOTE | 2018-04-18 15:01 | PN ---
Progress Note, Physician History of Present Illness: Pt seen and examined at bedside. He is awake and alert. He feels that his breathing is improving. - Current Medication List Current Medications: Active Medications Atorvastatin Calcium (Lipitor -) 10 mg PO HS [facility] Last Admin: 04/17/18 21:54 Dose: 10 mg Collagenase (Santyl -) 1 applic TP DAILY [facility] Last Admin: 04/18/18 10:53 Dose: Not Given Furosemide (Lasix -) 40 mg PO DAILY [facility] Last Admin: 04/18/18 10:53 Dose: 40 mg Heparin Sodium (Porcine) (Heparin -) 7,100 unit 40 unit/kg (7100 unit) IVPUSH PRN PRN PRN Reason: For aPTT 35 to 45 seconds Last Admin: 04/17/18 07:46 Dose: 7,100 unit Heparin Sodium (Porcine) (Heparin -) 14,100 unit 80 unit/kg (53321 unit) IVPUSH PRN PRN PRN Reason: aPTT <35 seconds Heparin Sodium (Porcine) 25, (000 unit/ Sodium Chloride) 500 mls @ 20 mls/hr IV TITR [facility]; Protocol Last Admin: 04/18/18 10:53 Dose: 1,350 unit/hr, 27 mls/hr Insulin Aspart (Novolog Vial Sliding Scale -) 1 vial SQ ACHS [facility]; Protocol Last Admin: 04/18/18 12:12 Dose: Not Given Lactic Acid (Lac-Hydrin 12) 1 applic TP BID PRN PRN Reason: right leg dryness Last Admin: 04/17/18 22:20 Dose: 1 applic Warfarin Sodium (Coumadin -) 10 mg PO DAILY@1800 [facility] Last Admin: 04/17/18 18:44 Dose: 10 mg - Objective Vital Signs: Vital Signs Temperature 98.1 F 04/18/18 13:00 Pulse Rate 85 04/18/18 13:00 Respiratory Rate 18 04/18/18 13:00 Blood Pressure 129/53 04/18/18 13:00 O2 Sat by Pulse Oximetry (%) 95 04/18/18 09:00 Constitutional: Yes: Calm Eyes: Yes: Conjunctiva Clear HENT: Yes: Atraumatic Cardiovascular: Yes: S1, S2 Respiratory: Yes: On Nasal O2 Gastrointestinal: Yes: Soft, Abdomen, Obese Genitourinary: Yes: WNL Musculoskeletal: Yes: WNL Edema: Yes Edema: LLE: 1+, RLE: 1+ Neurological: Yes: Oriented Psychiatric: Yes: Oriented Labs: CBC, BMP 04/18/18 05:30 04/18/18 05:30 INR, PTT INR 1.94 (0.82-1.09) H 04/18/18 05:30 Problem List - Problems (1) Pulmonary embolism Code(s): I26.99 - OTHER PULMONARY EMBOLISM WITHOUT ACUTE COR PULMONALE Qualifiers: Pulmonary embolism type: other Chronicity: unspecified Acute cor pulmonale presence: without acute cor pulmonale Qualified Code(s): I26.99 - Other pulmonary embolism without acute cor pulmonale (2) CKD (chronic kidney disease) Code(s): N18.9 - CHRONIC KIDNEY DISEASE, UNSPECIFIED Qualifiers: Chronic kidney disease stage: stage 1 Qualified Code(s): N18.1 - Chronic kidney disease, stage 1 (3) DVT (deep venous thrombosis) Code(s): I82.409 - ACUTE EMBOLISM AND THOMBOS UNSP DEEP VN UNSP LOWER EXTREMITY Assessment/Plan Current Medications Generic Name Dose Route Start Last Admin Trade Name Freq PRN Reason Stop Dose Admin Atorvastatin Calcium 10 mg 04/14/18 22:00 04/17/18 21:54 Lipitor - PO 10 mg HS [facility] Administration Collagenase 1 applic 04/14/18 19:15 04/18/18 10:53 Santyl - TP Not Given DAILY [facility] Furosemide 40 mg 04/17/18 11:47 04/18/18 10:53 Lasix - PO 40 mg DAILY [facility] Administration Heparin Sodium (Porcine) 7,100 unit 04/12/18 16:25 04/17/18 07:46 Heparin - 40 unit/kg (7100 unit) 7,100 unit IVPUSH Administration PRN PRN For aPTT 35 to 45 seconds Heparin Sodium (Porcine) 14,100 unit 04/12/18 16:25 Heparin - 80 unit/kg (31012 unit) IVPUSH PRN PRN aPTT <35 seconds Heparin Sodium (Porcine) 25, 500 mls @ 20 mls/hr 04/17/18 08:42 04/18/18 10: 53 000 unit/ Sodium Chloride IV 1,350 unit/hr TITR [facility] 27 mls/hr Administration Protocol 1,000 UNIT/HR Insulin Aspart 1 vial 04/14/18 11:00 04/18/18 12:12 Novolog Vial Sliding Scale - SQ Not Given ACHS [facility] Protocol Lactic Acid 1 applic 04/17/18 15:05 04/17/18 22:20 Lac-Hydrin 12 TP 1 applic BID PRN Administration right leg dryness Warfarin Sodium 10 mg 04/17/18 11:48 04/17/18 18:44 Coumadin - PO 10 mg DAILY@1800 [facility] Administration Impression 1. CKD 2. DVT 3. Pulmonary Embolism 4. HTN 5. DM 6. hyperlipidemia 7. obesity 8. non compliance with medications Plan - agree with lasix 40 mg daily - monitor renal function - avoid nsaids - avoid nephrotoxins - monitor pulse ox - will follow Dr Garcia
--- NOTE | 2018-04-18 16:19 | PN ---
Physical Exam: SUBJECTIVE: Patient seen and examined at the bedside. Ambulating in room, in no acute distress. On 2 liters of nasal cannula. Not home oxygen dep. OBJECTIVE: pre and post to assess home oxygen needs inr improving on heparin to coumadin bridge Vital Signs Period Temp Pulse Resp BP Sys/Toribio Pulse Ox Last 24 Hr 97.9 F-98.5 F 78-88 18-20 124-138/53-79 95-96 GENERAL: The patient is awake, alert, and fully oriented, in no acute distress. HEAD: Normal with no signs of trauma. EYES: PERRL, extraocular movements intact, sclera anicteric, conjunctiva clear. No ptosis. ENT: Ears normal, nares patent, oropharynx clear without exudates, moist mucous membranes. NECK: Trachea midline, full range of motion, supple. LUNGS: bilateral lungs with diminished breath sounds, no chest pain HEART: Regular rate and rhythm ABDOMEN: Soft, nontender, nondistended, normoactive bowel sounds, no guarding, no rebound, no hepatosplenomegaly, no masses. EXTREMITIES: left lower ext edema, right lower ext with discoloration of lower ext. NEUROLOGICAL: Normal speech, gait not observed. PSYCH: Normal mood, normal affect. SKIN: left leg DVT, right leg with great toe amputation and discoloration and dryness of right leg from knee to foot. Laboratory Results - last 24 hr 04/17/18 04/17/18 04/17/18 16:36 16:40 21:58 WBC RBC Hgb Hct MCV MCH MCHC RDW Plt Count MPV PT with INR INR PTT (Actin FS) 65.9 H D Sodium Potassium Chloride Carbon Dioxide Anion Gap BUN Creatinine Creat Clearance w eGFR POC Glucometer 215.12589 238 Random Glucose Calcium Phosphorus Magnesium Total Bilirubin AST ALT Alkaline Phosphatase Total Protein Albumin Vitamin B12 TSH 04/18/18 04/18/18 04/18/18 05:30 05:30 05:30 WBC 6.3 RBC 4.44 Hgb 10.8 L Hct 33.6 L MCV 75.7 L MCH 24.3 L MCHC 32.1 RDW 16.4 H Plt Count 116 L MPV 9.1 PT with INR 21.90 H INR 1.94 H PTT (Actin FS) 59.5 H Sodium Potassium Chloride Carbon Dioxide Anion Gap BUN Creatinine Creat Clearance w eGFR POC Glucometer Random Glucose Calcium Phosphorus Magnesium Total Bilirubin AST ALT Alkaline Phosphatase Total Protein Albumin Vitamin B12 TSH 04/18/18 04/18/18 04/18/18 05:30 05:30 05:39 WBC RBC Hgb Hct MCV MCH MCHC RDW Plt Count MPV PT with INR INR PTT (Actin FS) Sodium 138 Potassium 4.5 Chloride 107 Carbon Dioxide 23 Anion Gap 8 BUN 39 H Creatinine 2.0 H Creat Clearance w eGFR 35.13 POC Glucometer 203 Random Glucose 198 H Calcium 7.8 L Phosphorus 3.6 Magnesium 1.9 Total Bilirubin 0.3 AST 16 ALT 24 Alkaline Phosphatase 66 Total Protein 6.0 L Albumin 2.4 L Vitamin B12 287 Cancelled TSH 3.76 H D Cancelled 04/18/18 11:20 WBC RBC Hgb Hct MCV MCH MCHC RDW Plt Count MPV PT with INR INR PTT (Actin FS) Sodium Potassium Chloride Carbon Dioxide Anion Gap BUN Creatinine Creat Clearance w eGFR POC Glucometer 272 Random Glucose Calcium Phosphorus Magnesium Total Bilirubin AST ALT Alkaline Phosphatase Total Protein Albumin Vitamin B12 TSH Active Medications Generic Name Dose Route Start Last Admin Trade Name Henriqueq PRN Reason Stop Dose Admin Atorvastatin Calcium 10 mg 04/14/18 22:00 04/17/18 21:54 Lipitor - PO 10 mg HS [facility] Administration Collagenase 1 applic 04/14/18 19:15 04/18/18 10:53 Santyl - TP Not Given DAILY [facility] Furosemide 40 mg 04/17/18 11:47 04/18/18 10:53 Lasix - PO 40 mg DAILY [facility] Administration Heparin Sodium (Porcine) 7,100 unit 04/12/18 16:25 04/17/18 07:46 Heparin - 40 unit/kg (7100 unit) 7,100 unit IVPUSH Administration PRN PRN For aPTT 35 to 45 seconds Heparin Sodium (Porcine) 14,100 unit 04/12/18 16:25 Heparin - 80 unit/kg (06179 unit) IVPUSH PRN PRN aPTT <35 seconds Heparin Sodium (Porcine) 25, 500 mls @ 20 mls/hr 04/17/18 08:42 04/18/18 10: 53 000 unit/ Sodium Chloride IV 1,350 unit/hr TITR [facility] 27 mls/hr Administration Protocol 1,000 UNIT/HR Insulin Aspart 1 vial 04/14/18 11:00 04/18/18 12:12 Novolog Vial Sliding Scale - SQ Not Given ACHS [facility] Protocol Lactic Acid 1 applic 04/17/18 15:05 04/17/18 22:20 Lac-Hydrin 12 TP 1 applic BID PRN Administration right leg dryness Warfarin Sodium 10 mg 04/17/18 11:48 04/17/18 18:44 Coumadin - PO 10 mg DAILY@1800 [facility] Administration ASSESSMENT/PLAN: Mr. Dubose is a 52 year old male with a significant past medical history of hypertension, hyperlipidemia, diabetes, obesity, CKD (follows Dr. Hair), DVT and PE history. He presents to the ED on 04/12/18 with shortness of breath and feeling lightheaded at home. Patient states that he is on daily Coumadin but has missed a few doses prior to admission, states he has missed apx 5-6 doses concurrently. He was noted to be hypotensive and hypoxic in the ED. A CTA chest shows bilateral large PEs and currently on a heparin drip. Imaging: CTA 04/13/2018: extensive acute pulmonary emboli. patchy bilateral groundglass opacities which could represent early pulmonary infarct versus infections/ inflammatory. Echo 04/14> normal LVEF 60-65%, probable mildly dilated RV cavity, probable mod. reduced RV systolic function. RA is midly dilated, left atrial size normal, mild mitral annular calcification. mild TR, trace pulmonic valve regurg. no pericardial effusion. Pulmonary: Shortness of breath in the setting of bilateral Pulmonary Emboli seen on Chest CTA. On heparin drip with bridge to Coumadin with goal INR between 2.5 to 3 Pre and post in anticipation of home oxygen need. On Coumadin 10mg daily. INR 1.94 currently. Card: Elevated trops, most likely secondary to cardiac demand. No chest pain, short of breath secondary to PE. Cardiology following. Hypertension, chronic. Currently controlled. Renal: RORY on CKD. Creat trending down. Renal following. On Lasix per renal. Heme: Thrombocytopenia @ 108. Monitor in the setting of anticoagulation therapy, bleeding risk. Hematology consulted and following. 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 Daily dressing changes. Follows Dr Parry q 2 weeks. FEN tolerating PO Monitor CMP low sodium diet Prophy Heparin to coumadin with goal inr between 2.5-3 Visit type - Emergency Visit Emergency Visit: Yes ED Registration Date: 04/12/18 Care time: The patient presented to the Emergency Department on the above date and was hospitalized for further evaluation of their emergent condition. - New Patient This patient is new to me today: No - Critical Care Critical Care patient: No - Discharge Referral Referred to [facility] Med P.C.: No
[2018-04-18] MEDS: WARFARIN NA 10 MG TABLET (FP) PO SCH (17:51)
--- NOTE | 2018-04-18 21:04 | PN ---
Progress Note (short form) - Note Progress Note: Patient seen and examined Feels better Walked the hallways today Last Vital Signs Temp Pulse Resp BP Pulse Ox 98.1 F 85 18 129/53 95 04/18/18 13:00 04/18/18 13:00 04/18/18 13:00 04/18/18 13:00 04/18/18 09:00 Cor: RSR, No murmurs, No gallops Lungs: Clear to P&A Abd: Soft, Normal bowel sounds, No organomegaly Ext:No significant edema Skin: No rashes, Integument intact Active Medications Atorvastatin Calcium (Lipitor -) 10 mg PO HS [facility] Last Admin: 04/17/18 21:54 Dose: 10 mg Collagenase (Santyl -) 1 applic TP DAILY [facility] Last Admin: 04/18/18 10:53 Dose: Not Given Furosemide (Lasix -) 40 mg PO DAILY [facility] Last Admin: 04/18/18 10:53 Dose: 40 mg Heparin Sodium (Porcine) (Heparin -) 7,100 unit 40 unit/kg (7100 unit) IVPUSH PRN PRN PRN Reason: For aPTT 35 to 45 seconds Last Admin: 04/17/18 07:46 Dose: 7,100 unit Heparin Sodium (Porcine) (Heparin -) 14,100 unit 80 unit/kg (95576 unit) IVPUSH PRN PRN PRN Reason: aPTT <35 seconds Heparin Sodium (Porcine) 25, (000 unit/ Sodium Chloride) 500 mls @ 20 mls/hr IV TITR [facility]; Protocol Last Admin: 04/18/18 10:53 Dose: 1,350 unit/hr, 27 mls/hr Insulin Aspart (Novolog Vial Sliding Scale -) 1 vial SQ ACHS [facility]; Protocol Last Admin: 04/18/18 17:51 Dose: 6 units Lactic Acid (Lac-Hydrin 12) 1 applic TP BID PRN PRN Reason: right leg dryness Last Admin: 04/17/18 22:20 Dose: 1 applic Warfarin Sodium (Coumadin -) 10 mg PO DAILY@1800 [facility] Last Admin: 04/18/18 17:51 Dose: 10 mg Abnormal Lab Results 04/18/18 04/18/18 04/18/18 05:30 05:30 05:30 Hgb 10.8 L Hct 33.6 L MCV 75.7 L MCH 24.3 L RDW 16.4 H Plt Count 116 L PT with INR 21.90 H INR 1.94 H PTT (Actin FS) 59.5 H BUN Creatinine Random Glucose Calcium Total Protein Albumin TSH 04/18/18 05:30 Hgb Hct MCV MCH RDW Plt Count PT with INR INR PTT (Actin FS) BUN 39 H Creatinine 2.0 H Random Glucose 198 H Calcium 7.8 L Total Protein 6.0 L Albumin 2.4 L TSH 3.76 H D A/P 52 y/o patient with morbid obesity, DVT, unprovoked DVT in 01/2017. 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 coumadin bridge. Would overlap heparin drip for 24-48hrs. once therapeutic INR is reached on coumadin thrombophilia w/u age appropriate cancer screening thrombocytopeina. Previously normal platelets in 11/14 ?consumption US--mild hepatosplenomegaly Pulm HTN/SLeep apnea
[2018-04-18] MEDS: ATORVASTATIN CA 10 MG TABLET (FP) PO SCH (22:33)
[2018-04-19] MEDS: INSULIN SLIDING SCALE (NOVOLOG) 1 VIAL SQ SCH ×4 (06:26→21:44)
[2018-04-19 07:44] LABS: BASO % 0.9 % (0-2.0); EOS % 7.8 % (0-4.5); HEMATOCRIT 32.6 % (35.4-49); HEMOGLOBIN 10.4 GM/dL (11.7-16.9); LYMPH % 14.5 % (8-40); MCH 24.1 pg (25.7-33.7); MEAN CELL VOLUME 75.3 fl (80-96); MONO % 14.8 % (3.8-10.2); PLATELET COUNT 119 K/MM3 (134-434); RBC 4.33 M/mm3 (4.00-5.60); RDW 16.1 % (11.9-15.9); WHITE BLOOD COUNT 5.8 K/mm3 (4.0-10.0)
[2018-04-19 09:04] LABS: ALBUMIN 2.4 g/dl (3.4-5.0); ALK PHOS 63 U/L (45-117); ANION GAP 8 (8-16); BILIRUBIN,TOTAL 0.3 mg/dL (0.2-1.0); BLOOD UREA NITROGEN 34 mg/dL (7-18); CHLORIDE 107 mmol/L (98-107); CO2 22 mmol/L (21-32); CREATININE 1.8 mg/dL (0.7-1.3); GLUCOSE,RANDOM 205 mg/dL (74-106); MAGNESIUM 1.8 mg/dL (1.8-2.4); POTASSIUM 4.9 mmol/L (3.5-5.1); SGOT/AST 17 U/L (15-37); SGPT/ALT 22 U/L (12-78); SODIUM 137 mmol/L (136-145); TOT PROT 5.9 g/dl (6.4-8.2)
[2018-04-19] MEDS: HEPARIN - 25,000 UNIT in SODIUM CHLORIDE 495 ML IV SCH (09:52)
[2018-04-19] MEDS: FUROSEMIDE 40 MG TABLET (FP) PO SCH (09:53)
[2018-04-19] MEDS: COLLAGENASE CLOSTRIDIUM HIST. 30 GRAMS TUBE TP SCH (09:53)
[2018-04-19 12:40] LABS: INR 2.14 (0.82-1.09); PROTHROMBIN TIME (PATIENT) 24.2 SEC (9.7-13.0)
--- NOTE | 2018-04-19 12:52 | PN ---
Progress Note, Physician Chief Complaint: Pt A&Ox3; siting up at bedside; daughter is visiting Pt feels much better than 2 days ago; he can carry a conversation without getting SOB, and can walk across the room without significant dyspnea. History of Present Illness: This is a 52 YO black man with h/o DM (does not check BG regularly), DVT/PE in 2017 (noncompliant with coumadin, cannot recall value or), supramorbid obesity, CKD, HTN, and HLD who p/w acute onset of SOB this morning upon awakening from sleep, which occurred shortly after a syncopal episode this morning (Pt had preceding lightheadedness and non-traumatic syncope). He notes feeling well yesterday other than increased leg swelling lately. EMS measured his initial RA pulse ox to be in the mid-60s and they placed him on the non-rebreather. They also measured his blood pressure to be 80/50 and his BG to be >500. The patient denies any recent fever, chills, nausea, vomiting, diarrhea, constipation, chest pain, abdominal pain, palpitations, or other symptoms. - Current Medication List Current Medications: Active Medications Atorvastatin Calcium (Lipitor -) 10 mg PO HS [facility] Last Admin: 04/18/18 22:33 Dose: 10 mg Collagenase (Santyl -) 1 applic TP DAILY [facility] Last Admin: 04/19/18 09:53 Dose: Not Given Furosemide (Lasix -) 40 mg PO DAILY [facility] Last Admin: 04/19/18 09:53 Dose: 40 mg Heparin Sodium (Porcine) (Heparin -) 7,100 unit 40 unit/kg (7100 unit) IVPUSH PRN PRN PRN Reason: For aPTT 35 to 45 seconds Last Admin: 04/17/18 07:46 Dose: 7,100 unit Heparin Sodium (Porcine) (Heparin -) 14,100 unit 80 unit/kg (71075 unit) IVPUSH PRN PRN PRN Reason: aPTT <35 seconds Heparin Sodium (Porcine) 25, (000 unit/ Sodium Chloride) 500 mls @ 20 mls/hr IV TITR [facility]; Protocol Last Admin: 04/19/18 09:52 Dose: 1,350 unit/hr, 27 mls/hr Insulin Aspart (Novolog Vial Sliding Scale -) 1 vial SQ ACHS [facility]; Protocol Last Admin: 04/19/18 12:32 Dose: Not Given Lactic Acid (Lac-Hydrin 12) 1 applic TP BID PRN PRN Reason: right leg dryness Last Admin: 04/17/18 22:20 Dose: 1 applic Warfarin Sodium (Coumadin -) 10 mg PO DAILY@1800 [facility] Last Admin: 04/18/18 17:51 Dose: 10 mg - Objective Vital Signs: Vital Signs Temperature 98.5 F 04/19/18 10:00 Pulse Rate 78 04/19/18 10:00 Respiratory Rate 18 04/19/18 10:00 Blood Pressure 135/71 04/19/18 10:00 O2 Sat by Pulse Oximetry (%) 94 L 04/19/18 09:00 Constitutional: Yes: Calm Eyes: Yes: WNL HENT: Yes: WNL Neck: Yes: WNL Cardiovascular: Yes: Regular Rate and Rhythm Respiratory: Yes: Regular, Diminished Gastrointestinal: Yes: Soft, Abdomen, Obese ...Rectal Exam: Yes: Deferred Genitourinary: No: Anuria Musculoskeletal: Yes: WNL Extremities: Yes: Cool Edema: Yes Edema: LLE: Trace, RLE: Trace Peripheral Pulses WNL: Yes Integumentary: Yes: WNL Neurological: Yes: WNL Psychiatric: Yes: WNL Labs: CBC, BMP 04/19/18 05:15 04/19/18 05:15 INR, PTT INR 2.14 (0.82-1.09) H 04/19/18 11:55 Abnormal Lab Results 04/19/18 04/19/18 04/19/18 05:15 05:15 11:55 Hgb 10.4 L Hct 32.6 L MCV 75.3 L MCH 24.1 L RDW 16.1 H Plt Count 119 L Monocytes % 14.8 H Eosinophils % 7.8 H PT with INR INR PTT (Actin FS) 61.4 H BUN 34 H Creatinine 1.8 H Random Glucose 205 H Calcium 8.0 L Total Protein 5.9 L Albumin 2.4 L 04/19/18 11:55 Hgb Hct MCV MCH RDW Plt Count Monocytes % Eosinophils % PT with INR 24.20 H INR 2.14 H PTT (Actin FS) BUN Creatinine Random Glucose Calcium Total Protein Albumin - ....Imaging Other: Image Reviewed (telemetry: NSR) Problem List - Problems (1) Pulmonary embolism Assessment/Plan: On heparin IV until INR 2-3 with warfarin (INR 1.94 yesterday). Code(s): I26.99 - OTHER PULMONARY EMBOLISM WITHOUT ACUTE COR PULMONALE Qualifiers: Pulmonary embolism type: other Chronicity: unspecified Acute cor pulmonale presence: without acute cor pulmonale Qualified Code(s): I26.99 - Other pulmonary embolism without acute cor pulmonale (2) CKD (chronic kidney disease) Code(s): N18.9 - CHRONIC KIDNEY DISEASE, UNSPECIFIED Qualifiers: Chronic kidney disease stage: stage 1 Qualified Code(s): N18.1 - Chronic kidney disease, stage 1 (3) DVT (deep venous thrombosis) Code(s): I82.409 - ACUTE EMBOLISM AND THOMBOS UNSP DEEP VN UNSP LOWER EXTREMITY (4) Diabetic neuropathy associated with diabetes mellitus due to underlying condition Assessment/Plan: Consider starting ACEI when renal function has improved (HTN; DM). Code(s): E08.40 - DIABETES DUE TO UNDERLYING CONDITION W DIABETIC NEUROP, UNSP Qualifiers: Diabetes mellitus complication detail: diabetic polyneuropathy Qualified Code(s): E08.42 - Diabetes mellitus due to underlying condition with diabetic polyneuropathy (5) Diabetic ulcer of toe Code(s): E11.621 - TYPE 2 DIABETES MELLITUS WITH FOOT ULCER; L97.509 - NON- PRESSURE CHRONIC ULCER OTH PRT UNSP FOOT W UNSP SEVERITY Qualifiers: Diabetes mellitus type: type 2 Laterality: right Non-pressure ulcer stage : with necrosis of bone Qualified Code(s): E11.621 - Type 2 diabetes mellitus with foot ulcer; L97.514 - Non-pressure chronic ulcer of other part of right foot with necrosis of bone (6) [place] cardiac risk >20% in next 10 years Assessment/Plan: Pt had stress MIBI in office within the past 2 years-->coreonary angiogram ( reporedly nonobstructive CAD). The importance of diet change, wt loss, exercise, glucose control, BP control, and aggressive managament of lipids was discussed in detail. 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 The critical importance of heart-healthy, diabetic diet, with portion control and exercise as aids to lasting weight loss, was discussed. Pt has recentlly been on a "diet that speeds up the metabolism", and has lost over 20 lbs. Planning for a diet that he can stick to over the long run was emphasized. He has had trouble walking or doing other exercise since toe amputation 10/2017. Code(s): E66.01 - MORBID (SEVERE) OBESITY DUE TO EXCESS CALORIES (10) Right leg swelling Code(s): M79.89 - OTHER SPECIFIED SOFT TISSUE DISORDERS (11) PAD (peripheral artery disease) Code(s): I73.9 - PERIPHERAL VASCULAR DISEASE, UNSPECIFIED (12) Sleep apnea Code(s): G47.30 - SLEEP APNEA, UNSPECIFIED
--- NOTE | 2018-04-19 13:50 | PN ---
Progress Note (short form) - Note Progress Note: PULMONARY Denies shortness of breath or chest pain. Remains on heparin gtt. Vital Signs Period Temp Pulse Resp BP Sys/Toribio Pulse Ox Last 24 Hr 97.6 F-98.8 F 74-90 18-20 114-139/71-80 94-95 Gen: NAD at rest Heart: RRR Lung: decreased breath sounds at the bases Abd: soft, nontender Ext: no edema CBC, BMP 04/19/18 05:15 04/19/18 05:15 Active Medications Atorvastatin Calcium (Lipitor -) 10 mg PO HS [facility] Last Admin: 04/18/18 22:33 Dose: 10 mg Collagenase (Santyl -) 1 applic TP DAILY [facility] Last Admin: 04/19/18 09:53 Dose: Not Given Furosemide (Lasix -) 40 mg PO DAILY [facility] Last Admin: 04/19/18 09:53 Dose: 40 mg Heparin Sodium (Porcine) (Heparin -) 7,100 unit 40 unit/kg (7100 unit) IVPUSH PRN PRN PRN Reason: For aPTT 35 to 45 seconds Last Admin: 04/17/18 07:46 Dose: 7,100 unit Heparin Sodium (Porcine) (Heparin -) 14,100 unit 80 unit/kg (55775 unit) IVPUSH PRN PRN PRN Reason: aPTT <35 seconds Heparin Sodium (Porcine) 25, (000 unit/ Sodium Chloride) 500 mls @ 20 mls/hr IV TITR [facility]; Protocol Last Admin: 04/19/18 09:52 Dose: 1,350 unit/hr, 27 mls/hr Insulin Aspart (Novolog Vial Sliding Scale -) 1 vial SQ ACHS [facility]; Protocol Last Admin: 04/19/18 12:32 Dose: Not Given Lactic Acid (Lac-Hydrin 12) 1 applic TP BID PRN PRN Reason: right leg dryness Last Admin: 04/17/18 22:20 Dose: 1 applic Warfarin Sodium (Coumadin -) 10 mg PO DAILY@1800 [facility] Last Admin: 04/18/18 17:51 Dose: 10 mg A/P Acute Pulmonary Emboli DVT +Troponins Lactic Acidosis r/o Right Heart Strain Acute on Chronic Renal Failure Thrombocytopenia Morbid Obesity HTN Hyperlipidemia DM Likely JANY - continue anticoagulation, transition to coumadin to target INR 2-3 - O2 to keep SpO2 >90% - BiPAP at night - monitor urine output, creatinine - glucose control - will need life long anticoagulation as this is his 2nd VTE - will need outpt PSG
--- NOTE | 2018-04-19 14:18 | PN ---
Progress Note, Physician History of Present Illness: Pt seen and examined at bedside. He is awake and alert. He denies shortness of breath at rest. - Current Medication List Current Medications: Active Medications Atorvastatin Calcium (Lipitor -) 10 mg PO HS [facility] Last Admin: 04/18/18 22:33 Dose: 10 mg Collagenase (Santyl -) 1 applic TP DAILY [facility] Last Admin: 04/19/18 09:53 Dose: Not Given Furosemide (Lasix -) 40 mg PO DAILY [facility] Last Admin: 04/19/18 09:53 Dose: 40 mg Heparin Sodium (Porcine) (Heparin -) 7,100 unit 40 unit/kg (7100 unit) IVPUSH PRN PRN PRN Reason: For aPTT 35 to 45 seconds Last Admin: 04/17/18 07:46 Dose: 7,100 unit Heparin Sodium (Porcine) (Heparin -) 14,100 unit 80 unit/kg (06388 unit) IVPUSH PRN PRN PRN Reason: aPTT <35 seconds Heparin Sodium (Porcine) 25, (000 unit/ Sodium Chloride) 500 mls @ 20 mls/hr IV TITR [facility]; Protocol Last Admin: 04/19/18 09:52 Dose: 1,350 unit/hr, 27 mls/hr Insulin Aspart (Novolog Vial Sliding Scale -) 1 vial SQ ACHS [facility]; Protocol Last Admin: 04/19/18 12:32 Dose: Not Given Lactic Acid (Lac-Hydrin 12) 1 applic TP BID PRN PRN Reason: right leg dryness Last Admin: 04/17/18 22:20 Dose: 1 applic Warfarin Sodium (Coumadin -) 10 mg PO DAILY@1800 [facility] Last Admin: 04/18/18 17:51 Dose: 10 mg - Objective Vital Signs: Vital Signs Temperature 98.5 F 04/19/18 10:00 Pulse Rate 78 04/19/18 10:00 Respiratory Rate 18 04/19/18 10:00 Blood Pressure 135/71 04/19/18 10:00 O2 Sat by Pulse Oximetry (%) 94 L 04/19/18 09:00 Constitutional: Yes: Calm Eyes: Yes: Conjunctiva Clear HENT: Yes: Atraumatic Neck: Yes: Supple Cardiovascular: Yes: S1, S2 Respiratory: Yes: On Nasal O2 Gastrointestinal: Yes: Normal Bowel Sounds, Soft, Abdomen, Obese Musculoskeletal: Yes: WNL Edema: Yes Edema: LLE: Trace, RLE: Trace Neurological: Yes: Oriented Psychiatric: Yes: Oriented Labs: CBC, BMP 04/19/18 05:15 04/19/18 05:15 INR, PTT INR 2.14 (0.82-1.09) H 04/19/18 11:55 Problem List - Problems (1) Pulmonary embolism Code(s): I26.99 - OTHER PULMONARY EMBOLISM WITHOUT ACUTE COR PULMONALE Qualifiers: Pulmonary embolism type: other Chronicity: unspecified Acute cor pulmonale presence: without acute cor pulmonale Qualified Code(s): I26.99 - Other pulmonary embolism without acute cor pulmonale (2) CKD (chronic kidney disease) Code(s): N18.9 - CHRONIC KIDNEY DISEASE, UNSPECIFIED Qualifiers: Chronic kidney disease stage: stage 1 Qualified Code(s): N18.1 - Chronic kidney disease, stage 1 (3) DVT (deep venous thrombosis) Code(s): I82.409 - ACUTE EMBOLISM AND THOMBOS UNSP DEEP VN UNSP LOWER EXTREMITY Assessment/Plan Current Medications Generic Name Dose Route Start Last Admin Trade Name Freq PRN Reason Stop Dose Admin Atorvastatin Calcium 10 mg 04/14/18 22:00 04/18/18 22:33 Lipitor - PO 10 mg HS [facility] Administration Collagenase 1 applic 04/14/18 19:15 04/19/18 09:53 Santyl - TP Not Given DAILY [facility] Furosemide 40 mg 04/17/18 11:47 04/19/18 09:53 Lasix - PO 40 mg DAILY [facility] Administration Heparin Sodium (Porcine) 7,100 unit 04/12/18 16:25 04/17/18 07:46 Heparin - 40 unit/kg (7100 unit) 7,100 unit IVPUSH Administration PRN PRN For aPTT 35 to 45 seconds Heparin Sodium (Porcine) 14,100 unit 04/12/18 16:25 Heparin - 80 unit/kg (06746 unit) IVPUSH PRN PRN aPTT <35 seconds Heparin Sodium (Porcine) 25, 500 mls @ 20 mls/hr 04/17/18 08:42 04/19/18 09: 52 000 unit/ Sodium Chloride IV 1,350 unit/hr TITR [facility] 27 mls/hr Administration Protocol 1,000 UNIT/HR Insulin Aspart 1 vial 04/14/18 11:00 04/19/18 12:32 Novolog Vial Sliding Scale - SQ Not Given ACHS [facility] Protocol Lactic Acid 1 applic 04/17/18 15:05 04/17/18 22:20 Lac-Hydrin 12 TP 1 applic BID PRN Administration right leg dryness Warfarin Sodium 10 mg 04/17/18 11:48 04/18/18 17:51 Coumadin - PO 10 mg DAILY@1800 [facility] Administration Impression 1. CKD 2. DVT 3. Pulmonary Embolism 4. HTN 5. DM 6. hyperlipidemia 7. obesity 8. non compliance with medications 9. splenomegaly Plan - cont with lasix at 40 mg - monitor coags - heme onc eval for splenomegaly - renal function is stable - monitor renal function - monitor pulse ox - will follow Dr Garcia
[2018-04-19] MEDS: WARFARIN NA 10 MG TABLET (FP) PO SCH (17:44)
--- NOTE | 2018-04-19 17:55 | PN ---
Physical Exam: SUBJECTIVE: Patient seen and examined. He denies chest pain, SOB. OBJECTIVE: Vital Signs Period Temp Pulse Resp BP Sys/Toribio Pulse Ox Last 24 Hr 97.6 F-98.8 F 74-90 18-20 114-148/71-87 94-95 GENERAL: The patient is awake, alert, and fully oriented, in no acute distress. LUNGS: Breath sounds equal, clear to auscultation bilaterally, no wheezes, no crackles, no accessory muscle use. HEART: Regular rate and rhythm, S1, S2 without murmur, rub or gallop. ABDOMEN: Obese, soft, nontender, nondistended, normoactive bowel sounds, no guarding, no rebound, no hepatosplenomegaly, no masses. EXTREMITIES: Trace edema, chronic changes. Laboratory Results - last 24 hr 04/16/18 04/18/18 04/18/18 05:30 17:44 22:34 WBC RBC Hgb Hct MCV MCH MCHC RDW Plt Count MPV Absolute Neuts (auto) Neutrophils % Lymphocytes % Monocytes % Eosinophils % Basophils % Nucleated RBC % PT with INR INR PTT (Actin FS) Sodium Potassium Chloride Carbon Dioxide Anion Gap BUN Creatinine Creat Clearance w eGFR POC Glucometer 282 246 Random Glucose Calcium Magnesium Total Bilirubin AST ALT Alkaline Phosphatase Total Protein Albumin Heparin-Ind Plt Ab Scrn 0.202 04/19/18 04/19/18 04/19/18 05:15 05:15 06:17 WBC 5.8 RBC 4.33 Hgb 10.4 L Hct 32.6 L MCV 75.3 L MCH 24.1 L MCHC 32.0 RDW 16.1 H Plt Count 119 L MPV 9.0 Absolute Neuts (auto) 3.6 Neutrophils % 62.0 Lymphocytes % 14.5 Monocytes % 14.8 H Eosinophils % 7.8 H Basophils % 0.9 Nucleated RBC % 0 PT with INR INR PTT (Actin FS) Sodium 137 Potassium 4.9 Chloride 107 Carbon Dioxide 22 Anion Gap 8 BUN 34 H Creatinine 1.8 H Creat Clearance w eGFR 39.67 POC Glucometer 204 Random Glucose 205 H Calcium 8.0 L Magnesium 1.8 Total Bilirubin 0.3 AST 17 ALT 22 Alkaline Phosphatase 63 Total Protein 5.9 L Albumin 2.4 L Heparin-Ind Plt Ab Scrn 04/19/18 04/19/18 04/19/18 11:32 11:55 11:55 WBC RBC Hgb Hct MCV MCH MCHC RDW Plt Count MPV Absolute Neuts (auto) Neutrophils % Lymphocytes % Monocytes % Eosinophils % Basophils % Nucleated RBC % PT with INR 24.20 H INR 2.14 H PTT (Actin FS) 61.4 H Sodium Potassium Chloride Carbon Dioxide Anion Gap BUN Creatinine Creat Clearance w eGFR POC Glucometer 241 Random Glucose Calcium Magnesium Total Bilirubin AST ALT Alkaline Phosphatase Total Protein Albumin Heparin-Ind Plt Ab Scrn Active Medications Generic Name Dose Route Start Last Admin Trade Name Henriqueq PRN Reason Stop Dose Admin Atorvastatin Calcium 10 mg 04/14/18 22:00 04/18/18 22:33 Lipitor - PO 10 mg HS [facility] Administration Collagenase 1 applic 04/14/18 19:15 04/19/18 09:53 Santyl - TP Not Given DAILY [facility] Furosemide 40 mg 04/17/18 11:47 04/19/18 09:53 Lasix - PO 40 mg DAILY [facility] Administration Heparin Sodium (Porcine) 25, 500 mls @ 20 mls/hr 04/17/18 08:42 04/19/18 09: 52 000 unit/ Sodium Chloride IV 1,350 unit/hr TITR [facility] 27 mls/hr Administration Protocol 1,000 UNIT/HR Insulin Aspart 1 vial 04/14/18 11:00 04/19/18 17:38 Novolog Vial Sliding Scale - SQ 6 units ACHS [facility] Administration Protocol Lactic Acid 1 applic 04/17/18 15:05 04/17/18 22:20 Lac-Hydrin 12 TP 1 applic BID PRN Administration right leg dryness Warfarin Sodium 10 mg 04/17/18 11:48 04/19/18 17:44 Coumadin - PO 10 mg DAILY@1800 [facility] Administration ASSESSMENT/PLAN: This is a 52 year old man with a history of HTN, hyperlipidemia, type 2 DM, obesity, CKD, DVT/PE who presented to the ED on with shortness of breath and lightheadedness. 1. Acute hypoxic respiratory failure secondary to bilateral pulmonary emboli, probable JANY - On Coumadin - Continue heparin IV drip until INR therapeutic 24-48 hrs - Continue oxygen to maintain saturation > 90% - Continue BiPAP at night - Outpatient sleep study 2. DVT of proximal left popliteal vein 3. Elevated troponin likely secondary to demand ischemia 4. Acute kidney injury - Improved 5. Stage 3 CKD - Creatinine at baseline 6. Thrombocytopenia - Platelets improving 7. Type 2 DM - Continue Novolog sliding scale 8. HTN - Continue Lasix 9. Hyperlipidemia - Continue Lipitor 10. PAD, history of right 1st toe amputation 11. Morbid obesity with BMI 46.6 Visit type - Emergency Visit Emergency Visit: Yes ED Registration Date: 04/12/18 Care time: The patient presented to the Emergency Department on the above date and was hospitalized for further evaluation of their emergent condition. - New Patient This patient is new to me today: Yes Date on this admission: 04/19/18 - Critical Care Critical Care patient: No - Discharge Referral Referred to [facility] Med P.C.: No
[2018-04-19] MEDS: ATORVASTATIN CA 10 MG TABLET (FP) PO SCH (21:44)
[2018-04-20] MEDS: INSULIN SLIDING SCALE (NOVOLOG) 1 VIAL SQ SCH ×4 (06:09→22:03)
[2018-04-20 07:08] LABS: HEMATOCRIT 32.4 % (35.4-49); HEMOGLOBIN 10.5 GM/dL (11.7-16.9); MCH 24.3 pg (25.7-33.7); MCHC 32.5 g/dl (32.0-35.9); MEAN CELL VOLUME 74.6 fl (80-96); PLATELET COUNT 122 K/MM3 (134-434); RBC 4.35 M/mm3 (4.00-5.60); RDW 15.9 % (11.9-15.9); WHITE BLOOD COUNT 5.8 K/mm3 (4.0-10.0)
[2018-04-20 07:21] LABS: INR 2.44 (0.82-1.09); PROTHROMBIN TIME (PATIENT) 27.6 SEC (9.7-13.0)
[2018-04-20 08:18] LABS: ANION GAP 10 (8-16); BLOOD UREA NITROGEN 32 mg/dL (7-18); CALCIUM 8.1 mg/dL (8.5-10.1); CHLORIDE 108 mmol/L (98-107); CO2 22 mmol/L (21-32); CREATININE 1.9 mg/dL (0.7-1.3); GLUCOSE,RANDOM 133 mg/dL (74-106); POTASSIUM 4.6 mmol/L (3.5-5.1); SODIUM 140 mmol/L (136-145)
[2018-04-20] MEDS: COLLAGENASE CLOSTRIDIUM HIST. 30 GRAMS TUBE TP SCH (09:53)
[2018-04-20] MEDS: FUROSEMIDE 40 MG TABLET (FP) PO SCH (09:53)
[2018-04-20] MEDS: HEPARIN - 25,000 UNIT in SODIUM CHLORIDE 495 ML IV SCH (09:53)
[2018-04-20 09:57] LABS: URINE APPEARANCE CLEAR; URINE BILIRUBIN NEGATIVE (<2.0 mg/dL); URINE COLOR LTYELLOW; URINE GLUCOSE (UA) 1+ (NEGATIVE); URINE KETONE NEGATIVE (NEGATIVE); URINE LEUK ESTERASE NEGATIVE (NEGATIVE); URINE NITRITE NEGATIVE (NEGATIVE); URINE UROBILINOGEN NEGATIVE mg/dL (0.2-1.0)
[2018-04-20 10:34] LABS: URINE PROTEIN 3+ (NEGATIVE)
[2018-04-20 10:35] LABS: EPI CELLS RARE /HPF (FEW); URINE MUCUS RARE
[2018-04-20] MEDS ORDERED: WARFARIN NA 7.5 MG TABLET (FP) PO SCH (12:19)
--- NOTE | 2018-04-20 12:19 | PN ---
Progress Note (short form) - Note Progress Note: PULMONARY Denies shortness of breath or chest pain. Remains on heparin gtt. Vital Signs Period Temp Pulse Resp BP Sys/Toribio Pulse Ox Last 24 Hr 97.5 F-98.8 F 76-86 16-18 137-152/66-92 93-96 Gen: NAD at rest Heart: RRR Lung: decreased breath sounds at the bases Abd: soft, nontender Ext: no edema CBC, BMP 04/20/18 05:30 04/20/18 05:30 INR, PTT INR 2.44 (0.82-1.09) H 04/20/18 05:30 Active Medications Atorvastatin Calcium (Lipitor -) 10 mg PO HS [facility] Collagenase (Santyl -) 1 applic TP DAILY [facility] Last Admin: 04/20/18 09:53 Dose: 1 applic Furosemide (Lasix -) 40 mg PO DAILY [facility] Last Admin: 04/20/18 09:53 Dose: 40 mg Heparin Sodium (Porcine) 25, (000 unit/ Sodium Chloride) 500 mls @ 20 mls/hr IV TITR [facility]; Protocol Last Admin: 04/20/18 09:53 Dose: 1,350 unit/hr, 27 mls/hr Insulin Aspart (Novolog Vial Sliding Scale -) 1 vial SQ ACHS [facility]; Protocol Lactic Acid (Lac-Hydrin 12) 1 applic TP BID PRN PRN Reason: right leg dryness Last Admin: 04/17/18 22:20 Dose: 1 applic Warfarin Sodium (Coumadin -) 10 mg PO DAILY@1800 [facility] Last Admin: 04/19/18 17:44 Dose: 10 mg A/P Acute Pulmonary Emboli DVT +Troponins Lactic Acidosis r/o Right Heart Strain Acute on Chronic Renal Failure Thrombocytopenia Morbid Obesity HTN Hyperlipidemia DM Likely JANY - continue anticoagulation to target INR 2-3, will decrease his coumadin to 7.5mg qhs since that was his previous dose - can d/c heparin gtt - O2 to keep SpO2 >90% - BiPAP at night - monitor urine output, creatinine - glucose control - will need life long anticoagulation as this is his 2nd VTE - will need outpt PSG
--- NOTE | 2018-04-20 15:42 | PN ---
Progress Note, Physician History of Present Illness: Pt seen and examined at bedside. He is awake and alert. - Current Medication List Current Medications: Active Medications Atorvastatin Calcium (Lipitor -) 10 mg PO HS [facility] Collagenase (Santyl -) 1 applic TP DAILY [facility] Last Admin: 04/20/18 09:53 Dose: 1 applic Furosemide (Lasix -) 40 mg PO DAILY [facility] Last Admin: 04/20/18 09:53 Dose: 40 mg Insulin Aspart (Novolog Vial Sliding Scale -) 1 vial SQ ACHS [facility]; Protocol Last Admin: 04/20/18 12:47 Dose: Not Given Lactic Acid (Lac-Hydrin 12) 1 applic TP BID PRN PRN Reason: right leg dryness Last Admin: 04/17/18 22:20 Dose: 1 applic Warfarin Sodium (Coumadin -) 7.5 mg PO DAILY@1800 [facility] - Objective Vital Signs: Vital Signs Temperature 97.5 F L 04/20/18 09:00 Pulse Rate 78 04/20/18 09:00 Respiratory Rate 18 04/20/18 09:00 Blood Pressure 142/66 04/20/18 09:00 O2 Sat by Pulse Oximetry (%) 95 04/20/18 05:22 Constitutional: Yes: Calm Eyes: Yes: Conjunctiva Clear HENT: Yes: Atraumatic Neck: Yes: Supple Cardiovascular: Yes: S1, S2 Respiratory: Yes: CTA Bilaterally Gastrointestinal: Yes: Soft, Abdomen, Obese Genitourinary: Yes: WNL Musculoskeletal: Yes: WNL Edema: Yes Edema: LLE: Trace, RLE: Trace Neurological: Yes: Oriented Psychiatric: Yes: Oriented Labs: CBC, BMP 04/20/18 05:30 04/20/18 05:30 INR, PTT INR 2.44 (0.82-1.09) H 04/20/18 05:30 Problem List - Problems (1) Pulmonary embolism Code(s): I26.99 - OTHER PULMONARY EMBOLISM WITHOUT ACUTE COR PULMONALE Qualifiers: Pulmonary embolism type: other Chronicity: unspecified Acute cor pulmonale presence: without acute cor pulmonale Qualified Code(s): I26.99 - Other pulmonary embolism without acute cor pulmonale (2) CKD (chronic kidney disease) Code(s): N18.9 - CHRONIC KIDNEY DISEASE, UNSPECIFIED Qualifiers: Chronic kidney disease stage: stage 1 Qualified Code(s): N18.1 - Chronic kidney disease, stage 1 (3) DVT (deep venous thrombosis) Code(s): I82.409 - ACUTE EMBOLISM AND THOMBOS UNSP DEEP VN UNSP LOWER EXTREMITY Assessment/Plan Current Medications Generic Name Dose Route Start Last Admin Trade Name Freq PRN Reason Stop Dose Admin Atorvastatin Calcium 10 mg 04/20/18 22:00 Lipitor - PO HS [facility] Collagenase 1 applic 04/20/18 10:00 04/20/18 09:53 Santyl - TP 1 applic DAILY [facility] Administration Furosemide 40 mg 04/17/18 11:47 04/20/18 09:53 Lasix - PO 40 mg DAILY [facility] Administration Insulin Aspart 1 vial 04/20/18 11:00 04/20/18 12:47 Novolog Vial Sliding Scale - SQ Not Given ACHS [facility] Protocol Lactic Acid 1 applic 04/17/18 15:05 04/17/18 22:20 Lac-Hydrin 12 TP 1 applic BID PRN Administration right leg dryness Warfarin Sodium 7.5 mg 04/20/18 12:19 Coumadin - PO DAILY@1800 [facility] Impression 1. CKD 2. DVT 3. Pulmonary Embolism 4. HTN 5. DM 6. hyperlipidemia 7. obesity 8. non compliance with medications 9. splenomegaly Plan - renal function stable - cont lasix at 40 mg - pt to follow with Dr Hair after dicharge - heme onc eval for splenomegaly - monitor pulse ox - will follow Dr Garcia
--- NOTE | 2018-04-20 15:56 | PN ---
Progress Note (short form) - Note Progress Note: Subjective: The patient was seen and examined at the bedside, he has no complaints at this time. He denies any chest pain, shortness of breath. Current Medications Generic Name Dose Route Start Last Admin Trade Name Freq PRN Reason Stop Dose Admin Atorvastatin Calcium 10 mg 04/20/18 22:00 Lipitor - PO HS [facility]A Collagenase 1 applic 04/20/18 10:00 04/20/18 09:53 Santyl - TP 1 applic DAILY [facility] Administration Furosemide 40 mg 04/17/18 11:47 04/20/18 09:53 Lasix - PO 40 mg DAILY [facility] Administration Insulin Aspart 1 vial 04/20/18 11:00 04/20/18 12:47 Novolog Vial Sliding Scale - SQ Not Given ACHS [facility] Protocol Lactic Acid 1 applic 04/17/18 15:05 04/17/18 22:20 Lac-Hydrin 12 TP 1 applic BID PRN Administration right leg dryness Warfarin Sodium 7.5 mg 04/20/18 12:19 Coumadin - PO DAILY@1800 [facility] Objective: Vital Signs Period Temp Pulse Resp BP Sys/Toribio Pulse Ox Last 24 Hr 97.5 F-98.8 F 76-86 16-18 137-152/66-92 93-96 Physical Exam: General: NAD, A&Ox3 Lungs: CTA bilaterally Heart: RRR, S1S2 Abd: Soft, non-tender, non-distended. Normoactive bowel sounds Ext: B/l lower extremity edema, R>L CBCD WBC 5.8 K/mm3 (4.0-10.0) 04/20/18 05:30 RBC 4.35 M/mm3 (4.00-5.60) 04/20/18 05:30 Hgb 10.5 GM/dL (11.7-16.9) L 04/20/18 05:30 Hct 32.4 % (35.4-49) L 04/20/18 05:30 MCV 74.6 fl (80-96) L 04/20/18 05:30 MCHC 32.5 g/dl (32.0-35.9) 04/20/18 05:30 RDW 15.9 % (11.9-15.9) 04/20/18 05:30 Plt Count 122 K/MM3 (134-434) L 04/20/18 05:30 MPV 9.0 fl (7.5-11.1) 04/20/18 05:30 CMP Sodium 140 mmol/L (136-145) 04/20/18 05:30 Potassium 4.6 mmol/L (3.5-5.1) 04/20/18 05:30 Chloride 108 mmol/L (98-107) H 04/20/18 05:30 Carbon Dioxide 22 mmol/L (21-32) 04/20/18 05:30 Anion Gap 10 (8-16) 04/20/18 05:30 BUN 32 mg/dL (7-18) H 04/20/18 05:30 Creatinine 1.9 mg/dL (0.7-1.3) H 04/20/18 05:30 Creat Clearance w eGFR 37.27 (>60) 04/20/18 05:30 Random Glucose 133 mg/dL (74-106) H D 04/20/18 05:30 Calcium 8.1 mg/dL (8.5-10.1) L 04/20/18 05:30 Total Bilirubin 0.3 mg/dL (0.2-1.0) 04/19/18 05:15 AST 17 U/L (15-37) 04/19/18 05:15 ALT 22 U/L (12-78) 04/19/18 05:15 Alkaline Phosphatase 63 U/L (45-117) 04/19/18 05:15 Total Protein 5.9 g/dl (6.4-8.2) L 04/19/18 05:15 Albumin 2.4 g/dl (3.4-5.0) L 04/19/18 05:15 CARDIAC ENZYMES Creatine Kinase 296 IU/L (39-308) 04/14/18 19:55 Troponin I 0.70 ng/ml (0.00-0.05) H* D 04/14/18 19:55 Microbiology 04/16/18 18:20 Urine - Urine Clean Catch Urine Culture - Final Contaminated: Please Repeat 04/12/18 08:48 Blood - Peripheral Venous Blood Culture - Final NO GROWTH AFTER 5 DAYS INCUBATION 04/12/18 08:57 Blood - Peripheral Venous Blood Culture - Final NO GROWTH AFTER 5 DAYS INCUBATION 04/13/18 00:30 Urine - Urine Clean Catch Urine Culture - Final Escherichia Coli Assessment: This is a 52 year old male with PMHx of HTN, hyperlipidemia, DM, obesity, CKD, DVT/PE, who presented to the ED with shortness of breath and lightheadedness. Plan: 1) Acute hypoxic respiratory failure 2/2 b/l PE - Continue Coumadin 7.5mg po hs - Heparin gtt discontinued today - O2 prn - Appreciate pulmonary consult 2) Elevated troponin in the setting of acute PE - Peaked at 3.25, trended down - Patient had stress mibi in the office within the past 2 years and reportedly non-obstructive CAD on coronary angiogram - Rest per cardiology 3) RORY on CKD - Renal function is stable, has improved from admission - Continue Lasix - Patient to follow-up with Dr. Hair after discharge 4) Minimal to mild splenomegaly - Management and workup per hematology 5) DM - BGM ACHS - ISS ACHS 6) Hyperlipidemia - Continue Lipitor Visit type - Emergency Visit Emergency Visit: Yes ED Registration Date: 04/12/18 Care time: The patient presented to the Emergency Department on the above date and was hospitalized for further evaluation of their emergent condition. - New Patient This patient is new to me today: Yes Date on this admission: 04/20/18 - Critical Care Critical Care patient: No
--- NOTE | 2018-04-20 21:25 | PN ---
Progress Note (short form) - Note Progress Note: Patient seen and examined Feels better walking hallways Last Vital Signs Temp Pulse Resp BP Pulse Ox 98.6 F 88 18 144/91 92 L 04/20/18 20:30 04/20/18 20:30 04/20/18 20:30 04/20/18 20:30 04/20/18 20:30 Cor: RSR, No murmurs, No gallops Lungs: Clear to P&A Abd: Soft, Normal bowel sounds, No organomegaly Ext:No significant edema Skin: No rashes, Integument intact Abnormal Lab Results 04/20/18 04/20/18 04/20/18 05:30 05:30 05:30 Hgb 10.5 L Hct 32.4 L MCV 74.6 L MCH 24.3 L Plt Count 122 L PT with INR 27.60 H INR 2.44 H Chloride 108 H BUN 32 H Creatinine 1.9 H Random Glucose 133 H D Calcium 8.1 L Urine Protein Urine Glucose (UA) Urine Blood 04/20/18 06:00 Hgb Hct MCV MCH Plt Count PT with INR INR Chloride BUN Creatinine Random Glucose Calcium Urine Protein 3+ H Urine Glucose (UA) 1+ H Urine Blood 2+ H Active Medications Generic Name Dose Route Start Last Admin Trade Name Freq PRN Reason Stop Dose Admin Atorvastatin Calcium 10 mg 04/20/18 22:00 Lipitor - PO HS [facility]A Collagenase 1 applic 04/20/18 10:00 04/20/18 09:53 Santyl - TP 1 applic DAILY [facility] Administration Furosemide 40 mg 04/17/18 11:47 04/20/18 09:53 Lasix - PO 40 mg DAILY [facility] Administration Insulin Aspart 1 vial 04/20/18 11:00 04/20/18 17:35 Novolog Vial Sliding Scale - SQ 8 applic ACHS [facility] Administration Protocol Lactic Acid 1 applic 04/17/18 15:05 04/17/18 22:20 Lac-Hydrin 12 TP 1 applic BID PRN Administration right leg dryness Warfarin Sodium 7.5 mg 04/20/18 12:19 04/20/18 17:35 Coumadin - PO 7.5 mg DAILY@1800 [facility] Administration A/P 52 y/o patient with morbid obesity, DVT, in 01/2017. 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 ---was off coumadin for 5 days heparin drip stopped after 24 hr overlap. INR 2.44 NEeds lifelong a/c thrombophilia w/u outpatient---needs to f/u with Dr. ying cam as outpatient age appropriate cancer screening---colonoscopy 6 months ago per patient. needs prostate canceer screening. thrombocytopeina. Previously normal platelets in 11/14 ?consumption US--mild hepatosplenomegaly-- discussed with patient Pulm HTN/SLeep apnea
[2018-04-20] MEDS ORDERED: ATORVASTATIN CA 10 MG TABLET (FP) PO SCH (22:00)
[2018-04-21 06:18] LABS: BASO % 0.8 % (0-2.0); EOS % 6.5 % (0-4.5); HEMATOCRIT 33.5 % (35.4-49); HEMOGLOBIN 10.8 GM/dL (11.7-16.9); LYMPH % 13.8 % (8-40); MCHC 32.1 g/dl (32.0-35.9); MEAN CELL VOLUME 74.8 fl (80-96); MEAN PLT VOLUME 9.2 fl (7.5-11.1); MONO % 18.1 % (3.8-10.2); NEUT % 60.8 % (42.8-82.8); PLATELET COUNT 128 K/MM3 (134-434); RBC 4.48 M/mm3 (4.00-5.60); RDW 16.4 % (11.9-15.9); WHITE BLOOD COUNT 5.6 K/mm3 (4.0-10.0)
[2018-04-21] MEDS: INSULIN SLIDING SCALE (NOVOLOG) 1 VIAL SQ SCH ×2 (06:23→11:54)
[2018-04-21 06:36] LABS: INR 2.72 (0.82-1.09); PROTHROMBIN TIME (PATIENT) 30.7 SEC (9.7-13.0)
[2018-04-21 07:19] LABS: CHLORIDE 105 mmol/L (98-107); POTASSIUM 4.4 mmol/L (3.5-5.1); SODIUM 137 mmol/L (136-145)
[2018-04-21 07:36] LABS: ALBUMIN 2.6 g/dl (3.4-5.0); ALK PHOS 65 U/L (45-117); ANION GAP 9 (8-16); BILIRUBIN,TOTAL 0.4 mg/dL (0.2-1.0); BLOOD UREA NITROGEN 29 mg/dL (7-18); CALCIUM 8.2 mg/dL (8.5-10.1); CO2 23 mmol/L (21-32); CREATININE 1.8 mg/dL (0.7-1.3); GLUCOSE,RANDOM 168 mg/dL (74-106); SGOT/AST 22 U/L (15-37); SGPT/ALT 25 U/L (12-78); TOT PROT 6.1 g/dl (6.4-8.2)
--- NOTE | 2018-04-21 09:04 | PN ---
Progress Note, Physician Chief Complaint: Pt A&Ox3; siting up at bedside;several family members are visiting. He is presently asymptomatiic. He walks slowly to the solarium (about 50 feet) without incident. History of Present Illness: This is a 52 YO black man with h/o DM (does not check BG regularly), DVT/PE in 2017 (noncompliant with coumadin, cannot recall value or), supramorbid obesity, CKD, HTN, and HLD who p/w acute onset of SOB this morning upon awakening from sleep, which occurred shortly after a syncopal episode this morning (Pt had preceding lightheadedness and non-traumatic syncope). He notes feeling well yesterday other than increased leg swelling lately. EMS measured his initial RA pulse ox to be in the mid-60s and they placed him on the non-rebreather. They also measured his blood pressure to be 80/50 and his BG to be >500. The patient denies any recent fever, chills, nausea, vomiting, diarrhea, constipation, chest pain, abdominal pain, palpitations, or other symptoms. - Current Medication List Current Medications: Active Medications Atorvastatin Calcium (Lipitor -) 10 mg PO HS [facility] Last Admin: 04/20/18 22:03 Dose: 10 mg Collagenase (Santyl -) 1 applic TP DAILY [facility] Last Admin: 04/20/18 09:53 Dose: 1 applic Furosemide (Lasix -) 40 mg PO DAILY [facility] Last Admin: 04/20/18 09:53 Dose: 40 mg Insulin Aspart (Novolog Vial Sliding Scale -) 1 vial SQ ACHS [facility]; Protocol Last Admin: 04/21/18 06:23 Dose: 2 units Lactic Acid (Lac-Hydrin 12) 1 applic TP BID PRN PRN Reason: right leg dryness Last Admin: 04/17/18 22:20 Dose: 1 applic Warfarin Sodium (Coumadin -) 7.5 mg PO DAILY@1800 [facility] Last Admin: 04/20/18 17:35 Dose: 7.5 mg - Objective Vital Signs: Vital Signs Temperature 98.4 F 04/21/18 05:00 Pulse Rate 79 04/21/18 05:00 Respiratory Rate 16 04/21/18 05:00 Blood Pressure 134/81 04/21/18 05:00 O2 Sat by Pulse Oximetry (%) 95 06/24/18 23:48 Constitutional: Yes: No Distress, Obese Eyes: Yes: WNL HENT: Yes: WNL Neck: Yes: WNL Cardiovascular: Yes: Regular Rate and Rhythm Respiratory: Yes: Diminished Gastrointestinal: Yes: Soft, Abdomen, Obese ...Rectal Exam: Yes: Deferred Genitourinary: No: Anuria Breast(s): Yes: WNL Musculoskeletal: Yes: WNL Extremities: Yes: Cool Edema: Yes Edema: LLE: Trace, RLE: Trace Peripheral Pulses WNL: Yes Integumentary: Yes: WNL Neurological: Yes: WNL Psychiatric: Yes: WNL Labs: CBC, BMP 04/21/18 05:30 04/21/18 05:30 INR, PTT INR 2.72 (0.82-1.09) H 04/21/18 05:30 Problem List - Problems (1) Pulmonary embolism Assessment/Plan: INR > 2.0 for past 48 hours; discontinue IV heparin. Code(s): I26.99 - OTHER PULMONARY EMBOLISM WITHOUT ACUTE COR PULMONALE Qualifiers: Pulmonary embolism type: other Chronicity: unspecified Acute cor pulmonale presence: without acute cor pulmonale Qualified Code(s): I26.99 - Other pulmonary embolism without acute cor pulmonale (2) CKD (chronic kidney disease) Assessment/Plan: encourage PO fluids. Code(s): N18.9 - CHRONIC KIDNEY DISEASE, UNSPECIFIED Qualifiers: Chronic kidney disease stage: stage 1 Qualified Code(s): N18.1 - Chronic kidney disease, stage 1 (3) DVT (deep venous thrombosis) Code(s): I82.409 - ACUTE EMBOLISM AND THOMBOS UNSP DEEP VN UNSP LOWER EXTREMITY (4) Diabetic neuropathy associated with diabetes mellitus due to underlying condition Assessment/Plan: Consider starting ACEI when renal function has improved (HTN; DM). Code(s): E08.40 - DIABETES DUE TO UNDERLYING CONDITION W DIABETIC NEUROP, UNSP Qualifiers: Diabetes mellitus complication detail: diabetic polyneuropathy Qualified Code(s): E08.42 - Diabetes mellitus due to underlying condition with diabetic polyneuropathy (5) Diabetic ulcer of toe Code(s): E11.621 - TYPE 2 DIABETES MELLITUS WITH FOOT ULCER; L97.509 - NON- PRESSURE CHRONIC ULCER OTH PRT UNSP FOOT W UNSP SEVERITY Qualifiers: Diabetes mellitus type: type 2 Laterality: right Non-pressure ulcer stage : with necrosis of bone Qualified Code(s): E11.621 - Type 2 diabetes mellitus with foot ulcer; L97.514 - Non-pressure chronic ulcer of other part of right foot with necrosis of bone (6) [place] cardiac risk >20% in next 10 years Assessment/Plan: Pt had stress MIBI in office within the past 2 years-->coreonary angiogram ( reporedly nonobstructive CAD). F/u results. The importance of diet change, wt loss, exercise, glucose control, BP control, and aggressive managament of lipids was discussed in detail. Code(s): Z91.89 - OTH PERSONAL RISK FACTORS, NOT ELSEWHERE CLASSIFIED (7) Hyperlipidemia Code(s): E78.5 - HYPERLIPIDEMIA, UNSPECIFIED (8) Hypertension Assessment/Plan: relatively well-controlled on present regime. Add ACEI or ARB when renal function improves. 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 The critical importance of heart-healthy, diabetic diet, with portion control and exercise as aids to lasting weight loss, was discussed. Pt has recentlly been on a "diet that speeds up the metabolism", and has lost over 20 lbs. Planning for a diet that he can stick to over the long run was emphasized. He has had trouble walking or doing other exercise since toe amputation 10/2017. Code(s): E66.01 - MORBID (SEVERE) OBESITY DUE TO EXCESS CALORIES (10) Right leg swelling Code(s): M79.89 - OTHER SPECIFIED SOFT TISSUE DISORDERS (11) PAD (peripheral artery disease) Code(s): I73.9 - PERIPHERAL VASCULAR DISEASE, UNSPECIFIED (12) Sleep apnea Assessment/Plan: f/u with specialist. Code(s): G47.30 - SLEEP APNEA, UNSPECIFIED
--- NOTE | 2018-04-21 09:08 | PN ---
Progress Note, Physician History of Present Illness: This is a 51 year old male with a past medical history of HTN, HLD, DM, CKD most recent cr 2.2 Dr. 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 Pt reports he was at home, awoke felt fine, went downstairs and had a a pre syncopal episode, reporting "I felt I was in a dream, consciously unconscious and started to recite numbers" when he wasn't improving called for help and EMS was called. Per ED record pt was hypotensive 80/50 and hypoxic @60%, received 1L and with bp improvement to 100/50, spo2 ~70% In ED he was placed on bipap and prelim reading of CTA shows bilateral large PE R>L vs saddle PE and placed on heparin gtt Currently, pt stats are stable on bipap he is able to speak to me in full sentences. Denies palpitations, sob, chest pain, James, dizziness, fever, chills. and son at bedside. History Source: Patient self d/c AC INR nl on presentation H Diabetes Mellitus Type 2 - 1996 Hypertension Chronic kidney disease Hyperlipidemia Pulmonary embolism - January 2017 at [facility] - Current Medication List Current Medications: Active Medications Atorvastatin Calcium (Lipitor -) 10 mg PO HS [facility] Last Admin: 04/20/18 22:03 Dose: 10 mg Collagenase (Santyl -) 1 applic TP DAILY [facility] Last Admin: 04/20/18 09:53 Dose: 1 applic Furosemide (Lasix -) 40 mg PO DAILY [facility] Last Admin: 04/20/18 09:53 Dose: 40 mg Insulin Aspart (Novolog Vial Sliding Scale -) 1 vial SQ [facility]; Protocol Last Admin: 04/21/18 06:23 Dose: 2 units Lactic Acid (Lac-Hydrin 12) 1 applic TP BID PRN PRN Reason: right leg dryness Last Admin: 04/17/18 22:20 Dose: 1 applic Warfarin Sodium (Coumadin -) 7.5 mg PO DAILY@1800 [facility] Last Admin: 04/20/18 17:35 Dose: 7.5 mg - Objective Vital Signs: Vital Signs Temperature 98.4 F 04/21/18 05:00 Pulse Rate 79 04/21/18 05:00 Respiratory Rate 16 04/21/18 05:00 Blood Pressure 134/81 04/21/18 05:00 O2 Sat by Pulse Oximetry (%) 95 04/20/18 23:48 Eyes: Yes: WNL, Conjunctiva Clear, EOM Intact HENT: Yes: WNL, Atraumatic, Normocephalic Neck: Yes: WNL, Supple, Trachea Midline Cardiovascular: Yes: WNL, Regular Rate and Rhythm Respiratory: Yes: WNL, Regular, CTA Bilaterally Gastrointestinal: Yes: WNL, Normal Bowel Sounds Genitourinary: Yes: WNL Musculoskeletal: Yes: WNL Extremities: Yes: WNL Edema: No Integumentary: Yes: WNL Neurological: Yes: WNL, Alert, Oriented ...Motor Strength: WNL Psychiatric: Yes: WNL Labs: CBC, BMP 04/21/18 05:30 04/21/18 05:30 INR, PTT INR 2.72 (0.82-1.09) H 04/21/18 05:30 Problem List - Problems (1) Acute kidney injury Code(s): N17.9 - ACUTE KIDNEY FAILURE, UNSPECIFIED (2) Hyperglycemia Code(s): R73.9 - HYPERGLYCEMIA, UNSPECIFIED (3) Pulmonary embolism Code(s): I26.99 - OTHER PULMONARY EMBOLISM WITHOUT ACUTE COR PULMONALE Qualifiers: Qualified Code(s): I26.99 - Other pulmonary embolism without acute cor pulmonale (4) CKD (chronic kidney disease) Code(s): N18.9 - CHRONIC KIDNEY DISEASE, UNSPECIFIED Qualifiers: Qualified Code(s): N18.1 - Chronic kidney disease, stage 1 (5) DVT (deep venous thrombosis) Code(s): I82.409 - ACUTE EMBOLISM AND THOMBOS UNSP DEEP VN UNSP LOWER EXTREMITY (6) Diabetes 1.5, managed as type 2 Code(s): E13.9 - OTHER SPECIFIED DIABETES MELLITUS WITHOUT COMPLICATIONS (7) Diabetic neuropathy associated with diabetes mellitus due to underlying condition Code(s): E08.40 - DIABETES DUE TO UNDERLYING CONDITION W DIABETIC NEUROP, UNSP Qualifiers: Qualified Code(s): E08.42 - Diabetes mellitus due to underlying condition with diabetic polyneuropathy (8) Diabetic ulcer of toe Code(s): E11.621 - TYPE 2 DIABETES MELLITUS WITH FOOT ULCER; L97.509 - NON- PRESSURE CHRONIC ULCER OTH PRT UNSP FOOT W UNSP SEVERITY Qualifiers: Qualified Code(s): E11.621 - Type 2 diabetes mellitus with foot ulcer; L97.514 - Non-pressure chronic ulcer of other part of right foot with necrosis of bone (9) Dyspnea Code(s): R06.00 - DYSPNEA, UNSPECIFIED Qualifiers: Qualified Code(s): R06.09 - Other forms of dyspnea (10) [place] cardiac risk >20% in next 10 years Code(s): Z91.89 - OTH PERSONAL RISK FACTORS, NOT ELSEWHERE CLASSIFIED (11) Hyperlipidemia Code(s): E78.5 - HYPERLIPIDEMIA, UNSPECIFIED (12) Hypertension Code(s): I10 - ESSENTIAL (PRIMARY) HYPERTENSION (13) Lower back pain Code(s): M54.5 - LOW BACK PAIN (14) Morbid obesity due to excess calories Code(s): E66.01 - MORBID (SEVERE) OBESITY DUE TO EXCESS CALORIES (15) Nausea vomiting and diarrhea Code(s): R11.2 - NAUSEA WITH VOMITING, UNSPECIFIED; R19.7 - DIARRHEA, UNSPECIFIED (16) Right leg swelling Code(s): M79.89 - OTHER SPECIFIED SOFT TISSUE DISORDERS Assessment/Plan - Problems (1) Pulmonary embolism Code(s): I26.99 - OTHER PULMONARY EMBOLISM WITHOUT ACUTE COR PULMONALE Qualifiers: Pulmonary embolism type: other Chronicity: unspecified Acute cor pulmonale presence: without acute cor pulmonale Qualified Code(s): I26.99 - Other pulmonary embolism without acute cor pulmonale (2) CKD (chronic kidney disease) Code(s): N18.9 - CHRONIC KIDNEY DISEASE, UNSPECIFIED Qualifiers: Chronic kidney disease stage: stage 1 Qualified Code(s): N18.1 - Chronic kidney disease, stage 1 (3) DVT (deep venous thrombosis) Code(s): I82.409 - ACUTE EMBOLISM AND THOMBOS UNSP DEEP VN UNSP LOWER EXTREMITY (4) Diabetic neuropathy associated with diabetes mellitus due to underlying condition Code(s): E08.40 - DIABETES DUE TO UNDERLYING CONDITION W DIABETIC NEUROP, UNSP Qualifiers: Diabetes mellitus complication detail: diabetic polyneuropathy Qualified Code(s): E08.42 - Diabetes mellitus due to underlying condition with diabetic polyneuropathy (5) Diabetic ulcer of toe Code(s): E11.621 - TYPE 2 DIABETES MELLITUS WITH FOOT ULCER; L97.509 - NON- PRESSURE CHRONIC ULCER OT PRT UNSP FOOT W UNSP SEVERITY Qualifiers: Diabetes mellitus type: type 2 Laterality: right Non-pressure ulcer stage : with necrosis of bone Qualified Code(s): E11.621 - Type 2 diabetes mellitus with foot ulcer; L97.514 - Non-pressure chronic ulcer of other part of right foot with necrosis of bone (6) [place] cardiac risk >20% in next 10 years Code(s): Z91.89 - OT PERSONAL RISK FACTORS, NOT ELSEWHERE CLASSIFIED (7) Hyperlipidemia Code(s): E78.5 - HYPERLIPIDEMIA, UNSPECIFIED (8) Hypertension Code(s): I10 - ESSENTIAL (PRIMARY) HYPERTENSION (9) Morbid obesity due to excess calories Code(s): E66.01 - MORBID (SEVERE) OBESITY DUE TO EXCESS CALORIES (10) Right leg swelling Code(s): M79.89 - OTHER SPECIFIED SOFT TISSUE DISORDERS (11) PAD (peripheral artery disease) Code(s): I73.9 - PERIPHERAL VASCULAR DISEASE, UNSPECIFIED (12) Sleep apnea Code(s): G47.30 - SLEEP APNEA, UNSPECIFIED
[2018-04-21] MEDS: FUROSEMIDE 40 MG TABLET (FP) PO SCH (09:31)
[2018-04-21] MEDS: COLLAGENASE CLOSTRIDIUM HIST. 30 GRAMS TUBE TP SCH (09:33)
--- NOTE | 2018-04-21 12:19 | PN ---
Progress Note (short form) - Note Progress Note: Denies shortness of breath or chest pain. INR 2.72. Intake & Output 04/18/18 04/19/18 04/20/18 04/21/18 23:59 23:59 23:59 23:59 Intake Total 1122 1410 2394 100 Output Total 700 Balance 1122 1410 1694 100 Weight 354 lb 353 lb 3.2 oz Last Vital Signs Temp Pulse Resp BP Pulse Ox 98 F 80 18 130/70 95 04/21/18 09:00 04/21/18 09:00 04/21/18 09:00 04/21/18 09:00 04/20/18 23:48 Active Medications Atorvastatin Calcium (Lipitor -) 10 mg PO HS [facility] Last Admin: 04/20/18 22:03 Dose: 10 mg Collagenase (Santyl -) 1 applic TP DAILY [facility] Last Admin: 04/21/18 09:33 Dose: 1 applic Furosemide (Lasix -) 40 mg PO DAILY [facility] Last Admin: 04/21/18 09:31 Dose: 40 mg Insulin Aspart (Novolog Vial Sliding Scale -) 1 vial SQ ACHS [facility]; Protocol Last Admin: 04/21/18 11:54 Dose: 4 units Lactic Acid (Lac-Hydrin 12) 1 applic TP BID PRN PRN Reason: right leg dryness Last Admin: 04/17/18 22:20 Dose: 1 applic Warfarin Sodium (Coumadin -) 7.5 mg PO DAILY@1800 [facility] Last Admin: 04/20/18 17:35 Dose: 7.5 mg Gen: NAD at rest Heart: RRR Lung: decreased breath sounds at the bases Abd: soft, nontender Ext: no edema Laboratory Results - last 24 hr 04/19/18 04/19/18 04/20/18 17:29 17:30 12:18 WBC RBC Hgb Hct MCV MCH MCHC RDW Plt Count MPV Absolute Neuts (auto) Neutrophils % Lymphocytes % Monocytes % Eosinophils % Basophils % Nucleated RBC % PT with INR INR PTT (Actin FS) Sodium Potassium Chloride Carbon Dioxide Anion Gap BUN Creatinine Creat Clearance w eGFR POC Glucometer 270 196 243 Random Glucose Calcium Total Bilirubin AST ALT Alkaline Phosphatase Total Protein Albumin 04/20/18 04/20/18 04/20/18 15:15 17:30 22:01 WBC RBC Hgb Hct MCV MCH MCHC RDW Plt Count MPV Absolute Neuts (auto) Neutrophils % Lymphocytes % Monocytes % Eosinophils % Basophils % Nucleated RBC % PT with INR INR PTT (Actin FS) 37.5 D Sodium Potassium Chloride Carbon Dioxide Anion Gap BUN Creatinine Creat Clearance w eGFR POC Glucometer 303 190 Random Glucose Calcium Total Bilirubin AST ALT Alkaline Phosphatase Total Protein Albumin 04/21/18 04/21/18 04/21/18 04:59 05:30 05:30 WBC 5.6 RBC 4.48 Hgb 10.8 L Hct 33.5 L MCV 74.8 L MCH 24.0 L MCHC 32.1 RDW 16.4 H Plt Count 128 L MPV 9.2 Absolute Neuts (auto) 3.4 Neutrophils % 60.8 Lymphocytes % 13.8 Monocytes % 18.1 H Eosinophils % 6.5 H Basophils % 0.8 Nucleated RBC % 0 PT with INR INR PTT (Actin FS) Sodium 137 Potassium 4.4 Chloride 105 Carbon Dioxide 23 Anion Gap 9 BUN 29 H Creatinine 1.8 H Creat Clearance w eGFR 39.67 POC Glucometer 159 Random Glucose 168 H D Calcium 8.2 L Total Bilirubin 0.4 AST 22 D ALT 25 Alkaline Phosphatase 65 Total Protein 6.1 L Albumin 2.6 L 04/21/18 04/21/18 05:30 11:53 WBC RBC Hgb Hct MCV MCH MCHC RDW Plt Count MPV Absolute Neuts (auto) Neutrophils % Lymphocytes % Monocytes % Eosinophils % Basophils % Nucleated RBC % PT with INR 30.70 H INR 2.72 H PTT (Actin FS) Sodium Potassium Chloride Carbon Dioxide Anion Gap BUN Creatinine Creat Clearance w eGFR POC Glucometer 213 Random Glucose Calcium Total Bilirubin AST ALT Alkaline Phosphatase Total Protein Albumin A/P Acute Pulmonary Emboli DVT +Troponins Lactic Acidosis r/o Right Heart Strain Acute on Chronic Renal Failure Thrombocytopenia Morbid Obesity HTN Hyperlipidemia DM Likely JANY - Coumadin - O2 to keep SpO2 >90% - monitor urine output, creatinine - glucose control - will need life long anticoagulation as this is his 2nd VTE - will need outpt PSG Dr Brandt
[2018-04-21 14:11] VITALS: BP 135/66; PULSE 86; TEMP 98.3
[2018-04-21 14:11] LABS: HBSAG SCREEN Negative (Negative); HEP B CORE AB, TOT Negative (Negative)
--- NOTE | 2018-04-21 14:22 | DS ---
Physical Examination Vital Signs: Vital Signs Temperature 98.3 F 04/21/18 14:10 Pulse Rate 86 04/21/18 14:10 Respiratory Rate 18 04/21/18 14:10 Blood Pressure 135/66 04/21/18 14:10 O2 Sat by Pulse Oximetry (%) 95 04/21/18 09:00 Labs: CBC, BMP 04/21/18 05:30 04/21/18 05:30 Discharge Summary Reason For Visit: ACUTE KIDNEY INJURY, HYPERGLYCEMIA, Current Active Problems Acute kidney injury (Acute) Hyperglycemia (Acute) PAD (peripheral artery disease) (Acute) Pulmonary embolism (Acute) Sleep apnea (Acute) Condition: Guarded - Instructions Referrals: Daniel Shell MD [Primary Care Provider] - - Home Medications Comprehensive Discharge Medication List: Ambulatory Orders Sitagliptin Phosphate [Januvia] 25 mg PO DAILY 03/29/14 Enalapril Maleate [Vasotec -] 10 mg PO DAILY 01/23/16 Glipizide [Glipizide ER] 5 mg PO DAILY 01/23/16 Atorvastatin Ca [Lipitor] 10 mg PO HS 01/29/17 Metoprolol Succinate [Toprol XL -] 25 mg PO DAILY #30 tab.sr.24h 01/31/17 Warfarin Na [Coumadin -] 7.5 tab PO DAILY@1800 11/05/17 Furosemide [Lasix] 20 mg PO DAILY PRN 04/12/18 - Discharge Referral Referred to [facility] Med [facility] No
--- NOTE | 2018-04-21 15:10 | PN ---
Progress Note, Physician History of Present Illness: Pt seen and examined at bedside. He is awake and alert. He is going home today. - Current Medication List Current Medications: Active Medications Atorvastatin Calcium (Lipitor -) 10 mg PO HS [facility] Last Admin: 04/20/18 22:03 Dose: 10 mg Collagenase (Santyl -) 1 applic TP DAILY [facility] Last Admin: 04/21/18 09:33 Dose: 1 applic Furosemide (Lasix -) 40 mg PO DAILY [facility] Last Admin: 04/21/18 09:31 Dose: 40 mg Insulin Aspart (Novolog Vial Sliding Scale -) 1 vial SQ ACHS [facility]; Protocol Last Admin: 04/21/18 11:54 Dose: 4 units Lactic Acid (Lac-Hydrin 12) 1 applic TP BID PRN PRN Reason: right leg dryness Last Admin: 04/17/18 22:20 Dose: 1 applic Warfarin Sodium (Coumadin -) 7.5 mg PO DAILY@1800 [facility] Last Admin: 04/20/18 17:35 Dose: 7.5 mg - Objective Vital Signs: Vital Signs Temperature 98.3 F 04/21/18 14:10 Pulse Rate 86 04/21/18 14:10 Respiratory Rate 18 04/21/18 14:10 Blood Pressure 135/66 04/21/18 14:10 O2 Sat by Pulse Oximetry (%) 95 04/21/18 09:00 Constitutional: Yes: Calm Eyes: Yes: Conjunctiva Clear HENT: Yes: Atraumatic Neck: Yes: Supple Cardiovascular: Yes: S1, S2 Respiratory: Yes: CTA Bilaterally Gastrointestinal: Yes: Soft, Abdomen, Obese Musculoskeletal: Yes: WNL Edema: Yes Edema: LLE: 1+, RLE: 1+ Neurological: Yes: Oriented Psychiatric: Yes: Oriented Labs: CBC, BMP 04/21/18 05:30 04/21/18 05:30 INR, PTT INR 2.72 (0.82-1.09) H 04/21/18 05:30 Problem List - Problems (1) Pulmonary embolism Code(s): I26.99 - OTHER PULMONARY EMBOLISM WITHOUT ACUTE COR PULMONALE Qualifiers: Pulmonary embolism type: other Chronicity: unspecified Acute cor pulmonale presence: without acute cor pulmonale Qualified Code(s): I26.99 - Other pulmonary embolism without acute cor pulmonale (2) CKD (chronic kidney disease) Code(s): N18.9 - CHRONIC KIDNEY DISEASE, UNSPECIFIED Qualifiers: Chronic kidney disease stage: stage 1 Qualified Code(s): N18.1 - Chronic kidney disease, stage 1 (3) DVT (deep venous thrombosis) Code(s): I82.409 - ACUTE EMBOLISM AND THOMBOS UNSP DEEP VN UNSP LOWER EXTREMITY Assessment/Plan Current Medications Generic Name Dose Route Start Last Admin Trade Name Freq PRN Reason Stop Dose Admin Atorvastatin Calcium 10 mg 04/20/18 22:00 04/20/18 22:03 Lipitor - PO 10 mg HS [facility]A Administration Collagenase 1 applic 04/20/18 10:00 04/21/18 09:33 Santyl - TP 1 applic DAILY [facility] Administration Furosemide 40 mg 04/17/18 11:47 04/21/18 09:31 Lasix - PO 40 mg DAILY [facility] Administration Insulin Aspart 1 vial 04/20/18 11:00 04/21/18 11:54 Novolog Vial Sliding Scale - SQ 4 units ACHS [facility]A Administration Protocol Lactic Acid 1 applic 04/17/18 15:05 04/17/18 22:20 Lac-Hydrin 12 TP 1 applic BID PRN Administration right leg dryness Warfarin Sodium 7.5 mg 04/20/18 12:19 04/20/18 17:35 Coumadin - PO 7.5 mg DAILY@1800 [facility] Administration Impression 1. CKD 2. DVT 3. Pulmonary Embolism 4. HTN 5. DM 6. hyperlipidemia 7. obesity 8. non compliance with medications 9. splenomegaly Plan - cont lasix at 40 - pt to follow with Dr Hair next week - discussed with medical team - monitor pulse ox - will follow Dr Garcia
== END 2018-04-21 16:00 | disposition home or self-care (01) | DRG 175 ==
LOC: JER 08:32 → JICU 16:13 → J4W 04-17 17:03
PROVIDERS: ADMIT Internal Medicine; ATTEND Registered Nurse
PROC: 5A09457 Assistance with Respiratory Ventilation, 24-96 Consecutive Hours, Continuous Positive Airway Pressure (ICD-10-PCS; principal; 2018-04-12)
DX: I26.99 Other pulmonary embolism without acute cor pulmonale (principal); J96.01 Acute respiratory failure with hypoxia; I82.432 Acute embolism and thrombosis of left popliteal vein; N17.9 Acute kidney failure, unspecified; E87.2 Acidosis; L97.518 Non-pressure chronic ulcer of other part of right foot with other specified severity; Z68.42 Body mass index [BMI] 45.0-49.9, adult; E11.621 Type 2 diabetes mellitus with foot ulcer; E78.5 Hyperlipidemia, unspecified; E66.01 Morbid (severe) obesity due to excess calories; D69.6 Thrombocytopenia, unspecified; G47.33 Obstructive sleep apnea (adult) (pediatric); R16.1 Splenomegaly, not elsewhere classified; E86.1 Hypovolemia; E11.51 Type 2 diabetes mellitus with diabetic peripheral angiopathy without gangrene; I12.9 Hypertensive chronic kidney disease with stage 1 through stage 4 chronic kidney disease, or unspecified chronic kidney disease; E11.22 Type 2 diabetes mellitus with diabetic chronic kidney disease; E11.42 Type 2 diabetes mellitus with diabetic polyneuropathy; E11.65 Type 2 diabetes mellitus with hyperglycemia; N18.1 Chronic kidney disease, stage 1; Z91.19 Patient's noncompliance with other medical treatment and regimen; Z86.718 Personal history of other venous thrombosis and embolism; Z79.01 Long term (current) use of anticoagulants; Z86.711 Personal history of pulmonary embolism; Z89.421 Acquired absence of other right toe(s)
CPT/HCPCS: 36415; 36600; 71045-TC-FY; 71275-TC; 76700-TC; 80048; 80053; 80307; 81003; 81015; 82009; 82172; 82375; 82550; 82553; 82570; 82607; 82784; 82803; 82962; 82977; 83010; 83050; 83605; 83735; 83880; 83883; 83935; 84100; 84155; 84165; 84300; 84443; 84460; 84484; 85025; 85027; 85610; 85730; 86022; 86038; 86334; 86704; 86706; 86708; 86850; 86900; 86901; 87040; 87086; 87186; 87340; 93005; 93010; 93306-TC; 93970-TC; 94010; 94660; 94761; 99285-25; J1644

== ENCOUNTER 2022-09-13 18:36 | Inpatient (IN) | payer OTHER ==
[2022-09-13 21:25] LABS: BASO % 1.1 % (0-2.0); EOS % 6.2 % (0-4.5); HEMATOCRIT 29.8 % (35.4-49); HEMOGLOBIN 9.5 GM/dL (11.7-16.9); LYMPH % 12.7 % (8-40); MCH 25.9 pg (25.7-33.7); MEAN CELL VOLUME 80.9 fl (80-96); MEAN PLT VOLUME 7.4 fl (7.5-11.1); MONO % 8.9 % (3.8-10.2); NEUT % 71.1 % (42.8-82.8); PLATELET COUNT 218 10^3/uL (134-434); RBC 3.69 M/mm3 (4.00-5.60)
[2022-09-13 21:44] LABS: CHLORIDE 114 mmol/L (98-107); SODIUM 144 mmol/L (136-145)
[2022-09-13 21:46] LABS: CALCIUM 8.1 mg/dL (8.5-10.1)
[2022-09-13 21:47] LABS: ALBUMIN 2.8 g/dl (3.4-5.0); ANION GAP 7 MMOL/L (8-16); BLOOD UREA NITROGEN 71.6 mg/dL (7-18); CO2 24 mmol/L (21-32); GLUCOSE,RANDOM 143 mg/dL (74-106)
[2022-09-13 21:50] LABS: SGOT/AST 30 U/L (15-37); SGPT/ALT 26 U/L (13-61)
[2022-09-13 21:52] LABS: BILIRUBIN,TOTAL 0.2 mg/dL (0.2-1); TOT PROT 6.4 g/dl (6.4-8.2)
[2022-09-13 21:53] LABS: ALK PHOS 84 U/L (45-117)
[2022-09-13 22:05] LABS: INR 3.66 (0.83-1.09); PROTHROMBIN TIME (PATIENT) 42.7 SEC (9.7-13.0)
[2022-09-13 22:08] LABS: ACTIVATED PTT 44.3 SECONDS (25.2-36.5)
[2022-09-14 00:26] LABS: CHLORIDE 113 mmol/L (98-107); SODIUM 144 mmol/L (136-145)
[2022-09-14 00:27] LABS: CALCIUM 8.3 mg/dL (8.5-10.1)
[2022-09-14 00:28] LABS: ANION GAP 8 MMOL/L (8-16); BLOOD UREA NITROGEN 69.2 mg/dL (7-18); CO2 23 mmol/L (21-32); GLUCOSE,RANDOM 147 mg/dL (74-106)
[2022-09-14 00:33] LABS: CREATININE 7.9 mg/dL (0.55-1.3)
[2022-09-14] MEDS ORDERED: ACETAMINOPHEN 325 MG TABLET (FP) PO PRN ×2 (02:38→18:11)
[2022-09-14] MEDS ORDERED: DOCUSATE SODIUM 100 MG CAPSULE (FP) PO PRN ×2 (02:38→18:11)
[2022-09-14 03:51] LABS: MAGNESIUM 2.1 mg/dL (1.8-2.4)
[2022-09-14 03:55] LABS: PHOSPHOROUS 3.8 mg/dL (2.5-4.9)
[2022-09-14] MEDS: INSULIN SLIDING SCALE (NOVOLOG) 1 VIAL SQ SCH ×4 (06:28→22:27)
[2022-09-14] MEDS ORDERED: amLODIPine BESYLATE 10 MG TABLET (FP) PO SCH (10:00)
[2022-09-14] MEDS ORDERED: SODIUM BICARBONATE 650 MG TABLET PO SCH (10:00)
[2022-09-14] MEDS ORDERED: FUROSEMIDE 40 MG TABLET (FP) PO ONE (10:30)
[2022-09-14] MEDS ORDERED: SODIUM CHLORIDE 250 ML IV PRN ×2 (12:03→18:11)
[2022-09-14] MEDS ORDERED: HEPARIN NA (PORCINE) 5,000 UNITS/ML 1ML VIAL ONE (16:31)
[2022-09-14 16:48] VITALS: BMI 45.3
[2022-09-14] MEDS ORDERED: FENTANYL CITRATE/PF 50 MCG/ML VIAL ONE (17:07)
[2022-09-14] MEDS ORDERED: KETAMINE HCL 500 MG/10 ML VIAL ONE (17:07)
[2022-09-14] MEDS ORDERED: MIDAZOLAM HCL 2 MG/2 ML SINGLE DOSE VIAL ONE (17:07)
[2022-09-14] MEDS ORDERED: ceFAZolin SODIUM 1 GM VIAL IVPB ONE (17:40)
[2022-09-14] MEDS ORDERED: LIDOCAINE HCL 1%, 10 MG/ML (20ML VIAL) INF ONE (17:59)
[2022-09-14] MEDS ORDERED: oxyCODONE HCL 5 MG TABLET ONE (18:48)
[2022-09-14] MEDS: oxyCODONE HCL 5 MG TABLET PO PRN ×2 (18:54→22:58)
[2022-09-14] MEDS ORDERED: ONDANSETRON 4 MG/2 ML VIAL IVPUSH PRN (19:07)
[2022-09-14] MEDS ORDERED: FENTANYL CITRATE/PF 50 MCG/ML VIAL IVPUSH PRN (19:07)
[2022-09-14] MEDS ORDERED: ATORVASTATIN CA 10 MG TABLET (FP) PO SCH (22:00)
[2022-09-14] MEDS ORDERED: hydrALAZINE HCL 25 MG TABLET (FP) PO SCH (22:00)
[2022-09-14] MEDS: ATORVASTATIN CA 10 MG TABLET (FP) PO SCH (22:23)
[2022-09-14] MEDS: hydrALAZINE HCL 25 MG TABLET (FP) PO SCH (22:23)
[2022-09-14] MEDS: SODIUM BICARBONATE 650 MG TABLET PO SCH (22:23)
[2022-09-15] MEDS: oxyCODONE HCL 5 MG TABLET PO PRN ×4 (04:40→23:31)
[2022-09-15] MEDS: INSULIN SLIDING SCALE (NOVOLOG) 1 VIAL SQ SCH ×4 (06:09→22:05)
[2022-09-15] MEDS ORDERED: FUROSEMIDE 40 MG TABLET (FP) PO SCH (10:00)
[2022-09-15 10:12] LABS: BASO % 0.9 % (0-2.0); EOS % 4.4 % (0-4.5); HEMOGLOBIN 10.7 GM/dL (11.7-16.9); LYMPH % 11.3 % (8-40); MCH 25.9 pg (25.7-33.7); MCHC 32.3 g/dl (32.0-35.9); MEAN CELL VOLUME 80.2 fl (80-96); MEAN PLT VOLUME 7.3 fl (7.5-11.1); MONO % 7.2 % (3.8-10.2); NEUT % 76.2 % (42.8-82.8); PLATELET COUNT 215 10^3/uL (134-434); RBC 4.11 M/mm3 (4.00-5.60); RDW 14.9 % (11.9-15.9)
[2022-09-15 10:15] LABS: INR 2.56 (0.83-1.09); PROTHROMBIN TIME (PATIENT) 29.7 SEC (9.7-13.0)
[2022-09-15 10:37] LABS: ALBUMIN 2.8 g/dl (3.4-5.0); BLOOD UREA NITROGEN 55.6 mg/dL (7-18); CALCIUM 8.2 mg/dL (8.5-10.1)
[2022-09-15] MEDS: hydrALAZINE HCL 25 MG TABLET (FP) PO SCH ×3 (10:41→22:04)
[2022-09-15] MEDS: SODIUM BICARBONATE 650 MG TABLET PO SCH ×2 (10:41→22:03)
[2022-09-15] MEDS: FUROSEMIDE 40 MG TABLET (FP) PO SCH (10:41)
[2022-09-15 10:42] LABS: CREATININE 7.2 mg/dL (0.55-1.3); TOT PROT 6.4 g/dl (6.4-8.2)
[2022-09-15] MEDS: amLODIPine BESYLATE 10 MG TABLET (FP) PO SCH (10:42)
[2022-09-15 10:43] LABS: BILIRUBIN,TOTAL 0.2 mg/dL (0.2-1)
[2022-09-15] MEDS ORDERED: INSULIN (NOVOLOG) ASPART 100 UNITS/ML 10ML VIAL ONE (11:47)
[2022-09-15] MEDS ORDERED: WARFARIN NA 7.5 MG TABLET PO SCH (18:00)
[2022-09-15] MEDS: ATORVASTATIN CA 10 MG TABLET (FP) PO SCH (22:03)
[2022-09-16] MEDS: sitaGLIPtin PHOSPHATE 50 MG TABLET PO SCH (06:33)
[2022-09-16] MEDS: hydrALAZINE HCL 25 MG TABLET (FP) PO SCH (06:33)
[2022-09-16] MEDS: INSULIN SLIDING SCALE (NOVOLOG) 1 VIAL SQ SCH ×4 (06:33→22:24)
[2022-09-16 09:50] LABS: INR 2.1 (0.83-1.09); PROTHROMBIN TIME (PATIENT) 24.3 SEC (9.7-13.0)
[2022-09-16] MEDS: FUROSEMIDE 40 MG TABLET (FP) PO SCH (10:52)
[2022-09-16] MEDS: SODIUM BICARBONATE 650 MG TABLET PO SCH ×2 (10:52→22:21)
[2022-09-16] MEDS: amLODIPine BESYLATE 10 MG TABLET (FP) PO SCH (10:52)
[2022-09-16] MEDS: oxyCODONE HCL 5 MG TABLET PO PRN ×2 (10:52→20:28)
[2022-09-16] MEDS: SODIUM ZIRCONIUM CYCLOSILICATE (LOKELMA) 5 GM PACKET PO SCH (10:52)
[2022-09-16] MEDS: hydrALAZINE HCL 50 MG TABLET (FP) PO SCH (22:21)
[2022-09-16] MEDS: ATORVASTATIN CA 10 MG TABLET (FP) PO SCH (22:21)
[2022-09-17] MEDS: sitaGLIPtin PHOSPHATE 50 MG TABLET PO SCH (06:59)
[2022-09-17] MEDS: INSULIN SLIDING SCALE (NOVOLOG) 1 VIAL SQ SCH ×4 (07:01→21:16)
[2022-09-17] MEDS: SODIUM BICARBONATE 650 MG TABLET PO SCH (09:39)
[2022-09-17] MEDS: amLODIPine BESYLATE 10 MG TABLET (FP) PO SCH (09:39)
[2022-09-17] MEDS: hydrALAZINE HCL 50 MG TABLET (FP) PO SCH ×2 (09:39→21:13)
[2022-09-17] MEDS: SODIUM ZIRCONIUM CYCLOSILICATE (LOKELMA) 5 GM PACKET PO SCH (09:39)
[2022-09-17] MEDS: oxyCODONE HCL 5 MG TABLET PO PRN (10:53)
[2022-09-17 11:55] LABS: INR 2.02 (0.83-1.09); PROTHROMBIN TIME (PATIENT) 23.4 SEC (9.7-13.0)
[2022-09-17] MEDS ORDERED: SODIUM CHLORIDE 250 ML IV PRN (13:07)
[2022-09-17 15:19] LABS: HEMATOCRIT 29.5 % (35.4-49); HEMOGLOBIN 9.5 GM/dL (11.7-16.9); MCH 25.7 pg (25.7-33.7); MCHC 32.1 g/dl (32.0-35.9); MEAN CELL VOLUME 79.9 fl (80-96); PLATELET COUNT 172 10^3/uL (134-434); RBC 3.69 M/mm3 (4.00-5.60); RDW 15.6 % (11.9-15.9); WHITE BLOOD COUNT 8.2 K/mm3 (4.0-10.0)
[2022-09-17 15:42] LABS: CHLORIDE 106 mmol/L (98-107); SODIUM 139 mmol/L (136-145)
[2022-09-17 15:43] LABS: CALCIUM 7.6 mg/dL (8.5-10.1)
[2022-09-17 15:44] LABS: ANION GAP 10 MMOL/L (8-16); BLOOD UREA NITROGEN 65.3 mg/dL (7-18); CO2 24 mmol/L (21-32); GLUCOSE,RANDOM 145 mg/dL (74-106)
[2022-09-17 15:47] LABS: PHOSPHOROUS 4.8 mg/dL (2.5-4.9)
[2022-09-17 15:49] LABS: CREATININE 8.9 mg/dL (0.55-1.3)
[2022-09-17] MEDS ORDERED: ENOXAPARIN NA (PORCINE) 80 MG/0.8 ML DISP.SYRIN SQ ONE (18:00)
[2022-09-17] MEDS: ATORVASTATIN CA 10 MG TABLET (FP) PO SCH (21:14)
[2022-09-18] MEDS: INSULIN SLIDING SCALE (NOVOLOG) 1 VIAL SQ SCH ×4 (06:10→21:58)
[2022-09-18] MEDS: sitaGLIPtin PHOSPHATE 50 MG TABLET PO SCH (06:10)
[2022-09-18] MEDS: hydrALAZINE HCL 50 MG TABLET (FP) PO SCH (09:34)
[2022-09-18] MEDS: amLODIPine BESYLATE 10 MG TABLET (FP) PO SCH (09:35)
[2022-09-18] MEDS ORDERED: hydrALAZINE HCL 50 MG TABLET (FP) PO SCH (16:39)
[2022-09-18] MEDS: ATORVASTATIN CA 10 MG TABLET (FP) PO SCH (21:50)
[2022-09-19] MEDS: sitaGLIPtin PHOSPHATE 50 MG TABLET PO SCH (06:46)
[2022-09-19] MEDS: INSULIN SLIDING SCALE (NOVOLOG) 1 VIAL SQ SCH ×4 (06:48→22:57)
[2022-09-19] MEDS ORDERED: LIDOCAINE HCL 1%, 10 MG/ML (20ML VIAL) ONE (07:15)
[2022-09-19] MEDS ORDERED: POVIDONE-IODINE OINTMENT 10% - 28.4 GM TUBE ONE (07:15)
[2022-09-19] MEDS ORDERED: PAPAVERINE HCL 30 MG/1 ML 10 ML VIAL NR ONE (07:15)
[2022-09-19] MEDS ORDERED: HEPARIN NA (PORCINE) 5,000 UNITS/ML 1ML VIAL ONE (07:16)
[2022-09-19] MEDS ORDERED: MIDAZOLAM HCL 2 MG/2 ML SINGLE DOSE VIAL ONE (07:17)
[2022-09-19] MEDS ORDERED: FENTANYL CITRATE/PF 50 MCG/ML VIAL ONE (07:17)
[2022-09-19] MEDS ORDERED: PROPOFOL 60 ML ONE (07:17)
[2022-09-19] MEDS ORDERED: SUCCINYLCHOLINE CHLORIDE 200 MG/10 ML SYRINGE ONE (07:17)
[2022-09-19] MEDS ORDERED: ceFAZolin SODIUM 1 GM VIAL IVPB ONE (08:15)
[2022-09-19] MEDS ORDERED: LIDOCAINE HCL 1%, 10 MG/ML (20ML VIAL) INF ONE (08:23)
[2022-09-19] MEDS ORDERED: PROMETHAZINE HCL 25 MG/1 ML VIAL IVPUSH PRN ×2 (09:36→09:49)
[2022-09-19] MEDS ORDERED: DOCUSATE SODIUM 100 MG CAPSULE (FP) PO PRN (09:49)
[2022-09-19] MEDS ORDERED: ACETAMINOPHEN 325 MG TABLET (FP) PO PRN (09:49)
[2022-09-19] MEDS: amLODIPine BESYLATE 10 MG TABLET (FP) PO SCH (11:05)
[2022-09-19] MEDS: hydrALAZINE HCL 50 MG TABLET (FP) PO SCH ×2 (11:05→22:55)
[2022-09-19] MEDS ORDERED: SODIUM CHLORIDE 250 ML IV PRN ×2 (12:33→12:36)
[2022-09-19 15:42] LABS: HEMATOCRIT 28.7 % (35.4-49); MCH 25.5 pg (25.7-33.7); MCHC 31.4 g/dl (32.0-35.9); MEAN PLT VOLUME 8.1 fl (7.5-11.1); PLATELET COUNT 145 10^3/uL (134-434); RBC 3.54 M/mm3 (4.00-5.60); RDW 15.1 % (11.9-15.9); WHITE BLOOD COUNT 9.9 K/mm3 (4.0-10.0)
[2022-09-19 16:00] LABS: CHLORIDE 108 mmol/L (98-107); SODIUM 141 mmol/L (136-145)
[2022-09-19 16:02] LABS: CALCIUM 7.8 mg/dL (8.5-10.1); GLUCOSE,RANDOM 217 mg/dL (74-106)
[2022-09-19 16:03] LABS: ALBUMIN 2.6 g/dl (3.4-5.0); ANION GAP 8 MMOL/L (8-16); BLOOD UREA NITROGEN 52.2 mg/dL (7-18); CO2 26 mmol/L (21-32)
[2022-09-19 16:05] LABS: SGPT/ALT 12 U/L (13-61)
[2022-09-19 16:06] LABS: SGOT/AST 24 U/L (15-37)
[2022-09-19 16:07] LABS: BILIRUBIN,TOTAL 0.5 mg/dL (0.2-1); TOT PROT 5.8 g/dl (6.4-8.2)
[2022-09-19 16:08] LABS: ALK PHOS 65 U/L (45-117)
[2022-09-19] MEDS ORDERED: ACETAMINOPHEN 500 MG TABLET (FP) PO ONE (18:06)
[2022-09-19] MEDS: ATORVASTATIN CA 10 MG TABLET (FP) PO SCH (22:57)
[2022-09-20] MEDS: sitaGLIPtin PHOSPHATE 50 MG TABLET PO SCH (06:49)
[2022-09-20] MEDS: INSULIN SLIDING SCALE (NOVOLOG) 1 VIAL SQ SCH ×4 (06:50→21:28)
[2022-09-20] MEDS: amLODIPine BESYLATE 10 MG TABLET (FP) PO SCH (09:32)
[2022-09-20] MEDS: hydrALAZINE HCL 50 MG TABLET (FP) PO SCH ×2 (09:33→21:24)
[2022-09-20 09:58] LABS: HEMATOCRIT 27.6 % (35.4-49); HEMOGLOBIN 8.9 GM/dL (11.7-16.9); MCH 26.1 pg (25.7-33.7); MCHC 32.2 g/dl (32.0-35.9); MEAN PLT VOLUME 8.5 fl (7.5-11.1); PLATELET COUNT 141 10^3/uL (134-434); RBC 3.41 M/mm3 (4.00-5.60); RDW 15.6 % (11.9-15.9); WHITE BLOOD COUNT 8.1 K/mm3 (4.0-10.0)
[2022-09-20 10:04] LABS: INR 1.21 (0.83-1.09); PROTHROMBIN TIME (PATIENT) 13.9 SEC (9.7-13.0)
[2022-09-20 10:13] LABS: ALBUMIN 2.6 g/dl (3.4-5.0); BLOOD UREA NITROGEN 37.4 mg/dL (7-18); CALCIUM 7.9 mg/dL (8.5-10.1)
[2022-09-20 10:16] LABS: CREATININE 6.5 mg/dL (0.55-1.3)
[2022-09-20 10:18] LABS: BILIRUBIN,TOTAL 0.2 mg/dL (0.2-1)
[2022-09-20] MEDS ORDERED: SODIUM CHLORIDE 250 ML IV PRN (12:27)
[2022-09-20] MEDS ORDERED: WARFARIN NA 7.5 MG TABLET PO SCH (18:00)
[2022-09-20] MEDS: ATORVASTATIN CA 10 MG TABLET (FP) PO SCH (21:24)
[2022-09-21] MEDS: sitaGLIPtin PHOSPHATE 50 MG TABLET PO SCH (06:04)
[2022-09-21] MEDS: INSULIN SLIDING SCALE (NOVOLOG) 1 VIAL SQ SCH ×2 (06:05→12:34)
[2022-09-21 09:24] LABS: INR 1.2 (0.83-1.09); PROTHROMBIN TIME (PATIENT) 13.8 SEC (9.7-13.0)
[2022-09-21 09:41] LABS: HEMATOCRIT 26.6 % (35.4-49); HEMOGLOBIN 8.5 GM/dL (11.7-16.9); MCH 25.8 pg (25.7-33.7); MEAN CELL VOLUME 80.7 fl (80-96); MEAN PLT VOLUME 8.7 fl (7.5-11.1); PLATELET COUNT 136 10^3/uL (134-434); RBC 3.29 M/mm3 (4.00-5.60); RDW 15.5 % (11.9-15.9); WHITE BLOOD COUNT 6.1 K/mm3 (4.0-10.0)
[2022-09-21] MEDS ORDERED: ENALAPRIL MALEATE 5 MG TABLET PO SCH (10:00)
[2022-09-21 10:01] LABS: CALCIUM 8.1 mg/dL (8.5-10.1)
[2022-09-21 10:02] LABS: ALBUMIN 2.5 g/dl (3.4-5.0); BLOOD UREA NITROGEN 46.6 mg/dL (7-18)
[2022-09-21 10:05] LABS: CREATININE 6.5 mg/dL (0.55-1.3); PHOSPHOROUS 3.8 mg/dL (2.5-4.9)
[2022-09-21 10:06] LABS: BILIRUBIN,TOTAL 0.3 mg/dL (0.2-1); TOT PROT 5.6 g/dl (6.4-8.2)
[2022-09-21 10:34] VITALS: RESP 18
[2022-09-21 10:37] VITALS: TEMP 98.4
[2022-09-21] MEDS ORDERED: EPOETIN ALFA-EPBX 10,000 UNIT/ML VIAL IVPUSH ONE (12:00)
[2022-09-21 12:13] VITALS: BP 182/80; PULSE 67
[2022-09-21] MEDS: amLODIPine BESYLATE 10 MG TABLET (FP) PO SCH (12:20)
[2022-09-21] MEDS: hydrALAZINE HCL 50 MG TABLET (FP) PO SCH (12:20)
[2022-09-21] MEDS ORDERED: WARFARIN NA 5 MG TABLET PO ONE (12:57)
== END 2022-09-21 14:11 | disposition home or self-care (01) | DRG 673 ==
LOC: JER 18:36 → JERBED 23:49 → J8W 09-14 02:13
PROVIDERS: ADMIT Internal Medicine; ATTEND Internal Medicine
PROC: 5A1D70Z Performance of Urinary Filtration, Intermittent, Less than 6 Hours Per Day (ICD-10-PCS; 2022-09-14)
PROC: 05HN33Z Insertion of Infusion Device into Left Internal Jugular Vein, Percutaneous Approach (ICD-10-PCS; principal; 2022-09-14 17:30)
PROC: 5A1D70Z Performance of Urinary Filtration, Intermittent, Less than 6 Hours Per Day (ICD-10-PCS; 2022-09-17)
PROC: 031B3ZF Bypass Right Radial Artery to Lower Arm Vein, Percutaneous Approach (ICD-10-PCS; 2022-09-19)
PROC: 5A1D70Z Performance of Urinary Filtration, Intermittent, Less than 6 Hours Per Day (ICD-10-PCS; 2022-09-19)
PROC: 5A1D70Z Performance of Urinary Filtration, Intermittent, Less than 6 Hours Per Day (ICD-10-PCS; 2022-09-21)
DX: I12.0 Hypertensive chronic kidney disease with stage 5 chronic kidney disease or end stage renal disease (principal); N18.6 End stage renal disease; Z68.41 Body mass index [BMI] 40.0-44.9, adult; N17.9 Acute kidney failure, unspecified; E66.01 Morbid (severe) obesity due to excess calories; E78.5 Hyperlipidemia, unspecified; Z86.718 Personal history of other venous thrombosis and embolism; E87.5 Hyperkalemia; R16.1 Splenomegaly, not elsewhere classified; E11.22 Type 2 diabetes mellitus with diabetic chronic kidney disease; E11.51 Type 2 diabetes mellitus with diabetic peripheral angiopathy without gangrene; Z86.711 Personal history of pulmonary embolism
CPT/HCPCS: 0241U-QW; 36415; 71045-TC-FY; 76000-TC-FY; 76775-TC; 80048; 80053; 82962; 83735; 84100; 84484; 85025; 85027; 85610; 85730; 86704; 86705; 86803; 86850; 86900; 86901; 87340; 87517; 87807; 93005; 93010; 93306-TC; 93970-TC; 94760; 99285-25; C1750; J1644; Q5106

== ENCOUNTER 2023-01-17 20:25 | Emergency (ER) | payer OTHER ==
[2023-01-17 20:45] VITALS: BP 150/73; PULSE 92; RESP 18; TEMP 98.4; BMI 40.6
== END 2023-01-17 21:40 | disposition home or self-care (01) ==
LOC: JER 20:25
DX: T82.49XA Other complication of vascular dialysis catheter, initial encounter (principal)
CPT/HCPCS: 99281-25

== ENCOUNTER 2023-03-27 15:25 | Emergency (ER) | payer OTHER ==
[2023-03-27 15:47] VITALS: RESP 18; BMI 40.8
[2023-03-27] MEDS ORDERED: ACETAMINOPHEN 325 MG TABLET (FP) PO ONE (15:51)
[2023-03-27] MEDS ORDERED: ACETAMINOPHEN 325 MG TABLET (FP) ONE (15:55)
[2023-03-27 16:25] LABS: VENOUS BASE EXCESS 0.4 mmol/L (-2-2); VENOUS O2 SATURATION 66.5 % (70-80); VENOUS PCO2 42.4 mmHg (38-52); VENOUS PH 7.396 (7.310-7.410)
[2023-03-27 16:28] LABS: BASO % 0.2 % (0-2.0); HEMATOCRIT 37.7 % (35.4-49); LYMPH % 3.7 % (8-40); MCH 26.5 pg (25.7-33.7); MCHC 31.8 g/dl (32.0-35.9); MEAN CELL VOLUME 83.2 fl (80-96); MEAN PLT VOLUME 8.6 fl (7.5-11.1); MONO % 10.8 % (3.8-10.2); NEUT % 85.3 % (42.8-82.8); PLATELET COUNT 220 10^3/uL (134-434); RBC 4.53 M/mm3 (4.00-5.60); WHITE BLOOD COUNT 17.5 K/mm3 (4.0-10.0)
[2023-03-27 16:35] LABS: PROTHROMBIN TIME (PATIENT) 48.9 SEC (9.7-13.0)
[2023-03-27 16:38] LABS: ACTIVATED PTT 45.7 SECONDS (25.2-36.5)
[2023-03-27 16:49] LABS: CALCIUM 8.4 mg/dL (8.5-10.1)
[2023-03-27 16:50] LABS: ALBUMIN 2.8 g/dl (3.4-5.0); BLOOD UREA NITROGEN 35.7 mg/dL (7-18)
[2023-03-27 16:53] LABS: CREATININE 6.4 mg/dL (0.55-1.3)
[2023-03-27 16:55] LABS: BILIRUBIN,TOTAL 0.6 mg/dL (0.2-1); TOT PROT 7.5 g/dl (6.4-8.2)
[2023-03-27 17:21] LABS: LACTIC ACID 2.4 mmol/L (0.4-2.0)
[2023-03-27 17:22] LABS: INR 4.28 (0.83-1.09)
[2023-03-27 17:54] LABS: EPI CELLS >36 /uL (0-25.1); HYALINE CASTS 0 /uL (0-3.1); URINE APPEARANCE CLEAR; URINE BACTERIA 4804 /uL (0-1359); URINE BILIRUBIN NEGATIVE (NEGATIVE); URINE COLOR YELLOW; URINE GLUCOSE (UA) 2+ (NEGATIVE); URINE KETONE TRACE (NEGATIVE); URINE LEUK ESTERASE NEGATIVE (NEGATIVE); URINE NITRITE NEGATIVE (NEGATIVE); URINE PROTEIN 4+ (NEGATIVE); URINE RBC 344 /uL (0-23.9)
[2023-03-27] MEDS ORDERED: CEFTRIAXONE 1 GM in DEXTROSE 5%-WATER - 100 ML IVPB ONE (18:00)
[2023-03-27 18:10] LABS: URINE WBC 99.6 /uL (0-25.8)
[2023-03-27] MEDS ORDERED: CEFTRIAXONE 1 GM/50 ML BAG ONE (18:16)
[2023-03-27] MEDS ORDERED: LIDOCAINE 5% TOPICAL PATCH TP ONE (18:28)
[2023-03-27] MEDS ORDERED: METHOCARBAMOL 500 MG TABLET ONE (18:28)
[2023-03-27] MEDS ORDERED: METHOCARBAMOL 500 MG TABLET PO ONE (18:28)
[2023-03-27] MEDS ORDERED: LIDOCAINE 5% TOPICAL PATCH ONE (18:28)
[2023-03-27 18:49] VITALS: BP 144/45; PULSE 94; TEMP 100.1
[2023-03-27] MEDS ORDERED: CEFEPIME HCL/D5W 1 GM/50 ML BAG IVPB ONE (20:08)
[2023-03-27] MEDS ORDERED: VANCOMYCIN/WATER 2 GM/400 ML PREMIX BAG (RESTRICTED TO ID ONLY) IVPB ONE (20:10)
[2023-03-27] MEDS ORDERED: CEFEPIME 1 GM in DEXTROSE 5%-WATER 100 ML IVPB ONE ×2 (20:15→22:30)
[2023-03-27] MEDS ORDERED: CEFEPIME 1 GM/100 ML BAG IVPB ONE (21:47)
[2023-03-27] MEDS ORDERED: LIDOCAINE PATCH REMOVAL MC SCH (22:00)
== END 2023-03-27 23:17 | disposition left against medical advice (07) ==
LOC: JER 15:25
DX: M54.2 Cervicalgia (principal); R00.0 Tachycardia, unspecified; R50.9 Fever, unspecified; N39.0 Urinary tract infection, site not specified
CPT/HCPCS: 0241U-QW; 36415; 70450-TC; 71045-TC-FY; 72125-TC; 80053; 81003; 82550; 82553; 82803; 82962; 83605; 84484; 85025; 85610; 85730; 86850; 86900; 86901; 87040; 87077; 87086; 87186; 93005; 93010; 99284-25

== ENCOUNTER 2023-03-28 13:52 | Inpatient (IN) | payer OTHER ==
[2023-03-28 14:02] VITALS: BMI 40.6
[2023-03-28] MEDS ORDERED: ACETAMINOPHEN 1000 MG/100 ML BAG IVPB ONE (14:21)
[2023-03-28] MEDS ORDERED: CEFTRIAXONE 1,000 MG in DEXTROSE 5%-WATER - 50 ML IVPB ONE (14:21)
[2023-03-28] MEDS ORDERED: VANCOMYCIN 1 GM in D5W (PRE-DOCKED) 1,000 MG/250 ML (RESTRICTED TO ID ONLY IVPB ONE (14:21)
[2023-03-28] MEDS ORDERED: SODIUM CHLORIDE 0.9% 500 ML INFUS.BAG IV ONE (14:21)
[2023-03-28] MEDS ORDERED: CEFTRIAXONE 2 GM-D5W BAG 2 GM/50 ML BAG IVPB ONE (14:34)
[2023-03-28] MEDS ORDERED: AMPICILLIN - 2 GM in SODIUM CHLORIDE 100 ML IVPB ONE (14:42)
[2023-03-28] MEDS ORDERED: VANCOMYCIN/WATER FOR INJ (PEG) 1,000 MG/200 ML BAG IVPB ONE (14:55)
[2023-03-28] MEDS ORDERED: AMPICILLIN SODIUM 2 GM VIAL ONE (14:55)
[2023-03-28] MEDS ORDERED: ACETAMINOPHEN INJECTION 100 ML IVPB ONE (14:55)
[2023-03-28] MEDS ORDERED: CEFTRIAXONE 2 GM/100 ML BAG IVPB ONE (14:56)
[2023-03-28 15:08] LABS: VENOUS BASE EXCESS -1.1 mmol/L (-2-2); VENOUS O2 SATURATION 40.5 % (70-80); VENOUS PCO2 40.1 mmHg (38-52); VENOUS PH 7.39 (7.310-7.410)
[2023-03-28 15:13] LABS: BASO % 0.2 % (0-2.0); HEMATOCRIT 36.6 % (35.4-49); HEMOGLOBIN 12.1 GM/dL (11.7-16.9); LYMPH % 2.3 % (8-40); MCH 27.1 pg (25.7-33.7); MCHC 32.9 g/dl (32.0-35.9); MEAN CELL VOLUME 82.4 fl (80-96); NEUT % 87.5 % (42.8-82.8); PLATELET COUNT 205 10^3/uL (134-434); RBC 4.44 M/mm3 (4.00-5.60); RDW 16.5 % (11.9-15.9); WHITE BLOOD COUNT 18.2 K/mm3 (4.0-10.0)
[2023-03-28 15:20] LABS: PROTHROMBIN TIME (PATIENT) 62.9 SEC (9.7-13.0)
[2023-03-28 15:23] LABS: ACTIVATED PTT 46.8 SECONDS (25.2-36.5)
[2023-03-28 15:32] LABS: CHLORIDE 93 mmol/L (98-107); POTASSIUM 4.8 mmol/L (3.5-5.1); SODIUM 130 mmol/L (136-145)
[2023-03-28 15:34] LABS: ALBUMIN 2.9 g/dl (3.4-5.0); ANION GAP 14 MMOL/L (8-16); CO2 22 mmol/L (21-32)
[2023-03-28 15:35] LABS: MAGNESIUM 1.8 mg/dL (1.8-2.4)
[2023-03-28 15:37] LABS: SGPT/ALT 41 U/L (13-61)
[2023-03-28 15:38] LABS: SGOT/AST 60 U/L (15-37)
[2023-03-28 15:39] LABS: BILIRUBIN,TOTAL 0.6 mg/dL (0.2-1); TOT PROT 7.7 g/dl (6.4-8.2)
[2023-03-28 15:40] LABS: ALK PHOS 75 U/L (45-117)
[2023-03-28 15:43] LABS: BLOOD UREA NITROGEN 61.2 mg/dL (7-18); CALCIUM 8.3 mg/dL (8.5-10.1); CREATININE 9.1 mg/dL (0.55-1.3); GLUCOSE,RANDOM 422 mg/dL (74-106); LACTIC ACID 3.2 mmol/L (0.4-2.0)
[2023-03-28 15:59] LABS: INR 5.51 (0.83-1.09)
[2023-03-28] MEDS: LIDOCAINE PATCH REMOVAL MC SCH (22:00)
[2023-03-28] MEDS ORDERED: CEFEPIME 1 GM in DEXTROSE 5%-WATER 100 ML IVPB SCH (22:00)
[2023-03-28] MEDS ORDERED: AMPICILLIN - 1 GM in SODIUM CHLORIDE 100 ML IVPB SCH (23:00)
[2023-03-28] MEDS: hydrALAZINE HCL 50 MG TABLET (FP) PO SCH ×2 (23:20→23:23)
[2023-03-28] MEDS: INSULIN (LEVEMIR) 100 UNITS/ML UNITS SQ SCH (23:20)
[2023-03-28] MEDS ORDERED: METHOCARBAMOL 500 MG TABLET PO ONE (23:45)
[2023-03-28] MEDS ORDERED: LIDOCAINE 5% TOPICAL PATCH TP ONE (23:45)
[2023-03-28] MEDS ORDERED: INSULIN (NOVOLOG) ASPART 100 UNITS/ML 10ML VIAL SQ ONE (23:47)
[2023-03-28] MEDS ORDERED: MAG HYDROX/AL HYDROX/SIMETH 30 ML UNIT-DOSE CUP PO ONE (23:55)
[2023-03-28] MEDS ORDERED: PANTOPRAZOLE 40 MG TABLET PO ONE (23:55)
[2023-03-29] MEDS: INSULIN SLIDING SCALE (NOVOLOG) 1 VIAL SQ SCH ×3 (06:11→16:56)
[2023-03-29] MEDS: glipiZIDE 5 MG TABLET (FP) PO SCH (06:11)
[2023-03-29] MEDS: hydrALAZINE HCL 50 MG TABLET (FP) PO SCH ×3 (06:11→21:48)
[2023-03-29 06:36] LABS: BASO % 0.1 % (0-2.0); HEMATOCRIT 34.3 % (35.4-49); HEMOGLOBIN 11.2 GM/dL (11.7-16.9); LYMPH % 2.3 % (8-40); MCH 26.9 pg (25.7-33.7); MCHC 32.8 g/dl (32.0-35.9); MEAN CELL VOLUME 82.1 fl (80-96); MEAN PLT VOLUME 9.1 fl (7.5-11.1); MONO % 9.4 % (3.8-10.2); NEUT % 88.2 % (42.8-82.8); PLATELET COUNT 185 10^3/uL (134-434); RBC 4.17 M/mm3 (4.00-5.60); RDW 17.1 % (11.9-15.9); WHITE BLOOD COUNT 18.2 K/mm3 (4.0-10.0)
[2023-03-29 06:48] LABS: PROTHROMBIN TIME (PATIENT) 87.4 SEC (9.7-13.0)
[2023-03-29 07:26] LABS: ALBUMIN 2.4 g/dl (3.4-5.0); ALK PHOS 69 U/L (45-117); ANION GAP 15 MMOL/L (8-16); BILIRUBIN,TOTAL 0.4 mg/dL (0.2-1); BLOOD UREA NITROGEN 72.3 mg/dL (7-18); CHLORIDE 96 mmol/L (98-107); CO2 19 mmol/L (21-32); CREATININE 10.1 mg/dL (0.55-1.3); GLUCOSE,RANDOM 365 mg/dL (74-106); POTASSIUM 4.1 mmol/L (3.5-5.1); SGOT/AST 54 U/L (15-37); SGPT/ALT 42 U/L (13-61); SODIUM 130 mmol/L (136-145); TOT PROT 6.4 g/dl (6.4-8.2)
[2023-03-29 08:54] LABS: INR 7.78 (0.83-1.09)
[2023-03-29] MEDS ORDERED: CEFTRIAXONE 1 GM in DEXTROSE 5%-WATER - 50 ML IVPB SCH (10:00)
[2023-03-29] MEDS ORDERED: NAFCILLIN - 2 GM in DEXTROSE 5%-WATER - 100 ML IVPB SCH (10:00)
[2023-03-29] MEDS ORDERED: VANCOMYCIN/WATER 1250 MG 1,250 MG/250 ML BAG IVPB ONE (11:00)
[2023-03-29] MEDS: ENALAPRIL MALEATE 5 MG TABLET PO SCH (11:27)
[2023-03-29] MEDS: NIFEdipine E.R. 30 MG TABLET PO SCH (11:27)
[2023-03-29] MEDS: NAFCILLIN - 2 GM in DEXTROSE 5%-WATER 100 ML IVPB SCH ×4 (11:28→21:48)
[2023-03-29] MEDS ORDERED: VANCOMYCIN PREMIX 1.5 GM 1,500 MG/300 ML BAG IVPB ONE (13:00)
[2023-03-29] MEDS ORDERED: SODIUM CHLORIDE 250 ML IV PRN (16:21)
[2023-03-29] MEDS: ASPIRIN COATED 81 MG TABLET.EC PO SCH (16:56)
[2023-03-29] MEDS: INSULIN (LEVEMIR) 100 UNITS/ML UNITS SQ SCH (21:49)
[2023-03-29] MEDS: LIDOCAINE PATCH REMOVAL MC SCH (21:50)
[2023-03-30] MEDS: NAFCILLIN - 2 GM in DEXTROSE 5%-WATER 100 ML IVPB SCH ×6 (01:55→21:41)
[2023-03-30] MEDS: hydrALAZINE HCL 50 MG TABLET (FP) PO SCH ×3 (06:24→21:41)
[2023-03-30] MEDS: glipiZIDE 5 MG TABLET (FP) PO SCH (06:24)
[2023-03-30] MEDS ORDERED: INSULIN SLIDING SCALE (NOVOLOG) 1 VIAL SQ ONE (06:45)
[2023-03-30] MEDS: INSULIN SLIDING SCALE (NOVOLOG) 1 VIAL SQ SCH ×3 (07:06→17:13)
[2023-03-30 07:26] LABS: BASO % 0.3 % (0-2.0); HEMATOCRIT 32.6 % (35.4-49); HEMOGLOBIN 10.9 GM/dL (11.7-16.9); LYMPH % 3.3 % (8-40); MCHC 33.4 g/dl (32.0-35.9); MEAN CELL VOLUME 80.9 fl (80-96); MEAN PLT VOLUME 9.3 fl (7.5-11.1); NEUT % 85.4 % (42.8-82.8); PLATELET COUNT 204 10^3/uL (134-434); RBC 4.03 M/mm3 (4.00-5.60); RDW 16.6 % (11.9-15.9); WHITE BLOOD COUNT 15.5 K/mm3 (4.0-10.0)
[2023-03-30 08:38] LABS: ALBUMIN 2.2 g/dl (3.4-5.0); ALK PHOS 67 U/L (45-117); ANION GAP 14 MMOL/L (8-16); BLOOD UREA NITROGEN 47.2 mg/dL (7-18); CALCIUM 7.6 mg/dL (8.5-10.1); CHLORIDE 96 mmol/L (98-107); CO2 24 mmol/L (21-32); CREATININE 8.5 mg/dL (0.55-1.3); GLUCOSE,RANDOM 284 mg/dL (74-106); SGOT/AST 89 U/L (15-37); SGPT/ALT 82 U/L (13-61); SODIUM 134 mmol/L (136-145); TOT PROT 6.1 g/dl (6.4-8.2)
[2023-03-30 09:49] LABS: PROTHROMBIN TIME (PATIENT) 113.6 SEC (9.7-13.0)
[2023-03-30 09:51] LABS: INR 10.02 (0.83-1.09)
[2023-03-30] MEDS ORDERED: PHYTONADIONE 10 MG/1 ML AMP SQ ONE ×2 (09:54→11:45)
[2023-03-30] MEDS: ENALAPRIL MALEATE 5 MG TABLET PO SCH (10:12)
[2023-03-30] MEDS: NIFEdipine E.R. 30 MG TABLET PO SCH (10:13)
[2023-03-30] MEDS: ASPIRIN COATED 81 MG TABLET.EC PO SCH (11:23)
[2023-03-30] MEDS: ACETAMINOPHEN 325 MG TABLET (FP) PO PRN (21:46)
[2023-03-30] MEDS: INSULIN (LEVEMIR) 100 UNITS/ML UNITS SQ SCH (21:47)
[2023-03-30] MEDS: LIDOCAINE PATCH REMOVAL MC SCH (21:51)
[2023-03-31] MEDS: NAFCILLIN - 2 GM in DEXTROSE 5%-WATER 100 ML IVPB SCH ×6 (01:45→22:55)
[2023-03-31] MEDS: hydrALAZINE HCL 50 MG TABLET (FP) PO SCH ×3 (06:00→21:08)
[2023-03-31] MEDS: glipiZIDE 5 MG TABLET (FP) PO SCH (06:00)
[2023-03-31] MEDS: ACETAMINOPHEN 325 MG TABLET (FP) PO PRN (06:03)
[2023-03-31] MEDS: INSULIN SLIDING SCALE (NOVOLOG) 1 VIAL SQ SCH ×3 (06:03→16:50)
[2023-03-31] MEDS: ASPIRIN COATED 81 MG TABLET.EC PO SCH (09:17)
[2023-03-31] MEDS: NIFEdipine E.R. 30 MG TABLET PO SCH (09:18)
[2023-03-31] MEDS: ENALAPRIL MALEATE 5 MG TABLET PO SCH (09:18)
[2023-03-31 09:52] LABS: INR 5.35 (0.83-1.09)
[2023-03-31] MEDS: INSULIN (LEVEMIR) 100 UNITS/ML UNITS SQ SCH (21:09)
[2023-03-31] MEDS: LIDOCAINE PATCH REMOVAL MC SCH ×2 (21:09→21:29)
[2023-04-01] MEDS: NAFCILLIN - 2 GM in DEXTROSE 5%-WATER 100 ML IVPB SCH ×6 (01:29→22:02)
[2023-04-01] MEDS: ACETAMINOPHEN 325 MG TABLET (FP) PO PRN (06:03)
[2023-04-01] MEDS: hydrALAZINE HCL 50 MG TABLET (FP) PO SCH ×3 (06:03→21:59)
[2023-04-01] MEDS: glipiZIDE 5 MG TABLET (FP) PO SCH (06:05)
[2023-04-01] MEDS: INSULIN SLIDING SCALE (NOVOLOG) 1 VIAL SQ SCH ×3 (06:42→17:01)
[2023-04-01] MEDS ORDERED: SODIUM CHLORIDE 250 ML IV PRN (07:05)
[2023-04-01 09:50] LABS: HEMOGLOBIN 10.7 GM/dL (11.7-16.9); MCH 26.2 pg (25.7-33.7); MCHC 32.3 g/dl (32.0-35.9); MEAN CELL VOLUME 81.1 fl (80-96); MEAN PLT VOLUME 8.5 fl (7.5-11.1); PLATELET COUNT 237 10^3/uL (134-434); RBC 4.07 M/mm3 (4.00-5.60); RDW 17.2 % (11.9-15.9); WHITE BLOOD COUNT 14.7 K/mm3 (4.0-10.0)
[2023-04-01 10:19] LABS: CALCIUM 7.3 mg/dL (8.5-10.1); CHLORIDE 90 mmol/L (98-107); POTASSIUM 3.4 mmol/L (3.5-5.1); SODIUM 130 mmol/L (136-145)
[2023-04-01 10:20] LABS: ANION GAP 19 MMOL/L (8-16); CO2 21 mmol/L (21-32); GLUCOSE,RANDOM 165 mg/dL (74-106)
[2023-04-01 10:30] LABS: BLOOD UREA NITROGEN 86.9 mg/dL (7-18); CREATININE 12.4 mg/dL (0.55-1.3)
[2023-04-01] MEDS: NIFEdipine E.R. 30 MG TABLET PO SCH (12:58)
[2023-04-01] MEDS: ENALAPRIL MALEATE 5 MG TABLET PO SCH (12:58)
[2023-04-01] MEDS: ASPIRIN COATED 81 MG TABLET.EC PO SCH (12:59)
[2023-04-01] MEDS ORDERED: INSULIN SLIDING SCALE (NOVOLOG) 1 VIAL SQ ONE (16:59)
[2023-04-01] MEDS: LIDOCAINE PATCH REMOVAL MC SCH (21:54)
[2023-04-01] MEDS: INSULIN (LEVEMIR) 100 UNITS/ML UNITS SQ SCH (21:59)
[2023-04-02] MEDS: NAFCILLIN - 2 GM in DEXTROSE 5%-WATER 100 ML IVPB SCH ×6 (01:49→21:16)
[2023-04-02] MEDS: INSULIN SLIDING SCALE (NOVOLOG) 1 VIAL SQ SCH ×3 (06:29→17:28)
[2023-04-02] MEDS: hydrALAZINE HCL 50 MG TABLET (FP) PO SCH ×3 (06:30→21:16)
[2023-04-02 06:52] LABS: INR 1.44 (0.83-1.09); PROTHROMBIN TIME (PATIENT) 16.6 SEC (9.7-13.0)
[2023-04-02] MEDS ORDERED: HEPARIN NA (PORCINE) 5,000 UNITS/ML 1ML VIAL IVPUSH PRN (08:40)
[2023-04-02] MEDS: HEPARIN INFUSION - 25,000 UNITS/500 ML INFUS.BAG IVPB SCH (09:43)
[2023-04-02] MEDS: NIFEdipine E.R. 30 MG TABLET PO SCH (09:47)
[2023-04-02] MEDS: ASPIRIN COATED 81 MG TABLET.EC PO SCH (09:47)
[2023-04-02] MEDS: ENALAPRIL MALEATE 5 MG TABLET PO SCH ×2 (09:47→10:02)
[2023-04-02] MEDS ORDERED: INSULIN (LEVEMIR) 100 UNITS/ML UNITS SQ SCH (10:34)
[2023-04-02] MEDS ORDERED: SODIUM CHLORIDE 250 ML IV PRN (15:28)
[2023-04-02] MEDS: HEPARIN NA (PORCINE) 5,000 UNITS/ML 1ML VIAL IVPUSH PRN (17:22)
[2023-04-02] MEDS: ACETAMINOPHEN 325 MG TABLET (FP) PO PRN (23:55)
[2023-04-03] MEDS: NAFCILLIN - 2 GM in DEXTROSE 5%-WATER 100 ML IVPB SCH ×6 (01:23→21:09)
[2023-04-03] MEDS: HEPARIN NA (PORCINE) 5,000 UNITS/ML 1ML VIAL IVPUSH PRN (01:51)
[2023-04-03] MEDS: hydrALAZINE HCL 50 MG TABLET (FP) PO SCH ×3 (05:52→21:09)
[2023-04-03] MEDS: INSULIN SLIDING SCALE (NOVOLOG) 1 VIAL SQ SCH ×3 (06:03→16:55)
[2023-04-03 06:51] LABS: INR 1.35 (0.83-1.09); PROTHROMBIN TIME (PATIENT) 15.6 SEC (9.7-13.0)
[2023-04-03] MEDS: HEPARIN INFUSION - 25,000 UNITS/500 ML INFUS.BAG IVPB SCH (07:39)
[2023-04-03] MEDS: ASPIRIN COATED 81 MG TABLET.EC PO SCH ×2 (10:18→17:11)
[2023-04-03] MEDS: NIFEdipine E.R. 30 MG TABLET PO SCH ×2 (10:18→17:11)
[2023-04-03] MEDS: ENALAPRIL MALEATE 5 MG TABLET PO SCH (10:22)
[2023-04-03 13:24] LABS: HEMATOCRIT 29.3 % (35.4-49); HEMOGLOBIN 9.5 GM/dL (11.7-16.9); MCHC 32.3 g/dl (32.0-35.9); MEAN CELL VOLUME 80.5 fl (80-96); MEAN PLT VOLUME 8.8 fl (7.5-11.1); PLATELET COUNT 322 10^3/uL (134-434); RBC 3.64 M/mm3 (4.00-5.60); RDW 17.1 % (11.9-15.9); WHITE BLOOD COUNT 11.5 K/mm3 (4.0-10.0)
[2023-04-03 13:52] LABS: CHLORIDE 92 mmol/L (98-107); POTASSIUM 3.4 mmol/L (3.5-5.1); SODIUM 131 mmol/L (136-145)
[2023-04-03 13:54] LABS: ALBUMIN 1.8 g/dl (3.4-5.0); ANION GAP 15 MMOL/L (8-16); CO2 24 mmol/L (21-32)
[2023-04-03 13:55] LABS: GLUCOSE,RANDOM 144 mg/dL (74-106)
[2023-04-03 13:57] LABS: SGOT/AST 62 U/L (15-37)
[2023-04-03 13:58] LABS: SGPT/ALT 79 U/L (13-61)
[2023-04-03 13:59] LABS: ALK PHOS 65 U/L (45-117); BILIRUBIN,TOTAL 0.9 mg/dL (0.2-1); TOT PROT 5.5 g/dl (6.4-8.2)
[2023-04-03 14:01] LABS: BLOOD UREA NITROGEN 61.5 mg/dL (7-18); CREATININE 11.6 mg/dL (0.55-1.3)
[2023-04-03] MEDS: INSULIN (LEVEMIR) 100 UNITS/ML UNITS SQ SCH (21:08)
[2023-04-04] MEDS: NAFCILLIN - 2 GM in DEXTROSE 5%-WATER 100 ML IVPB SCH ×6 (01:21→21:22)
[2023-04-04] MEDS: hydrALAZINE HCL 50 MG TABLET (FP) PO SCH ×3 (05:57→21:20)
[2023-04-04] MEDS: INSULIN SLIDING SCALE (NOVOLOG) 1 VIAL SQ SCH ×3 (06:04→16:52)
[2023-04-04] MEDS: HEPARIN INFUSION - 25,000 UNITS/500 ML INFUS.BAG IVPB SCH ×3 (06:29→21:02)
[2023-04-04 08:58] LABS: HEMATOCRIT 30.6 % (35.4-49); HEMOGLOBIN 9.6 GM/dL (11.7-16.9); MCH 25.9 pg (25.7-33.7); MCHC 31.5 g/dl (32.0-35.9); MEAN CELL VOLUME 82.2 fl (80-96); MEAN PLT VOLUME 8.8 fl (7.5-11.1); PLATELET COUNT 356 10^3/uL (134-434); RBC 3.72 M/mm3 (4.00-5.60); RDW 16.6 % (11.9-15.9)
[2023-04-04 09:03] LABS: INR 1.28 (0.83-1.09); PROTHROMBIN TIME (PATIENT) 14.8 SEC (9.7-13.0)
[2023-04-04 09:06] LABS: ACTIVATED PTT 31.1 SECONDS (25.2-36.5)
[2023-04-04] MEDS: ASPIRIN COATED 81 MG TABLET.EC PO SCH (09:06)
[2023-04-04] MEDS: ENALAPRIL MALEATE 5 MG TABLET PO SCH (09:06)
[2023-04-04] MEDS: NIFEdipine E.R. 30 MG TABLET PO SCH (09:06)
[2023-04-04] MEDS: HEPARIN NA (PORCINE) 5,000 UNITS/ML 1ML VIAL IVPUSH PRN (09:26)
[2023-04-04 09:34] LABS: ERYTHROCYTE SEDIMENTATION RATE 93 mm/hr (0-20)
[2023-04-04] MEDS ORDERED: LACTOBACILLUS ACIDOPHILUS 1 TABLET PO SCH (10:45)
[2023-04-04] MEDS: INSULIN (LEVEMIR) 100 UNITS/ML UNITS SQ SCH (21:20)
[2023-04-05] MEDS: NAFCILLIN - 2 GM in DEXTROSE 5%-WATER 100 ML IVPB SCH ×4 (01:35→21:32)
[2023-04-05] MEDS: hydrALAZINE HCL 50 MG TABLET (FP) PO SCH ×3 (06:55→22:02)
[2023-04-05] MEDS: INSULIN SLIDING SCALE (NOVOLOG) 1 VIAL SQ SCH ×3 (07:03→17:27)
[2023-04-05 07:52] LABS: HEMATOCRIT 26.3 % (35.4-49); HEMOGLOBIN 8.1 GM/dL (11.7-16.9); MCH 26.7 pg (25.7-33.7); MCHC 30.8 g/dl (32.0-35.9); MEAN CELL VOLUME 86.6 fl (80-96); MEAN PLT VOLUME 8.3 fl (7.5-11.1); PLATELET COUNT 319 10^3/uL (134-434); RBC 3.04 M/mm3 (4.00-5.60); RDW 16.6 % (11.9-15.9)
[2023-04-05 08:00] LABS: INR 1.38 (0.83-1.09); PROTHROMBIN TIME (PATIENT) 15.9 SEC (9.7-13.0)
[2023-04-05] MEDS: ASPIRIN COATED 81 MG TABLET.EC PO SCH (10:24)
[2023-04-05] MEDS: LACTOBACILLUS ACIDOPHILUS 1 TABLET PO SCH ×2 (10:24→22:02)
[2023-04-05] MEDS: HEPARIN INFUSION - 25,000 UNITS/500 ML INFUS.BAG IVPB SCH ×2 (10:51→23:06)
[2023-04-05] MEDS ORDERED: SODIUM CHLORIDE 250 ML IV PRN (13:40)
[2023-04-05] MEDS ORDERED: EPOETIN ALFA-EPBX 10,000 UNIT/ML VIAL SQ ONE (14:00)
[2023-04-05 14:01] LABS: CHLORIDE 92 mmol/L (98-107); POTASSIUM 3.5 mmol/L (3.5-5.1); SODIUM 132 mmol/L (136-145)
[2023-04-05 14:04] LABS: CALCIUM 7.7 mg/dL (8.5-10.1)
[2023-04-05 14:06] LABS: ANION GAP 14 MMOL/L (8-16); BLOOD UREA NITROGEN 47.5 mg/dL (7-18); CO2 26 mmol/L (21-32); GLUCOSE,RANDOM 199 mg/dL (74-106)
[2023-04-05 14:11] LABS: CREATININE 10.7 mg/dL (0.55-1.3)
[2023-04-05] MEDS: NIFEdipine E.R. 30 MG TABLET PO SCH (16:29)
[2023-04-05] MEDS: ENALAPRIL MALEATE 5 MG TABLET PO SCH (16:30)
[2023-04-05] MEDS: HEPARIN NA (PORCINE) 5,000 UNITS/ML 1ML VIAL IVPUSH PRN (17:13)
[2023-04-05] MEDS: INSULIN (LEVEMIR) 100 UNITS/ML UNITS SQ SCH (22:07)
[2023-04-06] MEDS: NAFCILLIN - 2 GM in DEXTROSE 5%-WATER 100 ML IVPB SCH ×6 (01:37→21:47)
[2023-04-06] MEDS: hydrALAZINE HCL 50 MG TABLET (FP) PO SCH ×3 (06:01→21:49)
[2023-04-06] MEDS: INSULIN SLIDING SCALE (NOVOLOG) 1 VIAL SQ SCH ×3 (06:08→17:39)
[2023-04-06 07:20] LABS: HEMATOCRIT 27.6 % (35.4-49); HEMOGLOBIN 9.1 GM/dL (11.7-16.9); MCH 26.9 pg (25.7-33.7); MCHC 32.9 g/dl (32.0-35.9); MEAN CELL VOLUME 81.6 fl (80-96); PLATELET COUNT 354 10^3/uL (134-434); RBC 3.38 M/mm3 (4.00-5.60); RDW 16.6 % (11.9-15.9)
[2023-04-06] MEDS: LACTOBACILLUS ACIDOPHILUS 1 TABLET PO SCH ×2 (09:53→21:49)
[2023-04-06] MEDS: NIFEdipine E.R. 30 MG TABLET PO SCH (09:53)
[2023-04-06] MEDS: ASPIRIN COATED 81 MG TABLET.EC PO SCH (09:53)
[2023-04-06] MEDS: ENALAPRIL MALEATE 5 MG TABLET PO SCH (09:59)
[2023-04-06] MEDS: HEPARIN INFUSION - 25,000 UNITS/500 ML INFUS.BAG IVPB SCH (11:51)
[2023-04-06] MEDS: INSULIN (LEVEMIR) 100 UNITS/ML UNITS SQ SCH (21:49)
[2023-04-07] MEDS: HEPARIN INFUSION - 25,000 UNITS/500 ML INFUS.BAG IVPB SCH ×3 (01:10→16:34)
[2023-04-07] MEDS: NAFCILLIN - 2 GM in DEXTROSE 5%-WATER 100 ML IVPB SCH ×6 (01:12→21:29)
[2023-04-07] MEDS: hydrALAZINE HCL 50 MG TABLET (FP) PO SCH ×3 (06:05→21:28)
[2023-04-07] MEDS: INSULIN SLIDING SCALE (NOVOLOG) 1 VIAL SQ SCH ×3 (06:08→17:14)
[2023-04-07] MEDS ORDERED: INSULIN SLIDING SCALE (NOVOLOG) 1 VIAL SQ ONE (07:33)
[2023-04-07] MEDS ORDERED: INSULIN (LEVEMIR) 100 UNITS/ML UNITS SQ ONE (07:33)
[2023-04-07 08:02] LABS: HEMATOCRIT 28.2 % (35.4-49); MCH 26.4 pg (25.7-33.7); MCHC 31.9 g/dl (32.0-35.9); MEAN CELL VOLUME 82.9 fl (80-96); MEAN PLT VOLUME 8.1 fl (7.5-11.1); PLATELET COUNT 349 10^3/uL (134-434)
[2023-04-07] MEDS: NIFEdipine E.R. 30 MG TABLET PO SCH (09:33)
[2023-04-07] MEDS: ASPIRIN COATED 81 MG TABLET.EC PO SCH (09:33)
[2023-04-07] MEDS: LACTOBACILLUS ACIDOPHILUS 1 TABLET PO SCH ×2 (09:34→21:28)
[2023-04-07] MEDS: ENALAPRIL MALEATE 5 MG TABLET PO SCH (09:34)
[2023-04-07] MEDS: INSULIN (LEVEMIR) 100 UNITS/ML UNITS SQ SCH (21:32)
[2023-04-08] MEDS: NAFCILLIN - 2 GM in DEXTROSE 5%-WATER 100 ML IVPB SCH ×6 (01:22→21:30)
[2023-04-08] MEDS: hydrALAZINE HCL 50 MG TABLET (FP) PO SCH ×3 (06:25→21:31)
[2023-04-08] MEDS: INSULIN SLIDING SCALE (NOVOLOG) 1 VIAL SQ SCH ×3 (06:26→17:11)
[2023-04-08] MEDS: HEPARIN INFUSION - 25,000 UNITS/500 ML INFUS.BAG IVPB SCH (06:33)
[2023-04-08 07:29] LABS: HEMATOCRIT 27.3 % (35.4-49); HEMOGLOBIN 8.7 GM/dL (11.7-16.9); MCH 26.5 pg (25.7-33.7); MEAN CELL VOLUME 82.7 fl (80-96); MEAN PLT VOLUME 8.2 fl (7.5-11.1); PLATELET COUNT 361 10^3/uL (134-434); RDW 16.7 % (11.9-15.9); WHITE BLOOD COUNT 9.5 K/mm3 (4.0-10.0)
[2023-04-08 08:18] LABS: CHLORIDE 92 mmol/L (98-107); POTASSIUM 3.4 mmol/L (3.5-5.1); SODIUM 131 mmol/L (136-145)
[2023-04-08 08:20] LABS: ANION GAP 14 MMOL/L (8-16); BLOOD UREA NITROGEN 45.3 mg/dL (7-18); CALCIUM 7.4 mg/dL (8.5-10.1); CO2 25 mmol/L (21-32); GLUCOSE,RANDOM 203 mg/dL (74-106)
[2023-04-08 08:28] LABS: CREATININE 11.1 mg/dL (0.55-1.3)
[2023-04-08 09:19] LABS: HEMATOCRIT 26.5 % (35.4-49); HEMOGLOBIN 8.8 GM/dL (11.7-16.9); MCH 26.9 pg (25.7-33.7); MCHC 33.3 g/dl (32.0-35.9); MEAN CELL VOLUME 80.9 fl (80-96); MEAN PLT VOLUME 7.7 fl (7.5-11.1); PLATELET COUNT 331 10^3/uL (134-434); RBC 3.28 M/mm3 (4.00-5.60); RDW 16.8 % (11.9-15.9); WHITE BLOOD COUNT 10.1 K/mm3 (4.0-10.0)
[2023-04-08] MEDS ORDERED: SODIUM CHLORIDE 250 ML IV PRN (10:34)
[2023-04-08] MEDS ORDERED: EPOETIN ALFA-EPBX 10,000 UNIT/ML VIAL SQ ONE (11:30)
[2023-04-08] MEDS: ASPIRIN COATED 81 MG TABLET.EC PO SCH (14:26)
[2023-04-08] MEDS: NIFEdipine E.R. 30 MG TABLET PO SCH (14:26)
[2023-04-08] MEDS: ENALAPRIL MALEATE 5 MG TABLET PO SCH (14:26)
[2023-04-08] MEDS: LACTOBACILLUS ACIDOPHILUS 1 TABLET PO SCH ×2 (14:28→21:31)
[2023-04-08] MEDS: INSULIN (LEVEMIR) 100 UNITS/ML UNITS SQ SCH (21:31)
[2023-04-09] MEDS: HEPARIN INFUSION - 25,000 UNITS/500 ML INFUS.BAG IVPB SCH ×2 (00:59→17:38)
[2023-04-09] MEDS: NAFCILLIN - 2 GM in DEXTROSE 5%-WATER 100 ML IVPB SCH ×6 (01:14→21:52)
[2023-04-09] MEDS: hydrALAZINE HCL 50 MG TABLET (FP) PO SCH ×3 (05:26→21:53)
[2023-04-09] MEDS: INSULIN SLIDING SCALE (NOVOLOG) 1 VIAL SQ SCH ×3 (06:15→17:38)
[2023-04-09] MEDS: LACTOBACILLUS ACIDOPHILUS 1 TABLET PO SCH ×2 (11:03→21:53)
[2023-04-09] MEDS: NIFEdipine E.R. 30 MG TABLET PO SCH (11:03)
[2023-04-09] MEDS: ENALAPRIL MALEATE 5 MG TABLET PO SCH (11:04)
[2023-04-09] MEDS: ASPIRIN COATED 81 MG TABLET.EC PO SCH (11:04)
[2023-04-09] MEDS ORDERED: HEPARIN NA (PORCINE) 5,000 UNITS/ML 1ML VIAL IVPUSH PRN ×2 (16:24→16:25)
[2023-04-09] MEDS: INSULIN (LEVEMIR) 100 UNITS/ML UNITS SQ SCH (21:53)
[2023-04-10] MEDS: NAFCILLIN - 2 GM in DEXTROSE 5%-WATER 100 ML IVPB SCH ×7 (03:17→21:27)
[2023-04-10] MEDS: hydrALAZINE HCL 50 MG TABLET (FP) PO SCH ×3 (05:20→21:28)
[2023-04-10] MEDS: INSULIN SLIDING SCALE (NOVOLOG) 1 VIAL SQ SCH ×3 (06:00→17:54)
[2023-04-10] MEDS ORDERED: SODIUM CHLORIDE 250 ML IV PRN (07:57)
[2023-04-10] MEDS: ASPIRIN COATED 81 MG TABLET.EC PO SCH (09:36)
[2023-04-10] MEDS: LACTOBACILLUS ACIDOPHILUS 1 TABLET PO SCH ×2 (09:37→21:28)
[2023-04-10] MEDS: HEPARIN INFUSION - 25,000 UNITS/500 ML INFUS.BAG IVPB SCH ×2 (09:41→16:48)
[2023-04-10 10:44] LABS: CHLORIDE 93 mmol/L (98-107); POTASSIUM 3.5 mmol/L (3.5-5.1); SODIUM 134 mmol/L (136-145)
[2023-04-10 10:47] LABS: ANION GAP 13 MMOL/L (8-16); BLOOD UREA NITROGEN 33.2 mg/dL (7-18); CALCIUM 7.6 mg/dL (8.5-10.1); CO2 29 mmol/L (21-32); GLUCOSE,RANDOM 152 mg/dL (74-106)
[2023-04-10 10:55] LABS: CREATININE 9.8 mg/dL (0.55-1.3)
[2023-04-10] MEDS ORDERED: EPOETIN ALFA-EPBX 10,000 UNIT/ML VIAL IVPUSH ONE (11:45)
[2023-04-10] MEDS: ENALAPRIL MALEATE 5 MG TABLET PO SCH ×2 (15:43→16:04)
[2023-04-10] MEDS: NIFEdipine E.R. 30 MG TABLET PO SCH ×2 (15:44→16:03)
[2023-04-10] MEDS: INSULIN (LEVEMIR) 100 UNITS/ML UNITS SQ SCH (21:29)
[2023-04-11] MEDS: NAFCILLIN - 2 GM in DEXTROSE 5%-WATER 100 ML IVPB SCH ×3 (01:05→09:40)
[2023-04-11 03:35] VITALS: RESP 18
[2023-04-11] MEDS: hydrALAZINE HCL 50 MG TABLET (FP) PO SCH (05:40)
[2023-04-11] MEDS: ASPIRIN COATED 81 MG TABLET.EC PO SCH (09:38)
[2023-04-11] MEDS: NIFEdipine E.R. 30 MG TABLET PO SCH (09:38)
[2023-04-11] MEDS: ENALAPRIL MALEATE 5 MG TABLET PO SCH (09:39)
[2023-04-11] MEDS: LACTOBACILLUS ACIDOPHILUS 1 TABLET PO SCH (09:39)
[2023-04-11] MEDS: INSULIN SLIDING SCALE (NOVOLOG) 1 VIAL SQ SCH (11:19)
[2023-04-11 12:44] VITALS: BP 157/77; PULSE 77; TEMP 98.7
== END 2023-04-11 13:19 | disposition short-term general hospital (02) | DRG 871 ==
LOC: JER 13:52 → JERBED 15:35 → J4S 22:36
PROVIDERS: ADMIT Internal Medicine; ATTEND Internal Medicine
PROC: 5A1D70Z Performance of Urinary Filtration, Intermittent, Less than 6 Hours Per Day (ICD-10-PCS; principal; 2023-04-10)
DX: A41.01 Sepsis due to Methicillin susceptible Staphylococcus aureus (principal); G06.2 Extradural and subdural abscess, unspecified; I21.4 Non-ST elevation (NSTEMI) myocardial infarction; N18.6 End stage renal disease; Z68.41 Body mass index [BMI] 40.0-44.9, adult; I12.0 Hypertensive chronic kidney disease with stage 5 chronic kidney disease or end stage renal disease; E11.22 Type 2 diabetes mellitus with diabetic chronic kidney disease; E66.01 Morbid (severe) obesity due to excess calories; E78.5 Hyperlipidemia, unspecified; Z99.2 Dependence on renal dialysis; D72.829 Elevated white blood cell count, unspecified; E87.5 Hyperkalemia
CPT/HCPCS: 0241U-QW; 36415; 70492-TC; 71045-TC-FY; 72141-TC; 73630-TC-RT-FY; 80048; 80053; 82272; 82803; 82962; 83605; 83735; 84484; 85025; 85027; 85610; 85651; 85730; 86140; 86803; 87040; 87186; 87340; 93005; 93010; 93306-TC; 97116-GP; 97162-GP; 99285-25; G0480; J1644; Q5106; Q9967

== ENCOUNTER 2024-01-22 05:09 | Inpatient (IN) | payer OTHER ==
[2024-01-17 13:28] VITALS: BMI 39.8
[2024-01-22] MEDS ORDERED: LIDOCAINE HCL 1%, 10 MG/ML (20ML VIAL) ONE (07:27)
[2024-01-22 07:40] LABS: INR 1.86 (0.83-1.09); PROTHROMBIN TIME (PATIENT) 21.4 SEC (9.7-13.0)
[2024-01-22 07:43] LABS: ACTIVATED PTT 33.1 SECONDS (25.2-36.5)
[2024-01-22] MEDS ORDERED: FENTANYL CITRATE/PF 50 MCG/ML VIAL ONE ×5 (07:58→11:06)
[2024-01-22] MEDS ORDERED: MIDAZOLAM HCL 2 MG/2 ML SINGLE DOSE VIAL ONE ×3 (07:58→08:32)
[2024-01-22] MEDS ORDERED: PROPOFOL 20 ML ONE (08:06)
[2024-01-22] MEDS: AMPICILLIN SODIUM 2 GM VIAL IVPB ONE (08:09)
[2024-01-22] MEDS: SODIUM CHLORIDE 1,000 ML IV SCH (08:45)
[2024-01-22] MEDS ORDERED: ACETAMINOPHEN 325 MG TABLET (FP) PO PRN (08:57)
[2024-01-22] MEDS: metoPROLOL SUCCINATE 25 MG TAB.SR.24H (FP) PO SCH (10:00)
[2024-01-22] MEDS: ASPIRIN 81 MG CHEWABLE TABLETS PO SCH (10:00)
[2024-01-22] MEDS: LOSARTAN POTASSIUM 25 MG TABLET PO SCH (10:00)
[2024-01-22] MEDS: CLOPIDOGREL BISULFATE 75 MG TABLET (FP) PO SCH (10:00)
[2024-01-22] MEDS: PANTOPRAZOLE 40 MG TABLET PO SCH (10:00)
[2024-01-22] MEDS: AMPICILLIN NA/SULBACTAM NA 3 GM in DEXTROSE 5%-WATER 100 ML IVPB SCH (10:19)
[2024-01-22] MEDS ORDERED: SODIUM CHLORIDE 250 ML IV PRN (13:45)
[2024-01-22 14:02] VITALS: RESP 18
[2024-01-22] MEDS: glipiZIDE 5 MG TABLET (FP) PO SCH (15:35)
[2024-01-22] MEDS: CALCIUM ACETATE 667 MG CAPSULE (FP) PO SCH ×2 (16:28→16:38)
[2024-01-22] MEDS: VANCOMYCIN/WATER FOR INJ (PEG) 1,000 MG/200 ML BAG IVPB ONE (16:38)
[2024-01-22] MEDS: INSULIN (NOVOLOG) ASPART 100 UNITS/ML 10ML VIAL SQ SCH (16:46)
[2024-01-22] MEDS: ATORVASTATIN CA 40 MG TABLET (FP) PO SCH (22:08)
[2024-01-23 10:47] LABS: BASO % 0.8 % (0-2.0); EOS % 13.8 % (0-4.5); HEMATOCRIT 28.6 % (35.4-49); HEMOGLOBIN 9.4 GM/dL (11.7-16.9); LYMPH % 10.3 % (8-40); MCH 28.9 pg (25.7-33.7); MCHC 32.8 g/dl (32.0-35.9); MEAN CELL VOLUME 87.9 fl (80-96); MEAN PLT VOLUME 7.9 fl (7.5-11.1); MONO % 11.2 % (3.8-10.2); NEUT % 63.9 % (42.8-82.8); PLATELET COUNT 189 10^3/uL (134-434); RBC 3.25 M/mm3 (4.00-5.60); RDW 16.1 % (11.9-15.9); WHITE BLOOD COUNT 10.3 K/mm3 (4.0-10.0)
[2024-01-23 11:05] LABS: CHLORIDE 105 mmol/L (98-107); POTASSIUM 4.7 mmol/L (3.5-5.1); SODIUM 136 mmol/L (136-145)
[2024-01-23 11:07] LABS: CALCIUM 7.7 mg/dL (8.5-10.1)
[2024-01-23 11:08] LABS: ALBUMIN 2.1 g/dl (3.4-5.0); ANION GAP 8 mmol/L (4-13); BLOOD UREA NITROGEN 42.1 mg/dL (7-18); CO2 23 mmol/L (21-32); GLUCOSE,RANDOM 156 mg/dL (74-106)
[2024-01-23 11:10] LABS: INR 1.51 (0.83-1.09); PROTHROMBIN TIME (PATIENT) 17.5 SEC (9.7-13.0)
[2024-01-23 11:11] LABS: SGOT/AST 17 U/L (15-37); SGPT/ALT 13 U/L (13-61)
[2024-01-23 11:13] LABS: BILIRUBIN,TOTAL 0.3 mg/dL (0.2-1)
[2024-01-23 11:14] LABS: ALK PHOS 62 U/L (45-117); CREATININE 9.8 mg/dL (0.55-1.3)
[2024-01-23] MEDS: VANCOMYCIN/WATER FOR INJ (PEG) 1,000 MG/200 ML BAG IVPB ONE (16:42)
[2024-01-23] MEDS: WARFARIN NA 3 MG TABLET PO SCH (17:04)
[2024-01-24 08:35] LABS: BASO % 1.1 % (0-2.0); HEMATOCRIT 30.8 % (35.4-49); HEMOGLOBIN 9.7 GM/dL (11.7-16.9); LYMPH % 10.4 % (8-40); MCH 28.1 pg (25.7-33.7); MCHC 31.5 g/dl (32.0-35.9); MONO % 12.9 % (3.8-10.2); NEUT % 62.6 % (42.8-82.8); PLATELET COUNT 203 10^3/uL (134-434); RBC 3.46 M/mm3 (4.00-5.60); RDW 15.8 % (11.9-15.9); WHITE BLOOD COUNT 8.7 K/mm3 (4.0-10.0)
[2024-01-24 08:39] LABS: INR 1.42 (0.83-1.09); PROTHROMBIN TIME (PATIENT) 16.4 SEC (9.7-13.0)
[2024-01-24 08:49] LABS: POTASSIUM 4.1 mmol/L (3.5-5.1)
[2024-01-24 09:01] LABS: ALBUMIN 2.2 g/dl (3.4-5.0); CREATININE 7.3 mg/dL (0.55-1.3)
[2024-01-24 09:02] LABS: BILIRUBIN,TOTAL 0.4 mg/dL (0.2-1); TOT PROT 6.4 g/dl (6.4-8.2)
[2024-01-24] MEDS: oxyCODONE HCL 5 MG TABLET PO PRN (12:37)
[2024-01-25 08:54] LABS: HEMATOCRIT 32.2 % (35.4-49); HEMOGLOBIN 10.4 GM/dL (11.7-16.9); MCH 28.5 pg (25.7-33.7); MCHC 32.2 g/dl (32.0-35.9); MEAN CELL VOLUME 88.5 fl (80-96); MEAN PLT VOLUME 7.9 fl (7.5-11.1); PLATELET COUNT 236 10^3/uL (134-434); RBC 3.64 M/mm3 (4.00-5.60); RDW 16.3 % (11.9-15.9)
[2024-01-25 09:02] LABS: INR 1.48 (0.83-1.09); PROTHROMBIN TIME (PATIENT) 17.1 SEC (9.7-13.0)
[2024-01-25 09:12] LABS: CHLORIDE 100 mmol/L (98-107); POTASSIUM 4.4 mmol/L (3.5-5.1); SODIUM 136 mmol/L (136-145)
[2024-01-25 09:21] LABS: CALCIUM 8.4 mg/dL (8.5-10.1)
[2024-01-25 09:22] LABS: ANION GAP 12 mmol/L (4-13); CO2 25 mmol/L (21-32); GLUCOSE,RANDOM 145 mg/dL (74-106)
[2024-01-25 09:27] LABS: CREATININE 8.7 mg/dL (0.55-1.3)
[2024-01-25] MEDS ORDERED: SODIUM CHLORIDE 250 ML IV PRN (09:29)
[2024-01-25] MEDS: EPOETIN ALFA-EPBX 10,000 UNIT/ML VIAL SQ ONE (10:35)
[2024-01-25] MEDS: AMPICILLIN NA/SULBACTAM NA 3 GM in DEXTROSE 5%-WATER 100 ML IVPB SCH (13:58)
[2024-01-26] MEDS: DOCUSATE SODIUM 100 MG CAPSULE (FP) PO ONE (08:59)
[2024-01-26 09:48] LABS: BASO % 1.8 % (0-2.0); EOS % 11.8 % (0-4.5); HEMATOCRIT 30.5 % (35.4-49); HEMOGLOBIN 9.9 GM/dL (11.7-16.9); LYMPH % 14.8 % (8-40); MCH 28.6 pg (25.7-33.7); MCHC 32.4 g/dl (32.0-35.9); MEAN CELL VOLUME 88.3 fl (80-96); MEAN PLT VOLUME 7.8 fl (7.5-11.1); MONO % 12.9 % (3.8-10.2); NEUT % 58.7 % (42.8-82.8); PLATELET COUNT 244 10^3/uL (134-434); RBC 3.45 M/mm3 (4.00-5.60); RDW 16.5 % (11.9-15.9); WHITE BLOOD COUNT 6.9 K/mm3 (4.0-10.0)
[2024-01-26 09:51] LABS: INR 1.66 (0.83-1.09); PROTHROMBIN TIME (PATIENT) 19.2 SEC (9.7-13.0)
[2024-01-26 10:10] LABS: POTASSIUM 4.1 mmol/L (3.5-5.1)
[2024-01-26 10:17] LABS: CALCIUM 7.8 mg/dL (8.5-10.1)
[2024-01-26 10:18] LABS: ALBUMIN 2.1 g/dl (3.4-5.0); CREATININE 6.5 mg/dL (0.55-1.3)
[2024-01-26 10:19] LABS: TOT PROT 6.1 g/dl (6.4-8.2)
[2024-01-26 10:20] LABS: BILIRUBIN,TOTAL 0.4 mg/dL (0.2-1)
[2024-01-26] MEDS: VANCOMYCIN/WATER FOR INJ (PEG) 1,000 MG/200 ML BAG IVPB ONE (11:51)
[2024-01-26] MEDS: WARFARIN NA 2 MG TABLET PO ONE (17:21)
[2024-01-26] MEDS: SENNOSIDES 8.6MG TABLET (FP) PO PRN (17:24)
[2024-01-26] MEDS ORDERED: SODIUM CHLORIDE 250 ML IV PRN (23:00)
[2024-01-27 12:52] LABS: INR 1.94 (0.83-1.09); PROTHROMBIN TIME (PATIENT) 22.4 SEC (9.7-13.0)
[2024-01-27] MEDS ORDERED: CEFAZOLIN 2 GM in DEXTROSE 5%-WATER - 50 ML IVPB ONE (15:00)
[2024-01-27] MEDS ORDERED: oxyCODONE HCL 5 MG TABLET PO PRN (15:35)
[2024-01-27] MEDS: CEFAZOLIN SODIUM 2 GM in DEXTROSE 5%-WATER 100 ML IVPB ONE (17:04)
[2024-01-27 18:52] LABS: HEMATOCRIT 32.3 % (35.4-49); HEMOGLOBIN 10.1 GM/dL (11.7-16.9); MCH 27.9 pg (25.7-33.7); MCHC 31.4 g/dl (32.0-35.9); MEAN PLT VOLUME 8.3 fl (7.5-11.1); PLATELET COUNT 277 10^3/uL (134-434); RBC 3.63 M/mm3 (4.00-5.60); RDW 16.4 % (11.9-15.9); WHITE BLOOD COUNT 8.6 K/mm3 (4.0-10.0)
[2024-01-27 19:46] LABS: CALCIUM 8.2 mg/dL (8.5-10.1); CHLORIDE 100 mmol/L (98-107); POTASSIUM 4.7 mmol/L (3.5-5.1); SODIUM 130 mmol/L (136-145)
[2024-01-27 19:47] LABS: BLOOD UREA NITROGEN 35.9 mg/dL (7-18); GLUCOSE,RANDOM 156 mg/dL (74-106)
[2024-01-27 19:48] LABS: ANION GAP 5 mmol/L (4-13); CO2 25 mmol/L (21-32)
[2024-01-27 19:53] LABS: CREATININE 9.2 mg/dL (0.55-1.3)
[2024-01-27] MEDS: EPOETIN ALFA-EPBX 10,000 UNIT/ML VIAL SQ ONE (20:25)
[2024-01-27] MEDS: oxyCODONE HCL 5 MG TABLET PO PRN (21:22)
[2024-01-28] MEDS ORDERED: INSULIN (LEVEMIR) 100 UNITS/ML UNITS SQ ONE (06:52)
[2024-01-28 08:07] VITALS: BP 128/62; PULSE 76; TEMP 98
[2024-01-28] MEDS: POLYETHYLENE GLYCOL (HEALTHYLAX) 3350 17 GM PACKET PO SCH (10:04)
[2024-01-28] MEDS: GENTAMICIN SO4 0.1% TOPICAL OINTMENT 15 GM/TUBE TUBE TP SCH (12:06)
[2024-01-28 13:08] LABS: INR 2.04 (0.83-1.09); PROTHROMBIN TIME (PATIENT) 23.5 SEC (9.7-13.0)
== END 2024-01-28 14:54 | disposition home health service (06) | DRG 617 ==
LOC: JASU-SURG 05:09 → J2C 08:53 → J6S 14:17
PROVIDERS: ADMIT Surgery; ATTEND Internal Medicine
PROC: 0Y6S0Z1 Detachment at Left 2nd Toe, High, Open Approach (ICD-10-PCS; principal; 2024-01-22 08:00)
PROC: 5A1D70Z Performance of Urinary Filtration, Intermittent, Less than 6 Hours Per Day (ICD-10-PCS; 2024-01-27)
DX: E11.69 Type 2 diabetes mellitus with other specified complication (principal); I12.0 Hypertensive chronic kidney disease with stage 5 chronic kidney disease or end stage renal disease; M86.9 Osteomyelitis, unspecified; Z68.41 Body mass index [BMI] 40.0-44.9, adult; E11.40 Type 2 diabetes mellitus with diabetic neuropathy, unspecified; N18.6 End stage renal disease; Z99.2 Dependence on renal dialysis; E78.5 Hyperlipidemia, unspecified; E66.01 Morbid (severe) obesity due to excess calories; E87.5 Hyperkalemia
CPT/HCPCS: 36415; 80048; 80053; 82010; 82962; 84132; 85025; 85027; 85610; 85730; 86140; 86704; 86803; 87070; 87075; 87076; 87186; 87205; 87340; 87517; 88305-TC; 88311-TC; 93005; 93010; 94760; 97116-GP; G0480; Q5106

== ENCOUNTER 2024-04-26 09:34 | Emergency (ER) | payer OTHER ==
[2024-04-26 09:45] VITALS: BP 114/54; PULSE 72; RESP 20; TEMP 98.4; BMI 40.2
[2024-04-26] MEDS ORDERED: DIPHTH,PERTUSS(ACELL),TET 0.5 ML DISP.SYRIN IM ONE (10:53)
[2024-04-26] MEDS ORDERED: AMOX TR/POT CLAV 875MG/125MG TABLETS (FP) ONE (10:59)
[2024-04-26] MEDS: AMOX TR/POT CLAV 875MG/125MG TABLETS (FP) PO ONE (11:00)
[2024-04-26] MEDS: DIPHTH,PERTUSS(ACELL),TET 0.5 ML DISP.SYRIN IM ONE (11:01)
== END 2024-04-26 11:02 | disposition home or self-care (01) ==
LOC: JERFT 09:34
PROC: 3E0234Z Introduction of Serum, Toxoid and Vaccine into Muscle, Percutaneous Approach (ICD-10-PCS; principal; 2024-04-26)
DX: S91.331A Puncture wound without foreign body, right foot, initial encounter (principal); X58.XXXA Exposure to other specified factors, initial encounter; Z23 Encounter for immunization
CPT/HCPCS: 90715; 99284-25

== ENCOUNTER 2024-11-02 10:36 | Emergency (ER) | payer OTHER ==
[2024-11-02 11:00] VITALS: BP 126/71; PULSE 79; RESP 20; TEMP 97.5; BMI 28.3
[2024-11-02] MEDS: SODIUM CHLORIDE 1,000 ML IV STA (12:15)
[2024-11-02 12:33] LABS: BASO % 0.8 % (0-2.0); EOS % 3.6 % (0-4.5); HEMOGLOBIN 14.4 GM/dL (11.7-16.9); LYMPH % 15.8 % (8-40); MCH 28.8 pg (25.7-33.7); MCHC 31.2 g/dl (32.0-35.9); MEAN CELL VOLUME 92.2 fl (80-96); MEAN PLT VOLUME 8.1 fl (7.5-11.1); MONO % 7.9 % (3.8-10.2); NEUT % 71.9 % (42.8-82.8); PLATELET COUNT 184 10^3/uL (134-434); RBC 4.99 M/mm3 (4.00-5.60); RDW 16.2 % (11.9-15.9); WHITE BLOOD COUNT 8.2 K/mm3 (4.0-10.0)
[2024-11-02 12:45] LABS: CHLORIDE 105 mmol/L (98-107); POTASSIUM 5.3 mmol/L (3.5-5.1); SODIUM 134 mmol/L (136-145)
[2024-11-02 12:47] LABS: CALCIUM 8.9 mg/dL (8.5-10.1)
[2024-11-02 12:48] LABS: ALBUMIN 3.6 g/dl (3.4-5.0); ANION GAP 10 mmol/L (4-13); BLOOD UREA NITROGEN 62.6 mg/dL (7-18); CO2 18 mmol/L (21-32); GLUCOSE,RANDOM 216 mg/dL (74-106); MAGNESIUM 2.6 mg/dL (1.8-2.4)
[2024-11-02 12:51] LABS: SGOT/AST 30 U/L (15-37); SGPT/ALT 33 U/L (13-61)
[2024-11-02 12:52] LABS: BILIRUBIN,TOTAL 0.3 mg/dL (0.2-1); TOT PROT 7.6 g/dl (6.4-8.2)
[2024-11-02 12:53] LABS: ALK PHOS 108 U/L (45-117); CREATININE 13.4 mg/dL (0.55-1.3)
[2024-11-02] MEDS: SODIUM CHLORIDE 500 ML IV STA (13:55)
[2024-11-02] MEDS ORDERED: SODIUM ZIRCONIUM CYCLOSILICATE (LOKELMA) 10 GM PACKET ONE (14:30)
[2024-11-02] MEDS: SODIUM ZIRCONIUM CYCLOSILICATE (LOKELMA) 5 GM PACKET PO ONE (14:36)
== END 2024-11-02 14:36 | disposition home or self-care (01) ==
LOC: JER 10:36
DX: R19.7 Diarrhea, unspecified (principal)
CPT/HCPCS: 36415; 80053; 83605; 83690; 83735; 85025; 93005; 93010; 99284-25

== ENCOUNTER 2025-01-05 12:47 | Day surgery (SDC) | payer OTHER ==
[2025-01-05 13:21] LABS: BASO % 1.2 % (0-2.0); EOS % 4.1 % (0-4.5); HEMATOCRIT 42.2 % (35.4-49); HEMOGLOBIN 13.4 GM/dL (11.7-16.9); LYMPH % 16.7 % (8-40); MCH 28.9 pg (25.7-33.7); MCHC 31.9 g/dl (32.0-35.9); MEAN CELL VOLUME 90.6 fl (80-96); MEAN PLT VOLUME 7.9 fl (7.5-11.1); MONO % 10.2 % (3.8-10.2); NEUT % 67.8 % (42.8-82.8); PLATELET COUNT 199 10^3/uL (134-434); RBC 4.65 M/mm3 (4.00-5.60); RDW 15.1 % (11.9-15.9); WHITE BLOOD COUNT 7.3 K/mm3 (4.0-10.0)
[2025-01-05 13:30] LABS: INR 1.46 (0.83-1.09); PROTHROMBIN TIME (PATIENT) 15.9 SEC (9.7-13.0)
[2025-01-05 13:47] LABS: CHLORIDE 100 mmol/L (98-107); POTASSIUM 4.9 mmol/L (3.5-5.1); SODIUM 138 mmol/L (136-145)
[2025-01-05 13:50] LABS: CALCIUM 9.2 mg/dL (8.5-10.1)
[2025-01-05 13:51] LABS: ALBUMIN 3.6 g/dl (3.4-5.0); ANION GAP 9 mmol/L (4-13); BLOOD UREA NITROGEN 46.6 mg/dL (7-18); CO2 29 mmol/L (21-32); GLUCOSE,RANDOM 153 mg/dL (74-106)
[2025-01-05 13:54] LABS: SGOT/AST 21 U/L (15-37); SGPT/ALT 20 U/L (13-61)
[2025-01-05 13:56] LABS: BILIRUBIN,TOTAL 0.6 mg/dL (0.2-1); TOT PROT 7.4 g/dl (6.4-8.2)
[2025-01-05 14:01] LABS: ALK PHOS 83 U/L (45-117); CREATININE 10.2 mg/dL (0.55-1.3)
[2025-01-05] MEDS ORDERED: HEPARIN NA (PORCINE) 5,000 UNITS/ML 1ML VIAL ONE ×2 (14:21→14:36)
[2025-01-05] MEDS ORDERED: MIDAZOLAM HCL 2 MG/2 ML SINGLE DOSE VIAL ONE ×2 (14:30→14:38)
[2025-01-05] MEDS: MIDAZOLAM HCL 2 MG/2 ML SINGLE DOSE VIAL IVPUSH ONE ×2 (14:33→14:55)
[2025-01-05] MEDS: HEPARIN NA (PORCINE) 5,000 UNITS/ML 1ML VIAL SQ ONE (14:39)
[2025-01-05 14:58] VITALS: RESP 12
[2025-01-05 15:57] VITALS: BP 97/62; PULSE 73
== END 2025-01-05 15:45 | disposition home or self-care (01) ==
LOC: JRADIR 12:47
PROVIDERS: ATTEND Surgery
PROC: 037C3ZZ Dilation of Left Radial Artery, Percutaneous Approach (ICD-10-PCS; principal; 2025-01-05)
DX: T82.858A Stenosis of other vascular prosthetic devices, implants and grafts, initial encounter (principal); I12.0 Hypertensive chronic kidney disease with stage 5 chronic kidney disease or end stage renal disease; E11.22 Type 2 diabetes mellitus with diabetic chronic kidney disease; N18.6 End stage renal disease; Z99.2 Dependence on renal dialysis
CPT/HCPCS: 36415; 37248; 75820-TC-FY; 76000-TC-FY; 76998-TC; 80053; 85025; 85610; C1725; C1769; C1887; C1894; J1644